=== PATIENT | male | born 1940 | race Caucasian/White ===

== ENCOUNTER 2018-11-13 07:29 | Inpatient (IN) | payer MEDICARE, MEDICAID ==
[2018-11-13 07:53] LABS: #Eosinphils 0.1 thou/uL (0.0-0.7); #Lymphocytes 1.1 thou/uL (1.20-3.40); #Monocytes 0.7 thou/uL (0.11-0.59); #Neutrophils 8.6 thou/uL (1.40-6.50); %Basophils 0.1 % (0.0-1.0); %Eosinophils 1.4 % (0.0-10.0); %Lymphocytes 10.4 % (21.0-51.0); %Monocytes 6.4 % (0.0-10.0); %Neutrophils 81.7 % (42.0-75.0); Hemoglobin 12.8 g/dL (14.0-18.0); Mean Corpuscular HGB CONC 32.8 g/dL (32.0-36.0); Mean Corpuscular Hemoglobin 31.4 pg (27.0-31.0); Mean Corpuscular Volume 95.7 fL (78.0-98.0); Mean Platelet Volume 7.9 fL (7.4-10.4); Platelet Count 210 thou/uL (130-400); RBC Distribution Width 13.8 % (11.5-14.5); Red Blood Cell (RBC) Count 4.09 mill/uL (4.70-6.10); White Blood Cell (WBC) Count 10.5 thou/uL (4.8-10.8)
[2018-11-13 08:00] LABS: PTT 47.1 SEC (22.9-36.1); Prothrombin Time 22.2 SEC (12.0-14.7)
[2018-11-13 08:17] LABS: ALT (SGPT) 22 U/L (8-55); AST (SGOT) 27 U/L (5-34); Albumin 3.1 g/dL (3.4-4.8); Alkaline Phosphatase 58 U/L (40-150); Anion Gap 14 mmol/L (10-20); BUN (Urea Nitrogen) 38 mg/dL (8.4-25.7); Bilirubin, Total 0.5 mg/dL (0.2-1.2); Calc. Creatinine Clearance 0 mL/min (70-130); Calcium 9.1 mg/dL (7.8-10.44); Carbon Dioxide 18 mmol/L (23-31); Chloride 116 mmol/L (98-107); Estimated GFR-MDRD 39; Globulin 3.3 g/dL (2.4-3.5); Glucose 95 mg/dL (83-110); Potassium 4.7 mmol/L (3.5-5.1); Protein, Total 6.4 g/dL (5.8-8.1); Sodium 143 mmol/L (136-145)
--- NOTE | 2018-11-13 08:19 | CT ---
EXAM: CT angiogram of the head including 3-D rendering: HISTORY: Prior CVA, A. fib, cannot talk or follow commands, wake up stroke COMPARISON: None FINDINGS: Severe atrophy and chronic white matter ischemic change. Large old right posterior temporal and parietal infarct. There is adequate opacification of the intracranial arteries. Visualized vertebral and basilar arteries: Very small caliber left vertebral artery with some atheros clerotic calcific plaque of the right vertebral artery. Right and left intracranial internal carotid arteries: Extensive calcified plaque with at least mild- to-moderate generalized stenotic changes using [place] Criteria. Right and left Anterior and posterior cerebral arteries: Unremarkable. Right and left middle cerebral arteries: Unremarkable. No evidence for an M1 segment occlusion. No evidence for intracranial aneurysm. IMPRESSION: No evidence for an M1 segment occlusion. Other findings as above. EXAM: CT angiogram of the neck including 3-D rendering: HISTORY: Wake up stroke, cannot talk, not following commands COMPARISON: None FINDINGS: There is adequate opacification of the extracranial arterial tree. The origins of the right and left carotid and vertebral arteries demonstrate no significant stenosis. The origin of the left vertebral artery is off the aortic arch. Dominant right vertebral and smaller caliber left vertebral artery throughout. Right common, internal, and external carotid arteries:No hemodynamically significant stenotic disease or occlusion, several calcified plaques.. Left common, internal, and external carotid arteries:Calcified plaques without significant stenosis. Right and left vertebral arteries and basilar artery:No significant stenosis or occlusion. 2.1 cm diameter right thyroid nodule. IMPRESSION: No significant carotid, vertebral, or basilar artery stenosis or occlusive disease or other significa nt acute process. Atherosclerotic calcific plaque. Findings discussed with Dr. Ford in the emergency room at 8:14 AM CODE CR
--- NOTE | 2018-11-13 08:40 | CT ---
BRAIN CT WITHOUT IV CONTRAST: Date: 11/13/18 HISTORY: History of CVA. Atrial fibrillation. Wake up stroke. FINDINGS: Large, poorly defined, low attenuation focus in the right posterior temporal and parietal lobes, evid ence for large old infarct. Severe atrophy and chronic white matter ischemic change noted bilaterally . No mass or bleed. IMPRESSION: Large old right posterior temporal and parietal infarct. Very severe atrophy and chronic white matter ischemic change. No mass or bleed. Findings discussed with Dr. Ford in the ER at 0748 hours. CODE CR. POS: [facility]
--- NOTE | 2018-11-13 09:34 | RAD ---
Exam: Chest one view: HISTORY: Altered mental status, CVA, atrial fibrillation COMPARISON: None FINDINGS: Increased bronchovascular markings bilaterally particularly in the infrahilar and lower lobe regions, nonspecific. Possibilities include that of chronic change versus bilateral partial atelectasis or minimal pneumonitis. No confluent pneumonia or significant pleural effusion. IMPRESSION: Increased markings in the lower lung zones, nonspecific. Atherosclerosis of the aorta.
[2018-11-13] MEDS ORDERED: Aspirin 300 MG Suppository ONE (09:59)
[2018-11-13 10:41] LABS: Bilirubin Negative (Negative); Blood, Urine Trace (Negative); Clarity Clear (Clear); Glucose, Urine (Dipstick) Normal (Negative); Leukocyte Negative Leu/uL (Negative); Nitrite Negative (Negative); Protein, Urine (Dipstick) Negative (Neg-Trace); Squamous Epithelial 0-3 HPF (0-3); WBC/HPF 0-3 HPF (0-3)
[2018-11-13 10:43] LABS: Bacteria/HPF 1+ HPF (None Seen)
[2018-11-13] MEDS ORDERED: Acetaminophen 325 MG Suppository ONE (10:47)
[2018-11-13] MEDS ORDERED: Acetaminophen 650 MG Suppository ONE (10:47)
--- NOTE | 2018-11-13 11:56 | HP ---
PRIMARY CARE PHYSICIAN: [facility] admission. REASON FOR ADMISSION: Transferred from [facility] for altered mental status. HISTORY OF PRESENT ILLNESS: This is a 78-year-old male, who is currently not able to provide any history. He is nonverbal. He is confused. His is present, who provided some history. The patient had previously two strokes. The patient required initially rehabilitation and he only improved to walk with a walker. Subsequently, rehabilitation was discontinued, and the patient was kept in a retirement in [facility]. Over there, the patient was not able to get any physical therapy and that is why the patient is now wheelchair bound. As per the patient's , he was on regular heart healthy type of diet. The patient's also changed retirement, [employer] to a different new retirement in [facility]. Subsequently, the patient required recently admission at [facility]. The patient's was upset that she was not knowing that the patient's heart rate was irregular and fast, that was diagnosed when they made an appointment with Cardiology. Cardiology send him to [facility], where he was found with atrial fibrillation with RVR and required cardioversion, and subsequently, he was discharged to [facility]. The patient was on amiodarone, Eliquis, and metoprolol. He has underlying hypothyroidism and benign enlargement of prostate. Last night, the patient was seen normal up to his baseline level. He was conversing with the nurses over there at retirement last night, but this morning he was not able to communicate at all. He was not following any command and that is why he was sent to the ER. In the emergency room, the patient had a CT of brain, which showed large old right posterior temporal and parietal infarct with severe atrophy and chronic white matter ischemic changes. CT angiography was also unremarkable. The patient was not in any window period of tPA, and he was not a candidate for tPA. He was completely incoherent and that is why we are admitting this patient in the hospital. PAST MEDICAL HISTORY: Paroxysmal atrial fibrillation, recurrent CVA, vascular dementia, chronic kidney disease, hypothyroidism, dyslipidemia, hypertension, and benign enlargement of prostate. PAST SURGICAL HISTORY: Unable to review at this point. The patient is not able to provide any history. SOCIAL HISTORY: The patient is from retirement for last 5 years. He is bed bound. No history of alcohol, tobacco, or other illicit drug abuse. He is . His is present. ALLERGIES: NO KNOWN DRUG ALLERGIES. MEDICATIONS: Current home medications: 1. Amiodarone 200 mg daily. 2. Eliquis 5 mg twice daily. 3. Tessalon 100 mg q.4 hourly p.r.n. 4. Levothyroxine 50 mcg daily. 5. Metoprolol tartrate 100 mg twice daily. 6. Flomax 0.4 mg p.o. daily. REVIEW OF SYSTEMS: All review of systems tried to review with the patient, but unable to review at this point because of encephalopathy. PAST PSYCHIATRIC HISTORY: Reviewed and negative. FAMILY HISTORY: No strong family history of premature coronary artery disease, stroke, or cancer as per the patient's . EMERGENCY ROOM COURSE: The patient received aspirin rectally, IV fluid, and Tylenol 1 g. Additional information; while in the emergency room, the patient developed fever 101.8. Panculture was obtained and started on antibiotic therapy. PHYSICAL EXAMINATION: VITAL SIGNS: Currently, temperature 101.8, pulse 68, respiratory rate 20, blood pressure 133/77, and saturation 93% on room air. Weight 77.1 kg. GENERAL: The patient is completely disoriented. HEENT: Head, normocephalic and atraumatic. Eyes; pupils unequal in size, reactive to light. Left pupil is little bit pinpoint and left gaze deviation. ENT, oropharynx within normal limit. Moist mucous membranes. NECK: Supple. No meningeal signs of irritation. No JVD. LUNGS: Coarse breath sound in upper airways. No accessory muscles of respiration in use. CARDIAC: S1 and S2 regular. No murmur. No gallop. No rub. ABDOMEN: Soft. Bowel sounds present. Nontender. Nondistended. No organomegaly. No mass. No suprapubic tenderness. BACK: Unremarkable. No CVA tenderness. EXTREMITIES: Upper extremity, passive movement of all joints are normal, though contracture noted on the left side. Lower extremity, passive movement of all normal. No edema. Good distal pulsation with contracture on the left side. NEUROLOGIC: Unable to assess at this point. The patient is nonverbal. He has contracture on left side. He does not follow any commands. SKIN: No skin rash. HEMATOLOGIC SYSTEM: No lymphadenopathy. PSYCHIATRIC: Unable to assess. LABORATORY DATA: Significant labs; EKG showing normal sinus rhythm, left axis deviation. CBC; WBC 10.5, hemoglobin 12.8, and platelets 210. INR 2.0. BMP; sodium 143, potassium 4.7, chloride 116, carbon dioxide 18, anion gap 14, BUN 38, creatinine 1.71, glucose 95, calcium 9.1. LFT; AST 27, ALT 22, alkaline phosphatase 58, and albumin 3.1. Urinalysis unremarkable. ASSESSMENT AND PLAN: 1. Acute encephalopathy, multifactorial etiology. Rule out underlying sepsis given fever in the emergency room. The patient also has previous history of cerebrovascular accident and cerebrovascular accident needs to be ruled out. The patient may be little bit dehydrated and that is why he will need IV fluid. We will monitor while in hospital. 2. History of recurrent cerebrovascular accident, and at this time, we are also trying to rule out cerebrovascular accident. I am suspecting that current presentation is more towards infection etiology. Currently, CT of brain is just showing old stroke without any acute process. We will consult Neurology for their opinion. We will do MRI brain and echocardiography. 3. Fever, etiology uncertain. We will do blood culture and urine culture. Whereas, I am suspecting little bit aspiration and that is why I will start with Zosyn 3.375 g q.8 hourly. We will follow up on culture result. 4. Paroxysmal atrial fibrillation, currently in sinus rhythm, required cardioversion recently. He is on amiodarone and Eliquis as well as metoprolol, which we will continue while in hospital. 5. Oropharyngeal dysphagia. The patient will need speech therapy evaluation to decide about diet. 6. Benign enlargement of prostate. Continue Flomax 0.4 mg daily. 7. Hypothyroidism. Continue levothyroxine 50 mcg p.o. daily. 8. Chronic physical deconditioning. The patient is bed bound. The patient's is looking for another retirement because she is unhappy with the current retirement. senior risk manager will be consulted. 9. Acute/chronic kidney injury. We will give him IV fluid and we will repeat BMP tomorrow. 10. Deep venous thrombosis prophylaxis. The patient is already on Eliquis therapy. 11. Gastrointestinal prophylaxis. We will continue Pepcid 20 mg IV b.i.d. 12. Code status; I spoke with the patient's . The patient's wants him to be a full code and she is the surrogate decision maker. We will consult Palliative Care. 13. Vascular dementia. The patient has severe atrophy and chronic ischemic white matter changes as well as multiple stroke. His quality of life is very poor. We will consult Palliative Care for further discussion regarding goal of care. DISPOSITION PLAN: Based on clinical course, we are expecting the patient's stay in hospital more than 2 midnights. Plan of care discussed with the patient's at the bedside in the emergency room. Job ID: [id number]
[2018-11-13] MEDS ORDERED: Piperacillin/Tazobactam 3.375 GM VIAL ONE (12:54)
[2018-11-13] MEDS ORDERED: ISOVUE-370 76%-LOCM 1 ML ONE (12:55)
[2018-11-13] MEDS ORDERED: Ondansetron PF 4 MG/2 ML Vial IVP PRN (14:37)
[2018-11-13] MEDS ORDERED: Acetaminophen 325 MG TAB PO PRN ×2 (14:37→15:06)
[2018-11-13] MEDS ORDERED: Ondansetron ODT 4 MG TAB SL PRN (14:37)
[2018-11-13] MEDS ORDERED: Guaifenesin DM 100-10/5 ML UDCUP PO PRN (15:06)
[2018-11-13] MEDS ORDERED: Metoclopramide HCl 10 MG/2 ML VIAL IVP PRN (15:06)
[2018-11-13] MEDS ORDERED: Acetaminophen 650 MG Suppository PR PRN (15:06)
[2018-11-13] MEDS ORDERED: Bisacodyl 10 MG SUPP PR PRN (15:06)
[2018-11-13] MEDS ORDERED: Sodium Chloride 0.65% Nasal 44 ML BOT EA NARE PRN (15:06)
[2018-11-13] MEDS ORDERED: Labetalol HCl 100 MG/20 ML VIAL SLOW IVP PRN (15:06)
[2018-11-13] MEDS ORDERED: Cepastat Lozenges 1 LOZ PO PRN (15:06)
[2018-11-13] MEDS ORDERED: Loperamide HCl 2 MG CAP PO PRN (15:06)
[2018-11-13] MEDS ORDERED: Senokot S 8.6-50 MG TAB PO PRN (15:06)
[2018-11-13] MEDS ORDERED: hydrALAZINE 20 MG/ML VIAL SLOW IVP PRN (15:06)
[2018-11-13] MEDS ORDERED: Artificial Tears 18 DROP/0.9 ML EA EYE PRN (15:06)
[2018-11-13 15:15] VITALS: BMI 25.0
[2018-11-13] MEDS: Sodium Chloride 0.9% 1,000 ML IV SCH (16:25)
[2018-11-13] MEDS: Piperacillin/Tazobactam 2.25 GM in Sodium Chloride 0.9% 100 ML IVPB SCH (18:33)
[2018-11-13] MEDS: Metoprolol Tartrate 100 MG TAB PO SCH (20:24)
[2018-11-13] MEDS: Atorvastatin Calcium 40 MG TAB PO SCH (20:24)
[2018-11-13] MEDS: Apixaban 5 MG TAB PO SCH (20:24)
[2018-11-13] MEDS: Mirtazapine 15 MG TAB PO SCH (20:24)
[2018-11-14] MEDS: Piperacillin/Tazobactam 2.25 GM in Sodium Chloride 0.9% 100 ML IVPB SCH ×4 (00:52→18:13)
[2018-11-14 05:13] LABS: ALT (SGPT) 19 U/L (8-55); AST (SGOT) 16 U/L (5-34); Albumin 2.9 g/dL (3.4-4.8); Alkaline Phosphatase 52 U/L (40-150); Anion Gap 14 mmol/L (10-20); BUN (Urea Nitrogen) 34 mg/dL (8.4-25.7); Bilirubin, Total 0.6 mg/dL (0.2-1.2); Calc. Creatinine Clearance 38 mL/min (70-130); Calcium 8.6 mg/dL (7.8-10.44); Carbon Dioxide 17 mmol/L (23-31); Cardiac Risk 5.5 (Less than 4.5); Chloride 117 mmol/L (98-107); Cholesterol 122 mg/dl (< 200 Desired); Estimated GFR-MDRD 38; Globulin 2.8 g/dL (2.4-3.5); Glucose 73 mg/dL (83-110); HDL Cholesterol 22 mg/dL (>60 Neg Risk); LDL Cholesterol, Calculated 76 mg/dL; Potassium 4.3 mmol/L (3.5-5.1); Protein, Total 5.7 g/dL (5.8-8.1); Sodium 144 mmol/L (136-145); Triglycerides 119 mg/dL (Less than 150)
[2018-11-14 05:42] LABS: #Eosinphils 0.2 thou/uL (0.0-0.7); #Lymphocytes 1.8 thou/uL (1.20-3.40); #Monocytes 0.7 thou/uL (0.11-0.59); #Neutrophils 7.6 thou/uL (1.40-6.50); %Eosinophils 2.3 % (0.0-10.0); %Lymphocytes 17.1 % (21.0-51.0); %Monocytes 6.8 % (0.0-10.0); %Neutrophils 73.8 % (42.0-75.0); Hemoglobin 11.9 g/dL (14.0-18.0); Mean Corpuscular HGB CONC 33.9 g/dL (32.0-36.0); Mean Corpuscular Hemoglobin 32.3 pg (27.0-31.0); Mean Corpuscular Volume 95.3 fL (78.0-98.0); Mean Platelet Volume 7.9 fL (7.4-10.4); Platelet Count 192 thou/uL (130-400); Platelet Morphology Comment Appears Adequate; RBC Distribution Width 13.9 % (11.5-14.5); Red Blood Cell (RBC) Count 3.67 mill/uL (4.70-6.10); White Blood Cell (WBC) Count 10.3 thou/uL (4.8-10.8)
[2018-11-14] MEDS: Levothyroxine Sodium 50 MCG TAB PO SCH (06:09)
[2018-11-14] MEDS: Sodium Chloride 0.9% 1,000 ML IV SCH ×2 (06:09→13:20)
[2018-11-14] MEDS: Amiodarone 200 MG TAB PO SCH (08:17)
[2018-11-14] MEDS: Apixaban 5 MG TAB PO SCH (08:17)
[2018-11-14] MEDS: Famotidine 20 MG TAB PO SCH (08:18)
[2018-11-14] MEDS: Saccharomyces boulardii 250 MG CAP PO SCH (08:18)
[2018-11-14] MEDS: Multivit, Therapeutic 1 TAB PO SCH (08:18)
[2018-11-14] MEDS: Metoprolol Tartrate 100 MG TAB PO SCH ×2 (08:18→20:31)
[2018-11-14] MEDS: Tamsulosin HCl 0.4 MG CAP PO SCH (08:18)
[2018-11-14] MEDS: Famotidine/PF 20 mg/2ml Vial SLOW IVP SCH (08:19)
[2018-11-14] MEDS ORDERED: Prevnar 13-Val Conj/PF 0.5 ML SYRINGE IM ONE (09:00)
[2018-11-14] MEDS ORDERED: Aspirin 300 MG Suppository PR SCH (09:00)
--- NOTE | 2018-11-14 09:44 | PDOC.HOSPP ---
- Subjective Encounter Date: 11/14/18 Encounter Time: 07:00 non-verbal Subjective: Patient seen and examined. No overnight events, pt is overall remained same, I have updated to - Objective Vital Signs & Weight: Vital Signs (12 hours) Temp Pulse Resp BP Pulse Ox 11/14/18 07:34 99.4 F 64 20 121/67 97 11/14/18 04:00 98.9 F 71 19 154/89 H 94 L 11/13/18 23:41 98.4 F 70 18 136/104 H 92 L Weight Weight 174 lb 2 oz I&O: 11/13/18 11/14/18 11/15/18 06:59 06:59 06:59 Intake Total 1000 Balance 1000 Result Diagrams: 11/14/18 04:36 11/14/18 04:36 EKG Reviewed by me: Yes (nsr) Hospitalist ROS - Review of Systems ROS unobtainable: due to mental status - Medication Medications: Active Medications Generic Name Dose Route Start Last Admin Trade Name Freq PRN Reason Stop Dose Admin Amiodarone HCl 200 mg 11/14/18 09:00 11/14/18 08:17 Cordarone PO Not Given DAILY HERIBERTO Apixaban 5 mg 11/13/18 21:00 11/14/18 08:17 Eliquis PO Not Given BID HERIBERTO Aspirin 300 mg 11/14/18 09:00 11/14/18 08:19 Aspirin MA 300 mg DAILY HERIBERTO Administration Atorvastatin Calcium 40 mg 11/13/18 21:00 11/13/18 20:24 Lipitor PO Not Given HS HERIBERTO Famotidine 20 mg 11/14/18 09:00 11/14/18 08:19 Pepcid SLOW IVP 20 mg DAILY HERIBERTO Administration Famotidine 20 mg 11/14/18 09:00 11/14/18 08:18 Pepcid PO Not Given DAILY HERIBERTO Piperacillin Sod/Tazobactam 100 mls @ 200 mls/hr 11/13/18 19:00 11/14/18 06: 06 Sod 2.25 gm/ Sodium Chloride IVPB 100 mls 0100,0700,1300,1900 HERIBERTO Administration Sodium Chloride 1,000 mls @ 100 mls/hr 11/13/18 15:06 11/14/18 06:09 Normal Saline 0.9% IV 1,000 mls .Q10H HERIBERTO Administration Levothyroxine Sodium 50 mcg 11/14/18 06:00 11/14/18 06:09 Synthroid PO Not Given 0600 [facility] Metoprolol Tartrate 100 mg 11/13/18 21:00 11/14/18 08:18 Lopressor PO Not Given BID [facility] Mirtazapine 7.5 mg 11/13/18 21:00 11/13/18 20:24 Remeron PO Not Given HS [facility] Multivitamins 1 tab 11/14/18 09:00 11/14/18 08:18 Theragran PO Not Given DAILY [facility] Saccharomyces Boulardii 250 mg 11/14/18 09:00 11/14/18 08:18 Florastor PO Not Given DAILY [facility] Tamsulosin HCl 0.4 mg 11/14/18 09:00 11/14/18 08:18 Flomax PO Not Given DAILY HERIBERTO - Exam General Appearance: NAD, ill appearing Eye: PERRL, anicteric sclera ENT: normocephalic atraumatic, no oropharyngeal lesions ENT - other findings: gurguling sound Neck: supple, symmetric, no JVD, no thyromegaly Heart: RRR, no murmur, no gallops, no rubs Respiratory: no wheezes, no ronchi Respiratory - other findings: coarse sound+ Gastrointestinal: soft, non-tender, non-distended, normal bowel sounds Extremities: no cyanosis, no clubbing, no edema Skin: normal turgor, no lesions Neurological - other findings: unable to assess, due to encephalopathy Musculoskeletal - other findings: contracture from old stroke Psychiatric: not oriented Hosp A/P (1) Encephalopathy acute Code(s): G93.40 - ENCEPHALOPATHY, UNSPECIFIED Status: Acute Plan: multifactorial, rule out CVA, possible infection, (2) Fever Code(s): R50.9 - FEVER, UNSPECIFIED Status: Acute Plan: suspecting from aspiration pneumonitis (3) Anemia, normocytic normochromic Code(s): D64.9 - ANEMIA, UNSPECIFIED Status: Chronic (4) CKD (chronic kidney disease) stage 3, GFR 30-59 ml/min Code(s): N18.3 - CHRONIC KIDNEY DISEASE, STAGE 3 (MODERATE) Status: Chronic (5) Chronic anticoagulation Code(s): Z79.01 - COPY PREPARER (CURRENT) USE OF ANTICOAGULANTS Status: Chronic (6) Dementia Code(s): F03.90 - UNSPECIFIED DEMENTIA WITHOUT BEHAVIORAL DISTURBANCE Status: Chronic (7) Hemiparesis and other late effects of cerebrovascular accident Code(s): I69.359 - HEMIPLGA FOLLOWING CEREBRAL INFARCTION AFFECTING UNSP SIDE; I69.398 - OTHER SEQUELAE OF CEREBRAL INFARCTION Status: Chronic (8) PAF (paroxysmal atrial fibrillation) Code(s): I48.0 - PAROXYSMAL ATRIAL FIBRILLATION Status: Chronic (9) Physical deconditioning Code(s): R53.81 - OTHER MALAISE Status: Chronic - Plan old records reviewed/req, plan discussed w/ family, continue antibiotics, PT/OT , professor of social work, speech therapy, DVT proph w/SCDs Consults: Palliative Care spoke with and updated plan today MRI and echo as a part of work up to rule out CVA speech evaluation to decide diet if pass swallow evaluation continue empiric zosyn follow culture will need another [facility] placement as per medication reviewed as above symptomatic treatment
--- NOTE | 2018-11-14 11:23 | MRI ---
Brain MRI without contrast 11/14/2018 HISTORY: Wake up stroke, CVA, atrial fibrillation, TECHNIQUE: Multiplanar multisequence MR imaging of the brain obtained without contrast FINDINGS: There is a large area of restricted diffusion within the left MCA territory consistent with a left MCA infarction. This involves the insula on the left as well as a large portion of the left frontal lobe posteriorly, the left temporal lobe, in the left parietal lobe. There is cytotoxic edema in this region on the T2 imaging. This T2 imaging is markedly limited secondary to persistent patient motion artifact. Regional bone marrow signal intensity appears grossly unremarkable. There is cerebral volume loss with associated prominence of the CSF containing spaces. The gradient echo imaging demonstrates a few foci of blooming artifact scattered throughout the above -described left MCA infarction suggesting a degree of hemorrhagic conversion. This is seen just lateral to the posterior aspect of the left putamen, in the temporal region on image 7, and in the po sterior frontal region on image 18. There is diffuse cerebral volume loss with associated prominence of the CSF containing spaces. Periventricular, deep, and subcortical white matter T2 and F LAIR hyperintensity noted, evidence of significant small vessel disease. IMPRESSION: Large acute left MCA infarction with foci of internal blooming artifact suggesting associ ated hemorrhagic conversion. No significant mass effect seen at this time. Short-term follow-up CT advised.
--- NOTE | 2018-11-14 15:42 | CON ---
DATE OF TELEMEDICINE CONSULTATION: 11/14/2018, GRAY PEREZ CHIEF COMPLAINT: Acute deterioration of mental status. HISTORY OF PRESENT ILLNESS: The patient is unable to give any medical history. He is unresponsive, and per chart, the patient is nonverbal, confused, and apparently, that was not his baseline. He had 2 strokes in the past and required rehab and improved up to a level where he is walking with a walker and he is in a penitentiary and he is mostly wheelchair bound. He was last normal up to his baseline the day before this admission and suddenly became unresponsive and uncommunicative. He was brought to the ER. He has large old right posterior temporoparietal infarct with severe atrophy and chronic white matter changes. CTA was negative and he was not in a window for tPA and therefore no tPA was given. The patient was admitted being incoherent and unable to communicate. PAST MEDICAL HISTORY: 1. Atrial fibrillation. 2. Recurrent CVA. 3. Vascular dementia. 4. Chronic kidney disease. 5. Hypothyroidism. 6. Dyslipidemia. 7. Hypertension. 8. Benign prostatic hypertrophy. PAST SURGICAL HISTORY: As noted from the chart. There was no surgical history available. SOCIAL HISTORY: He lives at a penitentiary and he is bed bound or wheelchair bound. ALLERGIES: NO KNOWN DRUG ALLERGIES. MEDICATIONS: At home; 1. Amiodarone. 2. Eliquis. 3. Tessalon. 4. Levothyroxine. 5. Metoprolol. 6. Flomax. REVIEW OF SYSTEMS: Unobtainable. LABORATORY AND DIAGNOSTIC DATA: Current lab workup; white count 10.3, hemoglobin 11.9, hematocrit 35, platelets 192. PT 22.2, PTT 47.1, INR 2.0. Chemistry; sodium 144, potassium 4.3, chloride 117, BUN 34, creatinine 1.74, glucose 73. AST, ALT , and alkaline phosphatase within normal limits. Cholesterol lipid profile was also within normal limits. His MRI of the brain was completed today and it showed a large left MCA infarct with internal blooming artifact suggesting associated hemorrhagic conversion. No size of the hemorrhage was given at this time. His CT angiogram of the [place] was performed yesterday, also did not reveal any occlusive disease on the right side. PHYSICAL EXAMINATION: VITAL SIGNS: Temperature 99.4, pulse 64, respiratory rate 20, O2 sats 97%, blood pressure 121/67. GENERAL APPEARANCE: The patient is very lethargic, lying down in bed. He is not doing much at all. He does not move spontaneously even. CHEST: Clear vesicular breathing. CARDIOVASCULAR: S1 and S2 heard. No murmurs. NEUROLOGICAL: He is not following any commands and does not respond. Pupils 2 mm. He has gaze deviation to the left. Left facial asymmetry. Tongue, unable to assess. Unable to assess hearing or sensation. Motor exam; he has flaccid right upper and lower extremity weakness. Does try to move a little on the left side spontaneously, but no movement to command. Cerebellar sensory, unable to examine. IMPRESSION: The patient is a 78-year-old man with a devastating left middle cerebral artery cerebrovascular accident at this time with gaze deviation to the left and dense right hemiparesis. Already, his quality of life is very poor with pre-existing strokes and he is mostly wheelchair bound or bed bound. At this time, no intervention is offered due to the timeframe of this event and he is unlikely to recover from the stroke. 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 RECOMMENDATIONS: CT of the head in a.m. to evaluate the size of the hemorrhage. Please hold anticoagulation and anti-platelet agents for now. Follow acute stroke non-tPA protocol for his stroke and then maintain the blood pressures less than 180 systolic and per protocol, keep blood pressure around 180/105. Call if you have any further questions. Please call Dr. Lin to re-evaluate in a.m. if you have questions. Job ID: [id number] MTDD
[2018-11-14] MEDS ORDERED: Furosemide 20 MG/2 ML VIAL SLOW IVP SCH (18:45)
--- NOTE | 2018-11-14 19:54 | RAD ---
PORTABLE CHEST ONE VIEW: Date: 11-14-18 Time: 6:43 p.m. History: Bruising of the lower lung bases. FINDINGS/IMPRESSION: Comparison is made with exam of 11-13-18. The heart size is borderline. The aorta is tortuous. There is prominence of the pulmonary vascularity with bibasilar infiltrates, right greater than left. Small pleural effusions may be present. No pneu mothoraces are identified. POS: [facility]
[2018-11-14] MEDS: Atorvastatin Calcium 40 MG TAB PO SCH (20:31)
[2018-11-14] MEDS: Mirtazapine 15 MG TAB PO SCH (20:31)
[2018-11-15] MEDS: Piperacillin/Tazobactam 2.25 GM in Sodium Chloride 0.9% 100 ML IVPB SCH ×4 (02:31→18:54)
[2018-11-15 05:31] LABS: Anion Gap 18 mmol/L (10-20); BUN (Urea Nitrogen) 31 mg/dL (8.4-25.7); Calc. Creatinine Clearance 41 mL/min (70-130); Carbon Dioxide 15 mmol/L (23-31); Chloride 115 mmol/L (98-107); Estimated GFR-MDRD 41; Glucose 65 mg/dL (83-110); Potassium 3.6 mmol/L (3.5-5.1); Sodium 144 mmol/L (136-145)
[2018-11-15] MEDS: Levothyroxine Sodium 50 MCG TAB PO SCH (06:26)
[2018-11-15] MEDS: Amiodarone 200 MG TAB PO SCH (09:03)
[2018-11-15] MEDS: Metoprolol Tartrate 100 MG TAB PO SCH (09:03)
[2018-11-15] MEDS: Famotidine/PF 20 mg/2ml Vial SLOW IVP SCH (09:03)
[2018-11-15] MEDS: Famotidine 20 MG TAB PO SCH (09:03)
[2018-11-15] MEDS: Tamsulosin HCl 0.4 MG CAP PO SCH (09:04)
[2018-11-15] MEDS: Saccharomyces boulardii 250 MG CAP PO SCH (09:04)
[2018-11-15] MEDS: Multivit, Therapeutic 1 TAB PO SCH (09:04)
[2018-11-15] MEDS ORDERED: Sodium Bicarbonate 150 MEQ in Dextrose 5% in Water 1,000 ML IV SCH (09:15)
--- NOTE | 2018-11-15 10:13 | CT ---
Exam: Brain CT without IV contrast: HISTORY: CVA with hemorrhagic conversion COMPARISON: Brain MRI 11/14/2018, brain CT, 11/13/2018 FINDINGS: Developing left posterior temporal frontal and parietal infarct with some patchy hemorrhagic changes. No evidence for significant midline shift. Stable old right-sided infarct changes and extensive chronic white matter ischemic changes noted on the right side. IMPRESSION: Developing left posterior temporal, frontal, and parietal infarct with hemorrhagic conversion with pa tchy foci of hemorrhage within the infarct. Extensive right-sided chronic white matter ischemic changes and old infarct changes.
--- NOTE | 2018-11-15 11:42 | PDOC.HOSPP ---
- Subjective Encounter Date: 11/15/18 Encounter Time: 11:38 Subjective: 78 y/o male with prior CVA's associated with chronic debility currently residing in a half-way, atrial fibrillation on chronic anticoagulation admitted due to acute mental status. Found to have large cerebral infarct on CT. MRI showed large infarction with hemorhhagic transformation necessitation discontinuation of ASA ans anticoagulation. Still non verbal and not obeying commands. Had Fever on presentation and was started on antibiotics. - Objective Vital Signs & Weight: Vital Signs (12 hours) Temp Pulse Resp BP Pulse Ox 11/15/18 07:32 98.1 F 66 20 139/78 93 L 11/15/18 04:00 97.9 F 61 16 151/97 H 97 11/15/18 00:00 98.9 F 84 16 138/76 94 L Weight Weight 174 lb 2 oz I&O: 11/14/18 11/15/18 11/16/18 06:59 06:59 06:59 Intake Total 1000 180 Balance 1000 180 Result Diagrams: 11/14/18 04:36 11/15/18 04:39 Hospitalist ROS - Medication Medications: Active Medications Generic Name Dose Route Start Last Admin Trade Name Freq PRN Reason Stop Dose Admin Amiodarone HCl 200 mg 11/14/18 09:00 11/15/18 09:03 Cordarone PO Not Given DAILY HERIBERTO Atorvastatin Calcium 40 mg 11/13/18 21:00 11/14/18 20:31 Lipitor PO Not Given HS HERIBERTO Famotidine 20 mg 11/14/18 09:00 11/15/18 09:03 Pepcid SLOW IVP 20 mg DAILY HERIBERTO Administration Famotidine 20 mg 11/14/18 09:00 11/15/18 09:03 Pepcid PO Not Given DAILY HERIBERTO Piperacillin Sod/Tazobactam 100 mls @ 200 mls/hr 11/13/18 19:00 11/15/18 06: 26 Sod 2.25 gm/ Sodium Chloride IVPB 100 mls 0100,0700,1300,1900 HERIBERTO Administration Sodium Bicarbonate 150 meq/ 1,150 mls @ 50 mls/hr 11/15/18 09:15 11/15/18 10: 14 Dextrose/Water IV 11/15/18 13:00 1,150 mls NOW HERIBERTO Administration Levothyroxine Sodium 50 mcg 11/14/18 06:00 11/15/18 06:26 Synthroid PO Not Given 0600 [facility] Mirtazapine 7.5 mg 11/13/18 21:00 11/14/18 20:31 Remeron PO Not Given HS [facility] Multivitamins 1 tab 11/14/18 09:00 11/15/18 09:04 Theragran PO Not Given DAILY [facility] Saccharomyces Boulardii 250 mg 11/14/18 09:00 11/15/18 09:04 Florastor PO Not Given DAILY [facility] Tamsulosin HCl 0.4 mg 11/14/18 09:00 11/15/18 09:04 Flomax PO Not Given DAILY HERIBERTO - Exam General Appearance: awake alert Eye: anicteric sclera ENT: normocephalic atraumatic Respiratory: no wheezes, no ronchi, no tachypnea Respiratory - other findings: fair air entry with some transmitted sound especially right base posteriorl Gastrointestinal: soft, non-tender, non-distended, normal bowel sounds Extremities: no edema Extremeties - other findings: fixed extension deformity of left hand Neurological: speech deficit (Non verbal. seem to comprehend some statements) Neurological - other findings: Moving both lower limbs and left upper limb to stimulation Hosp A/P (1) Acute ischemic cerebrovascular accident (CVA) involving left middle cerebral artery territory Code(s): I63.512 - CEREB INFRC D/T UNSP OCCLS OR STENOS OF LEFT MID CEREB ART Status: Acute (2) Aphasia due to acute cerebrovascular accident (CVA) Code(s): I63.9 - CEREBRAL INFARCTION, UNSPECIFIED; R47.01 - APHASIA Status: Acute (3) Fever Code(s): R50.9 - FEVER, UNSPECIFIED Status: Acute (4) Chronic anticoagulation Code(s): Z79.01 - MOBILE APPLICATION DEVELOPMENT LEAD (CURRENT) USE OF ANTICOAGULANTS Status: Chronic (5) Dementia Code(s): F03.90 - UNSPECIFIED DEMENTIA WITHOUT BEHAVIORAL DISTURBANCE Status: Chronic (6) PAF (paroxysmal atrial fibrillation) Code(s): I48.0 - PAROXYSMAL ATRIAL FIBRILLATION Status: Chronic (7) Physical deconditioning Code(s): R53.81 - OTHER MALAISE Status: Chronic (8) Aspiration pneumonia Code(s): J69.0 - PNEUMONITIS DUE TO INHALATION OF FOOD AND VOMIT Status: Acute (9) Moderate mitral regurgitation Code(s): I34.0 - NONRHEUMATIC MITRAL (VALVE) INSUFFICIENCY Status: Acute (10) Dysphagia Code(s): R13.10 - DYSPHAGIA, UNSPECIFIED Status: Acute (11) Hypothyroidism Code(s): E03.9 - HYPOTHYROIDISM, UNSPECIFIED Status: Acute (12) HTN (hypertension) Code(s): I10 - ESSENTIAL (PRIMARY) HYPERTENSION Status: Acute (13) CKD (chronic kidney disease) stage 3, GFR 30-59 ml/min Code(s): N18.3 - CHRONIC KIDNEY DISEASE, STAGE 3 (MODERATE) Status: Chronic (14) Metabolic acidosis Code(s): E87.2 - ACIDOSIS Status: Acute - Plan Start sodium bicarbonate infusion given metabolic acidosis Start dextrose containing infusion given low blood sugar Consult Neurosurgery given hemmorhargic conversion of acute infarct Continue to hold ASA and anticoagulation. NPO. for now, SCD. Discussed care plan with spouse at the bed side. DC antihypertensives to allow BP to trend up given acute CVA.
[2018-11-15] MEDS ORDERED: Potassium Chloride 40 MEQ in Sodium Chloride 0.9% 500 ML IVPB SCH (16:00)
[2018-11-15] MEDS ORDERED: Potassium Chloride 20 MEQ TAB PO SCH (16:00)
[2018-11-15 20:41] LABS: Anion Gap 15 mmol/L (10-20); BUN (Urea Nitrogen) 28 mg/dL (8.4-25.7); Calc. Creatinine Clearance 41 mL/min (70-130); Carbon Dioxide 19 mmol/L (23-31); Chloride 115 mmol/L (98-107); Estimated GFR-MDRD 41; Glucose 69 mg/dL (83-110); Potassium 4.1 mmol/L (3.5-5.1); Sodium 145 mmol/L (136-145)
[2018-11-15] MEDS: Atorvastatin Calcium 40 MG TAB PO SCH (23:02)
[2018-11-15] MEDS: Mirtazapine 15 MG TAB PO SCH (23:02)
[2018-11-16] MEDS: Piperacillin/Tazobactam 2.25 GM in Sodium Chloride 0.9% 100 ML IVPB SCH ×4 (00:44→19:05)
[2018-11-16 05:03] LABS: #Eosinphils 0.2 thou/uL (0.0-0.7); #Lymphocytes 1.6 thou/uL (1.20-3.40); #Monocytes 0.5 thou/uL (0.11-0.59); %Basophils 0.7 % (0.0-1.0); %Eosinophils 2.8 % (0.0-10.0); %Lymphocytes 21.4 % (21.0-51.0); %Neutrophils 68.1 % (42.0-75.0); Hemoglobin 11.8 g/dL (14.0-18.0); Mean Corpuscular HGB CONC 32.3 g/dL (32.0-36.0); Mean Corpuscular Hemoglobin 31.3 pg (27.0-31.0); Mean Corpuscular Volume 96.7 fL (78.0-98.0); Mean Platelet Volume 7.3 fL (7.4-10.4); Platelet Count 241 thou/uL (130-400); RBC Distribution Width 13.9 % (11.5-14.5); Red Blood Cell (RBC) Count 3.78 mill/uL (4.70-6.10); White Blood Cell (WBC) Count 7.4 thou/uL (4.8-10.8)
[2018-11-16 05:30] LABS: Albumin 2.9 g/dL (3.4-4.8); Anion Gap 12 mmol/L (10-20); BUN (Urea Nitrogen) 28 mg/dL (8.4-25.7); BUN/Creatinine Ratio 16.57; Calc. Creatinine Clearance 40 mL/min (70-130); Calcium 8.9 mg/dL (7.8-10.44); Carbon Dioxide 23 mmol/L (23-31); Chloride 116 mmol/L (98-107); Estimated GFR-MDRD 39; Glucose 84 mg/dL (83-110); Phosphorus 2.7 mg/dL (2.3-4.7); Sodium 147 mmol/L (136-145)
[2018-11-16] MEDS: Levothyroxine Sodium 50 MCG TAB PO SCH (05:54)
--- NOTE | 2018-11-16 08:26 | PDOC.HOSPP ---
- Subjective Encounter Date: 11/16/18 Encounter Time: 08:24 Subjective: 78 y/o male with prior CVA's associated with chronic debility currently residing in a long-term, atrial fibrillation on chronic anticoagulation admitted due to acute mental status. Found to have large cerebral infarct on CT. MRI showed large infarction with hemorrhagic transformation necessitating discontinuation of ASA and anticoagulation. Had Fever on presentation and was started on antibiotics. Still non verbal. - Objective Vital Signs & Weight: Vital Signs (12 hours) Temp Pulse Resp BP Pulse Ox 11/16/18 07:47 98.6 F 62 16 155/88 H 93 L 11/16/18 04:00 98.3 F 56 L 18 151/87 H 95 11/16/18 00:00 97.3 F L 52 L 21 H 161/92 H 95 Weight Admit Weight 174 lb 2 oz Weight 174 lb 2 oz I&O: 11/15/18 11/16/18 11/17/18 06:59 06:59 06:59 Intake Total 180 850 Balance 180 850 Result Diagrams: 11/16/18 04:41 11/16/18 04:41 Additional Labs: Accuchecks 11/15/18 20:25 POC Glucose 72 Hospitalist ROS - Medication Medications: Active Medications Generic Name Dose Route Start Last Admin Trade Name Freq PRN Reason Stop Dose Admin Amiodarone HCl 200 mg 11/14/18 09:00 11/15/18 09:03 Cordarone PO Not Given DAILY HERIBERTO Atorvastatin Calcium 40 mg 11/13/18 21:00 11/15/18 23:02 Lipitor PO Not Given HS HERIBERTO Famotidine 20 mg 11/14/18 09:00 11/15/18 09:03 Pepcid SLOW IVP 20 mg DAILY HERIBERTO Administration Famotidine 20 mg 11/14/18 09:00 11/15/18 09:03 Pepcid PO Not Given DAILY HERIBERTO Piperacillin Sod/Tazobactam 100 mls @ 200 mls/hr 11/13/18 19:00 11/16/18 00: 44 Sod 2.25 gm/ Sodium Chloride IVPB 100 mls 0100,0700,1300,1900 HERIBERTO Administration Levothyroxine Sodium 50 mcg 11/14/18 06:00 11/16/18 05:54 Synthroid PO Not Given 0600 [facility]O Mirtazapine 7.5 mg 11/13/18 21:00 11/15/18 23:02 Remeron PO Not Given HS [facility] Multivitamins 1 tab 11/14/18 09:00 11/15/18 09:04 Theragran PO Not Given DAILY [facility] Saccharomyces Boulardii 250 mg 11/14/18 09:00 11/15/18 09:04 Florastor PO Not Given DAILY HERIBERTO Tamsulosin HCl 0.4 mg 11/14/18 09:00 11/15/18 09:04 Flomax PO Not Given DAILY HERIBERTO - Exam General - other findings: sleeping and hard to arouse ENT: dry oral mucosa Heart: RRR Respiratory: no wheezes, no ronchi Respiratory - other findings: fair air entry bilaterally with some transmitted sound Gastrointestinal: soft, non-tender, non-distended, normal bowel sounds Extremities: no edema Neurological - other findings: Sleeping and hard to arouse. Tried localizing pain with left hand Hosp A/P (1) Acute ischemic cerebrovascular accident (CVA) involving left middle cerebral artery territory Code(s): I63.512 - CEREB INFRC D/T UNSP OCCLS OR STENOS OF LEFT MID CEREB ART Status: Acute (2) Aphasia due to acute cerebrovascular accident (CVA) Code(s): I63.9 - CEREBRAL INFARCTION, UNSPECIFIED; R47.01 - APHASIA Status: Acute (3) Fever Code(s): R50.9 - FEVER, UNSPECIFIED Status: Acute (4) Chronic anticoagulation Code(s): Z79.01 - COUNTY HISTORIAN (CURRENT) USE OF ANTICOAGULANTS Status: Chronic (5) Dementia Code(s): F03.90 - UNSPECIFIED DEMENTIA WITHOUT BEHAVIORAL DISTURBANCE Status: Chronic (6) PAF (paroxysmal atrial fibrillation) Code(s): I48.0 - PAROXYSMAL ATRIAL FIBRILLATION Status: Chronic (7) Physical deconditioning Code(s): R53.81 - OTHER MALAISE Status: Chronic (8) Aspiration pneumonia Code(s): J69.0 - PNEUMONITIS DUE TO INHALATION OF FOOD AND VOMIT Status: Acute (9) Moderate mitral regurgitation Code(s): I34.0 - NONRHEUMATIC MITRAL (VALVE) INSUFFICIENCY Status: Acute (10) Dysphagia Code(s): R13.10 - DYSPHAGIA, UNSPECIFIED Status: Acute (11) Hypothyroidism Code(s): E03.9 - HYPOTHYROIDISM, UNSPECIFIED Status: Acute (12) HTN (hypertension) Code(s): I10 - ESSENTIAL (PRIMARY) HYPERTENSION Status: Acute (13) CKD (chronic kidney disease) stage 3, GFR 30-59 ml/min Code(s): N18.3 - CHRONIC KIDNEY DISEASE, STAGE 3 (MODERATE) Status: Chronic (14) Metabolic acidosis Code(s): E87.2 - ACIDOSIS Status: Acute (15) Bacteremia due to Enterobacter species Code(s): R78.81 - BACTEREMIA; B96.89 - OTH BACTERIAL AGENTS THE CAUSE OF DISEASES CLASSD ELSWHR Status: Acute (16) UTI (urinary tract infection) Status: Acute (17) Encephalopathy acute Code(s): G93.40 - ENCEPHALOPATHY, UNSPECIFIED Status: Acute (18) Hypernatremia Code(s): E87.0 - HYPEROSMOLALITY AND HYPERNATREMIA Status: Acute - Plan Start D51/4 saline given hypernatremia and NPO status DC sodium bicarbonate infusion with improvement of metabolic acidosis Continue to hold ASA, anticoagulation and antihypertensives. Get repeat Blood culture NPO. to continue SCD.
[2018-11-16] MEDS: Saccharomyces boulardii 250 MG CAP PO SCH (10:13)
[2018-11-16] MEDS: Tamsulosin HCl 0.4 MG CAP PO SCH (10:13)
[2018-11-16] MEDS: Famotidine 20 MG TAB PO SCH (10:13)
[2018-11-16] MEDS: Amiodarone 200 MG TAB PO SCH (10:13)
[2018-11-16] MEDS: Multivit, Therapeutic 1 TAB PO SCH (10:13)
[2018-11-16] MEDS: Famotidine/PF 20 mg/2ml Vial SLOW IVP SCH (10:14)
[2018-11-16] MEDS: D5 1/4 NS 1,000 ML IV SCH (11:36)
[2018-11-16] MEDS ORDERED: Saccharomyces boulardii 250 MG CAP PO SCH (13:00)
[2018-11-16] MEDS ORDERED: Multivit, Therapeutic 1 TAB PO SCH (13:00)
[2018-11-16] MEDS ORDERED: Tamsulosin HCl 0.4 MG CAP PO SCH (13:00)
[2018-11-16] MEDS ORDERED: Amiodarone 200 MG TAB PO SCH (13:00)
--- NOTE | 2018-11-16 16:50 | PQF ---
JUDE FERRO OBISUKHJINDER [id number] [address] [place] [address] [id number] CLINICAL DOCUMENTATION IMPROVEMENT CLARIFICATION FORM: ICD-10 Updated PLEASE DO AN ADDENDUM TO THE PROGRESS NOTE WITH ANY DOCUMENTATION UPDATES OR ADDITIONS AND CARRY THROUGH TO DC SUMMARY. THANK YOU. DATE: 11/16/2018 ATTN:DR. Aarti FOLEY Please exercise your independent, professional judgment in responding to the clarification form. Clinical indicators are provided on the bottom of this form for your review. Please check appropriate box(s) to clarify if the following diagnosis has been ruled in or ruled out: SEPSIS [ ] Ruled in diagnosis [ ] Continue to treat [ ] Resolved [ ] Ruled out diagnosis [ ] Other diagnosis [ ] Unable to determine In addition, please specify: Present on Admission (POA): [ ] Yes [ ] No [ ] Unable to determine For continuity of documentation, please document condition throughout progress notes and discharge summary. Thank You. CLINICAL INDICATORS - SIGNS / SYMPTOMS / LABS 11/13 ED: TEMP 101.8 , RESP 21 11/13 H&P (NEGRITO) A/P : 1). RULE OUT UNDERLYING SEPSIS GIVEN FEVER IN THE EMERGENCY ROOM. 3). FEVER., ETIOLOGY UNCERTAIN. WE WILL DO BLOOD CULTURE AND URINE CULTURE, WHEREAS I AM SUSPECTING A LITTLE BIT OF ASPIRATION AND THAT IS WHY I WILL START WITH ZOSYN 3.375 G Q 8 HOURLY. 11/14 PN (NEGRITO) A/P : 2). FEVER, SUSPECTING FROM ASPIRATION PNEUMONITIS 11/15 PN (OBI) A/P : 3). FEVER UNSPECIFIED, ACUTE 11/16 PN (OBI) A/P: 3). 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 EVA (This form is maintained as a part of the permanent medical record) 2014 [employer] All Rights Reserved [email or web address] [phone] FEVER is not sepsis MTDD
--- NOTE | 2018-11-16 17:04 | PDOC.PALCO ---
Palliative Care Consult - Consult Details Requesting Physician: Dr Mtz Reason for Consult: goals of care Family Members Present: Melissa - Pertinent HPI 78 year old male, aphagic, resident at [facility]. Patient was recently transferred to [facility] from [facility] and rehab. At admission patient was verbal and able to talk or follow commands when he woke up the second morning after transfer. Patient was sent via ems to [facility] for further evaluation. ER identified a long-term right posterior temporal and parietal infarct with significant atrophy, admitted for further evaluation. Palliative Care consult for goal of care. - Pertinent PMH Paroxysmal atrial fib, recurrent CVA, vascular dementia, chronic kidney disease , hypothyroidism, dyslipidemia, hypertension, benign enlarged prostate. - Social History Smoking Status: Never smoker Smoking: no tobacco exposure Alcohol Use: none Drug Use History: none Living Situation: [facility] resident - Medications MAR Reviewed: Yes - Allergies Allergies/Adverse Reactions: Allergies Allergy/AdvReac Type Severity Reaction Status Date / Time No Known Allergies Allergy Verified 11/13/18 15:28 - Subjective Awake and alert in bed, aphagic, listing to the right. at bedside. - Objective Vital Signs: Vital Signs - Most Recent Temp Pulse Resp BP Pulse Ox 97.8 F 59 L 16 129/76 93 L 11/16/18 16:00 11/16/18 16:00 11/16/18 16:00 11/16/18 16:00 11/16/18 16:00 Palliative Performance Scale: 30 - Physical Exam Constitutional: confusion Deviation from normal: Poor dentition, sunken ocular bed HEENT: moist MMs Respiratory: unlabored breathing Deviation from normal: unable to determine orientation. - Problem List (1) Palliative care encounter Code(s): Z51.5 - ENCOUNTER FOR PALLIATIVE CARE Current Visit: Yes Status: Acute - Plan/Recommendations Plan: requested we visit in the nieto. She was visibially upset. She stated that the nurse informed her Palliative Care was going to discuss end of life for her with her. Education was provided in the scope of Palliative Care services and not treating diseases but mitigating symptoms as well as discussion and assistance with advance directives. The confirmed that she was MPOA and that her had a living will drawn up years ago stating he always wanted to remain a full code and "have everything done". She states the paper work is at home and she will bring in. The RN CM with Palliative Care will continue to follow and assist as we can with discussions in relation to disease trajectory and optimal care for Mr Garcia. [40] minutes spent on this encounter with >50% of the time in counseling and coordination of care. Thank you for this very appropriate consult.
--- NOTE | 2018-11-16 18:24 | PRG ---
DATE OF SERVICE: 11/16/2018 SUBJECTIVE: Mr. Garcia is reportedly showing some improvement in his level of wakefulness and his ability to swallow. He was able to handle some nectar earlier today. I have reviewed his CT scan of the brain, which shows a large old right MCA territory stroke and an evolving left MCA territory stroke with some minimal intraparenchymal hemorrhage. His wanted to discuss his prognosis for potential recovery. I spent time answering her questions. I have suggested that we start rectal aspirin 300 mg per day. Otherwise, his vital signs have been stable and he is afebrile at this point. His echocardiogram showed an ejection fraction of 50% to 55%. LABORATORY DATA: His laboratory studies today including a CBC and chemistry panel were unremarkable other than mild renal insufficiency. ASSESSMENT AND PLAN: Overall, the situation is relatively poor. The wants to give him every available opportunity to make a recovery. She is willing to consider a PEG tube placement. Discussed possibility of mcfp. She will discuss these issues with the hospitalist. I will be available, if there are any further questions. Job ID: [id number]
[2018-11-16] MEDS: Mirtazapine 15 MG TAB PO SCH ×2 (21:03→21:38)
[2018-11-16] MEDS: Atorvastatin Calcium 40 MG TAB PO SCH ×2 (21:07→21:38)
[2018-11-16] MEDS: Aspirin 300 MG Suppository PR SCH (21:07)
--- NOTE | 2018-11-16 21:24 | CON ---
DATE OF CONSULTATION: This is Randy Pinto PA-C dictating a report for James Peralta MD. This is a 50-minute initial patient evaluation, greater than 50% of the exam was spent in counseling and coordinating the patient's care and remainder of the exam was spent in review of the patient's medical records and formulation of treatment plan as well as review of appropriate imaging studies. CHIEF COMPLAINT: Altered mental status with hemorrhagic component of the left CVA. HISTORY OF PRESENT ILLNESS: Mr. Garcia is a 78-year-old male, who was admitted from an outside facility in regard to large left-sided CVA. The patient has a history of right-sided CVA, year unknown and was on Eliquis, but despite being on these anticoags, developed ischemic stroke on the left. Apparently, previously he was mobile, but given that he has been at a senior care facility, he is nonambulatory. He remains a full code. Given the patient's continued decreased mental status in regard to right-sided hemiparesis and aphasia, repeat head CT was noted compared to his admitting CT scan that shows slight hemorrhagic conversion of left-sided ischemic stroke. PHYSICAL EXAMINATION: The patient is sleeping. I attempt to open his eyes to check his pupils, but he grimaces and keeps his eyes closed. I see no movement in the arms or legs, though by report, the patient does have some movement on the left side, but is completely flaccid on the right. He has not passed his dysphagia swallowing screen. He also had fever and has been on antibiotics as per Medical Service. The patient is nonverbal. IMPRESSION/DIAGNOSIS: Status post left large cerebrovascular accident with small hemorrhagic component. PLAN: I have discussed the patient's case and imaging with Dr. Peralta. At this time, the patient is likely a very good hospice candidate given that despite being on anticoagulation therapy, he still had ischemic stroke. There is no role for neurosurgical intervention in regard to the hemorrhage. Our hospital team will likely need to discuss the possibility of hospice and comfort care measures, but at this time, the patient remains full code. No need to follow up with Neurosurgery at this time, and we will sign off, but if he has any questions or concerns, please do not hesitate to contact us. Job ID: [id number]
[2018-11-17] MEDS: D5 1/4 NS 1,000 ML IV SCH ×2 (01:28→10:08)
[2018-11-17] MEDS: Piperacillin/Tazobactam 2.25 GM in Sodium Chloride 0.9% 100 ML IVPB SCH ×4 (01:48→21:20)
[2018-11-17] MEDS: Levothyroxine Sodium 50 MCG TAB PO SCH (05:26)
[2018-11-17 06:21] LABS: Albumin 2.9 g/dL (3.4-4.8); Anion Gap 12 mmol/L (10-20); BUN (Urea Nitrogen) 21 mg/dL (8.4-25.7); BUN/Creatinine Ratio 13.04; Calc. Creatinine Clearance 42 mL/min (70-130); Calcium 8.5 mg/dL (7.8-10.44); Carbon Dioxide 19 mmol/L (23-31); Chloride 112 mmol/L (98-107); Estimated GFR-MDRD 42; Glucose 108 mg/dL (83-110); Phosphorus 2.9 mg/dL (2.3-4.7); Potassium 3.5 mmol/L (3.5-5.1); Sodium 139 mmol/L (136-145)
--- NOTE | 2018-11-17 09:40 | PDOC.HOSPP ---
- Subjective Encounter Date: 11/17/18 Encounter Time: 09:38 Subjective: 78 y/o male with prior CVA's associated with chronic debility currently residing in a [facility], atrial fibrillation on chronic anticoagulation admitted due to acute mental status. Found to have large cerebral infarct on CT. MRI showed large infarction with hemorrhagic transformation necessitating discontinuation of ASA and anticoagulation. Had Fever on presentation and was started on antibiotics. Still non verbal. No new problem. NPO still. - Objective Vital Signs & Weight: Vital Signs (12 hours) Temp Pulse Resp BP Pulse Ox 11/17/18 04:00 97.1 F L 58 L 16 124/76 97 11/17/18 00:00 96.9 F L 58 L 18 143/79 H 98 Weight Admit Weight 174 lb 2 oz Weight 174 lb 2 oz I&O: 11/16/18 11/17/18 11/18/18 06:59 06:59 06:59 Intake Total 850 1200 Balance 850 1200 Result Diagrams: 11/16/18 04:41 11/17/18 05:32 Hospitalist ROS - Medication Medications: Active Medications Generic Name Dose Route Start Last Admin Trade Name Freq PRN Reason Stop Dose Admin Amiodarone HCl 200 mg 11/14/18 09:00 11/16/18 10:13 Cordarone PO Not Given DAILY HERIBERTO Aspirin 300 mg 11/16/18 21:00 11/16/18 21:07 Aspirin WI 300 mg HS HERIBERTO Administration Atorvastatin Calcium 40 mg 11/13/18 21:00 11/16/18 21:38 Lipitor PO Not Given HS HERIBERTO Famotidine 20 mg 11/14/18 09:00 11/16/18 10:14 Pepcid SLOW IVP 20 mg DAILY HERIBERTO Administration Famotidine 20 mg 11/14/18 09:00 11/16/18 10:13 Pepcid PO Not Given DAILY HERIBERTO Piperacillin Sod/Tazobactam 100 mls @ 200 mls/hr 11/13/18 19:00 11/17/18 06: 15 Sod 2.25 gm/ Sodium Chloride IVPB 100 mls 0100,0700,1300,1900 HERIBERTO Administration Labetalol HCl 20 mg 11/13/18 15:06 11/16/18 11:35 Normodyne SLOW IVP 20 mg Q4H PRN Administration SBP > 180 and HR >/= 70 Levothyroxine Sodium 50 mcg 11/14/18 06:00 11/17/18 05:26 Synthroid PO Not Given 0600 [facility] Mirtazapine 7.5 mg 11/13/18 21:00 11/16/18 21:38 Remeron PO Not Given HS [facility] Multivitamins 1 tab 11/14/18 09:00 11/16/18 10:13 Theragran PO Not Given DAILY HERIBERTO Saccharomyces Boulardii 250 mg 11/14/18 09:00 11/16/18 10:13 Florastor PO Not Given DAILY [facility] Sodium Chloride 10 ml 11/13/18 15:06 11/16/18 21:07 Flush - Normal Saline IVF 10 ml PRN PRN Administration Saline Flush Tamsulosin HCl 0.4 mg 11/14/18 09:00 11/16/18 10:13 Flomax PO Not Given DAILY HERIBERTO - Exam General Appearance: awake alert General - other findings: non verbal Eye: anicteric sclera ENT: normocephalic atraumatic Heart: RRR Respiratory: no wheezes, no ronchi Respiratory - other findings: fair air entry with bilateral transmitted sound Gastrointestinal: soft, non-tender, non-distended, normal bowel sounds Extremities: no edema Neurological: no new deficit Neurological - other findings: non verbal. localizing pain with left hand. dense weakness of RUL Hosp A/P (1) Acute ischemic cerebrovascular accident (CVA) involving left middle cerebral artery territory Code(s): I63.512 - CEREB INFRC D/T UNSP OCCLS OR STENOS OF LEFT MID CEREB ART Status: Acute (2) Aphasia due to acute cerebrovascular accident (CVA) Code(s): I63.9 - CEREBRAL INFARCTION, UNSPECIFIED; R47.01 - APHASIA Status: Acute (3) Fever Code(s): R50.9 - FEVER, UNSPECIFIED Status: Acute (4) Chronic anticoagulation Code(s): Z79.01 - QUALITY AUDITOR (CURRENT) USE OF ANTICOAGULANTS Status: Chronic (5) Dementia Code(s): F03.90 - UNSPECIFIED DEMENTIA WITHOUT BEHAVIORAL DISTURBANCE Status: Chronic (6) PAF (paroxysmal atrial fibrillation) Code(s): I48.0 - PAROXYSMAL ATRIAL FIBRILLATION Status: Chronic (7) Physical deconditioning Code(s): R53.81 - OTHER MALAISE Status: Chronic (8) Aspiration pneumonia Code(s): J69.0 - PNEUMONITIS DUE TO INHALATION OF FOOD AND VOMIT Status: Acute (9) Moderate mitral regurgitation Code(s): I34.0 - NONRHEUMATIC MITRAL (VALVE) INSUFFICIENCY Status: Acute (10) Dysphagia Code(s): R13.10 - DYSPHAGIA, UNSPECIFIED Status: Acute (11) Hypothyroidism Code(s): E03.9 - HYPOTHYROIDISM, UNSPECIFIED Status: Acute (12) HTN (hypertension) Code(s): I10 - ESSENTIAL (PRIMARY) HYPERTENSION Status: Acute (13) CKD (chronic kidney disease) stage 3, GFR 30-59 ml/min Code(s): N18.3 - CHRONIC KIDNEY DISEASE, STAGE 3 (MODERATE) Status: Chronic (14) Metabolic acidosis Code(s): E87.2 - ACIDOSIS Status: Acute (15) Bacteremia due to Enterobacter species Code(s): R78.81 - BACTEREMIA; B96.89 - OTH BACTERIAL AGENTS THE CAUSE OF DISEASES CLASSD ELSWHR Status: Acute (16) UTI (urinary tract infection) Status: Acute (17) Encephalopathy acute Code(s): G93.40 - ENCEPHALOPATHY, UNSPECIFIED Status: Acute (18) Hypernatremia Code(s): E87.0 - HYPEROSMOLALITY AND HYPERNATREMIA Status: Acute (19) Sepsis Code(s): A41.9 - SEPSIS, UNSPECIFIED ORGANISM Status: Suspected Plan: Present on admission. Cannot be ruled out - Plan Start hypotonic sodium bicarb with only 75 mEq NaHco3 due to worsening of hyperchloremic acidosis Restarted on ASA but rectally. NPO to continue. Consult GI for PEG tube placement Consult ID to help with antibiotic choice and duration Await repeat Blood culture SCD.
[2018-11-17] MEDS ORDERED: Sodium Bicarbonate 75 MEQ in Dextrose 5% in Water 1,000 ML IV SCH (09:45)
[2018-11-17] MEDS: Famotidine/PF 20 mg/2ml Vial SLOW IVP SCH ×2 (10:06→11:00)
[2018-11-17] MEDS: Multivit, Therapeutic 1 TAB PO SCH (10:07)
[2018-11-17] MEDS: Tamsulosin HCl 0.4 MG CAP PO SCH (10:07)
[2018-11-17] MEDS: Amiodarone 200 MG TAB PO SCH (10:07)
[2018-11-17] MEDS: Famotidine 20 MG TAB PO SCH (10:07)
[2018-11-17] MEDS: Saccharomyces boulardii 250 MG CAP PO SCH (10:07)
--- NOTE | 2018-11-17 10:08 | PRG ---
DATE OF SERVICE: 11/17/2018 This is a 30-minute initial visit note, in which 30 minutes were spent reviewing the imaging record, evaluation, examination, and patient formulation of plan. Greater than 50% time was spent in counseling on Prasanth Garcia. Mr. Garcia presents with a history of right-sided stroke, but now with left-sided stroke with hemorrhagic conversion unfortunately at his age and with bihemispheric infarcts. His prognosis is quite poor. He is obtunded and does not follow commands. He has somewhat of flexed posture and it is difficult to get him to do anything neurologically. I would not recommend any neurosurgical intervention. Job ID: [id number]
[2018-11-17] MEDS: Mirtazapine 15 MG TAB PO SCH (21:21)
[2018-11-17] MEDS: Atorvastatin Calcium 40 MG TAB PO SCH (21:22)
[2018-11-17] MEDS: Aspirin 300 MG Suppository PR SCH (21:22)
[2018-11-18] MEDS: Piperacillin/Tazobactam 2.25 GM in Sodium Chloride 0.9% 100 ML IVPB SCH ×4 (02:04→21:31)
[2018-11-18 05:44] LABS: Anion Gap 11 mmol/L (10-20); BUN (Urea Nitrogen) 16 mg/dL (8.4-25.7); Calc. Creatinine Clearance 44 mL/min (70-130); Calcium 8.5 mg/dL (7.8-10.44); Carbon Dioxide 22 mmol/L (23-31); Chloride 109 mmol/L (98-107); Estimated GFR-MDRD 44; Glucose 75 mg/dL (83-110); Potassium 3.7 mmol/L (3.5-5.1); Sodium 138 mmol/L (136-145)
[2018-11-18] MEDS: Levothyroxine Sodium 50 MCG TAB PO SCH ×2 (07:30→11:57)
--- NOTE | 2018-11-18 08:44 | CON ---
DATE OF CONSULTATION: 11/18/2018 REASON FOR CONSULTATION: The patient with acute CVA with altered mental status, dysphagia. I was asked to see this patient by his sound hospitalist for endoscopic gastrostomy tube placed. HISTORY OF PRESENT ILLNESS: Admitting history and physical and consult by various doctors were reviewed. The patient is an unfortunate 78-year-old male with previous CVA, basically confined to bed or wheelchair. The patient presented to the hospital with CVA affecting the left side now. He is not responsive. The patient is n.p.o. since admission. He has history of atrial fibrillation before and was on Eliquis. He was also on aspirin. After acute CVA and hemorrhagic stroke, they were discontinued. The patient is nonverbal. . The patient apparently needs G-tube for shunt support. No other relevant history. ALLERGIES: NONE. SOCIAL HISTORY: The patient . MEDICAL ILLNESSES: 1. Paroxysmal atrial fibrillation. 2. Recurrent CVA. 3. Vascular dementia. 4. Chronic kidney disease. 5. Hypothyroidism. 6. Hyperlipidemia. 7. Hypertension. 8. Benign prostatic hypertrophy. MEDICATIONS: At the time of admission; 1. Amiodarone. 2. Eliquis. 3. Tessalon. 4. Levothyroxine. 5. Metoprolol. 6. . REVIEW OF SYSTEMS: Not able to obtain. PHYSICAL EXAMINATION: GENERAL: He is nonverbal. NECK: Supple. CARDIOVASCULAR: First and second heart sounds heard. LUNGS: Clear to auscultation. ABDOMEN: Soft, nontender. LABORATORY DATA: Dated 11/16/2018, CLINICAL IMPRESSION: A 78-year-old male, acute cerebrovascular accident nonverbal. He probably needs some initial support, and I believe he would benefit the family is agreeable for gastrostomy tube feeding and will pursue the EGD and PEG tube placement. Job ID: [id number]
[2018-11-18] MEDS: Amiodarone 200 MG TAB PO SCH ×2 (09:21→11:55)
[2018-11-18] MEDS: Multivit, Therapeutic 1 TAB PO SCH ×2 (09:21→11:55)
[2018-11-18] MEDS: Famotidine 20 MG TAB PO SCH ×2 (09:21→11:55)
[2018-11-18] MEDS: Saccharomyces boulardii 250 MG CAP PO SCH ×2 (09:21→11:55)
[2018-11-18] MEDS: Tamsulosin HCl 0.4 MG CAP PO SCH ×2 (09:21→11:54)
[2018-11-18] MEDS ORDERED: Ketamine 50 MG/ML (10ML VIAL) ONE (10:34)
[2018-11-18] MEDS: Famotidine/PF 20 mg/2ml Vial SLOW IVP SCH (11:49)
--- NOTE | 2018-11-18 13:09 | OP ---
DATE OF PROCEDURE: 11/18/2018 COLLATERAL SPECIALIST SURGEON: None. PROCEDURE PERFORMED: Esophagogastroduodenoscopy with PEG tube placement. INDICATION: Oropharyngeal dysphagia following CVA. MEDICATIONS: 1. See Anesthesia record. 2. The patient is receiving IV Zosyn on the floor. This will serve as periprocedural antibiotic prophylaxis. FINDINGS: After discussion of the risks, benefits, and alternatives of the procedure, informed consent was obtained and verified. Pre-endoscopic cardiopulmonary examination was satisfactory. Time-out was performed before sedation was achieved. Sedation was achieved with Anesthesia assistance in the endoscopy unit. The patient was placed in a supine position. A Pentax adult upper endoscope was placed into the oropharynx and passed through the cricopharyngeus under direct visualization. The esophageal mucosa appeared normal throughout with a normal-appearing Z-line. The endoscope was advanced into the stomach. Forward and retroflexed views of the entire gastric mucosa were obtained. The gastric mucosa appeared normal throughout. The endoscope was advanced through the pylorus into the first and second portions of the duodenum, which also appeared normal. At this point, the endoscope was withdrawn back into the gastric lumen. Using one-to-one pressure and transillumination methods, suitable site for PEG placement was located in the left upper quadrant. The site was prepped and draped in a sterile fashion. The site was then anesthetized with subcutaneous lidocaine. A 1-cm vertical incision was made. The introducer needle and catheter were then introduced transcutaneously into the gastric lumen. The wire was passed through the catheter and grasped with a snare. The wire was then removed along with the endoscope from the patient's mouth. A 20-Croatian traction PEG tube was affixed to the wire and then pulled through into position in the normal fashion without difficulty. At this point, the endoscope was passed back down into the stomach. The internal bumper site was examined. It appeared to be in good position with no complication. The endoscope was then removed. The external bumper clamp and external ports were then affixed to the PEG tube with the external bumper positioned at 3.5 cm. The procedure was then completed. The patient tolerated the procedure well. There were no immediate postprocedure complications. IMPRESSION: Successful placement of 20-Croatian PEG tube to the left upper quadrant, with external bumper at 3.5 cm. RECOMMENDATIONS: 1. Can use the PEG tube for medications now. 2. Can use the PEG tube for feeds in 4 hours. 3. We will plan to come by tomorrow to check the PEG site and likely loosen the external bumper. Please call back if needed. Job ID: [id number]
--- NOTE | 2018-11-18 15:30 | PDOC.HOSPP ---
- Subjective Encounter Date: 11/18/18 Encounter Time: 15:28 Subjective: 78 y/o male with prior CVA's associated with chronic debility currently residing in a [facility], atrial fibrillation on chronic anticoagulation admitted due to acute mental status. Found to have large cerebral infarct on CT. MRI showed large infarction with hemorrhagic transformation necessitating discontinuation of ASA and anticoagulation. Had Fever on presentation and was started on antibiotics. Had PEG tube earlier today. Still non verbal. No new problem. NPO still. - Objective Vital Signs & Weight: Vital Signs (12 hours) Temp Pulse Resp BP Pulse Ox 11/18/18 11:35 97.7 F 67 20 171/96 H 95 11/18/18 08:00 98.8 F 59 L 18 147/85 H 94 L 11/18/18 07:40 94 L 11/18/18 04:00 99 F 58 L 18 145/68 H 98 Weight Admit Weight 174 lb 2 oz Weight 174 lb 2 oz I&O: 11/17/18 11/18/18 11/19/18 06:59 06:59 06:59 Intake Total 1200 700 Balance 1200 700 Result Diagrams: 11/16/18 04:41 11/18/18 05:00 Hospitalist ROS - Medication Medications: Active Medications Generic Name Dose Route Start Last Admin Trade Name Freq PRN Reason Stop Dose Admin Amiodarone HCl 200 mg 11/14/18 09:00 11/18/18 11:55 Cordarone PO 200 mg DAILY HERIBERTO Administration Aspirin 300 mg 11/16/18 21:00 11/17/18 21:22 Aspirin SD Not Given HS HERIBERTO Atorvastatin Calcium 40 mg 11/13/18 21:00 11/17/18 21:22 Lipitor PO Not Given HS HERIBERTO Famotidine 20 mg 11/14/18 09:00 11/18/18 11:55 Pepcid PO 20 mg DAILY HERIBERTO Administration Piperacillin Sod/Tazobactam 100 mls @ 200 mls/hr 11/13/18 19:00 11/18/18 13: 12 Sod 2.25 gm/ Sodium Chloride IVPB 100 mls 0100,0700,1300,1900 HERIBERTO Administration Labetalol HCl 20 mg 11/13/18 15:06 11/16/18 11:35 Normodyne SLOW IVP 20 mg Q4H PRN Administration SBP > 180 and HR >/= 70 Levothyroxine Sodium 50 mcg 11/14/18 06:00 11/18/18 11:57 Synthroid PO 50 mcg 0600 HERIBERTO Administration Mirtazapine 7.5 mg 11/13/18 21:00 11/17/18 21:21 Remeron PO Not Given HS HERIBERTO Multivitamins 1 tab 11/14/18 09:00 11/18/18 11:55 Theragran PO 1 tab DAILY HERIBERTO Administration Saccharomyces Boulardii 250 mg 11/14/18 09:00 11/18/18 11:55 Florastor PO 250 mg DAILY HERIBERTO Administration Sodium Chloride 10 ml 11/13/18 15:06 11/18/18 13:12 Flush - Normal Saline IVF 10 ml PRN PRN Administration Saline Flush Tamsulosin HCl 0.4 mg 11/14/18 09:00 11/18/18 11:54 Flomax PO 0.4 mg DAILY HERIBERTO Administration - Exam General - other findings: somnolent Eye: anicteric sclera ENT: normocephalic atraumatic Heart: RRR Respiratory - other findings: fair air entry with transmitted sound Gastrointestinal: soft, non-distended, normal bowel sounds Extremities: no edema Neurological - other findings: sleeping. hard to arouse. non verbal. opens eye to stimulation and tracks Musculoskeletal: diffuse muscle atrophy Musculoskeletal - other findings: flaccid on the right upper limb and spastic on the left upper limb. Psychiatric: lethargic Hosp A/P (1) Acute ischemic cerebrovascular accident (CVA) involving left middle cerebral artery territory Code(s): I63.512 - CEREB INFRC D/T UNSP OCCLS OR STENOS OF LEFT MID CEREB ART Status: Acute (2) Aphasia due to acute cerebrovascular accident (CVA) Code(s): I63.9 - CEREBRAL INFARCTION, UNSPECIFIED; R47.01 - APHASIA Status: Acute (3) Fever Code(s): R50.9 - FEVER, UNSPECIFIED Status: Acute (4) Chronic anticoagulation Code(s): Z79.01 - PUBLICITY WRITER (CURRENT) USE OF ANTICOAGULANTS Status: Chronic (5) Dementia Code(s): F03.90 - UNSPECIFIED DEMENTIA WITHOUT BEHAVIORAL DISTURBANCE Status: Chronic (6) PAF (paroxysmal atrial fibrillation) Code(s): I48.0 - PAROXYSMAL ATRIAL FIBRILLATION Status: Chronic (7) Physical deconditioning Code(s): R53.81 - OTHER MALAISE Status: Chronic (8) Aspiration pneumonia Code(s): J69.0 - PNEUMONITIS DUE TO INHALATION OF FOOD AND VOMIT Status: Acute (9) Moderate mitral regurgitation Code(s): I34.0 - NONRHEUMATIC MITRAL (VALVE) INSUFFICIENCY Status: Acute (10) Dysphagia Code(s): R13.10 - DYSPHAGIA, UNSPECIFIED Status: Acute (11) Hypothyroidism Code(s): E03.9 - HYPOTHYROIDISM, UNSPECIFIED Status: Acute (12) HTN (hypertension) Code(s): I10 - ESSENTIAL (PRIMARY) HYPERTENSION Status: Acute (13) CKD (chronic kidney disease) stage 3, GFR 30-59 ml/min Code(s): N18.3 - CHRONIC KIDNEY DISEASE, STAGE 3 (MODERATE) Status: Chronic (14) Metabolic acidosis Code(s): E87.2 - ACIDOSIS Status: Acute (15) Bacteremia due to Enterobacter species Code(s): R78.81 - BACTEREMIA; B96.89 - OTH BACTERIAL AGENTS THE CAUSE OF DISEASES CLASSD ELSWHR Status: Acute (16) UTI (urinary tract infection) Status: Acute (17) Encephalopathy acute Code(s): G93.40 - ENCEPHALOPATHY, UNSPECIFIED Status: Acute (18) Hypernatremia Code(s): E87.0 - HYPEROSMOLALITY AND HYPERNATREMIA Status: Acute (19) Sepsis Code(s): A41.9 - SEPSIS, UNSPECIFIED ORGANISM Status: Suspected - Plan We will start tube feeding as soon as GI clears PEG tube for use. Get TTE. awaiting ID consultation NPO to continue. SCD.
[2018-11-18] MEDS ORDERED: ISOVUE-370 76%-LOCM 1 ML ONE (17:16)
[2018-11-18] MEDS ORDERED: Iopamidol 370 76% 50 ML VIAL FS ONE (17:16)
--- NOTE | 2018-11-18 21:07 | CT ---
CT abdomen and pelvis with IV and oral contrast HISTORY: Abdomen pain. FINDINGS: Mild bibasilar atelectasis. Minimal bilateral pleural fluid. Patchy airspace opacity throug hout each posterior lung base. Prominent calcification throughout the arterial structures. Small hyperdense stones in the gallbladde r lumen. Atrophy of the cortex of each kidney. Lobular 5.3 cm cyst at the anterior cortex of the left kidney. No evidence of urinary tract obstruction. Fat protrudes into a left inguinal hernia that does not contain bowel. Rectum is distended with fecal material up to 8.6 cm. Mild thickening of the rectal wall allowing for the degree of distention. There is subtle stranding in the adjacent fat. No free air or free fluid. IMPRESSION: Rectal distention with mild wall thickening. Consider stercoral proctitis. No evidence of complication. Prominent atherosclerosis. Patchy bibasilar lung infiltrates without lobar consolidation evident. Cholelithiasis.
[2018-11-18] MEDS: Aspirin 300 MG Suppository PR SCH (21:32)
[2018-11-18] MEDS: Mirtazapine 15 MG TAB PO SCH (21:32)
[2018-11-18] MEDS: Atorvastatin Calcium 40 MG TAB PO SCH (21:32)
--- NOTE | 2018-11-18 23:56 | CON ---
DATE OF CONSULTATION: 11/18/2018 REASON FOR CONSULTATION: Bacteremia. HISTORY OF PRESENT ILLNESS: A 78-year-old patient first admission to this hospital with a history of multiple prior CVAs, dementia, and resident at [facility], who developed altered mental status. The patient recently had been admitted to [facility] after two CVAs, had some rehabilitation which was discontinued and then finally transferred to [facility] on amiodarone, Eliquis, metoprolol, apparently had been having conversations with the nurses and then on the day of admission had altered mental status and was unable to interact with the staff, therefore, he was transferred. CT of brain then showed old CVA , but no new one. CT angio not remarkable. He was not a candidate for tPA and initial findings included a temperature 101.8, respiratory rate of 20, and blood pressure 133/77. The exam was remarkable for coarse breath sounds. Abdomen is soft, not distended. There was a right-sided hemiparesis. White cell count 10.5, [id number] neutrophilia, hemoglobin 12. Creatinine 1.7. Liver profile normal. Impression was encephalopathy, multifactorial, possible sepsis. 2/2 sets of blood cultures have yielded Enterococcus faecalis. Urine culture from the same date with three gram-negative rods and nonhemolytic Streptococcus, 10-25,000 CFUs suggestive of contamination of the sample. This was a clean-catch specimen. Currently, Mr. Garcia is in the Neurologic Unit. He does not interact with the examiner. Groans and moans when I try to evaluate his eyes, keeps them closed, and does not follow commands. PAST MEDICAL HISTORY: Multiple CVAs, dementia, paroxysmal atrial fibrillation, renal insufficiency, hypothyroidism, hypertension, BPH. PAST SURGICAL HISTORY: Just had a gastrostomy tube inserted. SOCIAL HISTORY: long-term resident for the past 5 years. Never smoker. ALLERGIES: NONE. CURRENT MEDICATIONS: 1. Tylenol. 2. Cordarone. 3. Aspirin. 4. Lipitor. 5. Dulcolax. 6. Pepcid. 7. Robitussin. 8. Apresoline. 9. Normodyne. 10. Synthroid. 11. Imodium. 12. Reglan. 13. Remeron. 14. Theragran. 15. Zosyn. PHYSICAL EXAMINATION: VITAL SIGNS: T-max 99.4, blood pressure 140/50, pulse 54, respirations 16, and O2 saturation 96. SKIN: A few areas of abrasion in the feet and stage II pressure damage to the presacral region. Does not have Roca catheter. The patient has a peripheral IV access. No lymphadenopathy. I could not evaluate his eyes because he has resisted exam. Could not evaluate his mouth either, but for the same reason. No jugular vein distention. NECK: With normal range of motion. LUNGS: Symmetric air entry. S1-S2 without obvious murmurs. Diminished heart sounds. ABDOMEN: Soft, not distended. No ascites. No bladder distention. No organomegaly. Right hemiparesis with extensor plantar reflex and some clonus noted. Pulses 1+ in dorsalis pedis. Cap refill normal. Does not interact with the examiner. Keeps his eyes closed. Does not follow commands. LABORATORY DATA: White cell count 10.5 and now 7.4, hemoglobin 12 and now 11, platelets 241, neutrophil percentage was 81 and now is down to 68. INR 2. Sodium 144, now 138. Creatinine from 1.62 to 1.52. Transaminases have been normal. Albumin 2.9. Urinalysis with negative bilirubin. Microbiology studies as discussed. ASSESSMENT: 1. Atrial fibrillation, prior cerebrovascular accidents with dementia, right hemiparesis, recent admission to [facility] for cerebrovascular accident and paroxysmal atrial fibrillation, having undergone cardioversion. 2. Enterococcus faecalis bacteremia of unknown primary site. DISCUSSION: The sources could be from gastrointestinal tract or from endocardium or kidneys/bladder. Urinary tract is less likely the culprit here, so we will have to scan his abdomen. I would start with a contrast scan and obtain an echocardiogram, may need a transesophageal echocardiogram. If those are normal, then treat for a short period of time with ampicillin. If they are abnormal, then we will have to address the abdominal findings or the KHADIJAH findings accordingly. If patient has evidence of endocarditis, then Rocephin and ampicillin, PICC line placement. Job ID: [id number] [facility]
[2018-11-19] MEDS ORDERED: Piperacillin/Tazobactam 2.25 GM in Sodium Chloride 0.9% 100 ML IVPB SCH (00:30)
[2018-11-19] MEDS: Piperacillin/Tazobactam 2.25 GM in Sodium Chloride 0.9% 100 ML IVPB SCH ×4 (00:32→18:18)
[2018-11-19] MEDS: Levothyroxine Sodium 50 MCG TAB PO SCH (05:38)
[2018-11-19] MEDS ORDERED: Mineral Oil ENEMA PR SCH (07:00)
[2018-11-19] MEDS ORDERED: PROPOFOL 20 ML ONE (07:27)
--- NOTE | 2018-11-19 09:58 | PDOC.HOSPP ---
- Subjective Encounter Date: 11/19/18 Encounter Time: 09:56 Subjective: 78 y/o male with prior CVA's associated with chronic debility currently residing in a [facility], atrial fibrillation on chronic anticoagulation admitted due to acute mental status. Found to have large cerebral infarct on CT. MRI showed large infarction with hemorrhagic transformation necessitating discontinuation of ASA and anticoagulation. Had Fever on presentation and was started on antibiotics. Remained non verbal and not obeying commands hence had PEG tube on 11/18/2018 in line with spouse desires. For KHADIJAH today. No new problem. NPO and on tube feeding - Objective Vital Signs & Weight: Vital Signs (12 hours) Temp Pulse Resp BP Pulse Ox 11/19/18 08:18 97.5 F L 57 L 20 102/69 94 L 11/19/18 04:00 98.4 F 65 16 148/83 H 95 11/19/18 00:00 98.9 F 65 18 144/84 H 98 Weight Admit Weight 174 lb 2 oz Weight 174 lb 2 oz I&O: 11/18/18 11/19/18 11/20/18 06:59 06:59 06:59 Intake Total 700 200 Balance 700 200 Result Diagrams: 11/16/18 04:41 11/18/18 05:00 Hospitalist ROS - Medication Medications: Active Medications Generic Name Dose Route Start Last Admin Trade Name Freq PRN Reason Stop Dose Admin Amiodarone HCl 200 mg 11/14/18 09:00 11/18/18 11:55 Cordarone PO 200 mg DAILY HERIBERTO Administration Aspirin 300 mg 11/16/18 21:00 11/18/18 21:32 Aspirin MA 300 mg HS HERIBERTO Administration Atorvastatin Calcium 40 mg 11/13/18 21:00 11/18/18 21:32 Lipitor PO 40 mg HS HERIBERTO Administration Famotidine 20 mg 11/14/18 09:00 11/18/18 11:55 Pepcid PO 20 mg DAILY HERIBERTO Administration Piperacillin Sod/Tazobactam 100 mls @ 200 mls/hr 11/19/18 06:00 11/19/18 05: 38 Sod 2.25 gm/ Sodium Chloride IVPB 100 mls Q6HR HERIBERTO Administration Labetalol HCl 20 mg 11/13/18 15:06 11/16/18 11:35 Normodyne SLOW IVP 20 mg Q4H PRN Administration SBP > 180 and HR >/= 70 Levothyroxine Sodium 50 mcg 11/14/18 06:00 11/19/18 05:38 Synthroid PO 50 mcg 0600 HERIBERTO Administration Mirtazapine 7.5 mg 11/13/18 21:00 11/18/18 21:32 Remeron PO 7.5 mg HS HERIBERTO Administration Multivitamins 1 tab 11/14/18 09:00 11/18/18 11:55 Theragran PO 1 tab DAILY HERIBERTO Administration Saccharomyces Boulardii 250 mg 11/14/18 09:00 11/18/18 11:55 Florastor PO 250 mg DAILY HERIBERTO Administration Sodium Chloride 10 ml 11/13/18 15:06 11/18/18 13:12 Flush - Normal Saline IVF 10 ml PRN PRN Administration Saline Flush Tamsulosin HCl 0.4 mg 11/14/18 09:00 11/18/18 11:54 Flomax PO 0.4 mg DAILY HERIBERTO Administration - Exam General Appearance: awake alert Eye: anicteric sclera ENT: normocephalic atraumatic Heart: RRR Respiratory: no ronchi Respiratory - other findings: fair air entyry with transmitted sound Gastrointestinal: soft, non-distended, normal bowel sounds Gastrointestinal - other findings: PEG tube in place Extremities: no edema Neurological - other findings: awake but non verbal. Double hemiparesis with faccid on R and spastic on L Hosp A/P (1) Acute ischemic cerebrovascular accident (CVA) involving left middle cerebral artery territory Code(s): I63.512 - CEREB INFRC D/T UNSP OCCLS OR STENOS OF LEFT MID CEREB ART Status: Acute (2) Aphasia due to acute cerebrovascular accident (CVA) Code(s): I63.9 - CEREBRAL INFARCTION, UNSPECIFIED; R47.01 - APHASIA Status: Acute (3) Fever Code(s): R50.9 - FEVER, UNSPECIFIED Status: Acute (4) Chronic anticoagulation Code(s): Z79.01 - JAIL (CURRENT) USE OF ANTICOAGULANTS Status: Chronic (5) Dementia Code(s): F03.90 - UNSPECIFIED DEMENTIA WITHOUT BEHAVIORAL DISTURBANCE Status: Chronic (6) PAF (paroxysmal atrial fibrillation) Code(s): I48.0 - PAROXYSMAL ATRIAL FIBRILLATION Status: Chronic (7) Physical deconditioning Code(s): R53.81 - OTHER MALAISE Status: Chronic (8) Aspiration pneumonia Code(s): J69.0 - PNEUMONITIS DUE TO INHALATION OF FOOD AND VOMIT Status: Acute (9) Moderate mitral regurgitation Code(s): I34.0 - NONRHEUMATIC MITRAL (VALVE) INSUFFICIENCY Status: Acute (10) Dysphagia Code(s): R13.10 - DYSPHAGIA, UNSPECIFIED Status: Acute (11) Hypothyroidism Code(s): E03.9 - HYPOTHYROIDISM, UNSPECIFIED Status: Acute (12) HTN (hypertension) Code(s): I10 - ESSENTIAL (PRIMARY) HYPERTENSION Status: Acute (13) CKD (chronic kidney disease) stage 3, GFR 30-59 ml/min Code(s): N18.3 - CHRONIC KIDNEY DISEASE, STAGE 3 (MODERATE) Status: Chronic (14) Metabolic acidosis Code(s): E87.2 - ACIDOSIS Status: Acute (15) Bacteremia due to Enterobacter species Code(s): R78.81 - BACTEREMIA; B96.89 - OTH BACTERIAL AGENTS THE CAUSE OF DISEASES CLASSD ELSWHR Status: Acute (16) UTI (urinary tract infection) Status: Acute (17) Encephalopathy acute Code(s): G93.40 - ENCEPHALOPATHY, UNSPECIFIED Status: Acute (18) Hypernatremia Code(s): E87.0 - HYPEROSMOLALITY AND HYPERNATREMIA Status: Acute (19) Sepsis Code(s): A41.9 - SEPSIS, UNSPECIFIED ORGANISM Status: Suspected - Plan Awaiting KHADIJAH. Appreciate ID input. Continue tube feeding. Continue antibiotics as per ID.We will start tube feeding as soon as GI clears PEG tube for use. Get TTE. NPO to continue. SCD. Restart on anticoagulation contemplated. Will discuss with Neurology.
--- NOTE | 2018-11-19 10:01 | PRG ---
DATE OF SERVICE: 11/19/2018 It appears Mr. Garcia did fine overnight. He has been afebrile since PEG tube placement yesterday. No significant bleeding from the site. Evidently, tolerating tube feeds. I examined the PEG site and it looks good. I did loosen the external bumper today to distance of 4.5 cm, which should be a good distance for him. GI will sign off. Please call back anytime with any questions or concerns. Job ID: [id number]
--- NOTE | 2018-11-19 10:42 | PDOC.PALPN ---
Palliative Progress Note - Subjective Listing to the right, weak, aphagic. Unable to communicate needs or respond to questions. PEG placed. - Objective Vital Signs: Vital Signs - Most Recent Temp Pulse Resp BP Pulse Ox 97.5 F L 57 L 20 102/69 94 L 11/19/18 08:18 11/19/18 08:18 11/19/18 08:18 11/19/18 08:18 11/19/18 08:18 - Physical Exam Deviation from normal: Emaciated, sunken ocular bed, ill appearing. HEENT: moist MMs Respiratory: unlabored breathing Deviation from normal: Diminished to bases Gastrointestinal: soft, positive bowel sounds Musculoskeletal: edema present Deviation from normal: chewing mothion with mouth, unable to determine orientation. Flat Deviation from normal: Brusing to extremities/various stages of healing - Assessment (1) Palliative care encounter Code(s): Z51.5 - ENCOUNTER FOR PALLIATIVE CARE Current Visit: Yes Status: Acute - Plan Plan:P Montaño to follow up with patient to reinforce supportive care offered by Palliative Care. is resistant to conversation in relation to disease trajectory. We will reach out to once more, educating in relation to services offered through Palliative Care. If in the future she is interested in assistance please reconsult our Team. [40] minutes spent on this encounter with >50% of the time in counseling and coordination of care.
[2018-11-19] MEDS: Famotidine 20 MG TAB PO SCH (11:49)
[2018-11-19] MEDS: Amiodarone 200 MG TAB PO SCH (11:49)
[2018-11-19] MEDS: Tamsulosin HCl 0.4 MG CAP PO SCH (11:50)
[2018-11-19] MEDS: Multivit, Therapeutic 1 TAB PO SCH (11:50)
[2018-11-19] MEDS: Saccharomyces boulardii 250 MG CAP PO SCH (11:50)
[2018-11-19] MEDS: Famotidine/PF 20 mg/2ml Vial SLOW IVP SCH (12:31)
[2018-11-19] MEDS ORDERED: PROPOFOL 200 MG/20 ML VIAL ONE (13:33)
[2018-11-19] MEDS ORDERED: Ketamine 50 MG/ML (10ML VIAL) ONE (13:56)
--- NOTE | 2018-11-19 16:10 | PRG ---
DATE OF SERVICE: 11/19/2018 SUBJECTIVE: The patient is n.p.o. for KHADIJAH. He has no changes in his status, otherwise. OBJECTIVE: VITAL SIGNS: His T-max 98.9, blood pressure 108/57, pulse 55, respirations 20, O2 saturation 98%. GENERAL: He is awake. LUNGS: Symmetric air entry with no crackles or wheezing. ABDOMEN: Soft. CARDIOVASCULAR: S1, S2 without obvious murmurs. NEUROLOGICAL: Unable to communicate. EXTREMITIES: Weakness in all four limbs noted as previously. LABORATORY DATA: White cell count 7.4, hemoglobin 11.8, platelets 241 and normal differential. Creatinine 1.52. Repeat blood cultures, no growth at [address] abdomen with stercoral proctitis. ASSESSMENT AND DISCUSSION: Atrial fibrillation, prior cerebrovascular accidents, dementia, Enterococcus faecalis bacteremia, stercoral proctitis. The stercoral proctitis can be associated with Enterococcus bacteremia. If the KHADIJAH is negative, then I would just manage the area of impaction/constipation in a short course of ampicillin. Obviously, if there are vegetations, then he will require protracted IV ampicillin/Rocephin. Job ID: [id number]
--- NOTE | 2018-11-19 17:31 | SPC ---
PICC PLACEMENT ULTRASOUND-GUIDED VENOUS ACCESS: (Peripherally inserted central catheter) DATE: 11/19/2018 HISTORY: 78-year-old male with bacteremia requiring long-term IV antibiotics. TECHNIQUE: Catheter caliber: 5 [place] Catheter trim length:36 cm Catheter lumen number:single Catheter tip location:Superior vena cava/right atrial junction. Vein accessed:right brachial Total fluoroscopy time: 1.6 min. Dose area product: 3594 mGy*cm^2 Signed, informed proxy consent was obtained. Initially, the plan was to replace the existing left mid line catheter with a PICC. After the midline catheter and the left arm were prepped and draped in usual sterile fashion, the catheter was cut. A 0.018 inch guidewire was advanced through the midline catheter under fluoroscopy, into the proximal arm. The catheter did not advance down the axillary level. The midline catheter and guidewire were removed, and compression was held at the site until he mostasis was achieved. It was decided to place a new PICC in the contralateral right arm. A tourniquet was applied at the proximal aspect of the right arm. The right arm was prepped and drape d in the usual sterile fashion. A 25-gauge needle was used to applied buffered lidocaine superficially. There is a thin right brachial vein system. The more medial brachial vein was puncture d with a 21-gauge micropuncture needle under ultrasound guidance. A 0.018 inch guidewire was advanced through the micropuncture needle and into the vein. Under fluoroscopic guidance, the guidewi re was advanced to the superior vena cava. The PICC was flushed and trimmed to the appropriate length. The micropuncture needle was exchanged over the guidewire for a 5 [place]ian peel-away dilator osmani. The dilator was exchanged over the guidewire for the PICC, which was then further advanced under fluoroscopy. The sheath and guidewire were removed. The PICC was flushed again and secured in p lace at the arm after adjustment of tip position. The patient tolerated the procedure well. There was no complication. IMPRESSION: Successful placement of a right-sided PICC (peripherally inserted central catheter).
--- NOTE | 2018-11-19 20:01 | ECHO ---
DATE OF SERVICE: 11/19/18 PREPROCEDURE DIAGNOSIS: Bacteremia. Transesophageal echo was done for evaluation of bacteremia, possible endocarditis. The Anesthesiology department provided with sedation for the patient. Please see their notes for det ails. After adequate sedation was achieved, transesophageal probe was inserted into the mouth and into the esophagus. Multiplanar views were obtained. Left ventricle is normal size, normal wall thickness. Systolic function appears to be normal. Estima phil EF at 55-60%. Left atrium is mildly dilated. Left atrial appendage is a bilobed appendage with no mass or thrombus. Normal velocities. Right atrium is normal sized. The right ventricle is normal size with normal RV systolic function. Aortic valve is mildly sclerotic but opens well. No stenosis. There is mild aortic insufficiency. No vegetations. Mitral valve is structurally normal. There is no stenosis. Mild regurgitation. No vegetations. Tricuspid valve is structurally normal. There is mild TR. No vegetations. Pulmonary valve is structurally normal. No vegetations. Thoracic aorta has grade II/V atherosclerotic disease. CONCLUSIONS: 1. Normal LV systolic function, EF at 55-60%. 2. Aortic valve sclerosis with mild aortic insufficiency. 3. Mild TR. 4. Mild MR. 5. Mild left atrial enlargement. 6. No evidence of vegetations in any of the valvular structures or the cardiac structures.
[2018-11-19] MEDS ORDERED: Aspirin 325 MG TAB PO SCH (21:00)
[2018-11-19] MEDS: Mirtazapine 15 MG TAB PO SCH (21:39)
[2018-11-19] MEDS: Atorvastatin Calcium 40 MG TAB PO SCH (21:39)
[2018-11-19] MEDS: Aspirin 325 MG TAB PO SCH (21:39)
[2018-11-20] MEDS: Piperacillin/Tazobactam 2.25 GM in Sodium Chloride 0.9% 100 ML IVPB SCH ×3 (00:14→12:17)
[2018-11-20 04:46] LABS: #Eosinphils 0.4 thou/uL (0.0-0.7); #Lymphocytes 1.5 thou/uL (1.20-3.40); #Monocytes 0.6 thou/uL (0.11-0.59); #Neutrophils 5.9 thou/uL (1.40-6.50); %Basophils 0.6 % (0.0-1.0); %Eosinophils 4.7 % (0.0-10.0); %Lymphocytes 17.2 % (21.0-51.0); %Monocytes 7.6 % (0.0-10.0); %Neutrophils 69.9 % (42.0-75.0); Hemoglobin 12.9 g/dL (14.0-18.0); Mean Corpuscular HGB CONC 33.4 g/dL (32.0-36.0); Mean Corpuscular Volume 96.1 fL (78.0-98.0); Mean Platelet Volume 8.1 fL (7.4-10.4); Platelet Count 238 thou/uL (130-400); RBC Distribution Width 14.1 % (11.5-14.5); Red Blood Cell (RBC) Count 4.02 mill/uL (4.70-6.10); White Blood Cell (WBC) Count 8.4 thou/uL (4.8-10.8)
[2018-11-20 05:08] LABS: Anion Gap 13 mmol/L (10-20); BUN (Urea Nitrogen) 15 mg/dL (8.4-25.7); Calc. Creatinine Clearance 43 mL/min (70-130); Calcium 8.7 mg/dL (7.8-10.44); Carbon Dioxide 19 mmol/L (23-31); Chloride 110 mmol/L (98-107); Estimated GFR-MDRD 43; Glucose 125 mg/dL (83-110); Potassium 3.4 mmol/L (3.5-5.1); Sodium 139 mmol/L (136-145)
[2018-11-20] MEDS: Levothyroxine Sodium 50 MCG TAB PO SCH (05:48)
[2018-11-20] MEDS: Multivit, Therapeutic 1 TAB PO SCH (09:26)
[2018-11-20] MEDS: Tamsulosin HCl 0.4 MG CAP PO SCH (09:26)
[2018-11-20] MEDS: Famotidine 20 MG TAB PO SCH (09:26)
[2018-11-20] MEDS: Amiodarone 200 MG TAB PO SCH (09:26)
[2018-11-20] MEDS: Saccharomyces boulardii 250 MG CAP PO SCH (09:26)
[2018-11-20] MEDS: Famotidine/PF 20 mg/2ml Vial SLOW IVP SCH (09:26)
[2018-11-20] MEDS: Mirtazapine 15 MG TAB PO SCH (21:22)
[2018-11-20] MEDS: Atorvastatin Calcium 40 MG TAB PO SCH (21:22)
[2018-11-20] MEDS: AMOXicillin 250 MG CAP PO SCH (21:22)
[2018-11-20] MEDS: Aspirin 325 MG TAB PO SCH (21:22)
--- NOTE | 2018-11-21 03:15 | EKG ---
Test Reason : Blood Pressure : / mmHG Vent. Rate : 073 BPM Atrial Rate : 073 BPM P-R Int : 138 ms QRS Dur : 086 ms QT Int : 408 ms P-R-T Axes : 080 -44 055 degrees QTc Int : 449 ms Normal sinus rhythm Left axis deviation Pulmonary disease pattern ST abnormality, possible digitalis effect Abnormal ECG Confirmed by IJEOMA SALCEDO DO ([id number]), desk editor OWEN BUSTAMANTE ([id number] on 11/21/2018 3:14:55 AM Referred By: DENISSE Confirmed By:IJEOMA SALCEDO DO
[2018-11-21] MEDS: Levothyroxine Sodium 50 MCG TAB PO SCH (06:36)
--- NOTE | 2018-11-21 07:35 | PDOC.HOSPP ---
- Subjective Encounter Date: 11/20/18 Subjective: Patient is non verbal. - Objective Vital Signs & Weight: Vital Signs (12 hours) Temp Pulse Resp BP Pulse Ox 11/21/18 06:10 95 11/21/18 03:30 99.3 F 67 20 121/62 95 11/20/18 23:15 98.1 F 65 18 145/79 H 95 11/20/18 20:25 96 11/20/18 19:47 98.2 F 65 20 129/77 96 Weight Admit Weight 174 lb 2 oz Weight 174 lb 2 oz I&O: 11/20/18 11/21/18 11/22/18 06:59 06:59 06:59 Intake Total 300 2499 Balance 300 2499 Result Diagrams: 11/20/18 04:19 11/20/18 04:19 Hospitalist ROS - Medication Medications: Active Medications Generic Name Dose Route Start Last Admin Trade Name Freq PRN Reason Stop Dose Admin Amiodarone HCl 200 mg 11/14/18 09:00 11/20/18 09:26 Cordarone PO 200 mg DAILY HERIBERTO Administration Amoxicillin 500 mg 11/20/18 21:00 11/20/18 21:22 Amoxil PO 500 mg BID HERIBERTO Administration Aspirin 325 mg 11/19/18 21:00 11/20/18 21:22 Aspirin PO 325 mg HS HERIBERTO Administration Atorvastatin Calcium 40 mg 11/13/18 21:00 11/20/18 21:22 Lipitor PO 40 mg HS HERIBERTO Administration Bisacodyl 10 mg 11/13/18 15:06 11/20/18 04:01 Dulcolax NC 10 mg DAILYPRN PRN Administration Constipation Famotidine 20 mg 11/14/18 09:00 11/20/18 09:26 Pepcid PO 20 mg DAILY HERIBERTO Administration Famotidine 20 mg 11/19/18 09:00 11/20/18 09:26 Pepcid SLOW IVP Not Given DAILY HERIBERTO Labetalol HCl 20 mg 11/13/18 15:06 11/16/18 11:35 Normodyne SLOW IVP 20 mg Q4H PRN Administration SBP > 180 and HR >/= 70 Levothyroxine Sodium 50 mcg 11/14/18 06:00 11/21/18 06:36 Synthroid PO Not Given 0600 [facility] Mirtazapine 7.5 mg 11/13/18 21:00 11/20/18 21:22 Remeron PO 7.5 mg HS HERIBERTO Administration Multivitamins 1 tab 11/14/18 09:00 11/20/18 09:26 Theragran PO 1 tab DAILY HERIBERTO Administration Saccharomyces Boulardii 250 mg 11/14/18 09:00 11/20/18 09:26 Florastor PO 250 mg DAILY HERIBERTO Administration Sodium Chloride 10 ml 11/13/18 15:06 11/20/18 21:23 Flush - Normal Saline IVF 10 ml PRN PRN Administration Saline Flush Tamsulosin HCl 0.4 mg 11/14/18 09:00 11/20/18 09:26 Flomax PO 0.4 mg DAILY HERIBERTO Administration - Exam General Appearance: NAD Heart: RRR, no murmur Respiratory: CTAB, no wheezes Gastrointestinal: soft, non-tender Skin: normal turgor Neurological - other findings: Not significantly interactive Hosp A/P (1) Acute ischemic cerebrovascular accident (CVA) involving left middle cerebral artery territory Code(s): I63.512 - CEREB INFRC D/T UNSP OCCLS OR STENOS OF LEFT MID CEREB ART Status: Acute (2) Aphasia due to acute cerebrovascular accident (CVA) Code(s): I63.9 - CEREBRAL INFARCTION, UNSPECIFIED; R47.01 - APHASIA Status: Acute (3) Bacteremia due to Enterobacter species Code(s): R78.81 - BACTEREMIA; B96.89 - OTH BACTERIAL AGENTS THE CAUSE OF DISEASES CLASSD ELSWHR Status: Acute (4) Dysphagia Code(s): R13.10 - DYSPHAGIA, UNSPECIFIED Status: Acute (5) Encephalopathy acute Code(s): G93.40 - ENCEPHALOPATHY, UNSPECIFIED Status: Acute (6) HTN (hypertension) Code(s): I10 - ESSENTIAL (PRIMARY) HYPERTENSION Status: Acute (7) Hypothyroidism Code(s): E03.9 - HYPOTHYROIDISM, UNSPECIFIED Status: Acute (8) CKD (chronic kidney disease) stage 3, GFR 30-59 ml/min Code(s): N18.3 - CHRONIC KIDNEY DISEASE, STAGE 3 (MODERATE) Status: Chronic (9) Chronic anticoagulation Code(s): Z79.01 - CARE HOME (CURRENT) USE OF ANTICOAGULANTS Status: Chronic (10) Dementia Code(s): F03.90 - UNSPECIFIED DEMENTIA WITHOUT BEHAVIORAL DISTURBANCE Status: Chronic (11) PAF (paroxysmal atrial fibrillation) Code(s): I48.0 - PAROXYSMAL ATRIAL FIBRILLATION Status: Chronic - Plan Echo did not show any vegetations. Communicated with Dr. Welch. Will stop the IV abx and change to po amoxicillin. Will be able to DC the PICC and DC to [facility] soon.
[2018-11-21] MEDS: Amiodarone 200 MG TAB PO SCH (09:32)
[2018-11-21] MEDS: Multivit, Therapeutic 1 TAB PO SCH (09:32)
[2018-11-21] MEDS: Saccharomyces boulardii 250 MG CAP PO SCH (09:33)
[2018-11-21] MEDS: Tamsulosin HCl 0.4 MG CAP PO SCH (09:33)
[2018-11-21] MEDS: AMOXicillin 250 MG CAP PO SCH ×2 (09:35→21:30)
[2018-11-21] MEDS: Famotidine/PF 20 mg/2ml Vial SLOW IVP SCH (09:47)
[2018-11-21] MEDS: Famotidine 20 MG TAB PO SCH (09:47)
[2018-11-21] MEDS: Mirtazapine 15 MG TAB PO SCH (21:30)
[2018-11-21] MEDS: Atorvastatin Calcium 40 MG TAB PO SCH (21:30)
[2018-11-21] MEDS: Aspirin 325 MG TAB PO SCH (21:30)
[2018-11-22] MEDS: Levothyroxine Sodium 50 MCG TAB PO SCH (07:57)
--- NOTE | 2018-11-22 08:04 | PDOC.HOSPP ---
- Subjective Encounter Date: 11/21/18 Subjective: Kelsi-verbal - Objective Vital Signs & Weight: Vital Signs (12 hours) Temp Pulse Resp BP Pulse Ox 11/22/18 04:00 98.6 F 67 20 165/98 H 97 11/21/18 23:30 98.3 F 67 18 150/81 H 94 L 11/21/18 20:45 97 Weight Admit Weight 174 lb 2 oz Weight 174 lb 2 oz I&O: 11/21/18 11/22/18 11/23/18 06:59 06:59 06:59 Intake Total 2499 1600 Balance 2499 1600 Result Diagrams: 11/20/18 04:19 11/20/18 04:19 Hospitalist ROS - Medication Medications: Active Medications Generic Name Dose Route Start Last Admin Trade Name Freq PRN Reason Stop Dose Admin Amiodarone HCl 200 mg 11/14/18 09:00 11/21/18 09:32 Cordarone PO 200 mg DAILY HERIBERTO Administration Amoxicillin 500 mg 11/20/18 21:00 11/21/18 21:30 Amoxil PO 500 mg BID HERIBERTO Administration Aspirin 325 mg 11/19/18 21:00 11/21/18 21:30 Aspirin PO 325 mg HS HERIBERTO Administration Atorvastatin Calcium 40 mg 11/13/18 21:00 11/21/18 21:30 Lipitor PO 40 mg HS HERIBERTO Administration Bisacodyl 10 mg 11/13/18 15:06 11/20/18 04:01 Dulcolax NM 10 mg DAILYPRN PRN Administration Constipation Famotidine 20 mg 11/14/18 09:00 11/21/18 09:47 Pepcid PO 20 mg DAILY HERIBERTO Administration Famotidine 20 mg 11/19/18 09:00 11/21/18 09:47 Pepcid SLOW IVP Not Given DAILY HERIBERTO Labetalol HCl 20 mg 11/13/18 15:06 11/16/18 11:35 Normodyne SLOW IVP 20 mg Q4H PRN Administration SBP > 180 and HR >/= 70 Levothyroxine Sodium 50 mcg 11/14/18 06:00 11/22/18 07:57 Synthroid PO Not Given 0600 HERIBERTO Mirtazapine 7.5 mg 11/13/18 21:00 11/21/18 21:30 Remeron PO 7.5 mg HS HERIBERTO Administration Multivitamins 1 tab 11/14/18 09:00 11/21/18 09:32 Theragran PO 1 tab DAILY HERIBERTO Administration Saccharomyces Boulardii 250 mg 11/14/18 09:00 11/21/18 09:33 Florastor PO 250 mg DAILY HERIBERTO Administration Sodium Chloride 10 ml 11/13/18 15:06 11/20/18 21:23 Flush - Normal Saline IVF 10 ml PRN PRN Administration Saline Flush Tamsulosin HCl 0.4 mg 11/14/18 09:00 11/21/18 09:33 Flomax PO 0.4 mg DAILY HERIBERTO Administration - Exam General Appearance: NAD General - other findings: Appears to be sleeping. Heart: RRR, no murmur, no gallops, no rubs Respiratory: CTAB, no wheezes, no rales Gastrointestinal: soft, non-distended, normal bowel sounds Skin: normal turgor Musculoskeletal: normal tone, normal strength, no muscle wasting Hosp A/P (1) Acute ischemic cerebrovascular accident (CVA) involving left middle cerebral artery territory Code(s): I63.512 - CEREB INFRC D/T UNSP OCCLS OR STENOS OF LEFT MID CEREB ART Status: Acute (2) Aphasia due to acute cerebrovascular accident (CVA) Code(s): I63.9 - CEREBRAL INFARCTION, UNSPECIFIED; R47.01 - APHASIA Status: Acute (3) Bacteremia due to Enterobacter species Code(s): R78.81 - BACTEREMIA; B96.89 - OTH BACTERIAL AGENTS THE CAUSE OF DISEASES CLASSD ELSWHR Status: Acute (4) Dysphagia Code(s): R13.10 - DYSPHAGIA, UNSPECIFIED Status: Acute (5) Encephalopathy acute Code(s): G93.40 - ENCEPHALOPATHY, UNSPECIFIED Status: Acute (6) HTN (hypertension) Code(s): I10 - ESSENTIAL (PRIMARY) HYPERTENSION Status: Acute (7) Hypothyroidism Code(s): E03.9 - HYPOTHYROIDISM, UNSPECIFIED Status: Acute (8) CKD (chronic kidney disease) stage 3, GFR 30-59 ml/min Code(s): N18.3 - CHRONIC KIDNEY DISEASE, STAGE 3 (MODERATE) Status: Chronic (9) Chronic anticoagulation Code(s): Z79.01 - [employer] (CURRENT) USE OF ANTICOAGULANTS Status: Chronic (10) Dementia Code(s): F03.90 - UNSPECIFIED DEMENTIA WITHOUT BEHAVIORAL DISTURBANCE Status: Chronic (11) PAF (paroxysmal atrial fibrillation) Code(s): I48.0 - PAROXYSMAL ATRIAL FIBRILLATION Status: Chronic - Plan Echo did not show any vegetations. Communicated with Dr. Welch. po amoxicillin. Will be able to DC the PICC and DC to [facility] as soon as that can be accomplished.
[2018-11-22] MEDS: Famotidine/PF 20 mg/2ml Vial SLOW IVP SCH (09:12)
[2018-11-22] MEDS: Amiodarone 200 MG TAB PO SCH (09:12)
[2018-11-22] MEDS: Famotidine 20 MG TAB PO SCH (09:12)
[2018-11-22] MEDS: Tamsulosin HCl 0.4 MG CAP PO SCH (09:12)
[2018-11-22] MEDS: Multivit, Therapeutic 1 TAB PO SCH (09:12)
[2018-11-22] MEDS: Saccharomyces boulardii 250 MG CAP PO SCH (09:12)
[2018-11-22] MEDS: AMOXicillin 250 MG CAP PO SCH (09:16)
[2018-11-22] MEDS ORDERED: Pancrelipase DR 12000 1 CAP FS PRN (11:33)
[2018-11-22] MEDS ORDERED: Sodium Bicarbonate Tab 325 MG TAB PER TUBE PRN (11:33)
[2018-11-22 16:29] VITALS: BP 147/78; TEMP 98.7
[2018-11-23] MEDS ORDERED: Heparin 1,000 UNITS/ML VIAL ONE (07:20)
== END 2018-11-22 16:30 | DRG 64 ==
LOC: ERS 07:29 → 2SE 10:16
PROVIDERS: ADMIT Internal Medicine; ATTEND Internal Medicine
PROC: 0DH63UZ Insertion of Feeding Device into Stomach, Percutaneous Approach (ICD-10-PCS; principal; 2018-11-18)
PROC: 02HV33Z Insertion of Infusion Device into Superior Vena Cava, Percutaneous Approach (ICD-10-PCS; 2018-11-19)
PROC: B518YZA Fluoroscopy of Superior Vena Cava using Other Contrast, Guidance (ICD-10-PCS; 2018-11-19)
PROC: B24BZZ4 Ultrasonography of Heart with Aorta, Transesophageal (ICD-10-PCS; 2018-11-19)
DX: I63.512 Cerebral infarction due to unspecified occlusion or stenosis of left middle cerebral artery (principal); R40.2342 Coma scale, best motor response, flexion withdrawal, at arrival to emergency department; R40.2212 Coma scale, best verbal response, none, at arrival to emergency department; I61.9 Nontraumatic intracerebral hemorrhage, unspecified; J69.0 Pneumonitis due to inhalation of food and vomit; A41.81 Sepsis due to Enterococcus; G81.91 Hemiplegia, unspecified affecting right dominant side; G93.40 Encephalopathy, unspecified; E87.2 Acidosis; N39.0 Urinary tract infection, site not specified; E87.0 Hyperosmolality and hypernatremia; N17.9 Acute kidney failure, unspecified; Z51.5 Encounter for palliative care; R29.734 NIHSS score 34; R40.2142 Coma scale, eyes open, spontaneous, at arrival to emergency department; E78.00 Pure hypercholesterolemia, unspecified; N18.3 Chronic kidney disease, stage 3 (moderate); I12.9 Hypertensive chronic kidney disease with stage 1 through stage 4 chronic kidney disease, or unspecified chronic kidney disease; I48.0 Paroxysmal atrial fibrillation; E03.9 Hypothyroidism, unspecified; E78.5 Hyperlipidemia, unspecified; N40.0 Benign prostatic hyperplasia without lower urinary tract symptoms; D63.1 Anemia in chronic kidney disease; R47.01 Aphasia; I34.0 Nonrheumatic mitral (valve) insufficiency; R13.12 Dysphagia, oropharyngeal phase; K59.00 Constipation, unspecified; Z79.899 Other long term (current) drug therapy; Z79.01 Long term (current) use of anticoagulants; Z99.3 Dependence on wheelchair; F01.50 Vascular dementia, unspecified severity, without behavioral disturbance, psychotic disturbance, mood disturbance, and anxiety
CPT/HCPCS: 36415; 36416; 36569; 70450; 70496; 70498; 70551; 71045; 74177; 80048; 80053; 80061; 80069; 81003; 81015; 83735; 85025; 85610; 85730; 87040; 87077; 87086; 87149; 87186; 93005; 93306; 93312; 96361; 96365; 96367; C1751; J1644; J1940; J2543; J2704; J3370; J3480; J3490; J7050; J7070; Q9966; Q9967; S0028

== ENCOUNTER 2019-03-22 16:35 | Inpatient (IN) | payer MEDICARE, MEDICAID ==
[2019-03-22] MEDS ORDERED: Midazolam HCl 2 mg/2 ml Vial ONE (16:47)
[2019-03-22] MEDS ORDERED: Fentanyl 100 MCG/2 ML VIAL ONE (16:47)
[2019-03-22] MEDS ORDERED: Norepinephrine 8 MG/0.9% NS 250 ML ONE (16:57)
[2019-03-22 17:51] LABS: Hemoglobin 7.6 g/dL (14.0-18.0); Mean Corpuscular HGB CONC 32.3 g/dL (32.0-36.0); Mean Corpuscular Hemoglobin 29.5 pg (27.0-31.0); Mean Corpuscular Volume 91.3 fL (78.0-98.0); Mean Platelet Volume 9.7 fL (7.4-10.4); Platelet Count 227 thou/uL (130-400); RBC Distribution Width 18.1 % (11.5-14.5); Red Blood Cell (RBC) Count 2.57 mill/uL (4.70-6.10)
[2019-03-22] MEDS ORDERED: Cefepime 2 GM VIAL ONE (18:08)
[2019-03-22 18:22] LABS: Anisocytosis MODERATE=16-30 cells (100X) (0-5/hpf); Howell Jolly Bodies SLIGHT = 1-2 cells (100X) (None Seen); Lymphocytes 4 % (21-51); MDiff Complete? YES; Monocytes 6 % (0-10); Neutrophil 90 % (42-75); Nucleated RBC 2 % (0); Ovalocytes SLIGHT = 2-5 cells (100X) (0-1/hpf); Platelet Morphology Comment Appears Adequate; Polychromasia MODERATE = 3-4 cells (100X) (0-2/hpf); Schistocytes SLIGHT = 2-5 cells (100X) (0-1/hpf); Spherocytes SLIGHT = 1-5 cells (100X) (None Seen); White Blood Cell (WBC) Count 16.6 thou/uL (4.8-10.8)
[2019-03-22] MEDS ORDERED: Lidocaine 1% PF 5 ML VIAL ONE (18:22)
[2019-03-22 18:23] LABS: ALT (SGPT) 15 U/L (8-55); AST (SGOT) 12 U/L (5-34); Albumin 2.7 g/dL (3.4-4.8); Alkaline Phosphatase 68 U/L (40-110); Anion Gap 19 mmol/L (10-20); Bilirubin, Total 0.3 mg/dL (0.2-1.2); Calc. Creatinine Clearance 0 mL/min (70-130); Calcium 7.4 mg/dL (7.8-10.44); Carbon Dioxide 21 mmol/L (23-31); Chloride 127 mmol/L (98-107); Estimated GFR-MDRD 20; Globulin 2.2 g/dL (2.4-3.5); Glucose 250 mg/dL (83-110); Potassium 5.6 mmol/L (3.5-5.1); Protein, Total 4.9 g/dL (5.8-8.1); Sodium 161 mmol/L (136-145)
[2019-03-22 18:26] LABS: BUN (Urea Nitrogen) 167 mg/dL (8.4-25.7)
[2019-03-22 18:34] LABS: CKMB 1.1 ng/mL (0-6.6)
[2019-03-22 18:41] LABS: Bilirubin Negative (Negative); Blood, Urine Negative (Negative); Clarity Clear (Clear); Glucose, Urine (Dipstick) Normal (Negative); Leukocyte 500 Leu/uL (Negative); Nitrite Negative (Negative); Protein, Urine (Dipstick) 10 mg/dL (Neg-Trace); RBC/HPF 0-3 HPF (0-3); Squamous Epithelial 0-3 HPF (0-3); Urobilinogen Normal mg/dL (Less than 2)
[2019-03-22 18:44] LABS: Bacteria/HPF 1+ HPF (None Seen)
[2019-03-22 18:48] LABS: Yeast-Budding 3+ HPF (None Seen)
[2019-03-22 19:32] LABS: Actual Bicarbonate (HCO3a) 15.9 mEq/L (22-28); Analyzer IN Cardio ER; CO2 Tension 30.5 mmHg (35.0-45.0); Calcium, Ionized 1.02 mmol/L (1.12-1.30); Carboxyhemoglobin (COHb) 0.6 gm% (0.0-3.0); Hemoglobin (Hb) 6.8 g/dL (14.0-18.0); O2 Tension (PaO2) 87.1 mmHg (> 70.0); pH, Arterial 7.34 (7.35-7.45)
--- NOTE | 2019-03-22 19:32 | RAD ---
PORTABLE CHEST 03/22/19 PROVIDED CLINICAL HISTORY: Pneumothorax. FINDINGS: Interval decrease in size in right sided pneumothorax. Additional significant interval change with re spect to the prior examination is not apparent. IMPRESSION: As above. POS: ANA
[2019-03-22 19:33] LABS: ALV-art Gradient 74.415 (0-20); Puncture Site RRA
--- NOTE | 2019-03-22 19:50 | RAD ---
PORTABLE CHEST: 03/22/19 PROVIDED CLINICAL HISTORY: Tachycardia. FINDINGS: Comparison 11/13/18. There is a small to mild right pneumothorax. There is no evidence for mediastinal shift. Persistent prominence of the pulmonary interstitium and bibasilar subsegmental atelectatic change. No definite e vidence for pleural fluid. Right IJ central line noted, tip overlying expected region of right atrium . IMPRESSION: Right sided pneumothorax. Phone call regarding this finding was placed to the Emergency Department at 5:56 p.m. POS: ANA
[2019-03-22] MEDS ORDERED: Senokot S 8.6-50 MG TAB PER TUBE PRN (20:07)
[2019-03-22] MEDS ORDERED: Sodium Chloride 0.9% 1,000 ML IV SCH (20:07)
[2019-03-22] MEDS ORDERED: Ondansetron PF 4 MG/2 ML Vial IVP PRN (20:07)
[2019-03-22] MEDS ORDERED: Acetaminophen 650 MG Suppository PR PRN (20:07)
[2019-03-22] MEDS ORDERED: Guaifenesin DM 100-10/5 ML UDCUP PO PRN (20:07)
[2019-03-22] MEDS ORDERED: Ondansetron ODT 4 MG TAB PER TUBE PRN (20:07)
--- NOTE | 2019-03-22 20:10 | RAD ---
PORTABLE CHEST: 03/22/19 PROVIDED CLINICAL HISTORY: Chest tube placement. FINDINGS: Comparison examination performed earlier same date. Interval placement of small caliber right sided chest tube, the distal aspects of which project over the thoracic spine and the location of which is not certain on the basis of this study. There is pers istent right sided pneumothorax. Right sided IJ central line is again seen in similar position. IMPRESSION: Interval placement of small caliber right sided chest tube as described. POS: ANA
[2019-03-22 20:35] LABS: Troponin I 0.104 ng/mL (< 0.028)
[2019-03-22] MEDS ORDERED: Vancomycin HCl 1 GM in Premix Bag 1 BAG IVPB SCH (21:00)
--- NOTE | 2019-03-22 21:32 | HP ---
PRIMARY CARE PHYSICIAN: Harvey Gutierrez MD CHIEF COMPLAINT: Unresponsive and respiratory difficulty. HISTORY OF PRESENT ILLNESS: This is a 78-year-old white male with a history of multiple previous strokes. He has been mostly noncommunicative since his last stroke in October of this year. He has been in multiple assisted facilities and nursing homes and in and out of [facility] most recently with a pneumonia requiring intubation in earlier February and then a repeat admission for atrial fibrillation with rapid ventricular rate that had to be converted. The patient was discharged to [facility] about a week and a half ago per the , who is present and giving all the history. He was in his normal state of health and not able to talk, but able to smile a little bit and occasionally could squeeze his 's hand a little bit when she asked some questions, being fed through PEG tube until the day of admission and then he was noted in the longterm to have increased difficulty breathing and tachycardia in the 160s to 180s. When he presented to the emergency room, he had undetectable blood pressure. His heart rate was in the 150s and higher with a narrow complex rhythm on the EKG. The ER doctor did do a synchronized cardioversion and he converted back into sinus rhythm in less than 100 beats per minute and his blood pressure came up. He was also noted to be extremely volume depleted. He was given a couple of liters of fluid in the emergency room, now his blood pressures are much better. He has not required any Levophed. He was noted to have leukocytosis. No fever. He is also noted to be significantly anemic, 7.6, down from 12.9 his last admission here and have a lactic acidosis of 2.9. Troponin was indeterminate at 0.1. The patient was perked up with fluids in the emergency room. He is starting to smile a little bit at his and looking around. He was given Levaquin, vancomycin and cefepime in the emergency room. PAST MEDICAL HISTORY: All history taken from the from the chart as patient is not able to communicate. 1. Recurrent ischemic stroke, now bed-bound with PEG tube and not able to communicate or move his limbs. 2. Paroxysmal atrial fibrillation with previous extreme tachycardic episodes with narrow complex rhythms. 3. Vascular dementia. 4. Chronic kidney disease, stage 3. 5. Hypothyroidism. 6. Dyslipidemia. 7. Hypertension. 8. Benign prostatic hyperplasia. The patient did have a central line placed in the emergency room and a right subclavian was attempted first. This was unsuccessful, so a right internal jugular was placed successfully. Followup chest x-ray did show a right-sided pneumothorax. The emergency physician did put in a right-sided chest tube with resolution of the pneumothorax on repeat imaging. Dr. Hilliard was consulted by the emergency physician to follow this chest tube during the hospitalization. PAST SURGICAL HISTORY: 1. Right hand surgery. 2. PEG tube placement. SOCIAL HISTORY: The patient lives in a longterm. His is his medical power of estate planning attorney. Her name is Melissa Garcia. FAMILY HISTORY: No strong family history of premature coronary artery disease, stroke or cancer per the patient's . ALLERGIES: NO KNOWN DRUG ALLERGIES. CURRENT MEDICATIONS: 1. Eliquis 2.5 mg twice a day. 2. MiraLAX 17 g daily. 3. Lasix 20 mg daily. 4. Levothyroxine 50 mcg daily. 5. Melatonin 5 mg at night. 6. Cardizem, unknown dose. 7. Coreg, unknown dose. 8. Metoprolol 100 mg twice a day. 9. Amiodarone 200 mg daily. 10. DuoNeb as needed. 11. Tamsulosin 0.4 mg daily. REVIEW OF SYSTEMS: Unable to obtain secondary to patient's noncommunicable status. As far as knows he has not had any fever or vomiting, but she did note that when she came to visit him the past couple of days, above times she noted that his continuous tube feeds have been turned off from when he had been turned and she was not certain how long they have been off or if they have been forgotten to resume. PHYSICAL EXAMINATION: VITAL SIGNS: Blood pressure 105/68, pulse 90, respirations 30, temperature 98.8, O2 saturation 94% on room air. GENERAL: Well-developed, thin, debilitated elderly male, who is awake and alert, but not able to respond, his eyes is giving mild smiles and moving a few of his fingers a little bit. He does not follow commands. HEENT: Pupils equal, round, and reactive to light. The patient will not open his mouth for me. NECK: Supple. No lymphadenopathy. No thyroid nodules or enlargement. HEART: Regular rate and rhythm. No murmurs, rubs, or gallops. LUNGS: Clear to auscultation bilaterally. No wheezes, crackles, or rhonchi. There is a right-sided chest tube in place to suction and they are to water-seal and a right-sided internal jugular central venous line. ABDOMEN: Soft, nontender to palpation. Normoactive bowel sounds. He has a PEG tube in place. No hepatosplenomegaly or other masses noted. EXTREMITIES: The patient has atrophic extremities with contractures. No pressure ulcers or sores on the extremities noted. SKIN: No pressure ulcers or sores noted. I did not check his bottom. His said he does have a little bit of a red spot there. NEUROLOGIC: The patient can move his left fingers a little bit as noted previously and can have a little half smile and moves his eyes around to follow people in the room. Otherwise, he does not follow commands or communicate in any way. LABORATORY DATA: CBC; white blood cell count is 16,000 with 90% neutrophils, hemoglobin 7.6, hematocrit 23.4, platelet count 227. Complete metabolic panel is notable for sodium of 161, potassium of 56, chloride of 127, bicarb of 21, BUN of 167 and creatinine of 3.04, glucose of 250, calcium of 7.4, albumin of 2.7, the rest was normal. His lactic acid was 2.9. His troponin was 0.1, CK-MB of 1.1. Urinalysis showed 500 leuk esterase, 11-20 white blood cells and 1+ bacteria with some budding yeast and toxicology screen showed positive beta hydroxybutyrate of 0.38. IMAGING STUDIES: Chest x-ray, I did review the chest x-ray done in the emergency room along with the radiologist's report. There was a small right-sided pneumothorax that resolved on repeat imaging after chest tube placement. I saw right internal jugular central venous line in good position. There is no evidence of pneumonia or other acute cardiopulmonary process. ASSESSMENT: 1. Supraventricular tachycardia with shock, resolved after cardioversion. We will resume patient's antiarrhythmics and we will consult Cardiology. 2. Severe sepsis with septic shock, resolved with heart rate control and IV fluid administration. No pressors necessary. We will continue IV fluids and recheck lactic acid. The patient has already been loaded with antibiotics and blood and urine cultures sent. Most likely source is urinary, though could be pulmonary with him just being to try to show the pneumonia. We will reimage his chest in the morning. We will consult Pulmonology and Critical Care in the morning as well. 3. Iatrogenic pneumothorax, well controlled with the chest tube. Dr. Hilliard consulted. 4. Previous strokes with severe disability and now significant severe protein calorie malnutrition compared to his last admission. We will resume tube feedings. We will also have Palliative Care discuss the patient's prognosis and code status further with the patient's . 5. Anemia, significant drop since we last saw him back in October. However, he is also significantly malnourished instead and has had multiple hospital admissions, likely due to his chronic medical issues and poor nutrition. I suspect that it will dilute out some though after resuscitation, so he may need transfusions as his blood count draw was 7. We will monitor closely. At this point, there is no evidence of any active bleeding. 6. Hypertension. We will resume the patient's home medications as tolerated as he is resuscitated. 7. Hypothyroidism. Resume patient's thyroid medication. 8. Deep venous thrombosis prophylaxis. The patient is already on Eliquis. We will resume this once we confirm his home dose and assure that he is not actively bleeding. CODE STATUS: I did discuss this with the patient's , who is medical power of estate planning attorney. She was considering whether he would actually want chest compressions or shocks, was trying to ask him if he understood the question what he would want. At this point, he is still full code; however, she is reconsidering that particular aspect. She does think he would want to be intubated though if necessary. For now, he is a full code. We will have Palliative Care continue discussions with the . Job ID: [id number]
[2019-03-22] MEDS: Sodium Chloride 0.9% 1,000 ML IV SCH (22:35)
[2019-03-22] MEDS: Metoprolol Tartrate 100 MG TAB PER TUBE SCH (22:35)
[2019-03-22] MEDS: Acetaminophen 325 MG TAB PER TUBE PRN (22:49)
[2019-03-22 23:03] VITALS: BMI 23.8
[2019-03-22] MEDS ORDERED: Vancomycin HCl 500 MG in Sodium Chloride 0.9% 100 ML IVPB SCH (23:59)
[2019-03-23 00:08] LABS: Troponin I 0.097 ng/mL (< 0.028)
[2019-03-23 04:26] LABS: Anion Gap 16 mmol/L (10-20); Calc. Creatinine Clearance 23 mL/min (70-130); Calcium 7.4 mg/dL (7.8-10.44); Carbon Dioxide 19 mmol/L (23-31); Estimated GFR-MDRD 23; Glucose 176 mg/dL (83-110); Potassium 4.4 mmol/L (3.5-5.1); Sodium 160 mmol/L (136-145)
[2019-03-23 05:28] LABS: BUN (Urea Nitrogen) 156 mg/dL (8.4-25.7); Chloride 129 mmol/L (98-107)
[2019-03-23 05:51] LABS: #Basophils 0.1 thou/uL (0.0-0.2); #Eosinphils 0.1 thou/uL (0.0-0.7); #Lymphocytes 1.6 thou/uL (1.20-3.40); #Monocytes 1.2 thou/uL (0.11-0.59); #Neutrophils 13.8 thou/uL (1.40-6.50); %Basophils 0.3 % (0.0-1.0); %Eosinophils 0.8 % (0.0-10.0); %Lymphocytes 9.7 % (21.0-51.0); %Monocytes 7.2 % (0.0-10.0); %Neutrophils 82.1 % (42.0-75.0); Anisocytosis MODERATE=16-30 cells (100X) (0-5/hpf); Hemoglobin 6.5 g/dL (14.0-18.0); MDiff Complete? YES; Mean Corpuscular HGB CONC 30.1 g/dL (32.0-36.0); Mean Corpuscular Hemoglobin 27.5 pg (27.0-31.0); Mean Corpuscular Volume 91.2 fL (78.0-98.0); Mean Platelet Volume 9.6 fL (7.4-10.4); Platelet Count 181 thou/uL (130-400); RBC Distribution Width 17.6 % (11.5-14.5); Red Blood Cell (RBC) Count 2.38 mill/uL (4.70-6.10); White Blood Cell (WBC) Count 16.8 thou/uL (4.8-10.8)
[2019-03-23] MEDS: Levothyroxine Sodium 50 MCG TAB PER TUBE SCH (06:07)
[2019-03-23] MEDS: Sodium Chloride 0.9% 1,000 ML IV SCH (06:13)
[2019-03-23] MEDS ORDERED: Dextrose 50% Abboject 50 ML SYRINGE SLOW IVP PRN (06:34)
[2019-03-23] MEDS ORDERED: Dextrose 5% in Water 1,000 ML IV PRN (06:34)
[2019-03-23] MEDS: Insulin Regular 300 UNITS/3 ML VIAL SC PRN ×4 (07:14→21:05)
[2019-03-23] MEDS: Metoprolol Tartrate 100 MG TAB PER TUBE SCH ×2 (08:12→21:05)
[2019-03-23] MEDS: Dextrose 5% in Water 1,000 ML IV SCH ×3 (08:14→17:32)
[2019-03-23] MEDS: Tamsulosin HCl 0.4 MG CAP PO SCH (08:18)
--- NOTE | 2019-03-23 08:28 | CON ---
DATE OF CONSULTATION: 03/23/2019 This is 70 minutes of time, of that time, greater than 50% was spent with the patient and/or the patient's unit in the hospital. REASON FOR CONSULTATION: Critical care management. HISTORY OF PRESENT ILLNESS: This is a 78-year-old correction patient, who was brought to the hospital yesterday with severe tachycardia. It was thought that first he was septic. ER doctor attempted to place a right subclavian central line in iatrogenic pneumothorax resulted. Line was then placed in the right IJ. The patient has a small caliber chest tube in the right pleural space with now near resolution of the right-sided pneumothorax. The patient is noncommunicative and cannot give me any type of history from what I can tell. He has had multiple admissions related to pneumonia and sepsis. He has a PEG tube. He had been intubated at [facility] in February. PAST MEDICAL HISTORY: 1. Multiple strokes. 2. Bed-bound status. 3. Paroxysmal atrial fibrillation. 4. Dementia. 5. Chronic kidney disease, stage 3. 6. Hypothyroidism. 7. Hyperlipidemia. 8. Hypertension. 9. Benign prostatic hypertrophy. PAST SURGICAL HISTORY: 1. Right hand surgery. 2. PEG tube placement. SOCIAL HISTORY: Lives in a correction. I am not sure about alcohol and tobacco use in the past. FAMILY MEDICAL HISTORY: Unremarkable. ALLERGIES: NONE. MEDICATIONS: Prior to admission; 1. Eliquis. 2. MiraLAX. 3. Lasix. 4. Levothyroxine. 5. Melatonin. 6. Cardizem. 7. Coreg. 8. Metoprolol. 9. Amiodarone. 10. DuoNeb. 11. Tamsulosin. REVIEW OF SYSTEMS: Cannot be obtained because the patient is noncommunicative. PHYSICAL EXAMINATION: VITAL SIGNS: Heart rate 76, blood pressure 90/60, O2 saturation 100%, respiratory rate 23, and temperature 97.8. HEENT: The patient will open his eyes, will not follow any commands for me. HEENT: Extremely dry oropharynx. NECK: No adenopathy or JVD. LUNGS: Fairly clear bilaterally. He has a right small caliber chest tube at the mid axillary line. CARDIOVASCULAR: S1 and S2, now regular. No audible murmur. ABDOMEN: Soft and nontender. PEG tube noted. EXTREMITIES: No clubbing or cyanosis. He has severe muscle wasting. LABORATORY DATA: White blood cell count 16.8, hemoglobin 6.5, hematocrit 21.5, platelet count 181, and his MCV is 91. ABG; pH of 7.34, pCO2 of 30, pO2 of 87, that is on 2 L nasal cannula. Sodium of 160, potassium 4.4, chloride 129, CO2 of 19, BUN 156, creatinine 2.7, and glucose 176. Lactate 3.0. Troponin 0.097. IMAGING DATA: Chest x-ray shows near resolution of the pneumothorax. ASSESSMENT: 1. Status post supraventricular tachycardia, which resolved after cardioversion in the ER. 2. Severe dehydration as indicated by the elevated sodium. 3. History of vascular dementia and strokes leading to moribund state. 4. Anemia, which probably needs to be treated with transfusion at this point. 5. Right-sided pneumothorax, currently improved with chest tube placement. PLAN: 1. The patient is currently being hydrated with D5W for his free water deficit. 2. He is on empiric antibiotics. 3. I would advise transfusion. It looks like his H and H are going to be rechecked at 10:00 a.m. and a decision can be made at that time. 4. Chest tube management per Cardiothoracic Surgery. Job ID: [id number]
--- NOTE | 2019-03-23 08:41 | PDOC.HOSPP ---
- Subjective Encounter Date: 03/23/19 Encounter Time: 11:30 Subjective: Patient unchanged from yesterday in the ER. Attentive but not following commands or communicating. - Objective Vital Signs & Weight: Vital Signs (12 hours) Temp Pulse Ox 03/23/19 04:00 97.8 F 03/23/19 00:00 98.3 F 03/22/19 23:00 98.6 F 03/22/19 22:20 98 03/22/19 22:00 99 Weight Weight 166 lb 3.657 oz Most Recent Monitor Data Heart Rate from ECG 79 NIBP 90/60 NIBP BP-Mean 70 Respiration from ECG 17 SpO2 100 I&O: 03/22/19 03/23/19 03/24/19 06:59 06:59 06:59 Intake Total 912 Output Total 350 Balance 562 Result Diagrams: 03/23/19 03:42 03/23/19 03:42 Additional Labs: Accuchecks 03/23/19 07:08 POC Glucose 185 H Hospitalist ROS - Review of Systems ROS unobtainable: due to mental status - Medication Medications: Active Medications Generic Name Dose Route Start Last Admin Trade Name Freq PRN Reason Stop Dose Admin Acetaminophen 650 mg 03/22/19 20:07 03/22/19 22:49 Tylenol PER TUBE 650 mg Q4H PRN Administration Headache/Fever/Mild Pain (1-3) Amiodarone HCl 200 mg 03/23/19 09:00 03/23/19 08:18 Cordarone PER TUBE 200 mg DAILY HERIBERTO Administration Cefepime HCl 1 gm/ Sodium 100 mls @ 200 mls/hr 03/23/19 09:00 03/23/19 08:15 Chloride IVPB 100 mls DAILY HERIBERTO Administration Dextrose/Water 1,000 mls @ 100 mls/hr 03/23/19 06:45 03/23/19 08:14 D5w IV 1,000 mls .Q10H HERIBERTO Administration Insulin Human Regular 0 units 03/23/19 06:34 03/23/19 07:14 Humulin R SC 2 unit .MODERATE SLIDING SC PRN Administration Moderate Correctional Scale Levothyroxine Sodium 50 mcg 03/23/19 06:00 03/23/19 06:07 Synthroid PER TUBE 50 mcg 0600 HERIBERTO Administration Metoprolol Tartrate 100 mg 03/22/19 21:00 03/23/19 08:12 Lopressor PER TUBE Not Given BID HERIBERTO Tamsulosin HCl 0.4 mg 03/23/19 09:00 03/23/19 08:18 Flomax PO 0.4 mg DAILY HERIBERTO Administration - Exam General Appearance: NAD, awake alert ENT: moist mucosa Heart: RRR, no murmur, no gallops Respiratory: CTAB, no wheezes, no rales Gastrointestinal: soft, non-tender, non-distended, normal bowel sounds Neurological - other findings: no movement of extremities Psychiatric - other findings: not communicative at all Hosp A/P (1) Supraventricular tachycardia Code(s): I47.1 - SUPRAVENTRICULAR TACHYCARDIA Status: Resolved (2) Severe sepsis Code(s): A41.9 - SEPSIS, UNSPECIFIED ORGANISM; R65.20 - SEVERE SEPSIS WITHOUT SEPTIC SHOCK Status: Acute (3) Hypernatremia Code(s): E87.0 - HYPEROSMOLALITY AND HYPERNATREMIA Status: Acute (4) Iatrogenic pneumothorax Code(s): J95.811 - POSTPROCEDURAL PNEUMOTHORAX Status: Acute (5) Late effects of cerebrovascular accident Code(s): I69.90 - UNSPECIFIED SEQUELAE OF UNSPECIFIED CEREBROVASCULAR DISEASE Status: Chronic (6) Protein-calorie malnutrition, severe Code(s): E43 - UNSPECIFIED SEVERE PROTEIN-CALORIE MALNUTRITION Status: Chronic (7) Dementia Code(s): F03.90 - UNSPECIFIED DEMENTIA WITHOUT BEHAVIORAL DISTURBANCE Status: Chronic (8) Physical deconditioning Code(s): R53.81 - OTHER MALAISE Status: Chronic (9) Anemia Code(s): D64.9 - ANEMIA, UNSPECIFIED Status: Acute Plan: expected drop with volume resuscitation (10) Hypothyroidism Code(s): E03.9 - HYPOTHYROIDISM, UNSPECIFIED Status: Chronic - Plan D5W for free water deficit Antibiotics, cultures pending Palliative care met with , she is not interested in talking to them has decided to make patient chemical code and intubation only, no chest compressions/defibrillation Transfusion for Hgb less than 7
--- NOTE | 2019-03-23 08:48 | RAD ---
CHEST ONE VIEW: HISTORY: Chest tube. Pneumonia. COMPARISON: Radiograph from the prior day. FINDINGS: Similar appearance to small right thoracostomy tube, although the tip is not well seen. No significan t pneumothorax is appreciated. The lungs are hypoinflated. The lung opacities are similar. A central venous catheter tip projects ov er the right atrium. IMPRESSION: No significant pneumothorax is appreciated. Similar appearance to the air space opacities. POS: CET
[2019-03-23] MEDS ORDERED: Cefepime 1 GM in Sodium Chloride 0.9% 100 ML IVPB SCH (09:00)
[2019-03-23] MEDS ORDERED: Amiodarone 200 MG TAB PER TUBE SCH (09:00)
--- NOTE | 2019-03-23 09:39 | CON ---
DATE OF CONSULTATION: 03/23/2019 REQUESTING PHYSICIAN: Dr. Jose Armando Ford. CHIEF COMPLAINT: Dyspnea and tachycardia; iatrogenic pneumothorax. HISTORY OF PRESENT ILLNESS AND HOSPITAL COURSE: The patient is a 78-year-old skilled nursing resident. He has been essentially noncommunicative after his stroke in 10/2018, and has had multiple hospitalizations recently. About a month ago, he was admitted to [facility] for pneumonia, and shortly after that, he was admitted for atrial fibrillation with a rapid ventricular response and was converted back to sinus. He was noted to have difficulty breathing and his heart rate had gone up to 160s to 180s. On presentation to the emergency room, he was in rapid atrial fibrillation with blood pressure low enough that pulse cannot be palpated. He was cardioverted back to a sinus rhythm with improvement in his blood pressure, although it still was less than 100 systolic and his heart rates were in the 90 to 100 range. A right subclavian central line was attempted unsuccessfully. A right internal jugular was placed successfully, but a postprocedure chest x-ray showed a right-sided pneumothorax, that was evacuated by placement of a small-bore chest tube. PAST MEDICAL HISTORY: Significant for: 1. Multi-infarct dementia. 2. Paroxysmal atrial fibrillation. 3. Hypertension. 4. BPH. HOME MEDICATIONS: 1. Eliquis. 2. Lasix. 3. MiraLAX. 4. Synthroid. 5. Melatonin. 6. Cardizem. 7. Coreg. 8. Metoprolol. 9. Amiodarone. 10. DuoNebs. 11. Flomax. REVIEW OF SYSTEMS: Unobtainable. PHYSICAL EXAMINATION: GENERAL: He is noncommunicative, comfortable, but poorly arousable. VITAL SIGNS: Heart rates in the 70s, blood pressure 113/69, O2 saturations are 100% on 2 L nasal cannula, his T-max in the ICU was 98.6. His initial temperature after stabilizing him in the emergency room was 99.0. CHEST: He has unlabored breathing. No JVD. He has a PEG tube and a small bore right chest tube in place and a right IJ line. His chest tube is on water seal. When placed to suction, there was no obvious air leak. There is scant drainage in the Pleurevac. ABDOMEN: Soft and nontender. NEUROLOGIC: He is not able to cooperate with coughing. IMAGING STUDIES: His chest x-ray shows diffuse patchy pattern in both lungs. Post line placement, there was a right-sided pneumothorax that has been evacuated by placement of a small bore tube on the right side. This morning, followup film shows no obvious pneumothorax. LABORATORY DATA: White count was 16.6 and hemoglobin has fallen from 7.6 to 6.5 overnight. His initial chemistries showed a sodium of 161, potassium 5.6, chloride 127, CO2 of 21, BUN 167, and creatinine 3.04. His followup labs this morning, his sodium was 160, chloride 129, BUN 156, and creatinine 2.72. IMPRESSION AND RECOMMENDATIONS: Severely ill, neurologically impaired patient with an iatrogenic right-sided pneumothorax, but appears to have been adequately addressed with a small bore tube that is in place and put the tube back on suction for now and plan on following it. Job ID: [id number]
[2019-03-23] MEDS: Amiodarone 200 MG TAB PO SCH ×2 (15:11→21:04)
--- NOTE | 2019-03-23 15:14 | PDOC.PALCO ---
Palliative Care Consult - Consult Details Requesting Physician: Dr Weber Reason for Consult: goals of care, advance directives assistance Family Members Present: - Pertinent HPI 78 year old male who resides at a senior care and had had repeat admissions for pneumonia and atrail fibrillation. Most recent discharge from the hospital a week and half ago. Patient is aphasic and only able to minimally smile at , unable to determine orientation. Patient twas noted to have an onset of increase in his heart rate and shortness of breath, requested transfer to emergency room for evaluation. Found to be volume depleted, anemic, and admitted for higher level of care to - Social History Smoking Status: Never smoker Smoking: no tobacco exposure Alcohol Use: none Drug Use History: none Living Situation: senior care resident - Medications MAR Reviewed: Yes - Allergies Allergies/Adverse Reactions: Allergies Allergy/AdvReac Type Severity Reaction Status Date / Time No Known Allergies Allergy Verified 03/22/19 13:51 - Subjective non verbal. Resting, at bedside - ROS Non Response: due to mental status - Objective Vital Signs: Vital Signs - Most Recent Temp Pulse Resp BP Pulse Ox 97.8 F 78 20 99/65 100 03/23/19 14:45 03/23/19 14:45 03/23/19 14:45 03/23/19 14:30 03/23/19 08:00 - Physical Exam Constitutional: encephalitic HEENT: moist MMs, sclera anicteric Cardiovascular: RRR Gastrointestinal: soft, non-tender Deviation from normal: PEG Musculoskeletal: diffuse muscle atrophy Skin: cap refill <2 seconds, fragile Deviation from normal: Not able to fully appreciate orientation - Problem List (1) Anemia Code(s): D64.9 - ANEMIA, UNSPECIFIED Status: Acute (2) Severe sepsis Code(s): A41.9 - SEPSIS, UNSPECIFIED ORGANISM; R65.20 - SEVERE SEPSIS WITHOUT SEPTIC SHOCK Status: Resolved (3) Dysphagia Code(s): R13.10 - DYSPHAGIA, UNSPECIFIED Status: Acute (4) Palliative care encounter Code(s): Z51.5 - ENCOUNTER FOR PALLIATIVE CARE Status: Acute (5) Dementia Code(s): F03.90 - UNSPECIFIED DEMENTIA WITHOUT BEHAVIORAL DISTURBANCE Status: Chronic (6) Physical deconditioning Code(s): R53.81 - OTHER MALAISE Status: Chronic (7) Sepsis Code(s): A41.9 - SEPSIS, UNSPECIFIED ORGANISM Status: Suspected - Plan/Recommendations Plan: Patient and are familiar to Palliative Care. Attempted to revisit goals of care and disease trajectory/advance directives. Patients does not desire palliative care services at this time, wishes to continue with aggressive measures. If at any time palliative care can assist with goals of care for patient please reconsult. [20] minutes spent on this encounter with >50% of the time in counseling and coordination of care. Thank you for this very appropriate consult.
[2019-03-23] MEDS ORDERED: Artificial Tears 18 DROP/0.9 ML EA EYE PRN (17:21)
[2019-03-23 17:43] LABS: Hemoglobin 8.8 g/dL (14.0-18.0)
--- NOTE | 2019-03-23 17:53 | CON ---
DATE OF CONSULTATION: HISTORY OF PRESENT ILLNESS: Prasanth Garcia is a 78-year-old white male, admitted to the ER with atrial fibrillation with fast ventricular response. He was sent from the retirement due to shortness of breath and diaphoresis. He apparently has had 2 previous strokes and was in the [facility] and underwent electrical cardioversion by a sterile instrument technician there in last October. He was discharged to [facility] and became unresponsive there, and it was felt that he had just another cerebrovascular accident on the left with small hemorrhagic component. Echocardiogram during that admission revealed ejection fraction of 50% to 55% with moderate left atrial enlargement, moderate mitral regurgitation, and mild tricuspid regurgitation. Due to the stroke and history of atrial fibrillation, he underwent transesophageal echo by Dr. Elias. This revealed ejection fraction of 55% to 60%, aortic valvular sclerosis, mild aortic insufficiency, mild mitral regurgitation, mild tricuspid regurgitation, and mild left atrial enlargement. There was no evidence of any vegetations on valves or thrombus in the left atrium or left atrial appendage. It is of note that he was on amiodarone 200 mg daily when he was admitted on November 13, 2018. Also, this was listed on the discharge summary after that hospitalization. However, since that time, he apparently has been in 2 other hospitals as well as 2 or 3 different nursing facilities, and he has been at [facility] for 1 week. There were no orders there for amiodarone. Also, during his last admission here, he had a PEG tube placed and received feeding through that. He was then noticed yesterday to have decreased mentation. He was very short of breath, diaphoretic, and Paramedics were called. When they arrived, he had a heart rate in the 160s to 170s. Adenosine 6 mg and 12 mg was given intravenously without any change. He was brought to the emergency room at [facility]. On arrival here, his heart rate was 170 per minute, in atrial fibrillation with right bundle- branch block pattern. Pressure was 64/34. He was given fentanyl 100mg IV, Versed 2 mg IV, and with 100 joules returned to sinus rhythm. There was concern regarding possible sepsis. He was given cefepime 2 g, Levaquin 750 mg, vancomycin 1 g and placed on Levophed for hypotension. A right subclavian line was to be placed, however, developed right-sided pneumothorax, had a chest tube placed, and had a right internal jugular IV placed. The patient is aphasic and unable to provide any history. He has remained in sinus rhythm since he was cardioverted in the emergency room. PAST MEDICAL HISTORY: Multiple strokes, retirement patient, bedbound with PEG tube. He is aphasic, paroxysmal atrial fibrillation, chronic kidney disease, hypothyroidism, dyslipidemia, hypertension, and benign prostatic hypertrophy. PAST SURGICAL HISTORY: Operations: Right hand surgery and PEG tube placement. SOCIAL HISTORY: He smoked in the past. He does not drink. FAMILY HISTORY: Unremarkable. REVIEW OF SYSTEMS: Not obtainable with his aphasia. PHYSICAL EXAMINATION: VITAL SIGNS: Blood pressure 99/65, pulse 79 and sinus rhythm. HEENT: PERRL. NECK: Supple. CHEST: Clear. CARDIAC: S1 and S2 are normal without any S3 or S4. Carotid upstrokes are normal without bruits. ABDOMEN: Normal bowel sounds without tenderness or organomegaly. EXTREMITIES: Revealed no clubbing, cyanosis, or edema. NEUROLOGIC: The patient is aphasic. He can move some of his left fingers. Otherwise, in general, he does not follow commands. LABORATORY DATA: EKG on presentation revealed atrial fibrillation with fast ventricular response of 155 per minute. This has slowed down from 170 per minute, which was seen on some of the Paramedics' EKGs. There were left-axis deviation, right bundle-branch block, inferior infarct, possible anterolateral infarction. After cardioversion, the right bundle-branch block resolved, and there was left anterior fascicular block. Chest x-ray today revealed that the pneumothorax has essentially resolved. Hemoglobin 6.5, hematocrit 21.7, white count 16,800, platelets 181,000. His hemoglobin is down from 12.9 during last admission. Sodium 160, potassium 4.4, chloride 129, carbon dioxide 19, BUN 156, creatinine 2.72. Baseline creatinine is 1.5 to 1.6, and the BUN in late November was normal. Troponin I is 0.104. Urine cultures thus far are negative. IMPRESSION: 1. Paroxysmal atrial fibrillation with very fast ventricular response in the 170s. He was on amiodarone when admitted and then discharged in November 2018. This was listed amongst his discharge medications. However, it is not on [facility]'s medication list. Sometime between November and now, amiodarone has been discontinued. He was quite unstable with systolic pressures in the 60s when he arrived and underwent electrical cardioversion in the emergency room. 2. Possible sepsis. 3. Probable gastrointestinal blood loss with hemoglobin of 6.5, currently being transfused. 4. Multiple strokes. 5. FDC and bedbound. 6. Dementia. 7. Chronic kidney disease. 8. Hypertension. 9. Hyperlipidemia. 10. Hypothyroidism. 11. Benign prostatic hypertrophy. PLAN: Between November when he was discharged from [facility] and approximately 1 week ago when he was admitted to [facility], amiodarone has dropped off his medication list. This probably is the reason he went into atrial fibrillation with fast ventricular response. Therefore, he will be re-loaded with amiodarone. Also, the appropriate dose of Eliquis for this gentleman would be 5 mg b.i.d., until he is 80 mg and then should be dropped to 2.5 b.i.d. However, he does have significant anemia. I imagine there is some degree of GI blood loss. Because of this, I will discontinue the Eliquis at this time. He currently is on multiple antibiotics until blood cultures and urine cultures have finalized. He had echocardiogram and transesophageal echo 3 months ago, and I do not feel that an echocardiogram needs to be repeated. I will follow the patient with you. Job ID: [id number] [id number]
[2019-03-23 17:59] LABS: Anion Gap 15 mmol/L (10-20); Calc. Creatinine Clearance 28 mL/min (70-130); Calcium 7.5 mg/dL (7.8-10.44); Carbon Dioxide 19 mmol/L (23-31); Estimated GFR-MDRD 28; Glucose 163 mg/dL (83-110); Potassium 3.6 mmol/L (3.5-5.1); Sodium 159 mmol/L (136-145)
[2019-03-23] MEDS ORDERED: Vancomycin HCl 750 MG in Sodium Chloride 0.9% 250 ML 250 ML IVPB SCH (18:00)
[2019-03-23 18:11] LABS: BUN (Urea Nitrogen) 130 mg/dL (8.4-25.7)
[2019-03-23 18:16] LABS: Chloride 129 mmol/L (98-107)
[2019-03-23] MEDS ORDERED: Sodium Chloride 0.9% (PF) 10 ML VIAL FS PRN (20:08)
[2019-03-23] MEDS ORDERED: Famotidine 20 MG TAB PER TUBE SCH (21:00)
[2019-03-23] MEDS: Pantoprazole 40 MG VIAL IVP SCH (21:11)
--- NOTE | 2019-03-23 21:33 | CON ---
DATE OF CONSULTATION: 03/23/2019 SERVICE: Nephrology. REASON FOR CONSULTATION: Acute kidney injury and hypernatremia. REQUESTING PHYSICIAN: Dr. Zhen Weber. HISTORY OF PRESENT ILLNESS: A 78-year-old male with prior CVAs associated with chronic debility; atrial fibrillation with rapid ventricular response; dysphagia, status post PEG tube placement; and chronic aphasia due to prior CVAs, [facility] due to acute onset of mental status change as well as respiratory failure and tachycardia. The patient is aphasic, hence was unable to provide any history. History was obtained from review of medical record. The patient reportedly was noted to have change in mental status as well as worsening shortness of breath, hence EMS were called. EMS had found the patient to be tachycardic and attempts with adenosine were unsuccessful, hence the patient was subsequently brought to the ER, where the patient was found to be in atrial fibrillation with rapid ventricular response. The patient was also noted to be hypotensive with systolic blood pressures in . He was subsequently resuscitated with IV fluids and subsequently had cardioversion. Due to hypotension, subclavian central line placement was attempted, but this was unsuccessful and thus, the patient subsequently had right IJ, but subsequent chest x-ray showed right-sided pneumothorax, hence, chest tube placement. Further evaluation revealed severe hypernatremia with sodium of 160 as well as acute kidney injury. Hence, the patient was admitted to the ICU. And Nephrology consulted for help with management. The patient was started on dextrose infusion earlier on today, but repeat BMP did show persistent hypernatremia with sodium of 159. PAST MEDICAL HISTORY: 1. Recurrent ischemic strokes. 2. Dysphagia, status post PEG tube placement. 3. Aphasia. 4. Paroxysmal atrial fibrillation with rapid ventricular response. 5. Vascular dementia. 6. CKD, stage 3/4. 7. Hypothyroidism. 8. Dyslipidemia. 9. Hypertension. 10. Benign prostatic hyperplasia. 11. Chronic debilitation. PAST SURGICAL HISTORY: 1. Right hand surgery. 2. PEG tube placement. FAMILY HISTORY: Could not be obtained due to patient's condition. Review of medical records, however, showed no significant history of premature coronary artery disease or cancer. SOCIAL HISTORY: The patient currently lives in a penitentiary. Spouse is the surrogate decision maker. ALLERGIES: NO KNOWN DRUG ALLERGIES REPORTED. MEDICATIONS: Prior to hospital medications; 1. Eliquis 2.5 mg p.o. b.i.d. 2. MiraLAX 17 g p.o. daily. 3. Lasix 20 mg p.o. daily. 4. Levothyroxine 50 mcg p.o. daily. 5. Melatonin 5 mg p.o. daily at bedtime. 6. Cardizem orally. 7. Coreg. 8. Amiodarone 200 mg p.o. daily. 9. DuoNeb p.r.n. as needed. 10. Flomax 0.4 mg p.o. daily. 11. Diltiazem 60 mg p.o. t.i.d. 12. Carvedilol 3.125 mg p.o. b.i.d. 13. Multivitamin p.o. daily at bedtime. REVIEW OF SYSTEMS: Could not be performed due to patient's condition. PHYSICAL EXAMINATION: VITAL SIGNS: Temperature 97.7, pulse 76, respiratory rate 21, SpO2 of 100% on 2 L nasal cannula, and blood pressure is 99/59. GENERAL: Elderly male, in no obvious distress. The patient is nonverbal. HEENT: Normocephalic, atraumatic. Oral mucosa is mildly moist. NECK: No JVD appreciated. CARDIOVASCULAR: Regular rhythm and rate with normal heart sounds 1 and 2. RESPIRATORY: Fair air entry bilaterally with scattered transmitted breath sounds. No rhonchi or use of accessory muscles was appreciated. GI: Full, soft, nontender, nondistended. PEG tube noted. EXTREMITIES: Grossly normal looking. No obvious edema or erythema. Spastic paralysis of left side of the limb noted as well as flaccid paralysis of the right side. NUTRITION AIDE: Conscious and alert. The patient is aphasic. Obeys, moves extremities with stimulation. DIAGNOSTIC DATA: CBC showed WBC count of 16.8, hemoglobin of 6.7, MCV of 91.2, and platelets of 181. Repeat hemoglobin and hematocrit post transfusion of 3 units of packed red blood cells were 8.8 and 27.7. BMP at 1729 hours showed sodium 159, potassium 3.6, chloride 129, CO2 of 19, BUN 130, creatinine 2.28, glucose 163, and calcium 7.5. On presentation on March 22; sodium was 161, potassium 5.6, chloride 127, CO2 of 21, BUN 167, creatinine 3.04, glucose 250, calcium 7.4, total bilirubin 0.3, AST 12, ALT 15, alkaline phosphatase 68, total protein 4.9, albumin 2.7, and globulin 2.2. Of note, however, creatinine was 1.57 on November 20, 2018. ASSESSMENT: 1. Hypernatremia: Due to dehydration with free water deficit. 2. Hypotension: Multifactorial from sepsis and hypovolemia as well as cardiogenic component due to sepsis and tachyarrhythmia. 3. Hyperkalemia: Resolved. 4. Marked azotemia with BUN of 167 on presentation. 5. Acute on chronic kidney disease due to volume depletion. 6. Acute on chronic anemia. Gastrointestinal bleeding is a concern given marked elevation in BUN. 7. Paroxysmal atrial fibrillation with rapid ventricular response. Status post cardioversion. 8. Prior cerebrovascular accident with chronic debility with residual aphasia and dysphagia, status post PEG tube placement. PLAN: 1. We will continue 5% dextrose at 100 mL/hour. 2. We will also start the patient on free water flushes of 200 mL every 2 hours. We will recheck and monitor electrolytes closely. We will plan to start hypertonic solution with sodium bicarbonate in the morning if hyperchloremia persists. 3. The patient is status post blood transfusion. We will start the patient on Protonix given hyperuremia and anemia. GI consult may be necessary to evaluate for GI bleeding. Many thanks for involving us in the care of this patient. We will follow along with you. Job ID: [id number]
[2019-03-24] MEDS: Insulin Regular 300 UNITS/3 ML VIAL SC PRN ×6 (00:49→20:52)
[2019-03-24] MEDS: Dextrose 5% in Water 1,000 ML IV SCH ×2 (00:51→06:05)
[2019-03-24 05:29] LABS: #Eosinphils 0.4 thou/uL (0.0-0.7); #Lymphocytes 1.1 thou/uL (1.20-3.40); #Monocytes 0.7 thou/uL (0.11-0.59); #Neutrophils 8.6 thou/uL (1.40-6.50); %Basophils 0.1 % (0.0-1.0); %Eosinophils 4.2 % (0.0-10.0); %Monocytes 6.2 % (0.0-10.0); %Neutrophils 79.6 % (42.0-75.0); Mean Corpuscular HGB CONC 30.7 g/dL (32.0-36.0); Mean Corpuscular Hemoglobin 27.9 pg (27.0-31.0); Mean Corpuscular Volume 90.9 fL (78.0-98.0); Mean Platelet Volume 10.2 fL (7.4-10.4); Platelet Count 147 thou/uL (130-400); RBC Distribution Width 16.9 % (11.5-14.5); Red Blood Cell (RBC) Count 2.88 mill/uL (4.70-6.10); White Blood Cell (WBC) Count 10.5 thou/uL (4.8-10.8)
[2019-03-24 05:37] LABS: Anion Gap 12 mmol/L (10-20); BUN (Urea Nitrogen) 113 mg/dL (8.4-25.7); Calc. Creatinine Clearance 33 mL/min (70-130); Calcium 7.5 mg/dL (7.8-10.44); Carbon Dioxide 18 mmol/L (23-31); Estimated GFR-MDRD 34; Glucose 175 mg/dL (83-110); Iron Binding Capacity, Total 210 mcg/dL (261-462); Sodium 153 mmol/L (136-145)
[2019-03-24 05:38] LABS: Iron Binding Capacity, Total 206 mcg/dL (261-462)
[2019-03-24 05:39] LABS: Iron 28 ug/dL (65-175)
[2019-03-24 05:47] LABS: Chloride 126 mmol/L (98-107); Potassium 2.7 mmol/L (3.5-5.1)
[2019-03-24] MEDS: Levothyroxine Sodium 50 MCG TAB PER TUBE SCH (05:53)
[2019-03-24] MEDS ORDERED: Potassium Chloride 40 MEQ in Sodium Chloride 0.9% 250 ML 250 ML IVPB PRN (06:49)
[2019-03-24] MEDS ORDERED: PHOS-NAK 1 PKT PACK PO PRN ×2 (06:49)
[2019-03-24] MEDS ORDERED: Potassium Phosphate 15 MMOL in Sodium Chloride 0.9% 250 ML 250 ML IV PRN (06:49)
[2019-03-24] MEDS ORDERED: CCU ELECTROLYTE REPLACEMENT PROTOCOL FS PRN (06:49)
[2019-03-24] MEDS ORDERED: Magnesium 2 GM/50 ML 2 GM in Premix Bag 1 BAG IVPB PRN (06:49)
[2019-03-24] MEDS ORDERED: Magnesium Oxide 400 MG TAB PO PRN ×2 (06:49)
[2019-03-24] MEDS ORDERED: Potassium Phosphate 9 MMOL in Sodium Chloride 0.9% 100 ML IVPB PRN (06:49)
[2019-03-24] MEDS ORDERED: Potassium Phosphate 12 MMOL in Sodium Chloride 0.9% 250 ML 250 ML IV PRN (06:49)
[2019-03-24] MEDS ORDERED: Potassium Chloride 40 MEQ in Premix Bag 1 BAG IVPB PRN (06:49)
[2019-03-24] MEDS ORDERED: Potassium Chloride 20 MEQ TAB PO PRN (06:49)
--- NOTE | 2019-03-24 08:43 | PRG ---
DATE OF SERVICE: 03/24/2019 SUBJECTIVE: The patient remains in the CCU. He has done well overnight. He is aphasic. OBJECTIVE: VITAL SIGNS: Temperature 99.1, T-max 99.7, pulse 73, blood pressure 94/54, saturation 97%. Intake 4691, output 2395. HEENT: Unremarkable. NECK: No adenopathy or JVD. LUNGS: Clear to auscultation. CARDIAC: S1 and S2, regular. ABDOMEN: Soft. EXTREMITIES: No edema. IMAGING STUDIES: Chest x-ray shows no pneumothorax. Chest tube remains in place. LABORATORY DATA: White blood cell count 10.5, hematocrit 26.1, and platelet count 147. Sodium 153, potassium 2.7, chloride 126, CO2 of 18, BUN 113, creatinine 1.9, glucose 175. ASSESSMENT: 1. Profound dehydration. 2. Vascular dementia. 3. Anemia. 4. Right-sided iatrogenic pneumothorax. PLAN: The patient will continue on antibiotics. He is receiving IV fluids under the direction of Nephrology. His potassium is being replaced. He can be transferred to the intermediate care unit. Job ID: [id number]
[2019-03-24] MEDS: Amiodarone 200 MG TAB PO SCH ×3 (09:07→20:50)
[2019-03-24] MEDS: Tamsulosin HCl 0.4 MG CAP PO SCH (09:10)
[2019-03-24] MEDS: Metoprolol Tartrate 100 MG TAB PER TUBE SCH ×2 (09:10→21:02)
[2019-03-24] MEDS: Acetaminophen 325 MG TAB PER TUBE PRN (09:11)
[2019-03-24] MEDS: Pantoprazole 40 MG VIAL IVP SCH ×2 (09:12→20:50)
--- NOTE | 2019-03-24 09:15 | RAD ---
FRONTAL RADIOGRAPH CHEST PORTABLE UPRIGHT: DATE: 03/24/2019. COMPARISON: 03/23/2019. HISTORY: Evaluate pneumothorax. FINDINGS: A pneumothorax was noted on 03/22/2019 examination. On today's study there is a small caliber chest tu be overlying the right lung base. No evidence for a pneumothorax is seen on this exam. Right vascul ar catheter present, distal tip overlying the region of the right atrium. Nonspecific airspace disea se noted bilaterally, most prominent in the right upper lobe and both lung bases. IMPRESSION: Nonspecific bilateral airspace disease, not significantly changed. No evidence for pneumothorax. POS: [facility]
[2019-03-24 09:19] LABS: Phosphorus 3.5 mg/dL (2.3-4.7)
--- NOTE | 2019-03-24 11:37 | PDOC.HOSPP ---
- Subjective Encounter Date: 03/24/19 Encounter Time: 11:40 Subjective: Patient unchanged overnight. Some coughing. very concerned about him intermittently mouth breathing deeply, asking if he needs breathing treatments. He looks to be intermittently taking deep breaths through his mouth, not quite [place], no different to my eyes than on admit, may be result of previous strokes. ABG ordered to make sure not trying to compensate for a metabolic acidosis. No respiratory distress. - Objective Vital Signs & Weight: Vital Signs (12 hours) Temp 03/24/19 08:00 96.8 F L 03/24/19 03:00 99.1 F 03/24/19 00:00 99.7 F H Weight Admit Weight 166 lb Weight 166 lb 3.657 oz Most Recent Monitor Data Heart Rate from ECG 76 NIBP 94/53 NIBP BP-Mean 66 Respiration from ECG 21 SpO2 98 I&O: 03/23/19 03/24/19 03/25/19 06:59 06:59 06:59 Intake Total 912 4691 175 Output Total 350 2395 505 Balance 562 2296 -330 Result Diagrams: 03/24/19 04:00 03/24/19 04:00 Additional Labs: Accuchecks 03/24/19 03/24/19 03/24/19 09:07 04:00 00:49 POC Glucose 200 H 204 H 181 H 03/23/19 03/23/19 03/23/19 21:04 16:28 11:50 POC Glucose 184 H 189 H 192 H Hospitalist ROS - Review of Systems ROS unobtainable: due to mental status Constitutional: denies: fever, chills Respiratory: reports: cough. denies: shortness of breath Gastrointestinal: denies: vomiting - Medication Medications: Active Medications Generic Name Dose Route Start Last Admin Trade Name Freq PRN Reason Stop Dose Admin Acetaminophen 650 mg 03/22/19 20:07 03/24/19 09:11 Tylenol PER TUBE 650 mg Q4H PRN Administration Headache/Fever/Mild Pain (1-3) Amiodarone HCl 400 mg 03/23/19 15:00 03/24/19 09:07 Cordarone PO 400 mg TID HERIBERTO Administration Dextrose/Water 1,000 mls @ 100 mls/hr 03/23/19 17:19 03/24/19 06:05 D5w IV 1,000 mls .Q10H HERIBERTO Administration Cefepime HCl 1 gm/ Dextrose/ 100 mls @ 200 mls/hr 03/24/19 09:00 03/24/19 09: 08 Water IVPB 100 mls DAILY HERIBERTO Administration Insulin Human Regular 0 units 03/23/19 06:34 03/24/19 09:05 Humulin R SC 2 unit .MODERATE SLIDING SC PRN Administration Moderate Correctional Scale Levothyroxine Sodium 50 mcg 03/23/19 06:00 03/24/19 05:53 Synthroid PER TUBE 50 mcg 0600 HERIBERTO Administration Metoprolol Tartrate 100 mg 03/22/19 21:00 03/24/19 09:10 Lopressor PER TUBE Not Given BID HERIBERTO Pantoprazole Sodium 40 mg 03/23/19 21:00 03/24/19 09:12 Protonix IVP 40 mg Q12HR HERIBERTO Administration Potassium Chloride 40 meq 03/24/19 09:00 03/24/19 09:11 Klor-Con PER TUBE 03/24/19 17:01 40 meq Q4HR HERIBERTO Administration Sodium Chloride 10 ml 03/23/19 20:08 03/24/19 09:12 Normal Saline Pf FS 10 ml PRN PRN Administration RECONSTITUTION Tamsulosin HCl 0.4 mg 03/23/19 09:00 03/24/19 09:10 Flomax PO 0.4 mg DAILY HERIBERTO Administration - Exam General Appearance: NAD, awake alert General - other findings: smiled when I talked to him as is typical Heart: RRR, no murmur, no gallops, no rubs Respiratory: CTAB, no wheezes, no rales, no ronchi, normal chest expansion Respiratory - other findings: no increased WOB Gastrointestinal: soft, non-tender, non-distended, normal bowel sounds Psychiatric - other findings: not communicative at baseline Hosp A/P (1) Supraventricular tachycardia Code(s): I47.1 - SUPRAVENTRICULAR TACHYCARDIA Status: Resolved (2) Severe sepsis Code(s): A41.9 - SEPSIS, UNSPECIFIED ORGANISM; R65.20 - SEVERE SEPSIS WITHOUT SEPTIC SHOCK Status: Acute (3) Hypernatremia Code(s): E87.0 - HYPEROSMOLALITY AND HYPERNATREMIA Status: Acute (4) Iatrogenic pneumothorax Code(s): J95.811 - POSTPROCEDURAL PNEUMOTHORAX Status: Acute (5) Late effects of cerebrovascular accident Code(s): I69.90 - UNSPECIFIED SEQUELAE OF UNSPECIFIED CEREBROVASCULAR DISEASE Status: Chronic (6) Protein-calorie malnutrition, severe Code(s): E43 - UNSPECIFIED SEVERE PROTEIN-CALORIE MALNUTRITION Status: Chronic (7) Dementia Code(s): F03.90 - UNSPECIFIED DEMENTIA WITHOUT BEHAVIORAL DISTURBANCE Status: Chronic (8) Physical deconditioning Code(s): R53.81 - OTHER MALAISE Status: Chronic (9) Anemia Code(s): D64.9 - ANEMIA, UNSPECIFIED Status: Acute (10) Hypothyroidism Code(s): E03.9 - HYPOTHYROIDISM, UNSPECIFIED Status: Chronic - Plan D5W for free water deficit, sodium improving Replacing potassium Antibiotics, cultures pending Palliative care met with , she is not interested in talking to them has decided to make patient chemical code and intubation only, no chest compressions/defibrillation Transfusion for Hgb less than 7 Stool occult blood negative, but patient chronically on Eliquis. Concern for chronic GI blood loss. Recheck hemoccult now as just had a almost back bowel movement per nurse. If positive will need to get GI on board before restart blood thinners.
[2019-03-24 12:37] LABS: Actual Bicarbonate (HCO3a) 17.7 mEq/L (22-28); Base Excess (BEa) -6.9 mEq/L (-2.0 to +3.0); CO2 Tension 31.8 mmHg (35.0-45.0); Calcium, Ionized 1.15 mmol/L (1.12-1.30); Carboxyhemoglobin (COHb) 2.2 gm% (0.0-3.0); Hemoglobin (Hb) 8.6 g/dL (14.0-18.0); O2 Tension (PaO2) 82.5 mmHg (> 70.0); Potassium - ABG Lab 3.32 mmol/L (3.70-5.30); pH, Arterial 7.36 (7.35-7.45)
[2019-03-24 12:38] LABS: Puncture Site RRA
--- NOTE | 2019-03-24 13:49 | PRG ---
DATE OF SERVICE: 03/24/2019 SERVICE: Nephrology. SUBJECTIVE: A 78-year-old male with known history of multiple CVAs associated with dysphagia, status post PEG tube placement as well as aphasia, admitted with acute mental status change as well as respiratory distress. The patient was found to have hyponatremia as well as acute kidney injury necessitating Nephrology consult. The patient was unable to provide any history, but looks stable and comfortable. Tube feed on free water flushes started, having well tolerated with no nausea or vomiting. OBJECTIVE: VITAL SIGNS: Temperature 96.8, pulse 72, respiratory rate 19, SpO2 of 100% on 2 L nasal cannula, and blood pressure is 108/59. GENERAL: Elderly male, in no obvious distress. HEENT: Normocephalic and atraumatic. Oral mucosa is moist. CARDIOVASCULAR: Regular rhythm and rate with normal heart sounds 1 and 2. RESPIRATORY: Fair air entry bilaterally with some transmitted breath sounds. GI: Full, soft, nontender, and nondistended with normal bowel sounds. PEG tube is noted. EXTREMITIES: Grossly normal looking with no obvious edema or erythema. EMERY WHEEL WORKER: Conscious and alert. The patient is aphasic. DIAGNOSTIC DATA: CBC showed WBC count of 10.5, hemoglobin of 8.0, MCV of 90.9, platelets of 147. Chemistry showed sodium 153, potassium 2.7, chloride 126, CO2 18, BUN 113, creatinine 1.94, glucose 175, calcium 7.5. Iron chemistry showed serum iron of 28, TIBC of 210 with 14% saturation, ferritin is 108.76. Note that yesterday morning, sodium was 160, potassium 4.4, chloride 129, CO2 of 19, BUN 156, and creatinine 2.72. ASSESSMENT: 1. Hypernatremia: Due to free water deficit. 2. Acute kidney injury: Due to volume depletion as well as cytokine mediated injury. 3. Acute blood loss anemia. The patient had normal hemoglobin of 12 in November. Iron-deficiency anemia noted on chemistry is consistent with chronic gastrointestinal blood losses. The patient is also on anticoagulation with Eliquis. 4. Shock: Due to hypovolemia as well as acute infection. 5. Marked azotemia: Concerning for GI bleeding. 6. Prior cerebrovascular accident with chronic debilitation, dysphagia, and aphasia. 7. Paroxysmal atrial fibrillation with rapid ventricular response. 8. Hyperkalemia, resolved. 9. Hypokalemia. PLAN: 1. We will increase the free water flushes to 300 mL every 2 hours with a view of correcting free water deficit. 2. We will also start a high Protonix solution with some bicarb given hyperchloremia. 3. We will replete serum potassium with potassium chloride. 4. We will also get magnesium level and correct if indicated. 5. We will continue Protonix b.i.d. 6. GI consult is recommended given marked elevation in BUN as well as iron deficiency in this patient who is on chronic anticoagulation with Eliquis. 7. Tube feeding to continue. 8. Other treatment as per primary attending and material processor. Further treatment to follow depending on hospital course. Job ID: [id number]
[2019-03-24] MEDS: Sodium Bicarbonate 50 MEQ in Dextrose 5% in Water 1,000 ML IV SCH (16:37)
--- NOTE | 2019-03-24 17:30 | OP ---
DATE OF PROCEDURE: 03/24/2019 PROCEDURES PERFORMED: Fiberoptic bronchoscopy, oral mucus plug extraction. PREOPERATIVE DIAGNOSIS: Mucus plugging. POSTOPERATIVE DIAGNOSIS: Mucus plugging. ANESTHESIA: None. DESCRIPTION OF PROCEDURE: This procedure was done on an emergent basis. The patient was having severe upper airway problems and secretions. The nurses had suctioned out most of this. I took a look with a 2.2 Ambu bronchoscope nasally and saw a large mucus plug in his supraglottic area that was ball-valving through the cords. I made a decision to try a manual extraction. Using the GlideScope, I inserted this in the oropharynx and used Teladoc suction catheter to grasp the mucus plug, it was brought to his tongue surface, where respiratory therapist is able to grab it with forceps and extracted. It was probably 3 cm in size at least. I then took the bronchoscope and inserted nasally and went through his cords into his trachea and surveyed his airways. His trachea, right mainstem bronchus, and left mainstem bronchus were free of further secretions. He tolerated the procedure well. Job ID: [id number]
[2019-03-24 17:39] LABS: Vancomycin, Trough 15.4 ug/mL
[2019-03-24] MEDS: Vancomycin HCl 750 MG in Dextrose 5% in Water 250 ML IVPB SCH (17:57)
[2019-03-24 18:17] LABS: Albumin 2.6 g/dL (3.4-4.8); Anion Gap 11 mmol/L (10-20); BUN (Urea Nitrogen) 90 mg/dL (8.4-25.7); BUN/Creatinine Ratio 53.25; Calc. Creatinine Clearance 38 mL/min (70-130); Calcium 7.6 mg/dL (7.8-10.44); Carbon Dioxide 17 mmol/L (23-31); Chloride 123 mmol/L (98-107); Estimated GFR-MDRD 39; Glucose 191 mg/dL (83-110); Phosphorus 2.9 mg/dL (2.3-4.7); Potassium 3.7 mmol/L (3.5-5.1); Sodium 147 mmol/L (136-145)
[2019-03-25 02:30] LABS: #Eosinphils 0.5 thou/uL (0.0-0.7); #Lymphocytes 1.2 thou/uL (1.20-3.40); #Monocytes 0.8 thou/uL (0.11-0.59); #Neutrophils 7.4 thou/uL (1.40-6.50); %Basophils 0.2 % (0.0-1.0); %Eosinophils 5.4 % (0.0-10.0); %Monocytes 7.7 % (0.0-10.0); %Neutrophils 74.8 % (42.0-75.0); Hemoglobin 8.3 g/dL (14.0-18.0); Mean Corpuscular HGB CONC 31.8 g/dL (32.0-36.0); Mean Corpuscular Hemoglobin 28.7 pg (27.0-31.0); Mean Corpuscular Volume 90.4 fL (78.0-98.0); Mean Platelet Volume 9.7 fL (7.4-10.4); Platelet Count 134 thou/uL (130-400); RBC Distribution Width 17.3 % (11.5-14.5); Red Blood Cell (RBC) Count 2.88 mill/uL (4.70-6.10)
[2019-03-25 02:46] LABS: Anion Gap 13 mmol/L (10-20); BUN (Urea Nitrogen) 76 mg/dL (8.4-25.7); Calc. Creatinine Clearance 48 mL/min (70-130); Calcium 7.4 mg/dL (7.8-10.44); Carbon Dioxide 16 mmol/L (23-31); Chloride 118 mmol/L (98-107); Estimated GFR-MDRD 51; Glucose 113 mg/dL (83-110); Potassium 3.8 mmol/L (3.5-5.1); Sodium 143 mmol/L (136-145)
[2019-03-25] MEDS: Sodium Bicarbonate 50 MEQ in Dextrose 5% in Water 1,000 ML IV SCH ×2 (03:29→23:00)
[2019-03-25] MEDS: Acetaminophen 325 MG TAB PER TUBE PRN (05:09)
[2019-03-25] MEDS: Levothyroxine Sodium 50 MCG TAB PER TUBE SCH (05:09)
--- NOTE | 2019-03-25 08:24 | PDOC.HOSPP ---
- Subjective Encounter Date: 03/25/19 (f/u septic shock) Encounter Time: 08:22 Subjective: Overnight pt noted to have a grossly bloody bowel movement. No other events noted by RN, and family not present - Objective Vital Signs & Weight: Vital Signs (12 hours) Temp Pulse Ox 03/25/19 07:42 97.9 F 03/25/19 04:11 100 03/25/19 04:02 98.1 F 03/24/19 23:30 97.6 F Weight Admit Weight 166 lb Weight 166 lb 3.657 oz Most Recent Monitor Data Heart Rate from ECG 63 NIBP 96/52 NIBP BP-Mean 66 Respiration from ECG 23 SpO2 96 I&O: 03/24/19 03/25/19 03/26/19 06:59 06:59 06:59 Intake Total 4691 3933 Output Total 2395 2205 Balance 2296 1728 Result Diagrams: 03/25/19 11:07 03/25/19 02:14 Additional Labs: Accuchecks 03/25/19 03/25/19 03/25/19 08:03 04:34 00:04 POC Glucose 139 H 105 141 H 03/24/19 03/24/19 03/24/19 20:55 17:08 12:44 POC Glucose 251 H 207 H 208 H 03/24/19 09:07 POC Glucose 200 H EKG Reviewed by me: Yes (tele - sinus 60's with 2 episoses NSVT (4 beats and 6 beats)) Hospitalist ROS - Medication Medications: Active Medications Generic Name Dose Route Start Last Admin Trade Name Freq PRN Reason Stop Dose Admin Acetaminophen 650 mg 03/22/19 20:07 03/25/19 05:09 Tylenol PER TUBE 650 mg Q4H PRN Administration Headache/Fever/Mild Pain (1-3) Albuterol/Ipratropium 3 ml 03/24/19 11:52 03/24/19 14:45 Duoneb NEB 3 ml [id number] PRN Administration SOB &/or Wheezing Amiodarone HCl 400 mg 03/23/19 15:00 03/24/19 20:50 Cordarone PO 400 mg TID HERIBERTO Administration Levofloxacin 750 mg/ Device 150 mls @ 100 mls/hr 03/24/19 18:00 03/24/19 17: 12 IVPB 150 mls Q2D HERIBERTO Administration Dextrose/Water 1,000 mls @ 100 mls/hr 03/23/19 17:19 03/24/19 06:05 D5w IV 1,000 mls .Q10H HERIBERTO Administration Cefepime HCl 1 gm/ Dextrose/ 100 mls @ 200 mls/hr 03/24/19 09:00 03/24/19 09: 08 Water IVPB 100 mls DAILY HERIBERTO Administration Vancomycin HCl 750 mg/ 250 mls @ 250 mls/hr 03/24/19 18:00 03/24/19 17:57 Dextrose/Water IVPB 250 mls 1800 HERIBERTO Administration Sodium Bicarbonate 50 meq/ 1,050 mls @ 125 mls/hr 03/24/19 15:45 03/25/19 03: 29 Dextrose/Water IV 1,050 mls INF HERIBERTO Administration Insulin Human Regular 0 units 03/23/19 06:34 03/24/19 20:52 Humulin R SC 6 unit .MODERATE SLIDING SC PRN Administration Moderate Correctional Scale Levothyroxine Sodium 50 mcg 03/23/19 06:00 03/25/19 05:09 Synthroid PER TUBE 50 mcg 0600 HERIBERTO Administration Metoprolol Tartrate 100 mg 03/22/19 21:00 03/24/19 21:02 Lopressor PER TUBE Not Given BID HERIBERTO Pantoprazole Sodium 40 mg 03/23/19 21:00 03/24/19 20:50 Protonix IVP 40 mg Q12HR HERIBERTO Administration Sodium Chloride 10 ml 03/23/19 20:08 03/24/19 09:12 Normal Saline Pf FS 10 ml PRN PRN Administration RECONSTITUTION Tamsulosin HCl 0.4 mg 03/23/19 09:00 03/24/19 09:10 Flomax PO 0.4 mg DAILY HERIBERTO Administration - Exam General Appearance: NAD General - other findings: eyes open, turns head Heart: RRR, no murmur Respiratory: CTAB, no wheezes Gastrointestinal: soft, non-distended, normal bowel sounds Extremities: no cyanosis, no clubbing, no edema Skin - other findings: has multple areas of ecchymosis along arms Musculoskeletal - other findings: right sided paralysis Psychiatric - other findings: unable to assess Hosp A/P (1) GI bleed Code(s): K92.2 - GASTROINTESTINAL HEMORRHAGE, UNSPECIFIED Status: Acute (2) Anemia Code(s): D64.9 - ANEMIA, UNSPECIFIED Status: Acute Qualifiers: Anemia type: unspecified type Qualified Code(s): D64.9 - Anemia, unspecified (3) CKD (chronic kidney disease) stage 3, GFR 30-59 ml/min Code(s): N18.3 - CHRONIC KIDNEY DISEASE, STAGE 3 (MODERATE) Status: Chronic (4) Hemiparesis and other late effects of cerebrovascular accident Code(s): I69.359 - HEMIPLGA FOLLOWING CEREBRAL INFARCTION AFFECTING UNSP SIDE; I69.398 - OTHER SEQUELAE OF CEREBRAL INFARCTION Status: Chronic (5) Hypothyroidism Code(s): E03.9 - HYPOTHYROIDISM, UNSPECIFIED Status: Chronic (6) Sepsis Code(s): A41.9 - SEPSIS, UNSPECIFIED ORGANISM Status: Suspected - Plan GI bleed new - check CBC q6h, consult GI, transfuse if below 7, d/c tube feeds and free water flushes - pt is not currently on any anti-platelet or anticoagulation now, per H&P was on eliquis Appreciate Pulm consult - removal of mucous plug yesterday Sepsis - cx negative, on broad spectrum abx since admission - covered for possible pneumonia. continue the home meds as ordered dvt prophy - scd's due to bleeding GI prophy - IV protonix BID code status by chart review - no compressions, only chemical and intubation Addendum - called and spoke with the patient's about the concerns including GI bleed, that his condition is concerning to tolerate a procedure to identify the location of bleed and no procedure is planned. Discussed his breathing, the acute kidney injury on arrival, his chest xray and concern of either fluid or infection in his lungs. She desires everything done. We reviewed blood transfusion and if he drops will plan to transfuse 1 unit prbc - she desires this. She reports he is all she has in this world. She's aware of the difficult medical condition that pt is in. She denies any needs or questions at end of call. Will follow up tomorrow.
--- NOTE | 2019-03-25 08:30 | RAD ---
Portable frontal chest radiograph: 03/25/2019 COMPARISON: 03/24/2019 and 03/22/2019 HISTORY: Pneumothorax FINDINGS: There is significant diffuse increased linear interstitial density with superimposed areas of diffuse bilateral airspace disease. Probable small bilateral pleural effusions. Findings are slightly worsened bilaterally when compared to 03/24/2019. No discrete pneumothorax is seen. Stable sma ll caliber chest tube overlies the left lung base. There is a stable right-sided vascular catheter. The diffuse interstitial and alveolar opacity described above has definitely worsened since 03/22/2019. IMPRESSION: Diffuse interstitial and alveolar opacity, worsened when compared to 03/22/2019. Findings l ikely related to pulmonary edema. Infectious process cannot be excluded. Follow-up imaging following treatment to document resolution advised. No discrete pneumothorax.
--- NOTE | 2019-03-25 08:55 | PRG ---
DATE OF SERVICE: 03/25/2019 SUBJECTIVE: Mr. Garcia looks to be in much better shape today. He is looking around and does not appear to be in any respiratory distress. OBJECTIVE: VITAL SIGNS: His temperature is 98.1, pulse 63, blood pressure 96/52, O2 saturation 96%. HEENT: Unremarkable. NECK: No JVD. LUNGS: Coarse breath sounds. CARDIAC: S1 and S2. Regular. ABDOMEN: Soft. EXTREMITIES: No edema. LABORATORY DATA: White blood cell count 10, hematocrit 26.1, platelet count 134. Sodium 143, potassium 3.8, chloride 118, CO2 of 16, BUN 76, creatinine 1.3, glucose 113. ASSESSMENT: 1. Acute dehydration, coming from a [facility]. 2. Vascular dementia. 3. Previous stroke with profound oropharyngeal dysfunction resulting in mucus plugging. 4. Anemia. 5. Right-sided iatrogenic pneumothorax, resolved. PLAN: 1. I had a long talk with the patient's yesterday. I told her that his respiratory issues are likely to recur given his poor oropharyngeal situation. I think it is only a matter of time before he has more episodes of respiratory distress. 2. It would appear that he is not being getting enough water through his tube with [facility]. This may need to be addressed with his [facility] physician. 3. His prognosis is poor. I have encouraged DNR status, but the has somewhat lost the expectations that he will do okay. We will continue to follow until he is out of the [facility]. Job ID: [id number]
[2019-03-25] MEDS ORDERED: Sodium Bicarbonate Tab 325 MG TAB PER TUBE SCH (10:30)
[2019-03-25] MEDS: Dextrose 5% in Water 1,000 ML IV SCH ×2 (10:43→22:03)
[2019-03-25] MEDS: Metoprolol Tartrate 100 MG TAB PER TUBE SCH ×2 (10:48→20:34)
[2019-03-25] MEDS: Tamsulosin HCl 0.4 MG CAP PO SCH (10:48)
[2019-03-25] MEDS: Amiodarone 200 MG TAB PO SCH ×3 (10:49→20:35)
[2019-03-25] MEDS: Pantoprazole 40 MG VIAL IVP SCH ×2 (10:50→20:36)
--- NOTE | 2019-03-25 11:07 | PRG ---
DATE OF SERVICE: 03/25/2019 SERVICE: Nephrology. SUBJECTIVE: A 78-year-old [facility] resident with prior CVAs associated with dysphagia, status post PEG tube placement as well as aphasia and chronic debility, being followed up for acute renal failure as well as severe hypernatremia. The patient had respiratory distress yesterday due to mucus plugs, status post fiberoptic bronchoscopy feeling better. The patient is aphasic. OBJECTIVE: VITAL SIGNS: Temperature 97.9, pulse 63, respiratory rate 23, SpO2 of 100% on 2 L nasal cannula, blood pressure is 96/52. GENERAL: Elderly male, in no obvious distress. Afebrile. HEENT: Normocephalic, atraumatic. CARDIOVASCULAR: Irregular rhythm and rate with normal heart sounds 1 and 2. RESPIRATORY: Fair air entry bilaterally with transmitted breath sounds. No obvious rhonchi were appreciated. GI: Full, soft, nontender, nondistended with normal bowel sounds. Chest tube noted. UROGENITAL: Roca catheter is in place draining urine. EXTREMITIES: No obvious edema or erythema appreciated. INS[employer]OR [employer]: Conscious and awake. The patient is aphasic. DIAGNOSTIC DATA: CBC showed WBC count of 10, hemoglobin of 8.3, and platelet of 134. Chemistry showed sodium 143, potassium 3.8, chloride 118, CO2 of 16, BUN , creatinine 1.34, glucose 113, calcium 7.4. ASSESSMENT: 1. Acute kidney injury: Due to hemodynamic factors related to volume depletion with possible contribution from cytokine-mediated injury. Improve significantly with improvement of hemodynamics and correction of electrolyte derangement and provision of IV fluids. 2. Severe hypernatremia: Due to dehydration with extensive free water deficit. Corrected with free water provision. 3. Hyperchloremic metabolic acidosis. 4. Acute blood loss anemia. 5. Presumed GI bleeding, given elevated BUN related to creatinine as well as acute drop in hemoglobin. 6. Chronic debilitation from prior CVA associated with aphasia and dysphagia, status post PEG tube placement. PLAN: 1. We will continue free water flushes. We will also start alkaline therapy, given hyperchloremic metabolic acidosis. 2. Continue Protonix therapy. 3. Tube feeding to continue. 4. Monitor electrolytes and renal function and address as needed. 5. Further treatment to follow depending on hospital course. Job ID: [id number]
[2019-03-25] MEDS: guaiFENesin 100 MG/5 ML UDCUP PER TUBE SCH ×2 (11:14→17:31)
[2019-03-25] MEDS: Scopolamine 1.5 mg/72 hour Patch TOP SCH (11:19)
[2019-03-25 12:05] LABS: #Eosinphils 0.5 thou/uL (0.0-0.7); #Lymphocytes 1.3 thou/uL (1.20-3.40); #Monocytes 0.7 thou/uL (0.11-0.59); #Neutrophils 5.4 thou/uL (1.40-6.50); %Eosinophils 6.6 % (0.0-10.0); %Lymphocytes 16.2 % (21.0-51.0); %Monocytes 8.6 % (0.0-10.0); %Neutrophils 68.7 % (42.0-75.0); Hemoglobin 7.6 g/dL (14.0-18.0); Mean Corpuscular HGB CONC 31.4 g/dL (32.0-36.0); Mean Corpuscular Hemoglobin 28.2 pg (27.0-31.0); Mean Corpuscular Volume 89.9 fL (78.0-98.0); Mean Platelet Volume 9.6 fL (7.4-10.4); Platelet Count 123 thou/uL (130-400); RBC Distribution Width 17.1 % (11.5-14.5); Red Blood Cell (RBC) Count 2.71 mill/uL (4.70-6.10); White Blood Cell (WBC) Count 7.8 thou/uL (4.8-10.8)
--- NOTE | 2019-03-25 16:44 | CON ---
DATE OF CONSULTATION: REASON FOR CONSULTATION: Reported melena. HISTORY OF PRESENT ILLNESS: Mr. Garcia is a 78-year-old gentleman, who has been in the hospital since the when he was admitted being unresponsive with respiratory difficulty. He is chronically ill, [facility] a [facility] with recurrent ischemic strokes. He is bed-bound and has PEG tube feedings now, does not verbally communicate or move his limbs. He has chronic kidney disease as well. He was found to be in supraventricular tachycardia and shock and was cardioverted, complications of the pneumothorax with a central line, that was treated in the emergency room. He was felt to have sepsis with shock and anemia. Apparently, last evening, he had a dark stool, which is Hemoccult that was positive. He had another stool earlier that day that had been negative. His hemoglobin has been around 11 to 12. It was 7.6 on this admission, dropped to 6.5, today it is 7.6, it was 8.3 this morning, it was 8 on the and 8.8 on the . He had a normal MCV. INR has not been checked this admission. He had BUN of 167 on admission with a creatinine of 3, presently 76 and 1.34. Iron was slightly low at 28, TIBC low at 206, ferritin was 108. He has been seen by Palliative Care on the , they refused palliative care at that time. Today, chest x-ray showed diffuse interstitial alveolar opacities, worse from 03/22/2019. He had a bronchoscopy for mucus plugging yesterday. He has had no bowel movements today, so far he is tolerating tube feeds. PAST HISTORY: Comes from the chart and talking with the other physicians, nurses taking care of him. 1. Recurrent ischemic strokes. 2. Bed-bound. 3. PEG tube. 4. Paroxysmal atrial fibrillation, cardioverted this admission. 5. Vascular dementia. 6. Chronic kidney disease, stage 3. 7. Hypothyroidism. 8. Dyslipidemia. 9. Hypertension. 10. BPH. 11. Iatrogenic pneumothorax this admission, treated. PAST SURGERIES: 1. Right hand surgery. 2. PEG tube placement. 3. Chest tube placement this admission. MEDICATIONS AT HOME: 1. Dulcolax. 2. MiraLAX. 3. Multivitamin. 4. Melatonin. 5. Synthroid. 6. Furosemide. 7. Diltiazem. 8. Carvedilol. 9. Eliquis. PRESENT MEDICATIONS: 1. Tylenol. 2. Amiodarone. 3. Cefepime. 4. Levofloxacin. 5. Synthroid. 6. Protonix IV q.24, started on the . 7. Potassium chloride. REVIEW OF SYSTEMS: The patient is unable to give. PHYSICAL EXAMINATION: VITAL SIGNS: Temperature is 97.6, pulse is 70, and blood pressure 106/58. GENERAL: He has right-sided neglect until look at me when I talked to him from the left side of the bed, although he will not really respond meaningfully. HEENT: His oropharynx is dry. NECK: Supple. LUNGS: Notable for crackles. ABDOMEN: Soft and nontender. He got a PEG tube site, which appears healthy and clean. EXTREMITIES: No clubbing, cyanosis, or edema. RECTAL: A very large amount of soft dark stool. It is not grossly melena, but it is dark and this may represent old blood. ASSESSMENT: 1. Admission with atrial fibrillation with rapid response, requiring cardioversion. 2. Iatrogenic pneumothorax, resolved with clinical treatment. 3. Anemia, much worse at this admission and previous admissions with hemoglobin of 7.6 on 03/22, where it was 12.9 on 11/20 with one bowel movement here, which has been quite dark, concerning for possible blood. Two Hemoccults have been sent, one was positive, one was negative. 4. Dehydration on admission. Some of the elevated BUN could have been related to gastrointestinal blood reabsorption, although he seems to have responded to transfusion and hydration. 5. He has received 2 units of blood on 03/23 and transfusion and his hemoglobin has been relatively stable since that time. RECOMMENDATIONS: 1. At this time, with concern for pneumonia, sepsis, and heart failure with worsening chest x-ray, oxygen use, severe dementia, immobility, I think that elective endoscopy would be somewhat increased risk for this individual. He has no overt hemorrhage. He is on a PPI now. It does not seem he is on a PPI in the outpatient setting. He definitely could have an ulcer, but has no signs of acute hemorrhage. 2. I would treat him conservatively at this time with PPI therapy for potential ulcer disease. If he shows signs of overt hemorrhage, we could consider endoscopy; however, that would probably require intubation and he would be high risk for complications related to that. If he has meaningful improvement in his respiratory status with hospitalization, we consider elective endoscopy at a later time. We will follow along with you. Job ID: [id number]
[2019-03-25 17:17] LABS: #Eosinphils 0.4 thou/uL (0.0-0.7); #Lymphocytes 1.2 thou/uL (1.20-3.40); #Monocytes 0.7 thou/uL (0.11-0.59); #Neutrophils 5.5 thou/uL (1.40-6.50); %Basophils 0.3 % (0.0-1.0); %Eosinophils 5.3 % (0.0-10.0); %Lymphocytes 15.5 % (21.0-51.0); %Monocytes 8.5 % (0.0-10.0); %Neutrophils 70.4 % (42.0-75.0); Hemoglobin 7.8 g/dL (14.0-18.0); Mean Corpuscular HGB CONC 31.8 g/dL (32.0-36.0); Mean Corpuscular Hemoglobin 28.4 pg (27.0-31.0); Mean Corpuscular Volume 89.4 fL (78.0-98.0); Mean Platelet Volume 9.7 fL (7.4-10.4); Platelet Count 136 thou/uL (130-400); RBC Distribution Width 16.9 % (11.5-14.5); Red Blood Cell (RBC) Count 2.76 mill/uL (4.70-6.10); White Blood Cell (WBC) Count 7.8 thou/uL (4.8-10.8)
[2019-03-25] MEDS: Vancomycin HCl 750 MG in Dextrose 5% in Water 250 ML IVPB SCH (17:31)
[2019-03-25] MEDS: Sodium Bicarbonate Tab 325 MG TAB PER TUBE SCH (20:35)
[2019-03-25 23:00] LABS: #Eosinphils 0.4 thou/uL (0.0-0.7); #Lymphocytes 1.4 thou/uL (1.20-3.40); #Monocytes 0.7 thou/uL (0.11-0.59); #Neutrophils 5.1 thou/uL (1.40-6.50); %Basophils 0.4 % (0.0-1.0); %Eosinophils 5.6 % (0.0-10.0); %Lymphocytes 18.5 % (21.0-51.0); %Monocytes 8.6 % (0.0-10.0); Hemoglobin 7.7 g/dL (14.0-18.0); Mean Corpuscular HGB CONC 31.7 g/dL (32.0-36.0); Mean Corpuscular Hemoglobin 28.3 pg (27.0-31.0); Mean Corpuscular Volume 89.5 fL (78.0-98.0); Mean Platelet Volume 9.2 fL (7.4-10.4); Platelet Count 133 thou/uL (130-400); Red Blood Cell (RBC) Count 2.72 mill/uL (4.70-6.10); White Blood Cell (WBC) Count 7.6 thou/uL (4.8-10.8)
[2019-03-26] MEDS: guaiFENesin 100 MG/5 ML UDCUP PER TUBE SCH ×4 (00:50→17:39)
[2019-03-26 03:51] LABS: #Eosinphils 0.4 thou/uL (0.0-0.7); #Lymphocytes 1.3 thou/uL (1.20-3.40); #Monocytes 0.6 thou/uL (0.11-0.59); #Neutrophils 5.1 thou/uL (1.40-6.50); %Basophils 0.3 % (0.0-1.0); %Eosinophils 5.2 % (0.0-10.0); %Lymphocytes 16.8 % (21.0-51.0); %Monocytes 8.6 % (0.0-10.0); %Neutrophils 69.1 % (42.0-75.0); Hemoglobin 7.7 g/dL (14.0-18.0); Mean Corpuscular HGB CONC 31.5 g/dL (32.0-36.0); Mean Corpuscular Hemoglobin 28.5 pg (27.0-31.0); Mean Corpuscular Volume 90.4 fL (78.0-98.0); Mean Platelet Volume 9.8 fL (7.4-10.4); Platelet Count 136 thou/uL (130-400); RBC Distribution Width 17.6 % (11.5-14.5); Red Blood Cell (RBC) Count 2.69 mill/uL (4.70-6.10); White Blood Cell (WBC) Count 7.4 thou/uL (4.8-10.8)
[2019-03-26 04:02] LABS: Anion Gap 10 mmol/L (10-20); BUN (Urea Nitrogen) 46 mg/dL (8.4-25.7); Calc. Creatinine Clearance 58 mL/min (70-130); Calcium 7.5 mg/dL (7.8-10.44); Carbon Dioxide 25 mmol/L (23-31); Chloride 111 mmol/L (98-107); Estimated GFR-MDRD 65; Glucose 109 mg/dL (83-110); Potassium 3.5 mmol/L (3.5-5.1); Sodium 142 mmol/L (136-145)
[2019-03-26] MEDS: Levothyroxine Sodium 50 MCG TAB PER TUBE SCH (05:40)
--- NOTE | 2019-03-26 08:20 | RAD ---
XR Chest 1 View Portable History: Pneumothorax Comparison: Radiograph prior day Findings: No definite right thoracostomy tube is appreciated. No significant pneumothorax. Numerous o pacities are throughout the lungs, similar.. Impression: Interval removal of the thoracostomy tube without significant pneumothorax remaining.
[2019-03-26] MEDS: Pantoprazole 40 MG VIAL IVP SCH ×2 (09:33→22:57)
[2019-03-26] MEDS: Sodium Bicarbonate Tab 325 MG TAB PER TUBE SCH ×2 (09:34→22:56)
[2019-03-26] MEDS: Amiodarone 200 MG TAB PO SCH ×2 (09:34→22:56)
[2019-03-26] MEDS: Tamsulosin HCl 0.4 MG CAP PO SCH (09:34)
[2019-03-26] MEDS: Metoprolol Tartrate 100 MG TAB PER TUBE SCH ×2 (09:36→22:55)
[2019-03-26] MEDS: Sodium Bicarbonate 50 MEQ in Dextrose 5% in Water 1,000 ML IV SCH (09:36)
[2019-03-26] MEDS: Acetaminophen 325 MG TAB PER TUBE PRN (10:03)
[2019-03-26] MEDS ORDERED: Sodium Bicarbonate 50 MEQ in Dextrose 5% in Water 1,000 ML IV SCH (10:41)
--- NOTE | 2019-03-26 10:43 | PDOC.HOSPP ---
- Subjective Encounter Date: 03/26/19 (f/u hypernatremia) Encounter Time: 10:42 Subjective: RN reports one dark stool overnight. no other events noted. Pt's states pt started sneezing yesterday - Objective Vital Signs & Weight: Vital Signs (12 hours) Temp Pulse Ox 03/26/19 07:39 100 03/26/19 07:14 97.3 F L 03/26/19 03:44 97.9 F 03/25/19 23:41 97.6 F Weight Admit Weight 166 lb 3.657 oz Weight 166 lb 3.657 oz Most Recent Monitor Data Heart Rate from ECG 69 NIBP 112/62 NIBP BP-Mean 78 Respiration from ECG 17 SpO2 100 I&O: 03/25/19 03/26/19 03/27/19 06:59 06:59 06:59 Intake Total 3933 3170 Output Total 2205 2900 Balance 1728 270 Result Diagrams: 03/26/19 03:11 03/26/19 03:11 Additional Labs: Accuchecks 03/26/19 03/26/19 03/25/19 08:10 03:56 23:53 POC Glucose 108 110 109 03/25/19 03/25/19 03/25/19 20:40 16:09 12:25 POC Glucose 122 H 121 H 132 H EKG Reviewed by me: Yes (tele - sinus 60's with pac and pvc) Hospitalist ROS - Medication Medications: Active Medications Generic Name Dose Route Start Last Admin Trade Name Freq PRN Reason Stop Dose Admin Acetaminophen 650 mg 03/22/19 20:07 03/26/19 10:03 Tylenol PER TUBE 650 mg Q4H PRN Administration Headache/Fever/Mild Pain (1-3) Albuterol/Ipratropium 3 ml 03/24/19 11:52 03/24/19 14:45 Duoneb NEB 3 ml [id number] PRN Administration SOB &/or Wheezing Amiodarone HCl 400 mg 03/25/19 09:00 03/26/19 09:34 Cordarone PO 04/07/19 21:01 400 mg BID HERIBERTO Administration Guaifenesin 200 mg 03/25/19 12:00 03/26/19 05:40 Robitussin PER TUBE 200 mg Q6HR HERIBERTO Administration Levofloxacin 750 mg/ Device 150 mls @ 100 mls/hr 03/24/19 18:00 03/24/19 17: 12 IVPB 150 mls Q2D HERIBERTO Administration Cefepime HCl 1 gm/ Dextrose/ 100 mls @ 200 mls/hr 03/24/19 09:00 03/26/19 09: 38 Water IVPB 100 mls DAILY HERIBERTO Administration Vancomycin HCl 750 mg/ 250 mls @ 250 mls/hr 03/24/19 18:00 03/25/19 17:31 Dextrose/Water IVPB 250 mls 1800 HERIBERTO Administration Sodium Bicarbonate 50 meq/ 1,050 mls @ 125 mls/hr 03/24/19 15:45 03/26/19 09: 36 Dextrose/Water IV 1,050 mls INF HERIBERTO Administration Insulin Human Regular 0 units 03/23/19 06:34 03/24/19 20:52 Humulin R SC 6 unit .MODERATE SLIDING SC PRN Administration Moderate Correctional Scale Levothyroxine Sodium 50 mcg 03/23/19 06:00 03/26/19 05:40 Synthroid PER TUBE 50 mcg 0600 HERIBERTO Administration Metoprolol Tartrate 100 mg 03/22/19 21:00 03/26/19 09:36 Lopressor PER TUBE Not Given BID HERIBERTO Pantoprazole Sodium 40 mg 03/23/19 21:00 03/26/19 09:33 Protonix IVP 40 mg Q12HR HERIBERTO Administration Scopolamine 1.5 mg 03/25/19 11:00 03/25/19 11:19 Transderm Scop TOP 1.5 mg Q3D HERIBERTO Administration Sodium Bicarbonate 650 mg 03/25/19 21:00 03/26/19 09:34 Bicarbonate, Sodium PER TUBE 650 mg BID HERIBERTO Administration Sodium Chloride 10 ml 03/23/19 20:08 03/24/19 09:12 Normal Saline Pf FS 10 ml PRN PRN Administration RECONSTITUTION Tamsulosin HCl 0.4 mg 03/23/19 09:00 03/26/19 09:34 Flomax PO 0.4 mg DAILY HERIBERTO Administration - Exam General Appearance: NAD General - other findings: opens eyes to 's voice, looks around Heart: RRR, no murmur Respiratory - other findings: decreased breath sounds at bases - no audible w/r/ r Gastrointestinal: soft, non-distended, normal bowel sounds Extremities: no cyanosis, no clubbing, no edema Neurological - other findings: unable to assess Musculoskeletal - other findings: no spontaneous movement in arms/legs Psychiatric - other findings: unable to assess, non-verbal Hosp A/P (1) GI bleed Code(s): K92.2 - GASTROINTESTINAL HEMORRHAGE, UNSPECIFIED Status: Acute (2) Anemia Code(s): D64.9 - ANEMIA, UNSPECIFIED Status: Acute Qualifiers: Anemia type: unspecified type Qualified Code(s): D64.9 - Anemia, unspecified (3) CKD (chronic kidney disease) stage 3, GFR 30-59 ml/min Code(s): N18.3 - CHRONIC KIDNEY DISEASE, STAGE 3 (MODERATE) Status: Chronic (4) Hemiparesis and other late effects of cerebrovascular accident Code(s): I69.359 - HEMIPLGA FOLLOWING CEREBRAL INFARCTION AFFECTING UNSP SIDE; I69.398 - OTHER SEQUELAE OF CEREBRAL INFARCTION Status: Chronic (5) Hypothyroidism Code(s): E03.9 - HYPOTHYROIDISM, UNSPECIFIED Status: Chronic (6) Sepsis Code(s): A41.9 - SEPSIS, UNSPECIFIED ORGANISM Status: Suspected - Plan GI bleed new - hb stable - appreciate GI consult. Risks of procedure outweigh benefits at this time Appreciate Pulm consult - removal of mucous plug 2 days ago Appreciate Nephro consult - renal function improved Sepsis - cx negative, on broad spectrum abx since admission - covered for possible pneumonia. Will reduce rate of IV fluids this morning with goal of reducing risk of volume overload. Renal function returned to normal. add claritin daily for sneezing. continue the home meds as ordered dvt prophy - scd's due to bleeding GI prophy - IV protonix BID code status by chart review - no compressions, only chemical and intubation Addendum - spent time talking with patient's about the tenuous nature of current status, that pt may be at end of life. She confirms that with his living will and conversations in the past that he would want everything done, and she does as well. Discussed that if/when pt declines that the likelihood of survival is low. We also discussed that it will not take much to cause a major change in his function and his body's ability to handle or compensate for this is extremely low. She demonstrates understanding of this, and again confirms she desires everything outside of chest compressions be performed so that pt remains alive. She states as there are changes she will continue to decide the goals of care. There were no further questions at end of conversation.
--- NOTE | 2019-03-26 11:20 | PRG ---
DATE OF SERVICE: 03/26/2019 SUBJECTIVE: This morning, he appears to be in no acute respiratory distress. OBJECTIVE: VITAL SIGNS: Temperature 99.7, sats 100% on 3 L, blood pressure 112/60, pulse 60, respiratory rate 18. CHEST: Anterior rhonchi. CARDIAC: Normal S1 and S2. No gallops. No murmurs. LABORATORY DATA: White count 7000, hemoglobin and hematocrit are 7 and 24, platelet count 136. Lytes are normal. X-ray chest shows bibasilar infiltrates, left greater than right. ASSESSMENT AND PLAN: Advanced age, severe deconditioning, bilateral bronchopneumonia, . Previous CVA, previous pneumothorax. He still wants all supportive care. We will continue aggressive neb treatment, PT, supportive care. We will follow. Job ID: [id number]
[2019-03-26] MEDS: Loratadine 5 MG/5 ML UDCUP PO SCH (12:21)
--- NOTE | 2019-03-26 12:38 | PDOC.CPN ---
- Subjective Date: 03/26/19 Time: 12:36 Interval history: No new issues, Remains aphasic. - Review of Systems ROS unobtainable: due to mental status - Objective Allergies/Adverse Reactions: Allergies Allergy/AdvReac Type Severity Reaction Status Date / Time No Known Allergies Allergy Verified 03/22/19 13:51 Visit Medications: Current Medications Acetaminophen (Tylenol) 650 mg PER TUBE Q4H PRN PRN Reason: Headache/Fever/Mild Pain (1-3) Last Admin: 03/26/19 10:03 Dose: 650 mg Acetaminophen (Tylenol) 650 mg MS Q4H PRN PRN Reason: Headache/Fever/Mild Pain (1-3) Albuterol/Ipratropium (Duoneb) 3 ml NEB [id number] PRN PRN Reason: SOB &/or Wheezing Last Admin: 03/24/19 14:45 Dose: 3 ml Amiodarone HCl (Cordarone) 400 mg PO BID [facility] Stop: 04/07/19 21:01 Last Admin: 03/26/19 09:34 Dose: 400 mg Amiodarone HCl (Cordarone) 200 mg PO BID [facility] Stop: 04/21/19 09:01 Amiodarone HCl (Cordarone) 200 mg PO DAILY [facility] Artificial Tears (Tears Naturale) 1 drop EA EYE PRN PRN PRN Reason: Dry Eyes Dextrose/Water (Dextrose 50%) 25 gm SLOW IVP PRN PRN PRN Reason: Hypoglycemia Glucagon (Glucagon) 1 mg IM PRN PRN PRN Reason: Hypoglycemia Guaifenesin (Robitussin) 200 mg PER TUBE Q6HR [facility] Last Admin: 03/26/19 12:21 Dose: 200 mg Guaifenesin/Dextromethorphan (Robitussin Dm) 15 ml PO Q4H PRN PRN Reason: Cough Levofloxacin 750 mg/ Device 150 mls @ 100 mls/hr IVPB Q2D [facility] Last Admin: 03/24/19 17:12 Dose: 150 mls Dextrose/Water (D5w) 1,000 mls @ 0 mls/hr IV .Q0M PRN PRN Reason: Hypoglycemia Potassium Chloride 40 meq/ (Sodium Chloride) 270 mls @ 135 mls/hr IVPB ASDIR PRN PRN Reason: FOR SERUM K+ 2.5 - 3.5 Potassium Chloride 40 meq/ (Device) 100 mls @ 50 mls/hr IVPB ASDIR PRN PRN Reason: FOR SERUM K+ 2.5 - 3.5 Magnesium Sulfate 1 gm/ Sodium (Chloride) 102 mls @ 102 mls/hr IV PRN PRN PRN Reason: MAG LEVEL 1.4 - 2.0 Magnesium Sulfate 2 gm/ Device 50 mls @ 50 mls/hr IVPB ASDIR PRN PRN Reason: MAGNESIUM < 1.4 Potassium Phosphate 9 mmol/ (Sodium Chloride) 103 mls @ 25.75 mls/hr IVPB ASDIR PRN PRN Reason: Phosphate 1.0-1.8 Potassium Phosphate 12 mmol/ (Sodium Chloride) 254 mls @ 63.5 mls/hr IV ASDIR PRN PRN Reason: Serum phosphate 0.5-0.9 Potassium Phosphate 15 mmol/ (Sodium Chloride) 255 mls @ 63.75 mls/hr IV ASDIR PRN PRN Reason: Serum Phos < 0.5 Cefepime HCl 1 gm/ Dextrose/ (Water) 100 mls @ 200 mls/hr IVPB DAILY [facility] Last Admin: 03/26/19 09:38 Dose: 100 mls Vancomycin HCl 750 mg/ (Dextrose/Water) 250 mls @ 250 mls/hr IVPB 1800 [facility] Last Admin: 03/25/19 17:31 Dose: 250 mls Sodium Bicarbonate 50 meq/ (Dextrose/Water) 1,050 mls @ 75 mls/hr IV INF [facility] Insulin Human Regular (Humulin R) 0 units SC .MODERATE SLIDING SC PRN PRN Reason: Moderate Correctional Scale Last Admin: 03/24/19 20:52 Dose: 6 unit Levothyroxine Sodium (Synthroid) 50 mcg PER TUBE 0600 [facility] Last Admin: 03/26/19 05:40 Dose: 50 mcg Loratadine (Claritin Oral Solution) 5 mg PO 1200 [facility] Last Admin: 03/26/19 12:21 Dose: 5 mg Magnesium Oxide (Magnesium Oxide) 400 mg PO BIDPRN PRN PRN Reason: FOR SERUM MAG 1.4 - 2.0 Magnesium Oxide (Magnesium Oxide) 800 mg PO PRN PRN PRN Reason: FOR SERUM MAG < 1.4 Metoprolol Tartrate (Lopressor) 100 mg PER TUBE BID [facility] Last Admin: 03/26/19 09:36 Dose: Not Given Miscellaneous Medication (Pharmacy To Dose) 1 each IVPB PRN PRN PRN Reason: SEPSIS Miscellaneous Medication (Phos-Nak) 1 pkt PO TIDPRN PRN PRN Reason: FOR PHOS LEVEL 1.0 - 1.8 Miscellaneous Medication (Phos-Nak) 2 pkt PO TIDPRN PRN PRN Reason: FOR PHOS LEVEL 0.5 - 1.0 Ccu Electrolyte (Replacement Protocol) 0 each FS PRN PRN PRN Reason: FOR ELECTROLYTE REPLACEMENT Ondansetron HCl (Zofran Odt) 4 mg PER TUBE Q6H PRN PRN Reason: Nausea/Vomiting Ondansetron HCl (Zofran) 4 mg IVP Q6H PRN PRN Reason: Nausea/Vomiting Pantoprazole Sodium (Protonix) 40 mg IVP Q12HR [facility] Last Admin: 03/26/19 09:33 Dose: 40 mg Potassium Chloride (K-Dur) 40 meq PO ASDIR PRN PRN Reason: FOR SERUM K+ 2.5 - 3.5 Potassium Chloride (Klor-Con) 40 meq PER TUBE ASDIR PRN PRN Reason: FOR SERUM K+ 2.5-3.5 Scopolamine (Transderm Scop) 1.5 mg TOP Q3D [facility] Last Admin: 03/25/19 11:19 Dose: 1.5 mg Senna/Docusate Sodium (Senokot S) 2 tab PER TUBE BIDPRN PRN PRN Reason: Constipation Sodium Bicarbonate (Bicarbonate, Sodium) 650 mg PER TUBE BID [facility] Last Admin: 03/26/19 09:34 Dose: 650 mg Sodium Chloride (Normal Saline Pf) 10 ml FS PRN PRN PRN Reason: RECONSTITUTION Last Admin: 03/24/19 09:12 Dose: 10 ml Tamsulosin HCl (Flomax) 0.4 mg PO DAILY [facility] Last Admin: 03/26/19 09:34 Dose: 0.4 mg Vital Signs & Weight: Vital Signs Temp Pulse Ox 03/26/19 11:26 98.1 F 03/26/19 07:39 100 03/26/19 07:14 97.3 F L 03/26/19 03:44 97.9 F Admit Weight 166 lb 3.657 oz Weight 166 lb 3.657 oz - Physical Exam General: appears well HEENT: normocephaly Neck: supple neck Cardiac: regular rate and rhythm Lungs: normal breath sounds Neuro: resting tremor Abdomen: active bowel sounds Extremities: no edema Skin: clear Musculoskeletal: no pain - Labs Result Diagrams: 03/26/19 03:11 03/26/19 03:11 Troponin/CKMB CK-MB (CK-2) 1.1 ng/mL (0-6.6) 03/22/19 17:39 Troponin I 0.097 ng/mL (< 0.028) H 03/22/19 23:33 - Telemetry Sinus rhythms and dysrhythmias: sinus rhythm - Assessment/Plan Assessment/Plan: 1. Paroxysmal afib 2. Possible sepsis 3. Anemia, down to 6.5 thought to be GI loss. 4. Multiple strokes. 5. Dmentia 6. group home bound PLAN: - Currently in sinus. - Continue reload on amiodarone. - Continue to hold off full anticoagulation due to anemia. - No plan for endoscopies until more stable.
--- NOTE | 2019-03-26 14:20 | PRG ---
DATE OF SERVICE: 03/26/2019 SERVICE: Nephrology. SUBJECTIVE: A 78-year-old [facility] resident with prior CVA with residual chronic debilitation, aphasia, and dysphagia status post PEG tube placement seen in followup for management of RORO and hypernatremia. Hospital course was complicated by acute on chronic anemia, felt to be due to GI bleeding. The patient is currently n.p.o. No new problem. OBJECTIVE: VITAL SIGNS: Temperature 97.3, pulse 68, respiratory rate 17, SpO2 of 100% on 2 L nasal cannula, blood pressure is 112/62. GENERAL: Elderly male, in no distress. Afebrile. Anicteric. Acyanotic. HEENT: Normocephalic and atraumatic. CARDIOVASCULAR: Regular rhythm and rate. Normal heart sounds. RESPIRATORY: Fair air entry bilaterally with some transmitted breath sounds. Work of breathing is not increased. GI: Full, soft, nontender with PEG tube in place. EXTREMITIES: Grossly normal looking. With no edema. 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 Paresis of all the limbs noted. DIAGNOSTIC DATA: CBC showed WBC count of 7.4, hemoglobin of 7.7, MCV of 90.4, and platelet of 136. BMP showed sodium 142, potassium 3.5, chloride 111, CO2 of 25, BUN 46, creatinine 1.10, glucose 109, calcium 7.5. Note that creatinine has trended down was from admission level of 3.04 to 1.10 currently. Creatinine is actually better than recent baseline of 1.5 to 1.7. ASSESSMENT: 1. Acute kidney injury due to hemodynamic factors related to volume contraction and dehydration. 2. Dehydration. 3. Hypernatremia due to free water deficit. 4. Hyperchloremic metabolic acidosis. 5. Hypokalemia. 6. Hyperkalemia, resolved. 7. Acute respiratory failure with hypoxia due to mucus plug. PLAN: Continue hypotonic solution containing bicarb due to n.p.o. status. Once tube feed is recommended, IV fluid can be discontinued. Nephrology will sign off at this time given resolution of electrolyte derangements and acute kidney injury. Please call for any clarification. Other treatment as per primary attending and other consultants. Job ID: [id number]
[2019-03-26] MEDS: Vancomycin HCl 750 MG in Dextrose 5% in Water 250 ML IVPB SCH (17:19)
--- NOTE | 2019-03-26 18:01 | PRG ---
DATE OF SERVICE: 03/26/2019 SUBJECTIVE: Mr. Garcia is about the same. He is not really responsive to verbal commands or stimuli and does not communicate orally. The nurse notes his stool has began to lighten up. He had 2 bowel movements, one last night and one this morning. OBJECTIVE: VITAL SIGNS: Pulse is 61, blood pressure 101/52, and temperature is 97.7. ABDOMEN: Nontender. LABORATORY DATA: White count 7.7 and hemoglobin 7.7. BUN is down to 46, creatinine is 1.10, sodium 142, and potassium 3.5. ASSESSMENT: 1. Paroxysmal atrial fibrillation, admission with severe dehydration with thought of likely gastrointestinal bleed. 2. After multiple strokes, multi-infarct dementia, bed-bound. RECOMMENDATIONS: 1. Continue IV PPI and Protonix 40 mg IV q.12. 2. Anticoagulation contraindicated at this point. 3. We will resume tube feeds. 4. With decreasing BUN likely GI bleeding has ceased at this point. Job ID: [id number]
[2019-03-27] MEDS ORDERED: Diabetic Tussin 200 MG/10 ML UDCUP PER TUBE SCH (01:30)
[2019-03-27 05:52] LABS: #Eosinphils 0.3 thou/uL (0.0-0.7); #Lymphocytes 1.1 thou/uL (1.20-3.40); #Monocytes 0.6 thou/uL (0.11-0.59); #Neutrophils 6.1 thou/uL (1.40-6.50); %Basophils 0.1 % (0.0-1.0); %Lymphocytes 13.2 % (21.0-51.0); %Monocytes 7.7 % (0.0-10.0); Mean Corpuscular HGB CONC 31.2 g/dL (32.0-36.0); Mean Corpuscular Hemoglobin 28.3 pg (27.0-31.0); Mean Corpuscular Volume 90.9 fL (78.0-98.0); Mean Platelet Volume 9.1 fL (7.4-10.4); Platelet Count 143 thou/uL (130-400); RBC Distribution Width 17.7 % (11.5-14.5); Red Blood Cell (RBC) Count 2.82 mill/uL (4.70-6.10); White Blood Cell (WBC) Count 8.1 thou/uL (4.8-10.8)
[2019-03-27 06:11] LABS: Anion Gap 9 mmol/L (10-20); BUN (Urea Nitrogen) 28 mg/dL (8.4-25.7); Calc. Creatinine Clearance 64 mL/min (70-130); Calcium 7.7 mg/dL (7.8-10.44); Carbon Dioxide 27 mmol/L (23-31); Chloride 108 mmol/L (98-107); Estimated GFR-MDRD 72; Glucose 106 mg/dL (83-110); Potassium 3.3 mmol/L (3.5-5.1); Sodium 141 mmol/L (136-145)
[2019-03-27] MEDS: Diabetic Tussin 200 MG/10 ML UDCUP PER TUBE SCH ×4 (06:25→23:33)
[2019-03-27] MEDS: Levothyroxine Sodium 50 MCG TAB PER TUBE SCH (06:28)
--- NOTE | 2019-03-27 09:38 | PDOC.HOSPP ---
- Subjective Encounter Date: 03/27/19 (f/u GI bleed) Encounter Time: 09:36 Subjective: No noted overnight events. Pt's notes his right arm is swollen - states new. 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 Tube feeds resumed, currently at 40 ml/hr - Objective Vital Signs & Weight: Vital Signs (12 hours) Temp Pulse Ox 03/27/19 08:00 98 03/27/19 07:15 97.7 F 03/27/19 04:00 98.0 F 03/27/19 00:00 98.2 F Weight Admit Weight 166 lb 3.657 oz Weight 166 lb 3.657 oz Most Recent Monitor Data Heart Rate from ECG 72 NIBP 110/69 NIBP BP-Mean 82 Respiration from ECG 22 SpO2 100 I&O: 03/26/19 03/27/19 03/28/19 06:59 06:59 06:59 Intake Total 3170 1420 Output Total 2900 1250 Balance 270 170 Result Diagrams: 03/27/19 05:40 03/27/19 05:40 Additional Labs: Accuchecks 03/27/19 03/27/19 03/27/19 08:07 04:30 01:27 POC Glucose 124 H 101 106 03/26/19 03/26/19 03/26/19 20:55 16:11 12:22 POC Glucose 104 100 114 H EKG Reviewed by me: Yes (tele - sinus 70's with pac/pvc) Hospitalist ROS - Medication Medications: Active Medications Generic Name Dose Route Start Last Admin Trade Name Freq PRN Reason Stop Dose Admin Acetaminophen 650 mg 03/22/19 20:07 03/26/19 10:03 Tylenol PER TUBE 650 mg Q4H PRN Administration Headache/Fever/Mild Pain (1-3) Albuterol/Ipratropium 3 ml 03/24/19 11:52 03/24/19 14:45 Duoneb NEB 3 ml [id number] PRN Administration SOB &/or Wheezing Amiodarone HCl 400 mg 03/25/19 09:00 03/26/19 22:56 Cordarone PO 04/07/19 21:01 400 mg BID HERIBERTO Administration Guaifenesin 200 mg 03/27/19 06:00 03/27/19 06:25 Robitussin Sf PER TUBE Not Given Q6HR HERIBERTO Guaifenesin/Dextromethorphan 15 ml 03/22/19 20:07 03/26/19 17:22 Robitussin Dm PO 15 ml Q4H PRN Administration Cough Levofloxacin 750 mg/ Device 150 mls @ 100 mls/hr 03/24/19 18:00 03/26/19 17: 22 IVPB 150 mls Q2D HERIBERTO Administration Vancomycin HCl 750 mg/ 250 mls @ 250 mls/hr 03/24/19 18:00 03/26/19 17:19 Dextrose/Water IVPB 250 mls 1800 HERIBERTO Administration Insulin Human Regular 0 units 03/23/19 06:34 03/24/19 20:52 Humulin R SC 6 unit .MODERATE SLIDING SC PRN Administration Moderate Correctional Scale Levothyroxine Sodium 50 mcg 03/23/19 06:00 03/27/19 06:28 Synthroid PER TUBE 50 mcg 0600 HERIBERTO Administration Loratadine 5 mg 03/26/19 12:00 03/26/19 12:21 Claritin Oral Solution PO 5 mg 1200 HERIBERTO Administration Metoprolol Tartrate 100 mg 03/22/19 21:00 03/26/19 22:55 Lopressor PER TUBE Not Given BID HERIBERTO Pantoprazole Sodium 40 mg 03/23/19 21:00 03/26/19 22:57 Protonix IVP 40 mg Q12HR HERIBERTO Administration Scopolamine 1.5 mg 03/25/19 11:00 03/25/19 11:19 Transderm Scop TOP 1.5 mg Q3D HERIBERTO Administration Sodium Bicarbonate 650 mg 03/25/19 21:00 03/26/19 22:56 Bicarbonate, Sodium PER TUBE 650 mg BID HERIBERTO Administration Sodium Chloride 10 ml 03/23/19 20:08 03/24/19 09:12 Normal Saline Pf FS 10 ml PRN PRN Administration RECONSTITUTION Tamsulosin HCl 0.4 mg 03/23/19 09:00 03/26/19 09:34 Flomax PO 0.4 mg DAILY HERIBERTO Administration - Exam General Appearance: NAD Heart: RRR, no murmur Respiratory: CTAB, no wheezes, no rales, no ronchi Gastrointestinal: soft, non-tender, non-distended, normal bowel sounds Extremities - other findings: edema throughout RUE Psychiatric - other findings: unable to assess - opens eyes, moves neck/head Hosp A/P (1) GI bleed Code(s): K92.2 - GASTROINTESTINAL HEMORRHAGE, UNSPECIFIED Status: Acute (2) Anemia Code(s): D64.9 - ANEMIA, UNSPECIFIED Status: Acute Qualifiers: Anemia type: unspecified type Qualified Code(s): D64.9 - Anemia, unspecified (3) CKD (chronic kidney disease) stage 3, GFR 30-59 ml/min Code(s): N18.3 - CHRONIC KIDNEY DISEASE, STAGE 3 (MODERATE) Status: Chronic (4) Hemiparesis and other late effects of cerebrovascular accident Code(s): I69.359 - HEMIPLGA FOLLOWING CEREBRAL INFARCTION AFFECTING UNSP SIDE; I69.398 - OTHER SEQUELAE OF CEREBRAL INFARCTION Status: Chronic (5) Hypothyroidism Code(s): E03.9 - HYPOTHYROIDISM, UNSPECIFIED Status: Chronic (6) Sepsis Code(s): A41.9 - SEPSIS, UNSPECIFIED ORGANISM Status: Suspected (7) Hypokalemia Code(s): E87.6 - HYPOKALEMIA Status: Acute - Plan GI bleed hb stable, appreciate GI consult. Tube feeds resumed and tolerating. - prior to this admission pt was on eliquis - is not a candidate to return to this now. Will need to be re-evaluated in the future. Appreciate Pulm consult - following along Appreciate Nephro consult - renal function normal, signed off. - tube feeds resumed - will d/c IVF, bicarb normal - d/c sodium bicarb tabs RUE edema - check for DVT with ultrasound Sepsis - cx negative, will de-escalate antibiotics to levaquin only. (Cefepime , Vanc and Levaquin all started on Mar). Next Levaquin dose (Q48h) is due tomorrow - that will complete 7 days of antibiotics. will start probiotic Claritin added yesterday for sneezing. continue the home meds as ordered replace potassium d/c horan cath d/c central line - change to peripheral wean oxygen - currently 100% on 3L NC transfer to stroke unit. Anticipate that pt can be transferred back to his facility in the next 1-2 days if no changes in status. dvt prophy - scd's due to bleeding GI prophy - IV protonix BID code status - no compressions, only chemical and intubation - confirmed this with patient's Reviewed plan of care today, and have been continuing goals of care conversation with the patient's - there are no changes. She requests everything to for patient, including aggressive measures, with the exception of chest compressions. There were no questions or further needs at end of eval
[2019-03-27] MEDS: Metoprolol Tartrate 100 MG TAB PER TUBE SCH ×2 (10:30→23:34)
[2019-03-27] MEDS: Amiodarone 200 MG TAB PO SCH ×2 (10:31→23:33)
[2019-03-27] MEDS: Tamsulosin HCl 0.4 MG CAP PO SCH (10:31)
[2019-03-27] MEDS: Pantoprazole 40 MG VIAL IVP SCH ×2 (10:31→23:33)
--- NOTE | 2019-03-27 11:43 | ULT ---
Right upper extremity ultrasound with Doppler HISTORY: Edema. Swelling COMPARISON: None TECHNIQUE: Grayscale, color flow, Doppler imaging and spectral waveform analysis the right upper extr emity venous system FINDINGS: Compressibility and patency of the internal jugular vein There is flow in the subclavian vein Compressibility and flow in the axillary vein, cephalic vein, brachial vein, basilic vein and radial vein and ulnar vein. Mild soft tissue edema of the right upper extremity is noted IMPRESSION: No evidence of thrombus in the right upper extremity deep venous system.
--- NOTE | 2019-03-27 11:58 | PRG ---
DATE OF SERVICE: 03/27/2019 SUBJECTIVE: A 78-year-old gentleman, remains in the MICU, very weak. says he got poor cough. OBJECTIVE: VITAL SIGNS: Temperature 98, pulse 82, blood pressure 110/69, and saturations 93 on 3 L. CHEST: Decreased breath sounds without any wheezing. CARDIAC: Normal S1 and S2. No gallops. ABDOMEN: No masses. LABORATORY DATA: His lytes are normal. Hemoglobin and hematocrit are normal. Platelet count is normal. ASSESSMENT AND PLAN: Respiratory failure, hypoventilation, gastrointestinal bleed, renal failure, CVA, severe deconditioning. At this stage, continue neb treatment, supportive care, and PT. We will follow. Job ID: [id number]
[2019-03-27] MEDS: Sodium Bicarbonate Tab 325 MG TAB PER TUBE SCH (12:08)
--- NOTE | 2019-03-27 12:58 | PDOC.CPN ---
- Subjective Date: 03/27/19 Time: 12:57 Interval history: No new issues. Non verbal and not in room today. - Review of Systems ROS unobtainable: due to mental status - Objective Allergies/Adverse Reactions: Allergies Allergy/AdvReac Type Severity Reaction Status Date / Time No Known Allergies Allergy Verified 03/22/19 13:51 Visit Medications: Current Medications Acetaminophen (Tylenol) 650 mg PER TUBE Q4H PRN PRN Reason: Headache/Fever/Mild Pain (1-3) Last Admin: 03/26/19 10:03 Dose: 650 mg Acetaminophen (Tylenol) 650 mg MN Q4H PRN PRN Reason: Headache/Fever/Mild Pain (1-3) Albuterol/Ipratropium (Duoneb) 3 ml NEB [id number] PRN PRN Reason: SOB &/or Wheezing Last Admin: 03/24/19 14:45 Dose: 3 ml Amiodarone HCl (Cordarone) 400 mg PO BID [facility] Stop: 04/07/19 21:01 Last Admin: 03/27/19 10:31 Dose: 400 mg Amiodarone HCl (Cordarone) 200 mg PO BID [facility] Stop: 04/21/19 09:01 Amiodarone HCl (Cordarone) 200 mg PO DAILY [facility] Artificial Tears (Tears Naturale) 1 drop EA EYE PRN PRN PRN Reason: Dry Eyes Dextrose/Water (Dextrose 50%) 25 gm SLOW IVP PRN PRN PRN Reason: Hypoglycemia Glucagon (Glucagon) 1 mg IM PRN PRN PRN Reason: Hypoglycemia Guaifenesin (Robitussin Sf) 200 mg PER TUBE Q6HR [facility] Last Admin: 03/27/19 12:07 Dose: Not Given Guaifenesin/Dextromethorphan (Robitussin Dm) 15 ml PO Q4H PRN PRN Reason: Cough Last Admin: 03/26/19 17:22 Dose: 15 ml Levofloxacin 750 mg/ Device 150 mls @ 100 mls/hr IVPB Q2D HERIBERTO Stop: 03/28/19 19:00 Last Admin: 03/26/19 17:22 Dose: 150 mls Dextrose/Water (D5w) 1,000 mls @ 0 mls/hr IV .Q0M PRN PRN Reason: Hypoglycemia Potassium Chloride 40 meq/ (Sodium Chloride) 270 mls @ 135 mls/hr IVPB ASDIR PRN PRN Reason: FOR SERUM K+ 2.5 - 3.5 Potassium Chloride 40 meq/ (Device) 100 mls @ 50 mls/hr IVPB ASDIR PRN PRN Reason: FOR SERUM K+ 2.5 - 3.5 Magnesium Sulfate 1 gm/ Sodium (Chloride) 102 mls @ 102 mls/hr IV PRN PRN PRN Reason: MAG LEVEL 1.4 - 2.0 Magnesium Sulfate 2 gm/ Device 50 mls @ 50 mls/hr IVPB ASDIR PRN PRN Reason: MAGNESIUM < 1.4 Potassium Phosphate 9 mmol/ (Sodium Chloride) 103 mls @ 25.75 mls/hr IVPB ASDIR PRN PRN Reason: Phosphate 1.0-1.8 Potassium Phosphate 12 mmol/ (Sodium Chloride) 254 mls @ 63.5 mls/hr IV ASDIR PRN PRN Reason: Serum phosphate 0.5-0.9 Potassium Phosphate 15 mmol/ (Sodium Chloride) 255 mls @ 63.75 mls/hr IV ASDIR PRN PRN Reason: Serum Phos < 0.5 Insulin Human Regular (Humulin R) 0 units SC .MODERATE SLIDING SC PRN PRN Reason: Moderate Correctional Scale Last Admin: 03/24/19 20:52 Dose: 6 unit Levothyroxine Sodium (Synthroid) 50 mcg PER TUBE 0600 [facility] Last Admin: 03/27/19 06:28 Dose: 50 mcg Loratadine (Claritin Oral Solution) 5 mg PO 1200 [facility] Last Admin: 03/26/19 12:21 Dose: 5 mg Magnesium Oxide (Magnesium Oxide) 400 mg PO BIDPRN PRN PRN Reason: FOR SERUM MAG 1.4 - 2.0 Magnesium Oxide (Magnesium Oxide) 800 mg PO PRN PRN PRN Reason: FOR SERUM MAG < 1.4 Metoprolol Tartrate (Lopressor) 100 mg PER TUBE BID [facility] Last Admin: 03/27/19 10:30 Dose: 100 mg Miscellaneous Medication (Phos-Nak) 1 pkt PO TIDPRN PRN PRN Reason: FOR PHOS LEVEL 1.0 - 1.8 Miscellaneous Medication (Phos-Nak) 2 pkt PO TIDPRN PRN PRN Reason: FOR PHOS LEVEL 0.5 - 1.0 Ccu Electrolyte (Replacement Protocol) 0 each FS PRN PRN PRN Reason: FOR ELECTROLYTE REPLACEMENT Ondansetron HCl (Zofran Odt) 4 mg PER TUBE Q6H PRN PRN Reason: Nausea/Vomiting Ondansetron HCl (Zofran) 4 mg IVP Q6H PRN PRN Reason: Nausea/Vomiting Pantoprazole Sodium (Protonix) 40 mg IVP Q12HR [facility] Last Admin: 03/27/19 10:31 Dose: 40 mg Potassium Chloride (K-Dur) 40 meq PO ASDIR PRN PRN Reason: FOR SERUM K+ 2.5 - 3.5 Potassium Chloride (Klor-Con) 40 meq PER TUBE ASDIR PRN PRN Reason: FOR SERUM K+ 2.5-3.5 Scopolamine (Transderm Scop) 1.5 mg TOP Q3D [facility] Last Admin: 03/25/19 11:19 Dose: 1.5 mg Senna/Docusate Sodium (Senokot S) 2 tab PER TUBE BIDPRN PRN PRN Reason: Constipation Sodium Chloride (Normal Saline Pf) 10 ml FS PRN PRN PRN Reason: RECONSTITUTION Last Admin: 03/24/19 09:12 Dose: 10 ml Tamsulosin HCl (Flomax) 0.4 mg PO DAILY [facility] Last Admin: 03/27/19 10:31 Dose: 0.4 mg Vital Signs & Weight: Vital Signs Temp Pulse Ox 03/27/19 10:27 98.3 F 03/27/19 08:00 98 03/27/19 07:15 97.7 F 03/27/19 04:00 98.0 F Admit Weight 166 lb 3.657 oz Weight 166 lb 3.657 oz - Physical Exam General: appears well HEENT: normocephaly Neck: supple neck Cardiac: regular rate and rhythm Lungs: normal breath sounds Neuro: other (Aphasic.) Abdomen: active bowel sounds Extremities: no edema Skin: clear Musculoskeletal: no fluid collection - Labs Result Diagrams: 03/27/19 05:40 03/27/19 05:40 Troponin/CKMB CK-MB (CK-2) 1.1 ng/mL (0-6.6) 03/22/19 17:39 Troponin I 0.097 ng/mL (< 0.028) H 03/22/19 23:33 - Telemetry Sinus rhythms and dysrhythmias: sinus rhythm - Assessment/Plan Assessment/Plan: 1. Paroxysmal afib 2. Possible sepsis 3. Anemia, down to 6.5 thought to be GI loss. 4. Multiple strokes. 5. Dementia 6. halfway bound PLAN: - Remains in sinus. - Continue reload on amiodarone. - Continue to hold off full anticoagulation due to anemia. - No plan for endoscopies until more stable.
--- NOTE | 2019-03-27 14:20 | PRG ---
DATE OF SERVICE: 03/27/2019 SUBJECTIVE: Mr. Garcia is actually little more animated today. He smiled at me, interacted with his eyes, and tried to talk. He said he is doing okay which is a big change from yesterday. OBJECTIVE: VITAL SIGNS: Temperature is 98.3, blood pressure is 111/67, pulse 68, O2 saturation 98%, respirations 17. LUNGS: Clear. HEENT: Oropharynx, no lesions. NECK: Supple. ABDOMEN: Soft and nontender. PEG tube is in place. LABORATORY DATA: Hemoglobin 8, white count 8.1, platelet count 143. BUN and creatinine down to 28 and 1 from 167 and 3 on admission. ASSESSMENT: 1. GI bleed. This is probably one of the main issues that brought him in. His hemoglobin at baseline 12. He presented with a hemoglobin of 6.5 and also with an elevated BUN suggestive of GI blood loss. It may be that he was very dehydrated. He did have some yeast in his urine, but his blood culture negative from admission. He also was on anticoagulation on admission, specifically Eliquis. 2. Atrial fibrillation. 3. Prior history of strokes. PLAN: The patient's is pretty adamant about doing everything and not withdrawing care at this time where he is backing off on medical therapy. 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 As his functional status has seemed to improve and he seems more hemodynamically stable and respiratory stable, we will plan for an EGD tomorrow to stratify risk for restarting anticoagulation. I think if his EGD did not reveal source of bleed, I would not proceed further with colonoscopy. I think it would be very difficult for him to complete that prep high risk of aspiration and this cardiorespiratory status will prolong. Procedure such as colonoscopy probably is not in his best interest. We will follow along with you and plan for the EGD tomorrow if the patient's is agreeable. Job ID: [id number]
[2019-03-27] MEDS: Loratadine 5 MG/5 ML UDCUP PO SCH (18:26)
[2019-03-28 04:45] LABS: #Eosinphils 0.3 thou/uL (0.0-0.7); #Lymphocytes 1.4 thou/uL (1.20-3.40); #Monocytes 0.7 thou/uL (0.11-0.59); #Neutrophils 6.2 thou/uL (1.40-6.50); %Basophils 0.3 % (0.0-1.0); %Eosinophils 3.6 % (0.0-10.0); %Lymphocytes 16.3 % (21.0-51.0); %Monocytes 8.1 % (0.0-10.0); %Neutrophils 71.7 % (42.0-75.0); Hemoglobin 8.6 g/dL (14.0-18.0); Mean Corpuscular HGB CONC 30.3 g/dL (32.0-36.0); Mean Corpuscular Hemoglobin 28.3 pg (27.0-31.0); Mean Corpuscular Volume 93.2 fL (78.0-98.0); Mean Platelet Volume 9.6 fL (7.4-10.4); Platelet Count 170 thou/uL (130-400); RBC Distribution Width 17.8 % (11.5-14.5); Red Blood Cell (RBC) Count 3.04 mill/uL (4.70-6.10); White Blood Cell (WBC) Count 8.7 thou/uL (4.8-10.8)
[2019-03-28 04:59] LABS: Anion Gap 10 mmol/L (10-20); BUN (Urea Nitrogen) 23 mg/dL (8.4-25.7); Calc. Creatinine Clearance 63 mL/min (70-130); Calcium 7.8 mg/dL (7.8-10.44); Carbon Dioxide 24 mmol/L (23-31); Chloride 109 mmol/L (98-107); Estimated GFR-MDRD 70; Glucose 127 mg/dL (83-110); Potassium 4.2 mmol/L (3.5-5.1); Sodium 139 mmol/L (136-145)
[2019-03-28] MEDS: Diabetic Tussin 200 MG/10 ML UDCUP PER TUBE SCH ×3 (06:28→18:11)
[2019-03-28] MEDS: Levothyroxine Sodium 50 MCG TAB PER TUBE SCH (06:28)
--- NOTE | 2019-03-28 09:09 | PRG ---
DATE OF SERVICE: 03/28/2019 SUBJECTIVE: Mr. Garcia has been moved out of the Stroke Floor. He actually did well overnight. He is not having any problems with secretions at the current time. OBJECTIVE: VITAL SIGNS: Temperature 98.6, pulse 57, respirations 14, O2 saturation 99%, blood pressure 114/57. HEENT: Unremarkable. NECK: No adenopathy or JVD. LUNGS: Clear. CARDIAC: S1, S2. Regular. ABDOMEN: PEG tube in place. LABORATORY DATA: White blood cell count 8.7, hematocrit 28.4, and platelet count 170. Sodium 139, potassium 4.2, chloride 109, CO2 of 24, BUN 23, creatinine 1, glucose 127. ASSESSMENT: 1. Severe oropharyngeal dysphagia with inability to clear secretions. 2. Status post bronchoscopy with manual extraction of mucus plug from supraglottic area. 3. Paroxysmal atrial fibrillation. 4. Dementia. PLAN: The patient appears to be doing well at the current time. He is probably ready to go back to the intermediate from a pulmonary standpoint. My recommendation would be aggressive pulmonary toilet measures and to continue the scopolamine patch. His prognosis is quite poor and I told the to expect recurrent episodes of mucus plugging. Job ID: [id number]
--- NOTE | 2019-03-28 09:45 | PDOC.HOSPP ---
- Subjective Encounter Date: 03/28/19 Encounter Time: 16:00 non-verbal Subjective: Patient doing well today. Had negative EGD. - Objective Vital Signs & Weight: Vital Signs (12 hours) Temp Pulse Resp BP Pulse Ox 03/28/19 08:00 98.6 F 57 L 14 114/57 L 99 03/28/19 04:10 98.0 F 67 20 110/65 97 03/27/19 23:18 97.6 F 67 16 100/53 L 98 Weight Admit Weight 166 lb 3.657 oz Weight 166 lb 3.657 oz Most Recent Monitor Data Heart Rate from ECG 63 NIBP 133/74 NIBP BP-Mean 93 Respiration from ECG 15 SpO2 99 I&O: 03/27/19 03/28/19 03/29/19 06:59 06:59 06:59 Intake Total 1420 3480 Output Total 1250 Balance 170 3480 Result Diagrams: 03/28/19 04:29 03/28/19 04:29 Additional Labs: Accuchecks 03/28/19 03/28/19 03/27/19 05:06 00:11 21:50 POC Glucose 139 H 133 H 118 H 03/27/19 03/27/19 16:54 12:09 POC Glucose 112 H 125 H Hospitalist ROS - Review of Systems ROS unobtainable: due to mental status - Medication Medications: Active Medications Generic Name Dose Route Start Last Admin Trade Name Freq PRN Reason Stop Dose Admin Acetaminophen 650 mg 03/22/19 20:07 03/26/19 10:03 Tylenol PER TUBE 650 mg Q4H PRN Administration Headache/Fever/Mild Pain (1-3) Albuterol/Ipratropium 3 ml 03/24/19 11:52 03/24/19 14:45 Duoneb NEB 3 ml [id number] PRN Administration SOB &/or Wheezing Amiodarone HCl 400 mg 03/25/19 09:00 03/27/19 23:33 Cordarone PO 04/07/19 21:01 400 mg BID HERIBERTO Administration Guaifenesin 200 mg 03/27/19 06:00 03/28/19 06:28 Robitussin Sf PER TUBE 200 mg Q6HR HERIBERTO Administration Guaifenesin/Dextromethorphan 15 ml 03/22/19 20:07 03/26/19 17:22 Robitussin Dm PO 15 ml Q4H PRN Administration Cough Levofloxacin 750 mg/ Device 150 mls @ 100 mls/hr 03/24/19 18:00 03/26/19 17: 22 IVPB 03/28/19 19:00 150 mls Q2D HERIBERTO Administration Insulin Human Regular 0 units 03/23/19 06:34 03/24/19 20:52 Humulin R SC 6 unit .MODERATE SLIDING SC PRN Administration Moderate Correctional Scale Levothyroxine Sodium 50 mcg 03/23/19 06:00 03/28/19 06:28 Synthroid PER TUBE 50 mcg 0600 HERIBERTO Administration Loratadine 5 mg 03/26/19 12:00 03/27/19 18:26 Claritin Oral Solution PO Not Given 1200 HERIBERTO Metoprolol Tartrate 100 mg 03/22/19 21:00 03/27/19 23:34 Lopressor PER TUBE Not Given BID HERIBERTO Pantoprazole Sodium 40 mg 03/23/19 21:00 03/27/19 23:33 Protonix IVP 40 mg Q12HR HERIBERTO Administration Scopolamine 1.5 mg 03/25/19 11:00 03/25/19 11:19 Transderm Scop TOP 1.5 mg Q3D HERIBERTO Administration Sodium Chloride 10 ml 03/23/19 20:08 03/24/19 09:12 Normal Saline Pf FS 10 ml PRN PRN Administration RECONSTITUTION Tamsulosin HCl 0.4 mg 03/23/19 09:00 03/27/19 10:31 Flomax PO 0.4 mg DAILY HERIBERTO Administration - Exam General Appearance: NAD, awake alert ENT: moist mucosa Heart: RRR, no murmur, no gallops, no rubs Respiratory: CTAB, no wheezes, no rales, no ronchi Gastrointestinal: soft, non-tender, non-distended, normal bowel sounds Psychiatric - other findings: non-verbal, smiles when talked to Hosp A/P (1) Supraventricular tachycardia Code(s): I47.1 - SUPRAVENTRICULAR TACHYCARDIA Status: Resolved (2) Severe sepsis Code(s): A41.9 - SEPSIS, UNSPECIFIED ORGANISM; R65.20 - SEVERE SEPSIS WITHOUT SEPTIC SHOCK Status: Resolved (3) Hypernatremia Code(s): E87.0 - HYPEROSMOLALITY AND HYPERNATREMIA Status: Resolved (4) Iatrogenic pneumothorax Code(s): J95.811 - POSTPROCEDURAL PNEUMOTHORAX Status: Resolved (5) Late effects of cerebrovascular accident Code(s): I69.90 - UNSPECIFIED SEQUELAE OF UNSPECIFIED CEREBROVASCULAR DISEASE Status: Chronic (6) Protein-calorie malnutrition, severe Code(s): E43 - UNSPECIFIED SEVERE PROTEIN-CALORIE MALNUTRITION Status: Chronic (7) Dementia Code(s): F03.90 - UNSPECIFIED DEMENTIA WITHOUT BEHAVIORAL DISTURBANCE Status: Chronic (8) Physical deconditioning Code(s): R53.81 - OTHER MALAISE Status: Chronic (9) Anemia Code(s): D64.9 - ANEMIA, UNSPECIFIED Status: Acute (10) Hypothyroidism Code(s): E03.9 - HYPOTHYROIDISM, UNSPECIFIED Status: Chronic (11) GI bleed Code(s): K92.2 - GASTROINTESTINAL HEMORRHAGE, UNSPECIFIED Status: Acute (12) Aphasia due to acute cerebrovascular accident (CVA) Code(s): I63.9 - CEREBRAL INFARCTION, UNSPECIFIED; R47.01 - APHASIA Status: Chronic (13) Mucus plugging of bronchi Code(s): J98.09 - OTHER DISEASES OF BRONCHUS, NOT ELSEWHERE CLASSIFIED Status : Resolved - Plan Antibiotics finished after today's dose, cultures negative Palliative care met with , she is not interested in talking to them has decided to make patient chemical code and intubation only, no chest compressions/defibrillation Transfused 2 units over the weekend, now Hcb stable. Anticoagulants on hold. Hemoccult positive. Plan for EGD today. Plan for back to NH when ok with GI. Cleared for d/c by pulm with aggressive pulmonary toilet and scopolamine patch Will recheck H/H in AM. Consider just aspirin for stroke prophylaxis. Will discuss with cardiology
[2019-03-28] MEDS: Amiodarone 200 MG TAB PO SCH ×2 (10:00→22:09)
[2019-03-28] MEDS: Tamsulosin HCl 0.4 MG CAP PO SCH (10:00)
[2019-03-28] MEDS: Metoprolol Tartrate 100 MG TAB PER TUBE SCH (10:00)
[2019-03-28] MEDS: Pantoprazole 40 MG VIAL IVP SCH (10:01)
[2019-03-28] MEDS: Loratadine 5 MG/5 ML UDCUP PO SCH (14:14)
[2019-03-28] MEDS: Floranex Packet PER TUBE SCH (14:14)
[2019-03-28] MEDS: Scopolamine 1.5 mg/72 hour Patch TOP SCH (14:15)
[2019-03-28] MEDS: Acetaminophen 325 MG TAB PER TUBE PRN (14:20)
[2019-03-28] MEDS ORDERED: Glycopyrrolate 0.2 MG/ML 5 ML SYRINGE ONE (14:25)
[2019-03-28] MEDS ORDERED: PROPOFOL 200 MG/20 ML VIAL ONE (14:25)
[2019-03-28] MEDS ORDERED: ePHEDrine/0.9% NaCl/PF SYRINGE 50 mg/10 ml ONE (14:25)
[2019-03-28] MEDS ORDERED: Pancrelipase DR 12000 1 CAP FS PRN (16:46)
[2019-03-28] MEDS ORDERED: Sodium Bicarbonate Tab 325 MG TAB PER TUBE PRN (16:46)
--- NOTE | 2019-03-28 17:00 | OP ---
DATE OF PROCEDURE: 03/28/2019 PREPROCEDURE DIAGNOSES: 1. Recent gastrointestinal bleed, suspect to be upper based on melena and elevated BUN at presentation. 2. Chronic anticoagulation, held since admission. 3. The patient's family ultimately decided to proceed with esophagogastroduodenoscopy. POSTPROCEDURE DIAGNOSES: 1. Inspissated secretions in the oropharynx. 2. Normal esophagus, normal stomach except for percutaneous endoscopic gastrostomy tube placement, and normal duodenum. RECOMMENDATIONS: 1. Would continue the PPI for ulcer prophylaxis. Would consider stopping all anticoagulation, but would defer this to the patient's primary care physician and Cardiology. 2. Would not recommend colonoscopy in light of his respiratory difficulties throughout this hospitalization, his frail status, and inability to protect his airway and safely do a bowel prep as he is not hemorrhaging at this time. 3. We will sign off this point in time. If I could be of any further assistance in the patient's care, please do not hesitate to contact the GI services. ANESTHESIA: TIVA. PROCEDURE IN DETAIL: After the patient was informed of the risk, benefits, and possible complications of endoscopy perforation, bleeding, reaction to medication, and aspiration, informed consent was obtained. The patient was brought to endoscopy suite, where he was sedated in gradual fashion. Once he was comfortable, a bite block was placed inside his orifice. The endoscope was advanced to the esophagus, stomach, and second and third portions of the duodenum and was slowly removed. There was good visualization of the mucosa. The duodenum was notable for normal mucosa. No evidence of ulcers or erosions or lesions. The pyloric channel was normal. The ampulla was normal. The stomach was normal in forward and retroflexed views. The esophagus was normal. There was a PEG tube noted in the antrum of stomach in good position with no signs of bleeding or stigmata of recent bleeding. This has been placed several months ago. The esophagus was normal. There was intubated mucus in the oropharynx and I have asked the nurse to increase oral care. It is probably exacerbated by the scopolamine. Job ID: [id number]
[2019-03-28] MEDS: Pantoprazole 40 MG GRANULES PACKET PER TUBE SCH (22:09)
[2019-03-29] MEDS: Diabetic Tussin 200 MG/10 ML UDCUP PER TUBE SCH ×4 (00:13→18:19)
[2019-03-29] MEDS: Metoprolol Tartrate 50 MG TAB PER TUBE SCH ×2 (00:13→09:50)
[2019-03-29 05:25] LABS: #Eosinphils 0.3 thou/uL (0.0-0.7); #Lymphocytes 1.5 thou/uL (1.20-3.40); #Monocytes 0.7 thou/uL (0.11-0.59); #Neutrophils 7.1 thou/uL (1.40-6.50); %Basophils 0.1 % (0.0-1.0); %Eosinophils 3.2 % (0.0-10.0); %Lymphocytes 15.9 % (21.0-51.0); %Neutrophils 73.8 % (42.0-75.0); Hemoglobin 8.9 g/dL (14.0-18.0); Mean Corpuscular HGB CONC 30.4 g/dL (32.0-36.0); Mean Corpuscular Hemoglobin 28.4 pg (27.0-31.0); Mean Corpuscular Volume 93.5 fL (78.0-98.0); Mean Platelet Volume 9.4 fL (7.4-10.4); Platelet Count 189 thou/uL (130-400); RBC Distribution Width 17.5 % (11.5-14.5); Red Blood Cell (RBC) Count 3.12 mill/uL (4.70-6.10); White Blood Cell (WBC) Count 9.6 thou/uL (4.8-10.8)
[2019-03-29 05:43] LABS: Anion Gap 11 mmol/L (10-20); BUN (Urea Nitrogen) 29 mg/dL (8.4-25.7); Calc. Creatinine Clearance 59 mL/min (70-130); Carbon Dioxide 24 mmol/L (23-31); Chloride 111 mmol/L (98-107); Estimated GFR-MDRD 66; Glucose 112 mg/dL (83-110); Potassium 4.6 mmol/L (3.5-5.1); Sodium 141 mmol/L (136-145)
[2019-03-29] MEDS: Levothyroxine Sodium 50 MCG TAB PER TUBE SCH (06:32)
--- NOTE | 2019-03-29 08:13 | PDOC.HOSPP ---
- Subjective Encounter Date: 03/29/19 Encounter Time: 10:20 Subjective: Patient without events overnight. Awake and smiling this AM. No breathing problems. - Objective Vital Signs & Weight: Vital Signs (12 hours) Temp Pulse Resp BP Pulse Ox 03/29/19 07:56 98.4 F 67 15 144/66 H 100 03/29/19 00:00 97.0 F L 63 18 119/62 100 03/28/19 20:42 96.5 F L 48 L 16 103/66 100 Weight Admit Weight 166 lb 3.657 oz Weight 166 lb 3.657 oz Most Recent Monitor Data Heart Rate from ECG 63 NIBP 133/74 NIBP BP-Mean 93 Respiration from ECG 15 SpO2 99 I&O: 03/28/19 03/29/19 03/30/19 06:59 06:59 06:59 Intake Total 3480 800 Balance 3480 800 Result Diagrams: 03/29/19 04:47 03/29/19 04:47 Additional Labs: Accuchecks 03/29/19 03/29/19 03/28/19 05:32 00:56 19:52 POC Glucose 127 H 102 109 03/28/19 09:43 POC Glucose 102 Hospitalist ROS - Review of Systems ROS unobtainable: due to mental status - Medication Medications: Active Medications Generic Name Dose Route Start Last Admin Trade Name Freq PRN Reason Stop Dose Admin Acetaminophen 650 mg 03/22/19 20:07 03/28/19 14:20 Tylenol PER TUBE 650 mg Q4H PRN Administration Headache/Fever/Mild Pain (1-3) Acidophilus 1 gm 03/28/19 09:00 03/28/19 14:14 Floranex PER TUBE 1 gm DAILY HERIBERTO Administration Albuterol/Ipratropium 3 ml 03/24/19 11:52 03/24/19 14:45 Duoneb NEB 3 ml [id number] PRN Administration SOB &/or Wheezing Amiodarone HCl 400 mg 03/25/19 09:00 03/28/19 22:09 Cordarone PO 04/07/19 21:01 400 mg BID HERIBERTO Administration Guaifenesin 200 mg 03/27/19 06:00 03/29/19 06:32 Robitussin Sf PER TUBE 200 mg Q6HR HERIBERTO Administration Guaifenesin/Dextromethorphan 15 ml 03/22/19 20:07 03/26/19 17:22 Robitussin Dm PO 15 ml Q4H PRN Administration Cough Insulin Human Regular 0 units 03/23/19 06:34 03/24/19 20:52 Humulin R SC 6 unit .MODERATE SLIDING SC PRN Administration Moderate Correctional Scale Levothyroxine Sodium 50 mcg 03/23/19 06:00 03/29/19 06:32 Synthroid PER TUBE 50 mcg 0600 HERIBERTO Administration Loratadine 5 mg 03/26/19 12:00 03/28/19 14:14 Claritin Oral Solution PO 5 mg 1200 HERIBERTO Administration Metoprolol Tartrate 75 mg 03/28/19 21:00 03/29/19 00:13 Lopressor PER TUBE Not Given BID HERIBERTO Pantoprazole Sodium 40 mg 03/28/19 21:00 03/28/19 22:09 Protonix PER TUBE 40 mg Q12HR HERIBERTO Administration Scopolamine 1.5 mg 03/25/19 11:00 03/28/19 14:15 Transderm Scop TOP 1.5 mg Q3D HERIBERTO Administration Tamsulosin HCl 0.4 mg 03/23/19 09:00 03/28/19 10:00 Flomax PO 0.4 mg DAILY HERIBERTO Administration - Exam General Appearance: NAD ENT: moist mucosa Heart: RRR, no murmur, no gallops, no rubs Respiratory: CTAB, no wheezes, no rales, no ronchi Gastrointestinal: soft, non-tender, non-distended, normal bowel sounds Gastrointestinal - other findings: PEG in place Psychiatric: normal affect Psychiatric - other findings: can't talk or communicate Hosp A/P (1) Supraventricular tachycardia Code(s): I47.1 - SUPRAVENTRICULAR TACHYCARDIA Status: Resolved (2) Severe sepsis Code(s): A41.9 - SEPSIS, UNSPECIFIED ORGANISM; R65.20 - SEVERE SEPSIS WITHOUT SEPTIC SHOCK Status: Resolved (3) Hypernatremia Code(s): E87.0 - HYPEROSMOLALITY AND HYPERNATREMIA Status: Resolved (4) Iatrogenic pneumothorax Code(s): J95.811 - POSTPROCEDURAL PNEUMOTHORAX Status: Resolved (5) Late effects of cerebrovascular accident Code(s): I69.90 - UNSPECIFIED SEQUELAE OF UNSPECIFIED CEREBROVASCULAR DISEASE Status: Chronic (6) Protein-calorie malnutrition, severe Code(s): E43 - UNSPECIFIED SEVERE PROTEIN-CALORIE MALNUTRITION Status: Chronic (7) Dementia Code(s): F03.90 - UNSPECIFIED DEMENTIA WITHOUT BEHAVIORAL DISTURBANCE Status: Chronic (8) Physical deconditioning Code(s): R53.81 - OTHER MALAISE Status: Chronic (9) Anemia Code(s): D64.9 - ANEMIA, UNSPECIFIED Status: Acute (10) Hypothyroidism Code(s): E03.9 - HYPOTHYROIDISM, UNSPECIFIED Status: Chronic (11) GI bleed Code(s): K92.2 - GASTROINTESTINAL HEMORRHAGE, UNSPECIFIED Status: Resolved (12) Aphasia due to acute cerebrovascular accident (CVA) Code(s): I63.9 - CEREBRAL INFARCTION, UNSPECIFIED; R47.01 - APHASIA Status: Chronic (13) Mucus plugging of bronchi Code(s): J98.09 - OTHER DISEASES OF BRONCHUS, NOT ELSEWHERE CLASSIFIED Status : Resolved - Plan Antibiotics course completed this AM, last dose ABX given via PEG tube Palliative care met with , she is not interested in talking to them has decided to make patient chemical code and intubation only, no chest compressions/defibrillation Transfused 2 units over the weekend, now Hcb stable. Anticoagulants on hold. EGD negative. Cleared for d/c by pulm with aggressive pulmonary toilet and scopolamine patch Some bradycardia yesterday and today, Dr. Garcia decreasing Metoprolol. I did discuss with Dr. Garcia and given GI bleed unable to find source will stop Eliquis and given baby aspirin only for afib/stroke prophylaxis Continue Amiodarone to treat Afib, currently in sinus rhythm. Recheck CBC in AM and discharge to SNF if stable.
[2019-03-29] MEDS: Aspirin 81 mg Enteric Coated Tablet PER TUBE SCH (09:50)
[2019-03-29] MEDS: Floranex Packet PER TUBE SCH (09:50)
[2019-03-29] MEDS: Pantoprazole 40 MG GRANULES PACKET PER TUBE SCH ×2 (09:54→22:02)
[2019-03-29] MEDS: Tamsulosin HCl 0.4 MG CAP PO SCH (09:54)
[2019-03-29] MEDS: Amiodarone 200 MG TAB PO SCH ×2 (09:54→22:02)
[2019-03-29] MEDS: Acetaminophen 325 MG TAB PER TUBE PRN (09:54)
--- NOTE | 2019-03-29 11:15 | PRG ---
DATE OF SERVICE: 03/29/2019 SUBJECTIVE: Mr. Garcia is lying quietly in bed. He has not changed from yesterday from what I can see. I did review Dr. Cervantes' operative note yesterday from endoscopy. OBJECTIVE: VITAL SIGNS: His temperature is 98.4, pulse 67, respirations 15, O2 saturation 100% on 1 L, blood pressure 144/66. HEENT: Unremarkable. NECK: No adenopathy or JVD. LUNGS: Fairly clear breath sounds today. CARDIAC: S1 and S2 regular. ABDOMEN: Soft. EXTREMITIES: No edema. LABORATORY DATA: White blood cell count 9.6, hematocrit 29.1, and platelet count 189. Sodium 141, potassium 4.6, BUN 29, creatinine 1.1, glucose 112. ASSESSMENT: Likely chronic aspiration with severe oropharyngeal dysfunction. PLAN: I would continue the guaifenesin, scopolamine patch and advise aggressive pulmonary toilet. I think he is probably ready for transfer back to the nursing facility. Again, I do not think his short-term and long-term prognoses are very good. This has been explained to his . Job ID: [id number]
[2019-03-29] MEDS: Loratadine 5 MG/5 ML UDCUP PO SCH (12:32)
[2019-03-29] MEDS: Metoprolol Tartrate 50 MG TAB PO SCH (22:02)
[2019-03-30] MEDS: Diabetic Tussin 200 MG/10 ML UDCUP PER TUBE SCH ×3 (01:00→14:03)
[2019-03-30] MEDS: Levothyroxine Sodium 50 MCG TAB PER TUBE SCH (06:13)
--- NOTE | 2019-03-30 09:05 | PRG ---
DATE OF SERVICE: 03/30/2019 SUBJECTIVE: The patient is lying quietly in bed, in no distress. He cannot communicate. OBJECTIVE: VITAL SIGNS: On exam, temperature 98.5, pulse 53, respirations 13, O2 saturation 98% on room air, and blood pressure 118/72. HEENT: Unremarkable. NECK: No adenopathy or JVD. LUNGS: Clear. CARDIAC: S1 and S2, regular. ABDOMEN: Soft. PEG tube noted. EXTREMITIES: No edema. ASSESSMENT: 1. Status post stroke with severe oropharyngeal dysfunction. 2. Mucus plugging. PLAN: Basically guaifenesin, scopolamine, and pulmonary toilet measures. I think that he will be at high risk for recurrent mucus plugging. Nothing further to add at this time. Job ID: [id number]
[2019-03-30] MEDS: Aspirin 81 mg Enteric Coated Tablet PER TUBE SCH (10:32)
[2019-03-30] MEDS: Amiodarone 200 MG TAB PO SCH (10:32)
[2019-03-30] MEDS: Metoprolol Tartrate 50 MG TAB PO SCH (10:33)
[2019-03-30] MEDS: Floranex Packet PER TUBE SCH (10:33)
[2019-03-30] MEDS: Pantoprazole 40 MG GRANULES PACKET PER TUBE SCH (10:33)
[2019-03-30] MEDS: Tamsulosin HCl 0.4 MG CAP PO SCH (10:33)
[2019-03-30 10:49] LABS: Hemoglobin 8.7 g/dL (14.0-18.0)
[2019-03-30 11:39] VITALS: BP 104/57; TEMP 98.1
--- NOTE | 2019-03-30 12:43 | DIS ---
DATE OF ADMISSION: 03/22/2019 DATE OF DISCHARGE: 03/30/2019 PRIMARY CARE PHYSICIAN: Dr. Rodriguez. DISCHARGE DISPOSITION: [facility]. PRIMARY DISCHARGE DIAGNOSES: 1. Acute metabolic encephalopathy, resolved. 2. Supraventricular tachycardia, resolved. 3. Severe sepsis with septic shock, resolved. 4. Iatrogenic pneumothorax. 5. Urinary tract infection due to yeast, treated in hospital. 6. Gastrointestinal bleed, resolved. 7. Mucus plugging of bronchi and aspiration pneumonia. SECONDARY DISCHARGE DIAGNOSES: 1. Chronic normocytic anemia. 2. History of CVA with residual effect. 3. Protein calorie malnutrition, severe. 4. Oropharyngeal dysphagia with PEG. 5. Chronic kidney disease, stage 3. 6. Hypothyroidism. 7. Dementia. 8. Paroxysmal atrial fibrillation. 9. Physical deconditioning. PRIMARY PROCEDURE/OPERATION: EGD was performed by Dr. Cervantes and found with normal esophagus, normal stomach with PEG tube in place, secretion in the oropharynx. Bronchoscopy was done by Dr. Cummins for mucous plugging. RADIOLOGICAL INVESTIGATION: While in hospital, the patient had several chest x-ray. Ultrasound right upper extremity was negative for DVT. SIGNIFICANT LABS: On discharge; WBC 9.6, hemoglobin 8.7, platelets 189. Sodium 141, potassium 4.6, BUN 29, creatinine 1.08, calcium 8.0. Urinalysis suggestive of UTI. Blood culture negative. Urine culture positive for yeast. DISCHARGE MEDICATIONS: 1. Synthroid 50 mcg daily. 2. Melatonin 5 mg at bedtime. 3. Multivitamin one capsule daily. 4. MiraLAX 17 g daily p.r.n. 5. Artificial Tears daily p.r.n. 6. DuoNeb q.4 hourly. 7. Robitussin 200 mg per tube q.6 hourly p.r.n. 8. Protonix 40 mg per tube twice daily. 9. Tylenol suppository or per tube p.r.n. 10. Floranex 1 g per tube daily. 11. Amiodarone as directed. 12. Ecotrin 81 mg per tube daily. 13. Ferrous sulfate 300 mg per tube daily. 14. Robitussin DM p.r.n. 15. Claritin p.r.n. 16. Metoprolol 50 mg b.i.d. 17. Zofran p.r.n. 18. Scopolamine patch every three days. 19. Flomax 0.4 mg daily. CONTRAINDICATION: None. CODE STATUS: Chemical code. DISCHARGE PLAN: Posthospital, the patient is planned for discharge to [facility]. Necessary discharge instruction written in discharge paper with tube feeding instruction. The patient's family member is [facility] The patient will need PT, OT, suctioning in mouth, mouth care, PEG tube care, oxygen as needed, and respiratory therapy. HOSPITAL COURSE: A 78-year-old male with above-mentioned medical problem, who was admitted by Dr. Zhen Weber, please see his H and P for further details. The patient was unresponsive and he was having respiratory distress. He was found with mucus plugging. He also had sinus tachycardia/SVT, which was converted to sinus rhythm with cardioversion. The patient was in septic shock. He was admitted in ICU. He required vasopressor support. The patient was also anemic and he had GI bleed. During this admission, Pulmonary and Critical Care was following while in ICU. Cardiovascular surgeon was consulted for pneumothorax. Nephrology was following for renal insufficiency and abnormal electrolytes. The patient was having metabolic encephalopathy on admission from severe dehydration with hypernatremia, that was treated with free water and corrected. While in hospital, the patient has finished antibiotic treatment as well as all electrolyte abnormality was corrected. The patient also underwent upper endoscopy, which was also unremarkable. The patient had ultrasound of his extremity, which was negative for DVT. Cardiology was also following during this hospital course, and Pulmonary was also following during this hospital course. All consultants cleared him for discharge. Necessary discharge instruction written in discharge paper, the patient is seen and examined at bedside today. Plan of care discussed with the patient's on phone and updated about discharge planning. Today, I have reviewed entire hospital chart as well as the patient is seen and examined at bedside today. PHYSICAL EXAMINATION: VITAL SIGNS: Currently, temperature 98.1, pulse 53, respiratory rate 15, saturation 97% on room air, blood pressure 104/57. Weight 166 pounds. GENERAL: The patient is currently alert, awake, nonverbal, but following simple commands. HEENT: Head, normocephalic and atraumatic. Eyes; pupils are round, reactive to light. Extraocular muscle intact. ENT, oropharynx within normal limits. Moist mucous membranes. NECK: Supple. No JVD. No meningeal signs of irritation. LUNGS: Clear to auscultation without any rhonchi or rales. CARDIAC: S1 and S2, regular without any murmur. No gallop. No rub. ABDOMEN: PEG tube in place. EXTREMITIES: No edema. NEUROLOGIC: Grossly nonfocal examination, though the patient does have residual weakness and aphasia and dysphagia from previous stroke. During this hospital course, Palliative Care was following and the patient's was not interested in any kind of hospice decision at this point. This patient's long-term prognosis is very poor and he is continuously high risk for recurrent admission. The patient is seen and examined at bedside today. Paper work for discharge done. Total time spent on discharge day, 32 minutes. Job ID: [id number]
[2019-03-30] MEDS: Loratadine 5 MG/5 ML UDCUP PO SCH (14:03)
--- NOTE | 2019-04-02 14:18 | EKG ---
Test Reason : Blood Pressure : / mmHG Vent. Rate : 102 BPM Atrial Rate : 102 BPM P-R Int : 146 ms QRS Dur : 092 ms QT Int : 344 ms P-R-T Axes : 055 -49 097 degrees QTc Int : 448 ms Sinus tachycardia Left anterior fascicular block Cannot rule out Inferior infarct (masked by fascicular block?) , age undetermined Abnormal ECG Confirmed by IJEOMA SALCEDO DO ([id number]), design editor KRISH PRITCHARD ([id number]) on 04/02/2019 2:17:32 PM Referred By: Confirmed By:IJEOMA SALCEDO DO
--- NOTE | 2019-04-02 14:18 | EKG ---
Test Reason : Blood Pressure : / mmHG Vent. Rate : 155 BPM Atrial Rate : 187 BPM P-R Int : 000 ms QRS Dur : 110 ms QT Int : 322 ms P-R-T Axes : 000 -82 023 degrees QTc Int : 517 ms Undetermined rhythm Left axis deviation Right bundle branch block Inferior infarct , age undetermined Anterolateral infarct , age undetermined Abnormal ECG Confirmed by IJEOMA SALCEDO DO ([id number]), international editorial producer KRISH PRITCHARD ([id number]) on 04/02/2019 2:17:31 PM Referred By: Confirmed By:IJEOMA SALCEDO DO
[2019-04-08] MEDS ORDERED: Amiodarone 200 MG TAB PO SCH (09:00)
[2019-04-22] MEDS ORDERED: Amiodarone 200 MG TAB PO SCH (09:00)
== END 2019-03-30 14:41 | DRG 871 ==
LOC: ERS 16:35 → CCU 19:03 → IMCU/EMU 03-24 22:11 → 2SE 03-27 15:14
PROVIDERS: ADMIT Emergency Medicine; ATTEND Emergency Medicine
PROC: 5A2204Z Restoration of Cardiac Rhythm, Single (ICD-10-PCS; 2019-03-22)
PROC: 02HV33Z Insertion of Infusion Device into Superior Vena Cava, Percutaneous Approach (ICD-10-PCS; 2019-03-22)
PROC: 3E033XZ Introduction of Vasopressor into Peripheral Vein, Percutaneous Approach (ICD-10-PCS; 2019-03-22)
PROC: 0W9B30Z Drainage of Left Pleural Cavity with Drainage Device, Percutaneous Approach (ICD-10-PCS; 2019-03-22)
PROC: 30233N1 Transfusion of Nonautologous Red Blood Cells into Peripheral Vein, Percutaneous Approach (ICD-10-PCS; 2019-03-23)
PROC: 0CCS8ZZ Extirpation of Matter from Larynx, Via Natural or Artificial Opening Endoscopic (ICD-10-PCS; principal; 2019-03-24)
PROC: 0BJ08ZZ Inspection of Tracheobronchial Tree, Via Natural or Artificial Opening Endoscopic (ICD-10-PCS; 2019-03-24)
PROC: 0DJ08ZZ Inspection of Upper Intestinal Tract, Via Natural or Artificial Opening Endoscopic (ICD-10-PCS; 2019-03-28)
DX: A41.9 Sepsis, unspecified organism (principal); R65.21 Severe sepsis with septic shock; J95.811 Postprocedural pneumothorax; E43 Unspecified severe protein-calorie malnutrition; R57.1 Hypovolemic shock; J96.01 Acute respiratory failure with hypoxia; G93.41 Metabolic encephalopathy; J69.0 Pneumonitis due to inhalation of food and vomit; E87.2 Acidosis; I47.1 Supraventricular tachycardia; E87.0 Hyperosmolality and hypernatremia; D62 Acute posthemorrhagic anemia; K92.2 Gastrointestinal hemorrhage, unspecified; B37.41 Candidal cystitis and urethritis; N17.9 Acute kidney failure, unspecified; I48.0 Paroxysmal atrial fibrillation; E78.00 Pure hypercholesterolemia, unspecified; F01.50 Vascular dementia, unspecified severity, without behavioral disturbance, psychotic disturbance, mood disturbance, and anxiety; N18.3 Chronic kidney disease, stage 3 (moderate); E03.9 Hypothyroidism, unspecified; E78.5 Hyperlipidemia, unspecified; I12.9 Hypertensive chronic kidney disease with stage 1 through stage 4 chronic kidney disease, or unspecified chronic kidney disease; N40.0 Benign prostatic hyperplasia without lower urinary tract symptoms; D63.1 Anemia in chronic kidney disease; E86.0 Dehydration; I45.10 Unspecified right bundle-branch block; Y83.8 Other surgical procedures as the cause of abnormal reaction of the patient, or of later complication, without mention of misadventure at the time of the procedure; E87.8 Other disorders of electrolyte and fluid balance, not elsewhere classified; R13.12 Dysphagia, oropharyngeal phase; E87.6 Hypokalemia; I69.320 Aphasia following cerebral infarction; Z93.1 Gastrostomy status; I69.398 Other sequelae of cerebral infarction; I69.391 Dysphagia following cerebral infarction; Z87.891 Personal history of nicotine dependence; Z79.01 Long term (current) use of anticoagulants; Z79.890 Hormone replacement therapy; Z79.899 Other long term (current) drug therapy; Z79.51 Long term (current) use of inhaled steroids; Z74.01 Bed confinement status; Z68.23 Body mass index [BMI] 23.0-23.9, adult
CPT/HCPCS: 32551; 36415; 36416; 36430; 36556; 51702; 71045; 80048; 80053; 80202; 81003; 81015; 82010; 82274; 82553; 82728; 82805; 83540; 83550; 83605; 84100; 84484; 85014; 85018; 85025; 86850; 86900; 86901; 87040; 87086; 93005; 94640; 96361; 96365; 96366; 96367; 96375; 99152; 99153; C9113; J0692; J1815; J1956; J2001; J2250; J2704; J3010; J3370; J3490; J7050; J7070; J7620; P9016

== ENCOUNTER 2019-10-24 19:54 | Inpatient (IN) | payer MEDICARE, MEDICAID ==
[~2019-10-24 19:54] MED LIST: Amiodarone 150 MG/3 ML VIAL ONE; EPINEPHrine 1 MG/10 ML Abboject SYRINGE ONE; Lidocaine 2% PF 100 mg/5 ml Syringe ONE
[2019-10-24] MEDS ORDERED: Succinylcholine Chloride 20 MG/ML 10 ml SYRINGE FS ONE (20:26)
[2019-10-24 20:38] LABS: Hemoglobin 17.8 g/dL (14.0-18.0); Mean Corpuscular HGB CONC 30.6 g/dL (32.0-36.0); Mean Corpuscular Hemoglobin 28.6 pg (27.0-31.0); Mean Corpuscular Volume 93.6 fL (78.0-98.0); Mean Platelet Volume 9.4 fL (7.4-10.4); Platelet Count 231 thou/uL (130-400); RBC Distribution Width 18.8 % (11.5-14.5); White Blood Cell (WBC) Count 14.1 thou/uL (4.8-10.8)
[2019-10-24] MEDS ORDERED: Fentanyl 100 MCG/2 ML VIAL ONE (20:43)
[2019-10-24] MEDS ORDERED: Rocuronium Bromide 10 MG/ML (10ML VIAL) ONE (20:44)
[2019-10-24 20:55] LABS: Band 12 % (5-11); MDiff Complete? YES; Monocytes 10 % (0-10); Neutrophil 78 % (42-75); Platelet Morphology Comment Appears Adequate; RBC Morphology Normal
[2019-10-24] MEDS ORDERED: Norepinephrine 8 MG/0.9% NS 250 ML ONE (20:57)
[2019-10-24 21:00] LABS: Bilirubin Negative (Negative); Blood, Urine Moderate (Negative); Glucose, Urine (Dipstick) Negative (Negative); Ketone, Urine Negative (Negative); Leukocyte Large (Negative); Nitrite Negative (Negative); Protein, Urine (Dipstick) 100 mg/dL (Neg-Trace); Specific Gravity, Urine 1.015 (1.005-1.030)
[2019-10-24 21:02] LABS: Clarity Slightly Cloudy (Clear)
--- NOTE | 2019-10-24 21:04 | RAD ---
PORTABLE CHEST: Comparison: 03-26-2019 History: Atrial fibrillation. Cough. FINDINGS: Endotracheal tube is in satisfactory position. Heart size is borderline. Bilateral infiltrative lung changes are seen, actually similar in appearance to the previous examination. IMPRESSION: 1. Bilateral infiltrative lung changes, possibly Covid exposure is a possibility. 2. Endotracheal tube in satisfactory position, slightly lower in position, approximately 1 cm above t he gaby. POS: OFF
[2019-10-24 21:06] LABS: RBC/HPF Greater than 50 HPF (0-3); Renal Epithelial 0-3 HPF (None Seen); Squamous Epithelial None Seen HPF (0-3); WBC/HPF Greater than 50 HPF (0-3); Yeast-Budding 1+ HPF (None Seen)
[2019-10-24 21:10] LABS: Bacteria/HPF 3+ HPF (None Seen); Yeast-Hyphae 1+ HPF (None Seen)
[2019-10-24] MEDS ORDERED: Vancomycin 1 GM/200 ML BAG ONE (21:24)
[2019-10-24] MEDS ORDERED: Acetaminophen 650 MG Suppository ONE (21:24)
[2019-10-24] MEDS ORDERED: Dexamethasone 10 MG/ML VIAL ONE (21:24)
[2019-10-24] MEDS ORDERED: Piperacillin/Tazobactam 4.5 GM VIAL ONE (21:24)
[2019-10-24 21:25] LABS: INR-International Normal Ratio 1.2; PTT 35.4 sec (22.9-36.1); Prothrombin Time 14.9 sec (12.0-14.7)
[2019-10-24] MEDS ORDERED: Sodium Chloride 0.9% 100 ML ONE (21:25)
[2019-10-24] MEDS ORDERED: Procainamide 500 MG/ML VIAL SLOW IVP SCH (21:45)
[2019-10-24 21:52] LABS: SARS-CoV-2 NAA Rapid Test Not Detected (NotDetected)
[2019-10-24 22:26] LABS: Albumin 2.5 g/dL (3.4-4.8)
[2019-10-24 22:27] LABS: Chloride 116 mmol/L (98-107); Potassium 4.5 mmol/L (3.5-5.1); Sodium 144 mmol/L (136-145)
[2019-10-24 22:28] LABS: Calcium 7.3 mg/dL (7.8-10.44); Globulin 2.7 g/dL (2.4-3.5); Glucose 139 mg/dL (83-110); Protein, Total 5.2 g/dL (5.8-8.1)
[2019-10-24 22:30] LABS: Anion Gap 13 mmol/L (10-20); Bilirubin, Total 0.9 mg/dL (0.2-1.2); Carbon Dioxide 20 mmol/L (23-31)
[2019-10-24 22:31] LABS: Alkaline Phosphatase 84 U/L (40-110); Calc. Creatinine Clearance 0 mL/min (70-130); Estimated GFR-MDRD 57
[2019-10-24 22:32] LABS: BUN (Urea Nitrogen) 47 mg/dL (8.4-25.7)
[2019-10-24 22:33] LABS: AST (SGOT) 29 U/L (5-34); Magnesium 1.8 mg/dL (1.6-2.6)
[2019-10-24 22:34] LABS: ALT (SGPT) 26 U/L (8-55)
[2019-10-24] MEDS ORDERED: Acetaminophen 650 MG Suppository PR PRN (22:36)
[2019-10-24] MEDS ORDERED: DISCONTINUE PREVIOUS NARCOTIC PAIN MEDICATIONS AND BENZODIAZEPINES FS SCH (22:41)
[2019-10-24] MEDS ORDERED: Fentanyl BOLUS 250 ML IVPB PRN (22:41)
[2019-10-24] MEDS ORDERED: Propofol 1,000 MG/100 ML VIAL IV PRN (22:41)
[2019-10-24] MEDS ORDERED: Propofol BOLUS 1,000 MG/100 ML VIAL IV PRN (22:41)
[2019-10-24] MEDS ORDERED: Ventilator Sedation Protocol 1 EACH FS SCH (22:45)
[2019-10-24] MEDS ORDERED: Sodium Bicarbonate 150 MEQ in Dextrose 5% in Water 1,000 ML IV SCH (22:45)
[2019-10-24] MEDS ORDERED: Calcium Gluc 4.6 MEQ/10 ML (100 MG/ML) ONE (22:51)
[2019-10-24 22:54] LABS: CKMB 1.8 ng/mL (0-6.6)
[2019-10-24 23:22] LABS: Lactic Acid 1.7 mmol/L (0.5-2.2)
--- NOTE | 2019-10-24 23:31 | HP ---
CHIEF COMPLAINT: Shortness of breath. HISTORY OF PRESENT ILLNESS: Mr. Garcia is an 79-year-old male with past medical history of atrial fibrillation, chronic respiratory failure on oxygen 3 L/minute at baseline, hyperlipidemia, CVA, dementia, chronic kidney disease, among others, was brought to the emergency room from nursing facility for shortness of breath. In the emergency room, the patient was in respiratory distress, with altered mentation. The patient was found to be tachycardic with wide QRS. In the emergency room, the patient was given procainamide x2, remained tachycardic. The patient then was started on IV amiodarone. The ED physician consulted with pluck trimmer. Patient remained in respiratory distress. Patient has to be intubated, mechanically ventilated, central venous catheter also was inserted by ED physician. In the emergency room, patient was febrile with a temperature of 101. WBC count elevated at 14.1, lactic acid elevated at 2.9. Chest x-ray showed bilateral infiltrates/opacities/edema? Septic workup in the ED. The patient also was found to have urinary tract infection. The patient was started on IV antibiotics. ED physician consulted with Pulmonary/instrument installer. The patient is being admitted to the intensive care unit for further management. PAST MEDICAL HISTORY: 1. Atrial fibrillation/atrial flutter. 2. Hypertension. 3. Hyperlipidemia. 4. CVA. 5. Dementia. 6. Chronic kidney disease. 7. Thyroid disorder. PAST SURGICAL HISTORY: 1. PEG tube. 2. Right hand surgery. SOCIAL HISTORY: No reported alcohol use. The patient is a former smoker. Quit 10 years ago. FAMILY HISTORY: Reviewed and noncontributory. HOME MEDICATIONS: Please see home medication reconciliation form for updated medications. ALLERGIES: NO KNOWN ALLERGIES. REVIEW OF SYSTEMS: Unable to obtain. The patient currently is intubated and sedated. PHYSICAL EXAMINATION: GENERAL: The patient is intubated and sedated. VITAL SIGNS: Blood pressure 150/100, pulse is 130, oxygen saturation is 96% on the ventilator, temperature 101. HEAD AND NECK: Normocephalic. NECK: Supple. CHEST: Coarse bilateral breath sounds. HEART: Irregular, tachycardic. ABDOMEN: Soft. Bowel sounds present. NEURO: The patient is to be sedated, unable to assess. PSYCH: Unable to assess. MUSCULOSKELETAL: No apparent deformity. No tenderness. GENITOURINARY: No suprapubic tenderness. No flank tenderness. SKIN: No visible rash. LABORATORY DATA: Sodium 144, potassium 4.5, BUN is 47, creatinine 1.2, glucose 139, BNP 321. Urinalysis is positive for bacteria, wbc's, blood, and leukocytes. COVID-19 rapid test nondetectable. WBC count 14.1, hemoglobin 17.8, platelets 131. Lactic acid is 2.9. ASSESSMENT AND PLAN: 1. Acute respiratory failure. 2. Severe sepsis. 3. Ventricular tachycardia? 4. Acute urinary tract infection. 5. History of atrial fibrillation/flutter. 6. Chronic kidney disease. 7. Dementia. PLAN: 1. Admit to ICU/CCU. 2. Keep n.p.o. 3. Continue full ventilator support. 4. Septic workup including blood cultures, urine cultures done in the ED. 5. Continue with IV antibiotics, IV vancomycin and cefepime. 6. Consult Cardiology for evaluation and further management. 7. Pulmonary/Supervisor Shuttle Veneering consulted by ED physician for evaluation and further management. 8. Reconcile home medications. 9. DVT prophylaxis as appropriate. 10. GI prophylaxis as appropriate. 11. Patient's condition is critical, case discussed with the patient's , and at this time, the patient is a full code. Job ID: [id number]
[2019-10-25 05:03] LABS: ALT (SGPT) 29 U/L (8-55); AST (SGOT) 20 U/L (5-34); Albumin 2.5 g/dL (3.4-4.8); Alkaline Phosphatase 76 U/L (40-110); Anion Gap 10 mmol/L (10-20); BUN (Urea Nitrogen) 47 mg/dL (8.4-25.7); Bilirubin, Total 0.5 mg/dL (0.2-1.2); Calc. Creatinine Clearance 49 mL/min (70-130); Calcium 7.8 mg/dL (7.8-10.44); Carbon Dioxide 29 mmol/L (23-31); Chloride 109 mmol/L (98-107); Estimated GFR-MDRD 47; Globulin 2.8 g/dL (2.4-3.5); Glucose 263 mg/dL (83-110); Potassium 4.6 mmol/L (3.5-5.1); Protein, Total 5.3 g/dL (5.8-8.1); Sodium 143 mmol/L (136-145)
--- NOTE | 2019-10-25 07:19 | RAD ---
PORTABLE CHEST: Date: 10/24/2019 HISTORY: Central line placement. COMPARISON: Earlier exam from same date. FINDINGS: A right-sided central line has been placed. Catheter tip overlies the superior vena cava. The endotra cheal tube is approximately 1.0 cm above the gaby. There has been increasing density developing in the right base which could be on the basis of atelectasis. IMPRESSION: 1. Interval placement of right-sided central line. Catheter tip overlies the superior vena cava. I d o not appreciate any pneumothorax. There has been a definite change with development of opacification in the right base. This is most likely on the basis of right lower lobe atelectasis. 2. Endotracheal tube. The tip of the tube is approximately 1.0 cm above the gaby. POS: OFF
[2019-10-25 08:00] LABS: Base Excess (BEa) -3.7 mEq/L (-2.0 to +3.0); CO2 Tension 47.9 mmHg (35.0-45.0); Calcium, Ionized (arterial) 1.17 mmol/L (1.12-1.30); Carboxyhemoglobin (COHb) 0.7 gm% (0.0-3.0); Hemoglobin (Hb) 14.7 g/dL (14.0-18.0); O2 Tension (PaO2), arterial 112.1 mmHg (> 60.0); Potassium - ABG Lab 4.58 mmol/L (3.70-5.30)
--- NOTE | 2019-10-25 08:01 | RAD ---
XR Chest 1 View Portable History: Ventilated patient Comparison: Radiograph prior day Findings: Endotracheal tube is in unchanged position with tip above the gaby approximately 1.5 cm. Right IJ central venous catheter tip projects over the right atrium. Large right and moderate left pleural effusions. Right lung airspace opacities are similar. Impression: Similar examination of the chest without significant improved lung aeration.
[2019-10-25 08:03] LABS: ALV-art Gradient 541.025 (0-20); Puncture Site RRA
[2019-10-25] MEDS ORDERED: Polyvinyl Alcohol 1.4%/Povidone 0.6% Opth Drops EA EYE PRN (08:47)
[2019-10-25] MEDS ORDERED: Pancrelipase DR 12,000 1 CAP FS PRN (08:47)
[2019-10-25] MEDS: Amiodarone 450 MG, Admixture Fee 1 EACH in Dextrose 5% in Water 250 ML IVPB SCH ×2 (08:50→17:16)
[2019-10-25] MEDS: Famotidine/PF 20 mg/2ml Vial SLOW IVP SCH ×2 (08:51→20:26)
[2019-10-25] MEDS ORDERED: Vancomycin 1 GM in Premix Bag 1 BAG IVPB SCH (09:00)
[2019-10-25] MEDS: Floranex Packet PER TUBE SCH (09:52)
[2019-10-25] MEDS: Aspirin 81 mg Enteric Coated Tablet PER TUBE SCH (09:52)
[2019-10-25] MEDS: Metoprolol Tartrate 50 MG TAB PER TUBE SCH ×2 (09:52→20:26)
[2019-10-25] MEDS: Tamsulosin HCl 0.4 MG CAP PO SCH (09:52)
[2019-10-25] MEDS: Levothyroxine Sodium 50 MCG TAB PER TUBE SCH (09:54)
--- NOTE | 2019-10-25 10:16 | CON ---
DATE OF CONSULTATION: 10/25/2019 TIME SPENT: 35 minutes of critical care time. REASON FOR CONSULTATION: Respiratory failure. HISTORY OF PRESENT ILLNESS: The patient is an 79-year-old male, who presents to the emergency room last night with altered mental status and respiratory distress. He was also profoundly tachycardic. He was intubated. He had a right IJ central line placed. He has been put on mechanical ventilation and is currently being treated for sepsis. PAST MEDICAL HISTORY: 1. Atrial fibrillation. 2. Multiple strokes. 3. Bedbound status. 4. Dementia. 5. Chronic kidney disease, stage 3. 6. Hypothyroidism. 7. Hyperlipidemia. 8. Hypertension. 9. Benign prostatic hypertrophy. PAST SURGICAL HISTORY: PEG tube placement, right hand surgery. SOCIAL HISTORY: Lives in a [facility]. FAMILY MEDICAL HISTORY: Unremarkable. MEDICATIONS: Prior to admission; 1. Senokot two tablets b.i.d. 2. Scopolamine patch 1.5 mg transdermal every 3 days. 3. Polyvinyl alcohol eye drops as needed. 4. MiraLAX 17 g as needed. 5. Protonix 40 mg twice daily. 6. Zofran 4 mg every 6 hours as needed. 7. Multivitamin one daily. 8. Metoprolol 50 mg b.i.d. 9. Melatonin 5 mg at bedtime. 10. Loratadine 5 mg daily. 11. Creon tablet per protocol. 12. Synthroid 50 mcg daily. 13. DuoNeb every 4 hours as needed. 14. Guaifenesin 15 mL every 4 hours as needed. 15. Iron sulfate 300 mg daily. 16. Aspirin 81 mg daily. 17. Artificial Tears as needed. 18. Amiodarone 200 mg daily. 19. Floranex 1 g per tube daily. 20. Tylenol as needed. 21. Flomax 0.4 mg daily. 22. Sodium bicarbonate per tube as needed. REVIEW OF SYSTEMS: Cannot be obtained as the patient is currently intubated and on mechanical ventilation. PHYSICAL EXAMINATION: VITAL SIGNS: Heart rate 103, blood pressure 111/91, O2 saturation 100%, respiratory rate 14, and temperature 98.6. He is currently on no vasopressors. HEENT: Pupils are reactive. Sclerae are anicteric. Oropharynx, intubated. NECK: No adenopathy or JVD. LUNGS: Diminished breath sounds at both bases. CARDIAC: S1 and S2. Tachycardic. ABDOMEN: Soft and nontender. PEG tube noted. EXTREMITIES: No clubbing or cyanosis. Roca catheter in place. LABORATORY DATA: White blood cell count 14.1, hemoglobin 17.8, hematocrit 58.0, platelet count 231, 78% neutrophils, 12% bands. INR 1.2, PTT 35.4. PH of 7.30, pCO2 of 47, pO2 of 112 on SIMV rate 14, tidal volume 500, PEEP 5, pressure support 10, and FiO2 of 100%. Sodium 143, potassium 4.6, chloride 109, CO2 of 29, BUN 47, creatinine 1.4, and glucose 263. IMAGING DATA: His x-ray shows bilateral lower lobe infiltrates. Urinalysis showed greater than 50 white blood cells. His COVID-19 test was negative. ASSESSMENT: 1. Acute hypoxic respiratory failure, requiring mechanical ventilation. 2. Bilateral pneumonia - likely aspiration related. 3. Severe underlying medical problems as described above. 4. Polycythemia. 5. Renal insufficiency. PLAN: 1. The patient will be kept on mechanical ventilation. 2. IV antibiotics. 3. Nebulization treatments. 4. Steroids. 5. We will follow. Job ID: [id number]
[2019-10-25] MEDS: methylPREDNISolone Sod Succ 40 MG VIAL IVP SCH ×3 (10:28→20:26)
[2019-10-25] MEDS: Cefepime 2 GM in Sodium Chloride 0.9% 100 ML IVPB SCH ×2 (10:49→22:41)
[2019-10-25] MEDS: Scopolamine 1.5 mg/72 hour Patch TOP SCH (11:12)
[2019-10-25] MEDS ORDERED: methylPREDNISolone Sod Succ 40 MG VIAL IVP SCH (12:00)
--- NOTE | 2019-10-25 13:06 | PDOC.HOSPP ---
- Subjective Encounter Date: 10/25/19 Encounter Time: 12:55 Subjective: Admitted with sepsis secondary to urinary tract infection and acute respiratory failure requiring intubation. Seen this morning. He is intubated. Has elevated white count. Discussed with RN. His creatinine is slightly up. COVID negative. - Objective Vital Signs & Weight: Vital Signs (12 hours) Pulse Resp Pulse Ox 10/25/19 12:53 86 10/25/19 12:00 17 10/25/19 10:41 118 H 10/25/19 10:00 14 10/25/19 08:00 14 10/25/19 07:40 124 H 10/25/19 07:07 100 10/25/19 06:00 14 10/25/19 04:00 14 10/25/19 02:59 82 10/25/19 02:00 14 Weight Weight 185 lb 14.4 oz Most Recent Monitor Data Heart Rate from ECG 115 NIBP 95/77 NIBP BP-Mean 83 Respiration from ECG 16 SpO2 100 I&O: 10/24/19 10/25/19 10/26/19 06:59 06:59 06:59 Intake Total 1055 0 Output Total 155 140 Balance 900 -140 Result Diagrams: 10/24/19 20:26 10/25/19 04:15 Hospitalist ROS - Medication Medications: Active Medications Generic Name Dose Route Start Last Admin Trade Name Freq PRN Reason Stop Dose Admin Acidophilus 1 gm 10/25/19 09:00 10/25/19 09:52 Floranex PER TUBE 1 gm DAILY HERIBERTO Administration Albuterol/Ipratropium 3 ml 10/25/19 10:30 10/25/19 10:41 Duoneb NEB 3 ml [id number] HERIBERTO Administration Aspirin 81 mg 10/25/19 09:00 10/25/19 09:52 Ecotrin PER TUBE 81 mg DAILY HERIBERTO Administration Famotidine 20 mg 10/25/19 09:00 10/25/19 08:51 Pepcid SLOW IVP 20 mg Q12HR HERIBERTO Administration Cefepime HCl 2 gm/ Sodium 100 mls @ 200 mls/hr 10/25/19 11:00 10/25/19 10:49 Chloride IVPB 100 mls 1100,2300 HERIBERTO Administration Amiodarone HCl 450 mg/ 259 mls @ 0 mls/hr 10/25/19 08:45 10/25/19 08:50 Miscellaneous Medication 1 IVPB 259 mls each/ Dextrose/Water INF HERIBERTO Administration Protocol As Directed Levothyroxine Sodium 50 mcg 10/25/19 09:00 10/25/19 09:54 Synthroid PER TUBE 50 mcg DAILY HERIBERTO Administration Methylprednisolone Sodium Succinate 20 mg 10/25/19 09:00 10/25/19 10:28 Solu-Medrol IVP 20 mg 0300,0900,1500,2100 HERIBERTO Administration Metoprolol Tartrate 50 mg 10/25/19 09:00 10/25/19 09:52 Lopressor PER TUBE Not Given BID HERIBERTO Scopolamine 1.5 mg 10/25/19 09:00 10/25/19 11:12 Transderm Scop TOP 1.5 mg Q3D HERIBERTO Administration Sodium Chloride 10 ml 10/25/19 09:00 10/25/19 09:53 Flush - Normal Saline IVF 10 ml Q12HR HERIBERTO Administration Tamsulosin HCl 0.4 mg 10/25/19 09:00 10/25/19 09:52 Flomax PO 0.4 mg DAILY HERIBERTO Administration - Exam General - other findings: On vent Eye: PERRL ENT: normocephalic atraumatic Neck: supple Heart: RRR Respiratory: CTAB Gastrointestinal: soft, normal bowel sounds Neurological: no focal deficits Psychiatric: not oriented Hosp A/P - Plan Sepsis secondary to urinary tract infection Acute respiratory failure requiring intubation. -Vent management per critical care management. -Follow-up with blood cultures -He is on Vanco and cefepime. Urinary tract infection again follow with the culture. 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 - Hypothyroidism on levothyroxine supplement. -TSH in the normal range. COVID negative.
[2019-10-25] MEDS: Lorazepam 2 MG/ML VIAL SLOW IVP PRN ×4 (13:28→22:50)
[2019-10-25] MEDS: Vancomycin 1.5 GRAM/300 ML BAG 1.5 GM in Premix Bag 1 BAG IVPB SCH (13:36)
[2019-10-25] MEDS: fentaNYL Citrate/PF 2,000 MCG in Sodium Chloride 0.9% 60 ML IV SCH (14:47)
--- NOTE | 2019-10-25 16:57 | EKG ---
Test Reason : A FIB W/RVR Blood Pressure : / mmHG Vent. Rate : 124 BPM Atrial Rate : 125 BPM P-R Int : 000 ms QRS Dur : 164 ms QT Int : 410 ms P-R-T Axes : 000 259 042 degrees QTc Int : 589 ms Atrial fibrillation with rapid ventricular response with premature ventricular or aberrantly conducte d complexes Right bundle branch block Septal infarct (cited on or before 24-OCT-2019) Lateral infarct (cited on or before 24-OCT-2019) Inferior infarct (cited on or before 24-OCT-2019) Abnormal ECG When compared with ECG of 24-OCT-2019 20:55, (Unconfirmed) Previous ECG has undetermined rhythm, needs review Serial changes of Septal infarct Present Confirmed by DR. Neil SOLO ([id number]) on 10/25/2019 4:57:12 PM Referred By: LUIS Confirmed By:DR. Neil SOLO
[2019-10-25] MEDS: Heparin 5,000 UNITS/ML VIAL SC SCH (20:26)
[2019-10-26] MEDS: methylPREDNISolone Sod Succ 40 MG VIAL IVP SCH ×4 (02:49→19:54)
[2019-10-26] MEDS: Lorazepam 2 MG/ML VIAL SLOW IVP PRN ×3 (02:49→21:44)
[2019-10-26 03:40] LABS: ALT (SGPT) 26 U/L (8-55); AST (SGOT) 13 U/L (5-34); Albumin 2.8 g/dL (3.4-4.8); Alkaline Phosphatase 70 U/L (40-110); Anion Gap 17 mmol/L (10-20); BUN (Urea Nitrogen) 57 mg/dL (8.4-25.7); Bilirubin, Total 0.4 mg/dL (0.2-1.2); Calc. Creatinine Clearance 42 mL/min (70-130); Calcium 8.3 mg/dL (7.8-10.44); Carbon Dioxide 22 mmol/L (23-31); Chloride 109 mmol/L (98-107); Estimated GFR-MDRD 40; Globulin 3.1 g/dL (2.4-3.5); Glucose 162 mg/dL (83-110); Potassium 4.3 mmol/L (3.5-5.1); Protein, Total 5.9 g/dL (5.8-8.1); Sodium 144 mmol/L (136-145)
[2019-10-26 07:57] LABS: Actual Bicarbonate (HCO3a) 22.7 mEq/L (22-28); Base Excess (BEa) -4.8 mEq/L (-2.0 to +3.0); CO2 Tension 51.5 mmHg (35.0-45.0); Calcium, Ionized (arterial) 1.18 mmol/L (1.12-1.30); Carboxyhemoglobin (COHb) 0.7 gm% (0.0-3.0); Hemoglobin (Hb) 14.7 g/dL (14.0-18.0); O2 Tension (PaO2), arterial 97.7 mmHg (> 60.0); Potassium - ABG Lab 4.18 mmol/L (3.70-5.30); pH, Arterial 7.26 (7.35-7.45)
[2019-10-26 08:11] LABS: Puncture Site LRA
[2019-10-26 08:14] LABS: ALV-art Gradient 123.125 (0-20)
[2019-10-26 08:42] LABS: #Lymphocytes 0.4 thou/uL (1.20-3.40); #Monocytes 0.5 thou/uL (0.11-0.59); #Neutrophils 13.4 thou/uL (1.40-6.50); %Eosinophils 0.3 % (0.0-10.0); %Monocytes 3.3 % (0.0-10.0); %Neutrophils 93.4 % (42.0-75.0); Hemoglobin 12.8 g/dL (14.0-18.0); Mean Corpuscular HGB CONC 30.4 g/dL (32.0-36.0); Mean Corpuscular Hemoglobin 29.5 pg (27.0-31.0); Platelet Count 168 thou/uL (130-400); Red Blood Cell (RBC) Count 4.32 mill/uL (4.70-6.10); White Blood Cell (WBC) Count 14.3 thou/uL (4.8-10.8)
[2019-10-26] MEDS: Aspirin 81 mg Enteric Coated Tablet PER TUBE SCH (09:31)
[2019-10-26] MEDS: Heparin 5,000 UNITS/ML VIAL SC SCH ×2 (09:31→19:53)
[2019-10-26] MEDS: Floranex Packet PER TUBE SCH (09:31)
[2019-10-26] MEDS: Tamsulosin HCl 0.4 MG CAP PO SCH (09:32)
[2019-10-26] MEDS: Levothyroxine Sodium 50 MCG TAB PER TUBE SCH (09:32)
[2019-10-26] MEDS: Metoprolol Tartrate 50 MG TAB PER TUBE SCH ×2 (09:32→19:54)
--- NOTE | 2019-10-26 09:55 | RAD ---
FRONTAL RADIOGRAPH CHEST: Date: 10/26/2019 COMPARISON: 10/25/2019. HISTORY: Ventilated patient. FINDINGS: Stable right-sided vascular catheter and endotracheal tube. Stable pulmonary vascular congestion with hazy ground-glass opacity throughout the right lung and in the left lung base. There is blunting of the costophrenic angles with bilateral pleural effusions. IMPRESSION: No significant interval change. POS: [facility]
[2019-10-26] MEDS: fentaNYL Citrate/PF 2,000 MCG in Sodium Chloride 0.9% 60 ML IV SCH (10:02)
[2019-10-26] MEDS: Amiodarone 450 MG, Admixture Fee 1 EACH in Dextrose 5% in Water 250 ML IVPB SCH (10:05)
[2019-10-26] MEDS: Cefepime 2 GM in Sodium Chloride 0.9% 100 ML IVPB SCH ×2 (12:46→23:09)
--- NOTE | 2019-10-26 14:08 | PDOC.HOSPP ---
- Subjective Encounter Date: 10/26/19 Encounter Time: 10:50 Subjective: He is still intubated. He is afebrile. His blood pressure is 108/77 this morning in the monitor. A tube feed will be starting shortly. His blood culture grew coag negative Staphylococcus in 1 out of 2 bottles. White count remained the same around 14,000. His creatinine is slightly high. - Objective Vital Signs & Weight: Vital Signs (12 hours) Temp Pulse Resp BP Pulse Ox 10/26/19 12:00 98.2 F 18 10/26/19 11:10 99 112/72 10/26/19 11:07 78 18 99 10/26/19 10:00 18 10/26/19 08:00 97.6 F 18 100 10/26/19 07:20 92 114/68 10/26/19 07:17 104 H 14 99 10/26/19 06:00 14 10/26/19 04:00 14 10/26/19 02:26 80 113/81 Weight Admit Weight 185 lb 14.4 oz Weight 189 lb 3.889 oz Most Recent Monitor Data Heart Rate from ECG 68 NIBP 116/79 NIBP BP-Mean 91 Respiration from ECG 24 SpO2 100 I&O: 10/25/19 10/26/19 10/27/19 06:59 06:59 06:59 Intake Total 1055 1413 250 Output Total 155 735 260 Balance 900 678 -10 Result Diagrams: 10/26/19 08:17 10/26/19 03:00 Hospitalist ROS - Medication Medications: Active Medications Generic Name Dose Route Start Last Admin Trade Name Freq PRN Reason Stop Dose Admin Acidophilus 1 gm 10/25/19 09:00 10/26/19 09:31 Floranex PER TUBE 1 gm DAILY HERIBERTO Administration Albuterol/Ipratropium 3 ml 10/25/19 10:30 10/26/19 11:07 Duoneb NEB 3 ml [id number] HERIBERTO Administration Aspirin 81 mg 10/25/19 09:00 10/26/19 09:31 Ecotrin PER TUBE 81 mg DAILY HERIBERTO Administration Heparin Sodium (Porcine) 5,000 units 10/25/19 21:00 10/26/19 09:31 Heparin SC 5,000 units BID HERIBERTO Administration Fentanyl Citrate 2,000 mcg/ 100 mls @ 0 mls/hr 10/24/19 20:37 10/26/19 10:02 Sodium Chloride IV 11/23/19 20:37 100 mls INF HERIBERTO Administration Protocol Per Protocol Cefepime HCl 2 gm/ Sodium 100 mls @ 200 mls/hr 10/25/19 11:00 10/26/19 12:46 Chloride IVPB 100 mls 1100,2300 HERIBERTO Administration Vancomycin HCl 1.5 gm/ Device 300 mls @ 200 mls/hr 10/25/19 14:00 10/25/19 13 :36 IVPB 300 mls 1400 HERIBERTO Administration Amiodarone HCl 450 mg/ 259 mls @ 0 mls/hr 10/25/19 08:45 10/26/19 10:05 Miscellaneous Medication 1 IVPB 259 mls each/ Dextrose/Water INF HERIBERTO Administration Protocol As Directed Levothyroxine Sodium 50 mcg 10/25/19 09:00 10/26/19 09:32 Synthroid PER TUBE 50 mcg DAILY HERIBERTO Administration Lorazepam 2 mg 10/24/19 22:41 10/26/19 05:45 Ativan SLOW IVP 11/23/19 22:41 2 mg Q1H PRN Administration Breakthrough agitation Methylprednisolone Sodium Succinate 20 mg 10/25/19 09:00 10/26/19 09:32 Solu-Medrol IVP 20 mg 0300,0900,1500,2100 HERIBERTO Administration Metoprolol Tartrate 50 mg 10/25/19 09:00 10/26/19 09:32 Lopressor PER TUBE 50 mg BID HERIBERTO Administration Scopolamine 1.5 mg 10/25/19 09:00 10/25/19 11:12 Transderm Scop TOP 1.5 mg Q3D HERIBERTO Administration Sodium Chloride 10 ml 10/25/19 09:00 10/26/19 09:32 Flush - Normal Saline IVF 10 ml Q12HR HERIBERTO Administration Tamsulosin HCl 0.4 mg 10/25/19 09:00 10/26/19 09:32 Flomax PO 0.4 mg DAILY HERIBERTO Administration - Exam General - other findings: On vent Eye: PERRL ENT: normocephalic atraumatic Neck: supple Heart: RRR Gastrointestinal: soft, normal bowel sounds Psychiatric: not oriented Hosp A/P - Plan Sepsis secondary to urinary tract infection Acute respiratory failure requiring intubation. -Vent management per critical care management. -Follow-up with blood cultures -He is on Vanco and cefepime. Urinary tract infection -No urine culture done to follow through. Will r request to the lab to follow with it. 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 - Hypothyroidism on levothyroxine supplement. -TSH in the normal range. COVID negative. 12th COag negative staph bacteremia -In 1 out of 2 blood culture -Probably contaminant -If he had a temp again we will repeat this blood culture for follow-up. -Currently on vancomycin and cefepime. Leukocytosis -Trending down -Follow the urine culture
[2019-10-26] MEDS: Vancomycin 1.5 GRAM/300 ML BAG 1.5 GM in Premix Bag 1 BAG IVPB SCH (15:02)
--- NOTE | 2019-10-26 15:52 | PRG ---
DATE OF SERVICE: 10/26/2019 TIME SPENT: 35 minutes of critical care time. SUBJECTIVE: The patient remains intubated on mechanical ventilation. There have been no acute changes overnight. He is very slow to wake up. OBJECTIVE: VITAL SIGNS: On exam, his temperature is 98.1, pulse 72, blood pressure 116/79, and O2 saturation 100%. He is currently on amiodarone drip. He is on no vasopressors. Intake for 24 hours 1413, output 735. HEENT: Unremarkable except for intubated oropharynx. NECK: No adenopathy or JVD. CHEST: Clear anteriorly. Diminished breath sounds in the bases. CARDIAC: S1 and S2. Regular. ABDOMEN: Soft. EXTREMITIES: No edema. LABORATORY DATA: ABG, pH of 7.26, pCO2 of 51, pO2 of 97 on SIMV rate 14, tidal volume 500, PEEP 5, pressure support 10, and FiO2 of 40%. White blood cell count 14.3, hematocrit 41.9, and platelet count 168. Sodium 144, potassium 4.3, chloride 109, CO2 of 22, BUN 57, creatinine 1.6, and glucose 162. ASSESSMENT: 1. Aspiration pneumonia. 2. Acute respiratory failure, requiring mechanical ventilation. 3. Polycythemia - corrected after hydration. 4. Renal insufficiency. PLAN: 1. Not weanable at this time. In fact, we have gone up on the respiratory rate due to the respiratory acidosis. 2. Continue IV antibiotics, nebulization treatments, and steroids. Job ID: [id number]
[2019-10-26] MEDS: Famotidine/PF 20 mg/2ml Vial SLOW IVP SCH (19:53)
[2019-10-27] MEDS: Amiodarone 450 MG, Admixture Fee 1 EACH in Dextrose 5% in Water 250 ML IVPB SCH (01:27)
[2019-10-27] MEDS: Lorazepam 2 MG/ML VIAL SLOW IVP PRN (02:50)
[2019-10-27] MEDS: methylPREDNISolone Sod Succ 40 MG VIAL IVP SCH ×4 (02:50→20:35)
[2019-10-27 04:04] LABS: ALT (SGPT) 22 U/L (8-55); AST (SGOT) 11 U/L (5-34); Albumin 2.7 g/dL (3.4-4.8); Alkaline Phosphatase 66 U/L (40-110); Anion Gap 15 mmol/L (10-20); BUN (Urea Nitrogen) 67 mg/dL (8.4-25.7); Bilirubin, Total 0.3 mg/dL (0.2-1.2); Calc. Creatinine Clearance 41 mL/min (70-130); Calcium 8.3 mg/dL (7.8-10.44); Carbon Dioxide 21 mmol/L (23-31); Chloride 109 mmol/L (98-107); Estimated GFR-MDRD 38; Globulin 2.9 g/dL (2.4-3.5); Glucose 151 mg/dL (83-110); Potassium 4.1 mmol/L (3.5-5.1); Protein, Total 5.6 g/dL (5.8-8.1); Sodium 141 mmol/L (136-145)
[2019-10-27] MEDS: fentaNYL Citrate/PF 2,000 MCG in Sodium Chloride 0.9% 60 ML IV SCH (04:41)
[2019-10-27 04:49] LABS: Magnesium 2.3 mg/dL (1.6-2.6); Phosphorus 4.1 mg/dL (2.3-4.7)
[2019-10-27 07:16] LABS: Actual Bicarbonate (HCO3a) 21.2 mEq/L (22-28); Base Excess (BEa) -3.4 mEq/L (-2.0 to +3.0); Carboxyhemoglobin (COHb) 0.5 gm% (0.0-3.0); Hemoglobin (Hb) 15.6 g/dL (14.0-18.0); O2 Tension (PaO2), arterial 101.3 mmHg (> 60.0); Potassium - ABG Lab 4.21 mmol/L (3.70-5.30); pH, Arterial 7.38 (7.35-7.45)
--- NOTE | 2019-10-27 07:39 | RAD ---
Exam: Chest one view HISTORY:Ventilated patient. Respiratory distress. Comparison: 10/26/2019 FINDINGS: Cardiac silhouette:Cardiomegaly. Lines and tubes: Stable endotracheal tube and right-sided internal jugular vascular catheter Aorta: Stable atherosclerosis Pulmonary vessels: Normal Costophrenic angles: Bilateral pleural effusions. LUNGS: Bibasilar parenchymal changes with additional interstitial opacities scattered throughout the lung parenchyma Pneumothorax: None Osseous abnormalities: None IMPRESSION: No significant interval change.
[2019-10-27 07:41] LABS: Puncture Site RRAD
--- NOTE | 2019-10-27 08:09 | PRG ---
DATE OF SERVICE: 10/27/2019 TIME SPENT: 35 minutes of critical care time. SUBJECTIVE: Prasanth Garcia remains intubated on mechanical ventilation. He is on Precedex, but he is very poorly responsive to any stimuli. OBJECTIVE: VITAL SIGNS: On exam, temperature is 99.0, pulse 78, blood pressure 128/74, and O2 saturation 100%. He is on amiodarone drip. 24-hour intake 2485, output 1215. HEENT: Unremarkable. NECK: No adenopathy or JVD. CHEST: With coarse breath sounds. CARDIOVASCULAR: S1 and S2. Regular. ABDOMEN: Soft and nontender. EXTREMITIES: No edema. LABORATORY DATA: White blood cell count pending. Sodium 141, potassium 4.1, chloride 109, CO2 of 21, BUN 67, creatinine 1.7, and glucose 151. ABG pending. Chest x-ray shows no significant change. ASSESSMENT: 1. Aspiration pneumonia. 2. Acute respiratory failure, requiring mechanical ventilation. 3. Polycythemia, which has been corrected. 4. Worsening renal insufficiency. PLAN: 1. I am going to start some normal saline as his BUN and creatinine are going in the wrong direction. He may be intravascularly depleted. 2. Continue the IV antibiotics. He had some coag-negative staph in the blood cultures, which is probably a contaminant. Based on that, I will go ahead and stop vancomycin since that may compromise his renal function. Job ID: [id number]
[2019-10-27] MEDS: Floranex Packet PER TUBE SCH (09:11)
[2019-10-27] MEDS: Sodium Chloride 0.9% 1,000 ML IV SCH ×2 (09:11→23:55)
[2019-10-27] MEDS: Aspirin 81 mg Enteric Coated Tablet PER TUBE SCH (09:12)
[2019-10-27] MEDS: Metoprolol Tartrate 50 MG TAB PER TUBE SCH ×2 (09:12→20:35)
[2019-10-27] MEDS: Heparin 5,000 UNITS/ML VIAL SC SCH ×2 (09:12→20:35)
[2019-10-27] MEDS: Levothyroxine Sodium 50 MCG TAB PER TUBE SCH (09:12)
[2019-10-27] MEDS: Tamsulosin HCl 0.4 MG CAP PO SCH (09:12)
[2019-10-27] MEDS: Cefepime 2 GM in Sodium Chloride 0.9% 100 ML IVPB SCH ×2 (11:13→23:52)
--- NOTE | 2019-10-27 14:00 | PDOC.HOSPP ---
- Subjective Encounter Date: 10/27/19 Encounter Time: 11:40 Subjective: Still on vent. His blood pressure looks good at 122/72 in the monitor. Amiodarone running at 0.5 mcg/hr. His Roca has clear urine. Creatinine trending up appreciate Dr. Cummins's help in r discontinuing the vancomycin. - Objective Vital Signs & Weight: Vital Signs (12 hours) Temp Pulse Resp BP Pulse Ox 10/27/19 12:00 20 10/27/19 10:21 69 126/77 10/27/19 10:17 68 18 99 10/27/19 10:00 18 10/27/19 08:00 98.9 F 18 100 10/27/19 06:27 72 140/89 10/27/19 06:24 71 18 99 10/27/19 06:00 18 10/27/19 04:00 18 10/27/19 02:16 118 H 124/76 10/27/19 02:00 18 Weight Admit Weight 185 lb 14.4 oz Weight 185 lb 3.013 oz Most Recent Monitor Data Heart Rate from ECG 70 NIBP 128/77 NIBP BP-Mean 94 Respiration from ECG 18 SpO2 100 I&O: 10/26/19 10/27/19 10/28/19 06:59 06:59 06:59 Intake Total 1413 2485.2 100 Output Total 735 1215 350 Balance 678 1270.2 -250 Result Diagrams: 10/26/19 08:17 10/27/19 03:30 Hospitalist ROS - Medication Medications: Active Medications Generic Name Dose Route Start Last Admin Trade Name Freq PRN Reason Stop Dose Admin Acidophilus 1 gm 10/25/19 09:00 10/27/19 09:11 Floranex PER TUBE 1 gm DAILY HERIBERTO Administration Albuterol/Ipratropium 3 ml 10/25/19 10:30 10/27/19 10:17 Duoneb NEB 3 ml [id number] HERIBERTO Administration Aspirin 81 mg 10/25/19 09:00 10/27/19 09:12 Ecotrin PER TUBE 81 mg DAILY HERIBERTO Administration Famotidine 20 mg 10/26/19 21:00 10/26/19 19:53 Pepcid SLOW IVP 20 mg 2100 HERIBERTO Administration Heparin Sodium (Porcine) 5,000 units 10/25/19 21:00 10/27/19 09:12 Heparin SC 5,000 units BID HERIBERTO Administration Fentanyl Citrate 2,000 mcg/ 100 mls @ 0 mls/hr 10/24/19 20:37 10/27/19 04:41 Sodium Chloride IV 11/23/19 20:37 100 mls INF HERIBERTO Administration Protocol Per Protocol Cefepime HCl 2 gm/ Sodium 100 mls @ 200 mls/hr 10/25/19 11:00 10/27/19 11:13 Chloride IVPB 100 mls 1100,2300 HERIBERTO Administration Amiodarone HCl 450 mg/ 259 mls @ 0 mls/hr 10/25/19 08:45 10/27/19 01:27 Miscellaneous Medication 1 IVPB 259 mls each/ Dextrose/Water INF HERIBERTO Administration Protocol As Directed Dexmedetomidine HCl 400 mcg/ 100 mls @ 0 mls/hr 10/27/19 03:30 10/27/19 04:02 Sodium Chloride IVPB 100 mls INF HERIBERTO Administration Protocol Per Protocol Sodium Chloride 1,000 mls @ 70 mls/hr 10/27/19 07:45 10/27/19 09:11 Normal Saline 0.9% IV 1,000 mls .[id number] HERIBERTO Administration Levothyroxine Sodium 50 mcg 10/25/19 09:00 10/27/19 09:12 Synthroid PER TUBE 50 mcg DAILY HERIBERTO Administration Lorazepam 2 mg 10/24/19 22:41 10/27/19 02:50 Ativan SLOW IVP 11/23/19 22:41 2 mg Q1H PRN Administration Breakthrough agitation Methylprednisolone Sodium Succinate 20 mg 10/25/19 09:00 10/27/19 09:11 Solu-Medrol IVP 20 mg 0300,0900,1500,2100 HERIBERTO Administration Metoprolol Tartrate 50 mg 10/25/19 09:00 10/27/19 09:12 Lopressor PER TUBE 50 mg BID HERIBERTO Administration Scopolamine 1.5 mg 10/25/19 09:00 10/25/19 11:12 Transderm Scop TOP 1.5 mg Q3D HERIBERTO Administration Sodium Chloride 10 ml 10/25/19 09:00 10/27/19 09:11 Flush - Normal Saline IVF 10 ml Q12HR HERIBERTO Administration Tamsulosin HCl 0.4 mg 10/25/19 09:00 10/27/19 09:12 Flomax PO 0.4 mg DAILY HERIBERTO Administration - Exam General - other findings: On vent Eye: PERRL ENT: normocephalic atraumatic Neck: supple Heart: RRR Respiratory: normal chest expansion Gastrointestinal: soft, normal bowel sounds Neurological: no focal deficits Psychiatric: not oriented Hosp A/P - Plan Sepsis secondary to urinary tract infection Acute respiratory failure requiring intubation. -Vent management per critical care management. -Follow-up with blood cultures -He is on Vanco and cefepime. Urinary tract infection -No urine culture done to follow through. Will r request to the lab to follow with it. 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 - Hypothyroidism on levothyroxine supplement. -TSH in the normal range. COVID negative. 12th COag negative staph bacteremia -In 1 out of 2 blood culture -Probably contaminant -If he had a temp again we will repeat this blood culture for follow-up. -Currently on vancomycin and cefepime. Leukocytosis -Trending down -Follow the urine culture 13th Leukocytosis - white count remained the same at 14.3. -Other than one contaminant culture the second blood culture and urine culture negative so far. Acute on chronic kidney disease His BUN and creatinine trended up. Continue with IV hydration -Off vancomycin. COVID negative.
--- NOTE | 2019-10-27 20:09 | CON ---
DATE OF CONSULTATION: HISTORY OF PRESENT ILLNESS: Prasanth Garcia is an 79-year-old white male, who has history of multiple CVAs, dementia, paroxysmal atrial fibrillation, sinus bradycardia. I initially saw him in March 1999 when he was admitted and had atrial fibrillation with fast ventricular response. He had been on amiodarone previously. However, he had been to multiple hospitals, multiple nursing homes , and somehow that fell off his medicine list. He was placed back on amiodarone during that admission. He did undergo electrical cardioversion when he arrived to the emergency room with atrial fibrillation with fast ventricular response and blood pressure was 60 systolic. During that admission, he had a drop in his hemoglobin with heme-positive stools, was profoundly azotemic, but his creatinine improved with hydration. I have not seen him since that time. He has chronic respiratory failure with continued use of oxygen at 3 L/minute. He is a resident of [facility]. On October 23, he was noted to be in respiratory distress with altered mental status. He was intubated in the emergency room and continued to have atrial fibrillation during this admission. He is on amiodarone 200 mg daily. The patient is intubated and unable to give any history. PAST MEDICAL HISTORY: Multiple strokes, residential patient, bedbound with PEG tube. He is aphasic, paroxysmal atrial fibrillation, chronic kidney disease, hypothyroidism, dyslipidemia, hypertension, benign prostatic hypertrophy. PAST SURGICAL HISTORY: Right hand surgery and PEG tube placement. SOCIAL HISTORY: He smoked in the past. He does not drink. REVIEW OF SYSTEMS: Unobtainable. PHYSICAL EXAMINATION: VITAL SIGNS: Blood pressure 142/86, pulse of 104, atrial fibrillation. HEENT: PERRL. NECK: Supple. CHEST: Reveals occasional rhonchi. CARDIOVASCULAR: S1, S2 normal without any S3, S4, or murmurs. ABDOMEN: Normal bowel sounds without tenderness. EXTREMITIES: Revealed no edema. LABORATORY DATA: EKG revealed atrial fibrillation with rapid ventricular response of 147 per minute, right bundle-branch block. Hemoglobin 12.8, hematocrit 41.9, white count 72504, platelets 168,000. PH 7.38, pCO2 of 37.0, PO2 of 101.3. Sodium 141, potassium 4.1, chloride 109, carbon dioxide 21, BUN 67, creatinine 1.73. COVID negative. IMPRESSION: 1. Paroxysmal atrial fibrillation, currently on IV amiodarone with rate controlled. He is on p.o. amiodarone in the residential. 2. Acute respiratory failure. 3. History of multiple cerebrovascular accidents. 4. Aphasic. 5. Chronic kidney disease. 6. Dementia. 7. Hypothyroidism. 8. Hypertension. 9. Hyperlipidemia. 10. penitentiary patient and bed bound. PLAN: The patient will be maintained on IV amiodarone. Overall, his long-term prognosis is very poor with his multiple comorbidities. Job ID: [id number] [facility]
[2019-10-27] MEDS: Famotidine/PF 20 mg/2ml Vial SLOW IVP SCH (20:34)
[2019-10-28] MEDS: methylPREDNISolone Sod Succ 40 MG VIAL IVP SCH ×4 (03:22→21:08)
[2019-10-28] MEDS: fentaNYL Citrate/PF 2,000 MCG in Sodium Chloride 0.9% 60 ML IV SCH (04:13)
[2019-10-28 05:14] LABS: #Lymphocytes 0.3 thou/uL (1.20-3.40); #Monocytes 0.3 thou/uL (0.11-0.59); #Neutrophils 8.5 thou/uL (1.40-6.50); %Eosinophils 0.2 % (0.0-10.0); %Monocytes 3.5 % (0.0-10.0); %Neutrophils 93.3 % (42.0-75.0); Hemoglobin 12.6 g/dL (14.0-18.0); Mean Corpuscular HGB CONC 30.5 g/dL (32.0-36.0); Mean Corpuscular Hemoglobin 28.9 pg (27.0-31.0); Mean Corpuscular Volume 94.7 fL (78.0-98.0); Mean Platelet Volume 9.6 fL (7.4-10.4); Platelet Count 147 thou/uL (130-400); RBC Distribution Width 17.7 % (11.5-14.5); Red Blood Cell (RBC) Count 4.37 mill/uL (4.70-6.10); White Blood Cell (WBC) Count 9.1 thou/uL (4.8-10.8)
[2019-10-28 05:47] LABS: ALT (SGPT) 18 U/L (8-55); AST (SGOT) 8 U/L (5-34); Albumin 2.8 g/dL (3.4-4.8); Alkaline Phosphatase 62 U/L (40-110); Anion Gap 13 mmol/L (10-20); BUN (Urea Nitrogen) 59 mg/dL (8.4-25.7); Bilirubin, Total 0.3 mg/dL (0.2-1.2); Calc. Creatinine Clearance 49 mL/min (70-130); Calcium 8.3 mg/dL (7.8-10.44); Carbon Dioxide 22 mmol/L (23-31); Chloride 110 mmol/L (98-107); Estimated GFR-MDRD 47; Globulin 2.8 g/dL (2.4-3.5); Glucose 212 mg/dL (83-110); Potassium 4.2 mmol/L (3.5-5.1); Protein, Total 5.6 g/dL (5.8-8.1); Sodium 141 mmol/L (136-145)
[2019-10-28 07:08] LABS: Actual Bicarbonate (HCO3a) 20.4 mEq/L (22-28); Base Excess (BEa) -3.7 mEq/L (-2.0 to +3.0); CO2 Tension 34.1 mmHg (35.0-45.0); Calcium, Ionized (arterial) 1.19 mmol/L (1.12-1.30); Hemoglobin (Hb) 13.6 g/dL (14.0-18.0); O2 Tension (PaO2), arterial 82.4 mmHg (> 60.0); Potassium - ABG Lab 4.29 mmol/L (3.70-5.30)
[2019-10-28 07:23] LABS: ALV-art Gradient 160.175 (0-20); Puncture Site RRAD
--- NOTE | 2019-10-28 07:51 | RAD ---
Chest AP view INDICATION: 79-year-old male with daily CCU evaluation while on ventilator COMPARISON: Prior study dated October 27, 2019 FINDINGS: Lungs: Bilateral airspace disease particularly within the mid and lower lobes persists. Cardiac silhouette: Cardiomegaly and pulmonary vascular congestion persists Pulmonary vasculature: Pulmonary vasculature appears moderately congested stable Pleural spaces: Moderate right and small left pleural effusions persist Upper abdomen: No abnormality seen. Osseous structures: No acute osseous abnormality. Additional findings: ET tube and right subclavian central venous catheter unchanged. IMPRESSION: Stable exam
--- NOTE | 2019-10-28 08:18 | PRG ---
DATE OF SERVICE: 10/28/2019 TIME SPENT: 35 minutes of critical care time. SUBJECTIVE: This patient remains intubated on mechanical ventilation. He is on some fentanyl and Precedex. He is a little more arousable today than he has been the past two days. OBJECTIVE: VITAL SIGNS: His temperature is 98.6 with no recorded fever, pulse 72, blood pressure 166/103, O2 saturation 100%. He is currently on amiodarone drip, Precedex drip and fentanyl drip, which has been stopped. Total intake 3670, output 1925. HEENT: Unremarkable except for intubated oropharynx. NECK: No adenopathy or JVD. LUNGS: Coarse breath sounds, diminished at bases. CARDIOVASCULAR: S1, S2, irregular. ABDOMEN: Soft. PEG tube noted. EXTREMITIES: No clubbing, cyanosis, or edema. LABORATORY DATA: Sodium 141, potassium 4.2, chloride 110, CO2 of 22, BUN 59, creatinine 1.4, glucose 212, pH 7.4, pCO2 34, pO2 of 82 on SIMV rate 18, tidal volume 500, PEEP 5, pressure support 10 and FiO2 of 40%. White blood cell count 9.1, hematocrit 41.3, and platelet count 147. IMAGING: X-ray shows no change. ASSESSMENT: 1. Acute hypoxic respiratory failure requiring mechanical ventilation. 2. Aspiration pneumonia. 3. Previous stroke with severely debilitated state. 4. Polycythemia, which has been corrected. 5. Renal insufficiency. PLAN: 1. It would appear that his renal function is slightly better with the hydration that was given yesterday, so we will go ahead and continue that today. 2. Continue antibiotics for aspiration pneumonia. 3. I do not think he is weanable from mechanical ventilation yet. We will go ahead and stop the fentanyl and try to maintain alone on Precedex. I will add Norvasc for his uncontrolled blood pressure. 4. I spoke with his over the phone yesterday. I found her to be very unreasonable in terms of expectations. She did not want to have any type of realistic conversation. 5. I will ask palliative care to get involved. Job ID: [id number]
[2019-10-28] MEDS: Floranex Packet PER TUBE SCH (09:18)
[2019-10-28] MEDS: Amlodipine 10 MG TAB PER TUBE SCH (09:18)
[2019-10-28] MEDS: Heparin 5,000 UNITS/ML VIAL SC SCH ×2 (09:19→21:09)
[2019-10-28] MEDS: Aspirin 81 mg Enteric Coated Tablet PER TUBE SCH (09:19)
[2019-10-28] MEDS: Levothyroxine Sodium 50 MCG TAB PER TUBE SCH (09:19)
[2019-10-28] MEDS: Metoprolol Tartrate 50 MG TAB PER TUBE SCH ×3 (09:20→21:09)
[2019-10-28] MEDS: Scopolamine 1.5 mg/72 hour Patch TOP SCH (09:20)
[2019-10-28] MEDS: Tamsulosin HCl 0.4 MG CAP PO SCH (09:21)
[2019-10-28] MEDS: Cefepime 2 GM in Sodium Chloride 0.9% 100 ML IVPB SCH ×2 (10:58→22:28)
--- NOTE | 2019-10-28 14:20 | PDOC.HOSPP ---
- Subjective Encounter Date: 10/28/19 Encounter Time: 12:20 Subjective: Patient still on vent. Amiodarone still running. Her blood pressure is little on the high end at 170/107 in the monitor. She is on Precedex. Abelino has a clear urine. She is on tube feed. Norvasc and Lopressor are added. I discussed with RN. Palliative on board. However it appears does not want any palliative intervention at this point.amio Precedex running. She is off fentanyl drip - Objective Vital Signs & Weight: Vital Signs (12 hours) Temp Pulse Resp BP Pulse Ox 10/28/19 12:00 99.2 F 19 10/28/19 10:08 76 10/28/19 10:00 16 10/28/19 09:18 77 161/116 H 10/28/19 08:00 97.7 F 15 97 10/28/19 07:22 77 10/28/19 06:00 18 10/28/19 04:00 18 Weight Admit Weight 185 lb 14.4 oz Weight 194 lb 14.218 oz Most Recent Monitor Data Heart Rate from ECG 73 NIBP 169/97 NIBP BP-Mean 121 Respiration from ECG 19 SpO2 100 I&O: 10/27/19 10/28/19 10/29/19 06:59 06:59 06:59 Intake Total 2485.2 3670.0 Output Total 1215 1925 610 Balance 1270.2 1745.0 -610 Result Diagrams: 10/28/19 05:00 10/28/19 05:00 Additional Labs: Accuchecks 10/28/19 05:27 POC Glucose 201 H Hospitalist ROS - Medication Medications: Active Medications Generic Name Dose Route Start Last Admin Trade Name Freq PRN Reason Stop Dose Admin Acidophilus 1 gm 10/25/19 09:00 10/28/19 09:18 Floranex PER TUBE 1 gm DAILY HERIBERTO Administration Albuterol/Ipratropium 3 ml 10/25/19 10:30 10/28/19 10:25 Duoneb NEB 3 ml [id number] HERIBERTO Administration Amlodipine Besylate 10 mg 10/28/19 09:00 10/28/19 09:18 Norvasc PER TUBE 10 mg DAILY HERIBERTO Administration Aspirin 81 mg 10/25/19 09:00 10/28/19 09:19 Ecotrin PER TUBE 81 mg DAILY HERIBERTO Administration Famotidine 20 mg 10/26/19 21:00 10/27/19 20:34 Pepcid SLOW IVP 20 mg 2100 HERIBERTO Administration Heparin Sodium (Porcine) 5,000 units 10/25/19 21:00 10/28/19 09:19 Heparin SC 5,000 units BID HERIBERTO Administration Cefepime HCl 2 gm/ Sodium 100 mls @ 200 mls/hr 10/25/19 11:00 10/28/19 10:58 Chloride IVPB 100 mls 1100,2300 HERIBERTO Administration Amiodarone HCl 450 mg/ 259 mls @ 0 mls/hr 10/25/19 08:45 10/27/19 01:27 Miscellaneous Medication 1 IVPB 259 mls each/ Dextrose/Water INF HERIBERTO Administration Protocol As Directed Dexmedetomidine HCl 400 mcg/ 100 mls @ 0 mls/hr 10/27/19 03:30 10/28/19 04:14 Sodium Chloride IVPB 100 mls INF HERIBERTO Administration Protocol Per Protocol Sodium Chloride 1,000 mls @ 70 mls/hr 10/27/19 07:45 10/27/19 23:55 Normal Saline 0.9% IV 1,000 mls .[id number] HERIBERTO Administration Levothyroxine Sodium 50 mcg 10/25/19 09:00 10/28/19 09:19 Synthroid PER TUBE 50 mcg DAILY HERIBERTO Administration Methylprednisolone Sodium Succinate 20 mg 10/25/19 09:00 10/28/19 09:20 Solu-Medrol IVP 20 mg 0300,0900,1500,2100 HERIBERTO Administration Scopolamine 1.5 mg 10/25/19 09:00 10/28/19 09:20 Transderm Scop TOP 1.5 mg Q3D HERIBERTO Administration Sodium Chloride 10 ml 10/25/19 09:00 10/28/19 09:21 Flush - Normal Saline IVF 10 ml Q12HR HERIBERTO Administration Tamsulosin HCl 0.4 mg 10/25/19 09:00 10/28/19 09:21 Flomax PO 0.4 mg DAILY HERIBERTO Administration - Exam General Appearance: ill appearing General - other findings: On vent; amio Precedex running. She is off fentanyl drip Eye: PERRL ENT: normocephalic atraumatic Neck: supple Heart: RRR Respiratory: rales, rhonchi Gastrointestinal: soft, normal bowel sounds Hosp A/P - Plan Sepsis secondary to urinary tract infection Acute respiratory failure requiring intubation. -Vent management per critical care management. -Follow-up with blood cultures -He is on Vanco and cefepime. Urinary tract infection -urine culture growing yeast species Since the yeast is not in the bloodstream I would defer putting her on antifungal for now Hypothyroidism on levothyroxine supplement. -TSH in the normal range. COag negative staph bacteremia -In 1 out of 2 blood culture -Probably contaminant -If he had a temp again we will repeat this blood culture for follow-up. -Currently on vancomycin and cefepime. Leukocytosis -Trending down -Follow the urine culture Acute on chronic kidney disease His BUN and creatinine trendig dn Continue with IV hydration -Off vancomycin. COVID negative.
[2019-10-28] MEDS: Sodium Chloride 0.9% 1,000 ML IV SCH (15:20)
--- NOTE | 2019-10-28 16:48 | PDOC.PALPN ---
Palliative Progress Note - Subjective Sedated, mechanical ventilation. [facility] resident, patient and are familiar to the Palliative Care team. - Objective Vital Signs: Vital Signs - Most Recent Temp Pulse Resp BP Pulse Ox 99.2 F 68 20 161/116 H 97 10/28/19 12:00 10/28/19 14:31 10/28/19 14:00 10/28/19 09:18 10/28/19 08:00 - Physical Exam Constitutional: encephalitic, ill appearing HEENT: moist MMs Respiratory: no wheezing, diminished lung sound Deviation from normal: Mechanical ventilation Cardiovascular: irregular Gastrointestinal: soft, non-tender Deviation from normal: PEG Genitourinary: horan catheter Musculoskeletal: no cyanosis, no clubbing, diffuse muscle atrophy Skin: fragile Deviation from normal: encephalopathic, sedated, unable to determine orientation - Assessment (1) 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 Today it was attempted to build trust and engage with her. Unrealistic goals. Will attempt to secure a meeting with her on Thursday to revisit current status, revisit that when she initially placed PEG it was with hopes of improvement, discuss decline related to disease trajectory and dignity with disease progression toward end of life. Will also consult spiritual care. Please also refer to Roselyn CASTELLANObell spinner notes in note section. [25] minutes spent on this encounter with >50% of the time in counseling and coordination of care. - ROS Non Response: due to endotracheal tube, due to mental status
[2019-10-28] MEDS: Amiodarone 450 MG, Admixture Fee 1 EACH in Dextrose 5% in Water 250 ML IVPB SCH (20:37)
[2019-10-28] MEDS: Bacteriostatic Water 30 ML VIAL FS PRN (21:08)
[2019-10-28] MEDS: Famotidine/PF 20 mg/2ml Vial SLOW IVP SCH (21:09)
[2019-10-28] MEDS: Morphine 2 MG/ML VIAL SLOW IVP PRN (22:40)
[2019-10-29] MEDS: methylPREDNISolone Sod Succ 40 MG VIAL IVP SCH ×4 (03:04→21:10)
[2019-10-29] MEDS: Sodium Chloride 0.9% 1,000 ML IV SCH ×2 (03:05→17:29)
[2019-10-29 03:55] LABS: #Lymphocytes 0.3 thou/uL (1.20-3.40); #Monocytes 0.4 thou/uL (0.11-0.59); #Neutrophils 10.4 thou/uL (1.40-6.50); %Eosinophils 0.3 % (0.0-10.0); %Lymphocytes 2.7 % (21.0-51.0); %Monocytes 3.9 % (0.0-10.0); %Neutrophils 93.1 % (42.0-75.0); Hemoglobin 13.1 g/dL (14.0-18.0); Mean Corpuscular HGB CONC 30.7 g/dL (32.0-36.0); Mean Corpuscular Hemoglobin 28.9 pg (27.0-31.0); Mean Corpuscular Volume 94.1 fL (78.0-98.0); Mean Platelet Volume 9.7 fL (7.4-10.4); Platelet Count 150 thou/uL (130-400); RBC Distribution Width 17.3 % (11.5-14.5); Red Blood Cell (RBC) Count 4.55 mill/uL (4.70-6.10); White Blood Cell (WBC) Count 11.2 thou/uL (4.8-10.8)
[2019-10-29 04:25] LABS: ALT (SGPT) 28 U/L (8-55); AST (SGOT) 16 U/L (5-34); Albumin 2.9 g/dL (3.4-4.8); Alkaline Phosphatase 86 U/L (40-110); Anion Gap 15 mmol/L (10-20); BUN (Urea Nitrogen) 55 mg/dL (8.4-25.7); Bilirubin, Total 0.5 mg/dL (0.2-1.2); Calc. Creatinine Clearance 62 mL/min (70-130); Calcium 8.3 mg/dL (7.8-10.44); Carbon Dioxide 22 mmol/L (23-31); Chloride 110 mmol/L (98-107); Estimated GFR-MDRD 59; Globulin 2.9 g/dL (2.4-3.5); Glucose 229 mg/dL (83-110); Potassium 3.7 mmol/L (3.5-5.1); Protein, Total 5.8 g/dL (5.8-8.1); Sodium 143 mmol/L (136-145)
[2019-10-29 07:13] LABS: Actual Bicarbonate (HCO3a) 21.8 mEq/L (22-28); Base Excess (BEa) -1.7 mEq/L (-2.0 to +3.0); CO2 Tension 33.5 mmHg (35.0-45.0); Calcium, Ionized (arterial) 1.15 mmol/L (1.12-1.30); Carboxyhemoglobin (COHb) 0.5 gm% (0.0-3.0); Hemoglobin (Hb) 14.5 g/dL (14.0-18.0); O2 Tension (PaO2), arterial 105.8 mmHg (> 60.0); pH, Arterial 7.43 (7.35-7.45)
[2019-10-29 07:25] LABS: ALV-art Gradient 137.525 (0-20); Puncture Site RRAD
[2019-10-29] MEDS: Amlodipine 10 MG TAB PER TUBE SCH (09:26)
[2019-10-29] MEDS: Floranex Packet PER TUBE SCH (09:26)
[2019-10-29] MEDS: Heparin 5,000 UNITS/ML VIAL SC SCH ×2 (09:26→21:10)
[2019-10-29] MEDS: Aspirin 81 mg Enteric Coated Tablet PER TUBE SCH (09:26)
[2019-10-29] MEDS: Levothyroxine Sodium 50 MCG TAB PER TUBE SCH (09:26)
[2019-10-29] MEDS: Metoprolol Tartrate 50 MG TAB PER TUBE SCH ×3 (09:27→21:10)
[2019-10-29] MEDS: Tamsulosin HCl 0.4 MG CAP PO SCH (09:27)
--- NOTE | 2019-10-29 10:22 | PDOC.HOSPP ---
- Subjective Encounter Date: 10/29/19 Encounter Time: 07:00 Subjective: no overnight events. remains sedated and intubated - Objective Vital Signs & Weight: Vital Signs (12 hours) Pulse Resp BP Pulse Ox 10/29/19 09:26 80 156/84 H 10/29/19 06:47 80 10/29/19 06:46 90 24 H 100 10/29/19 05:51 21 H 10/29/19 03:59 18 10/29/19 02:32 72 18 100 10/29/19 02:00 17 10/29/19 00:00 17 Weight Admit Weight 185 lb 14.4 oz Weight 194 lb 14.218 oz Most Recent Monitor Data Heart Rate from ECG 87 NIBP 159/99 NIBP BP-Mean 119 Respiration from ECG 25 SpO2 100 I&O: 10/28/19 10/29/19 10/30/19 06:59 06:59 06:59 Intake Total 3670.0 4614.9 Output Total 1925 3365 Balance 1745.0 1249.9 Result Diagrams: 10/29/19 03:30 10/29/19 03:30 Hospitalist ROS - Review of Systems ROS unobtainable: due to endotracheal tube - Medication Medications: Active Medications Generic Name Dose Route Start Last Admin Trade Name Freq PRN Reason Stop Dose Admin Acidophilus 1 gm 10/25/19 09:00 10/29/19 09:26 Floranex PER TUBE 1 gm DAILY HERIBERTO Administration Albuterol/Ipratropium 3 ml 10/25/19 10:30 10/29/19 06:46 Duoneb NEB 3 ml [id number] HERIBERTO Administration Amlodipine Besylate 10 mg 10/28/19 09:00 10/29/19 09:26 Norvasc PER TUBE 10 mg DAILY HERIBERTO Administration Aspirin 81 mg 10/25/19 09:00 10/29/19 09:26 Ecotrin PER TUBE 81 mg DAILY HERIBERTO Administration Famotidine 20 mg 10/26/19 21:00 10/28/19 21:09 Pepcid SLOW IVP 20 mg 2100 HERIBERTO Administration Heparin Sodium (Porcine) 5,000 units 10/25/19 21:00 10/29/19 09:26 Heparin SC 5,000 units BID HERIBERTO Administration Cefepime HCl 2 gm/ Sodium 100 mls @ 200 mls/hr 10/25/19 11:00 10/28/19 22:28 Chloride IVPB 100 mls 1100,2300 HERIBERTO Administration Amiodarone HCl 450 mg/ 259 mls @ 0 mls/hr 10/25/19 08:45 10/28/19 20:37 Miscellaneous Medication 1 IVPB 259 mls each/ Dextrose/Water INF HERIBERTO Administration Protocol As Directed Dexmedetomidine HCl 400 mcg/ 100 mls @ 0 mls/hr 10/27/19 03:30 10/28/19 20:37 Sodium Chloride IVPB 100 mls INF HERIBERTO Administration Protocol Per Protocol Sodium Chloride 1,000 mls @ 70 mls/hr 10/27/19 07:45 10/29/19 03:05 Normal Saline 0.9% IV 1,000 mls .[id number] HERIBERTO Administration Levothyroxine Sodium 50 mcg 10/25/19 09:00 10/29/19 09:26 Synthroid PER TUBE 50 mcg DAILY HERIBERTO Administration Methylprednisolone Sodium Succinate 20 mg 10/25/19 09:00 10/29/19 09:27 Solu-Medrol IVP 20 mg 0300,0900,1500,2100 HERIBERTO Administration Metoprolol Tartrate 50 mg 10/28/19 15:00 10/29/19 09:27 Lopressor PER TUBE 50 mg TID HERIBERTO Administration Morphine Sulfate 2 mg 10/24/19 22:41 10/28/19 22:40 Morphine SLOW IVP 11/23/19 22:41 2 mg Q1H PRN Administration Breakthrough Pain/Agitation Scopolamine 1.5 mg 10/25/19 09:00 10/28/19 09:20 Transderm Scop TOP 1.5 mg Q3D HERIBERTO Administration Sodium Chloride 10 ml 10/25/19 09:00 10/29/19 09:27 Flush - Normal Saline IVF 10 ml Q12HR HERIBERTO Administration Sterile Water 1 ml 10/25/19 09:13 10/28/19 21:08 Bacteriostatic Water FS 1 ml PRN PRN Administration RECONSTITUTION Tamsulosin HCl 0.4 mg 10/25/19 09:00 10/29/19 09:27 Flomax PO 0.4 mg DAILY HERIBERTO Administration - Exam General - other findings: sedated and intuabted Eye: PERRL ENT: normocephalic atraumatic Neck: no JVD Heart: RRR, no murmur, no gallops, no rubs Heart - other findings: occasional premature beats Respiratory - other findings: diffuse rhonchi Gastrointestinal: soft, non-distended, normal bowel sounds Gastrointestinal - other findings: PEG in place and functional Hosp A/P - Plan #aspiration pneumonia [facility], check residuals to reduce risk of aspiration Palliative team onboard; #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 afib -on IV amiodarone per cardiology #HTN -better controlled #RORO/CKD improving RORO; continue hydration
[2019-10-29] MEDS: Cefepime 2 GM in Sodium Chloride 0.9% 100 ML IVPB SCH ×2 (11:00→22:01)
--- NOTE | 2019-10-29 11:04 | RAD ---
CHEST 1 VIEW PORTABLE: Date: 10/29/2019 HISTORY: Respiratory insufficiency. COMPARISON: 10/28/2019. FINDINGS: Endotracheal tube and right central line again noted in place. There is rotation to the left. There i s cardiomegaly with bilateral pleural effusions, larger on the right side, as well as linear and inte rstitial parenchymal changes bilaterally, which may well represent some interstitial edema. No new co nfluent process. IMPRESSION: Overall stable chest with cardiomegaly, bilateral pleural effusions, vascular congestion, and probabl e bilateral interstitial edema. Continue short-term follow-up. POS: OFF
[2019-10-29] MEDS: Amiodarone 450 MG, Admixture Fee 1 EACH in Dextrose 5% in Water 250 ML IVPB SCH (13:21)
--- NOTE | 2019-10-29 13:22 | EKG ---
Test Reason : TACHYCARDIA Blood Pressure : / mmHG Vent. Rate : 147 BPM Atrial Rate : 150 BPM P-R Int : 000 ms QRS Dur : 142 ms QT Int : 360 ms P-R-T Axes : 000 250 051 degrees QTc Int : 563 ms Poor data quality, interpretation may be adversely affected Atrial fibrillation with rapid ventricular response Right bundle branch block Inferior infarct , age undetermined Anterolateral infarct , age undetermined Abnormal ECG Confirmed by JAMES TUCKER DO ([id number]), news video editor OWEN BUSTAMANTE ([id number]) on 10/29/2019 1:20:31 PM Referred By: Confirmed By:JAMES TUCKER DO
--- NOTE | 2019-10-29 13:22 | EKG ---
Test Reason : IRREGULAR RHYTHM Blood Pressure : / mmHG Vent. Rate : 114 BPM Atrial Rate : 055 BPM P-R Int : 000 ms QRS Dur : 176 ms QT Int : 470 ms P-R-T Axes : 000 251 046 degrees QTc Int : 647 ms Undetermined rhythm Right bundle branch block Inferior infarct , age undetermined Anterolateral infarct , age undetermined Abnormal ECG Confirmed by JAMES TUCKER DO ([id number]), sports editor OWEN BUSTAMANTE ([id number]) on 10/29/2019 1:20:31 PM Referred By: Confirmed By:JAMES TUCKER DO
--- NOTE | 2019-10-29 13:35 | PRG ---
DATE OF SERVICE: 10/29/2019 SUBJECTIVE: Mr. Garcia's status is unchanged per previous notes. He is currently intubated. He does awaken to voice. Blood pressure and heart rate appeared stable. He is currently on IV amiodarone at low dose. OBJECTIVE: VITAL SIGNS: Blood pressure 150/84, pulse 76, respirations 20. LUNGS: Clear to auscultation. HEART: Regular rate and rhythm. ABDOMEN: Soft, nontender, nondistended. EXTREMITIES: No edema. PERTINENT LABORATORY DATA: Hemoglobin 13.1, hematocrit 42.8. Creatinine 1.18. IMPRESSION: 1. Respiratory failure. 2. Atrial fibrillation. 3. Sepsis. RECOMMENDATION: 1. Continue current treatment. 2. Vent management per Pulmonary. 3. Continue antibiotic therapy. 4. Prognosis appears poor. Palliative Care has been consulted. Otherwise, I have no further recommendations. We will follow peripherally. Job ID: [id number]
--- NOTE | 2019-10-29 14:50 | PRG ---
DATE OF SERVICE: 10/29/2019 SUBJECTIVE: Mr. Garcia remains mechanically ventilated. OBJECTIVE: VITAL SIGNS: Heart rate is in 80s, respiratory rate is 20, oximetry is 100%, blood pressure 167/95. LUNGS: Remarkable for rhonchi anteriorly. HEART: Regular rhythm. ABDOMEN: Soft. EXTREMITIES: Without asymmetry. He has contractures and decubitus ulcers. LABORATORY DATA: White count 11.2, hemoglobin 13.1, platelets 150. Sodium 143, potassium 3.7, chloride 110, bicarb 22, BUN 55, creatinine 1.18. IMPRESSION: Respiratory failure secondary to recurrent aspiration pneumonia, extreme deconditioning with an advanced state of deconditioning in a bedridden state. Prognosis is horrible. Apparently, his is not accepting of this information. She was not at the bedside . We will continue with all current care. Job ID: [id number]
[2019-10-29] MEDS ORDERED: Dextrose 50% Abboject 50 ML SYRINGE SLOW IVP PRN (15:30)
[2019-10-29] MEDS ORDERED: Dextrose 5% in Water 1,000 ML IV PRN (15:30)
[2019-10-29] MEDS: HumaLOG 300 UNITS/3 ML VIAL SC PRN ×2 (16:21→22:30)
[2019-10-29] MEDS: Bacteriostatic Water 30 ML VIAL FS PRN (21:10)
[2019-10-29] MEDS: Famotidine/PF 20 mg/2ml Vial SLOW IVP SCH (21:10)
[2019-10-29] MEDS: Morphine 2 MG/ML VIAL SLOW IVP PRN (21:52)
[2019-10-30] MEDS: Amiodarone 450 MG, Admixture Fee 1 EACH in Dextrose 5% in Water 250 ML IVPB SCH ×2 (02:00→18:38)
[2019-10-30] MEDS: methylPREDNISolone Sod Succ 40 MG VIAL IVP SCH ×4 (03:36→20:56)
[2019-10-30 04:16] LABS: ALT (SGPT) 34 U/L (8-55); AST (SGOT) 15 U/L (5-34); Albumin 2.8 g/dL (3.4-4.8); Alkaline Phosphatase 93 U/L (40-110); Anion Gap 13 mmol/L (10-20); BUN (Urea Nitrogen) 51 mg/dL (8.4-25.7); Bilirubin, Total 0.5 mg/dL (0.2-1.2); Calc. Creatinine Clearance 70 mL/min (70-130); Calcium 7.9 mg/dL (7.8-10.44); Carbon Dioxide 26 mmol/L (23-31); Chloride 108 mmol/L (98-107); Estimated GFR-MDRD 68; Globulin 2.8 g/dL (2.4-3.5); Glucose 236 mg/dL (83-110); Potassium 3.6 mmol/L (3.5-5.1); Protein, Total 5.6 g/dL (5.8-8.1); Sodium 143 mmol/L (136-145)
[2019-10-30] MEDS: HumaLOG 300 UNITS/3 ML VIAL SC PRN ×4 (04:19→22:29)
[2019-10-30 04:44] LABS: Band 7 % (5-11); Eosinophils 1 % (0-10); Hemoglobin 13.1 g/dL (14.0-18.0); Lymphocytes 4 % (21-51); MDiff Complete? YES; Mean Corpuscular HGB CONC 31.5 g/dL (32.0-36.0); Mean Corpuscular Hemoglobin 29.4 pg (27.0-31.0); Mean Corpuscular Volume 93.5 fL (78.0-98.0); Mean Platelet Volume 10.3 fL (7.4-10.4); Monocytes 5 % (0-10); Myelocyte 1 % (0-0); Neutrophil 81 % (42-75); Platelet Count 141 thou/uL (130-400); Platelet Morphology Comment Appears Adequate; RBC Distribution Width 17.5 % (11.5-14.5); Reactive Lymphocytes 1 % (0-10); Red Blood Cell (RBC) Count 4.45 mill/uL (4.70-6.10); Toxic Granulation SLIGHT; White Blood Cell (WBC) Count 11.6 thou/uL (4.8-10.8)
[2019-10-30 07:27] LABS: Actual Bicarbonate (HCO3a) 23.7 mEq/L (22-28); Base Excess (BEa) 0.4 mEq/L (-2.0 to +3.0); CO2 Tension 34.5 mmHg (35.0-45.0); Calcium, Ionized (arterial) 1.14 mmol/L (1.12-1.30); Carboxyhemoglobin (COHb) 1.1 gm% (0.0-3.0); Hemoglobin (Hb) 15.7 g/dL (14.0-18.0); O2 Tension (PaO2), arterial 87.9 mmHg (> 60.0); Potassium - ABG Lab 3.72 mmol/L (3.70-5.30); pH, Arterial 7.46 (7.35-7.45)
[2019-10-30] MEDS ORDERED: hydrALAZINE 20 MG/ML VIAL SLOW IVP PRN (07:30)
[2019-10-30 07:49] LABS: ALV-art Gradient 154.175 (0-20); Puncture Site RRAD
[2019-10-30] MEDS: Sodium Chloride 0.9% 1,000 ML IV SCH ×2 (08:07→21:51)
[2019-10-30] MEDS: Metoprolol Tartrate 50 MG TAB PER TUBE SCH ×3 (08:34→20:56)
[2019-10-30] MEDS: Amlodipine 10 MG TAB PER TUBE SCH (08:34)
[2019-10-30] MEDS: Aspirin 81 mg Enteric Coated Tablet PER TUBE SCH (08:35)
[2019-10-30] MEDS: Heparin 5,000 UNITS/ML VIAL SC SCH ×2 (08:35→20:55)
[2019-10-30] MEDS: Levothyroxine Sodium 50 MCG TAB PER TUBE SCH (08:35)
[2019-10-30] MEDS: Insulin Glargine 10 UNITS in Pre-Filled Syringe 1 EACH SC SCH (08:36)
[2019-10-30] MEDS: Floranex Packet PER TUBE SCH (08:39)
[2019-10-30] MEDS: Tamsulosin HCl 0.4 MG CAP PO SCH (08:39)
--- NOTE | 2019-10-30 08:51 | PDOC.HOSPP ---
- Subjective Encounter Date: 10/30/19 Encounter Time: 07:00 Subjective: no overnight events. Remains intubated and sedated. Awakes in response to calling his name, following commands (squeezing finger) - Objective Vital Signs & Weight: Vital Signs (12 hours) Temp Pulse Resp BP Pulse Ox 10/30/19 08:34 84 151/92 H 10/30/19 08:00 98.3 F 22 H 10/30/19 07:49 92 10/30/19 05:59 18 10/30/19 04:00 22 H 10/30/19 02:56 80 17 100 10/30/19 02:00 22 H 10/30/19 00:00 98.5 F 22 H 10/29/19 22:25 72 21 H 100 10/29/19 22:00 22 H Weight Admit Weight 185 lb 14.4 oz Weight 194 lb 7.163 oz Most Recent Monitor Data Heart Rate from ECG 81 NIBP 151/92 NIBP BP-Mean 111 Respiration from ECG 22 SpO2 100 I&O: 10/29/19 10/30/19 10/31/19 06:59 06:59 06:59 Intake Total 4614.9 4496 Output Total 3365 3760 325 Balance 1249.9 736 -325 Result Diagrams: 10/30/19 03:00 10/30/19 03:00 Additional Labs: Accuchecks 10/30/19 10/29/19 10/29/19 04:23 22:30 16:17 POC Glucose 235 H 197 H 223 H Hospitalist ROS - Review of Systems ROS unobtainable: due to endotracheal tube - Medication Medications: Active Medications Generic Name Dose Route Start Last Admin Trade Name Freq PRN Reason Stop Dose Admin Acidophilus 1 gm 10/25/19 09:00 10/30/19 08:39 Floranex PER TUBE 1 gm DAILY HERIBERTO Administration Albuterol/Ipratropium 3 ml 10/25/19 10:30 10/30/19 06:59 Duoneb NEB 3 ml [id number] HERIBERTO Administration Amlodipine Besylate 10 mg 10/28/19 09:00 10/30/19 08:34 Norvasc PER TUBE 10 mg DAILY HERIBERTO Administration Aspirin 81 mg 10/25/19 09:00 10/30/19 08:35 Ecotrin PER TUBE 81 mg DAILY HERIBERTO Administration Famotidine 20 mg 10/26/19 21:00 10/29/19 21:10 Pepcid SLOW IVP 20 mg 2100 HERIBERTO Administration Heparin Sodium (Porcine) 5,000 units 10/25/19 21:00 10/30/19 08:35 Heparin SC 5,000 units BID HERIBERTO Administration Cefepime HCl 2 gm/ Sodium 100 mls @ 200 mls/hr 10/25/19 11:00 10/29/19 22:01 Chloride IVPB 100 mls 1100,2300 HEIRBERTO Administration Amiodarone HCl 450 mg/ 259 mls @ 0 mls/hr 10/25/19 08:45 10/30/19 02:00 Miscellaneous Medication 1 IVPB 259 mls each/ Dextrose/Water INF HERIBERTO Administration Protocol As Directed Dexmedetomidine HCl 400 mcg/ 100 mls @ 0 mls/hr 10/27/19 03:30 10/30/19 00:32 Sodium Chloride IVPB 100 mls INF HERIBERTO Administration Protocol Per Protocol Sodium Chloride 1,000 mls @ 70 mls/hr 10/27/19 07:45 10/30/19 08:07 Normal Saline 0.9% IV 1,000 mls .[id number] HERIBERTO Administration Insulin Glargine 10 units/ 0.1 mls @ 0 mls/hr 10/30/19 09:00 10/30/19 08:36 Miscellaneous Medication SC 0.1 mls QAM HERIBERTO Administration Insulin Human Lispro 0 units 10/29/19 15:30 10/30/19 04:19 Humalog SC 3 unit .MILD SLIDING SCALE PRN Administration Mild Correctional Scale Levothyroxine Sodium 50 mcg 10/25/19 09:00 10/30/19 08:35 Synthroid PER TUBE 50 mcg DAILY HERIBERTO Administration Methylprednisolone Sodium Succinate 20 mg 10/25/19 09:00 10/30/19 08:33 Solu-Medrol IVP 20 mg 0300,0900,1500,2100 HERIBERTO Administration Metoprolol Tartrate 50 mg 10/28/19 15:00 10/30/19 08:34 Lopressor PER TUBE 50 mg TID HERIBERTO Administration Morphine Sulfate 2 mg 10/24/19 22:41 10/29/19 21:52 Morphine SLOW IVP 11/23/19 22:41 2 mg Q1H PRN Administration Breakthrough Pain/Agitation Scopolamine 1.5 mg 10/25/19 09:00 10/28/19 09:20 Transderm Scop TOP 1.5 mg Q3D HERIBERTO Administration Sodium Chloride 10 ml 10/25/19 09:00 10/29/19 21:11 Flush - Normal Saline IVF 10 ml Q12HR HERIBERTO Administration Sterile Water 1 ml 10/25/19 09:13 10/29/19 21:10 Bacteriostatic Water FS 1 ml PRN PRN Administration RECONSTITUTION Tamsulosin HCl 0.4 mg 10/25/19 09:00 10/30/19 08:39 Flomax PO 0.4 mg DAILY HERIBERTO Administration - Exam General Appearance: NAD, awake alert General - other findings: intubated Eye: PERRL, anicteric sclera Neck: no JVD Heart: RRR, no rubs Respiratory - other findings: mild diffuse rhonchi Gastrointestinal: soft, non-tender, non-distended, normal bowel sounds Gastrointestinal - other findings: tube feeding at 55cc/hr Hosp A/P - Plan #aspiration pneumonia ABx currently day 7, low procalcitonin; will continue for another day then consider stopping ventilation per PCCM Continue tube feeding Palliative team onboard; #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 afib -on IV amiodarone per cardiology #HTN -better controlled; continue amlodipine, metoprolol; hydralazine PRN; consdering RORO resolved; may start on ACEI/ARB and/or chlorthalidone if blood pressure continues to be high #RORO/CKD resolved; match I/O DVT PPx: heparin GI PPx: started pantoprazole IV considering intubation > 48h; may also aid as aspiration prophylaxis
--- NOTE | 2019-10-30 08:59 | RAD ---
Exam: Chest one view HISTORY:Respiratory distress. Ventilated patient. Comparison: 10/29/2019 FINDINGS: Lines and tubes: Stable endotracheal tube and right-sided internal jugular vascular catheter Cardiac silhouette:Cardiomegaly Aorta: Atherosclerosis Pulmonary vessels: Prominent Costophrenic angles: Persistent bilateral pleural effusions LUNGS: Stable diffuse interstitial and alveolar opacities. Pneumothorax: None Osseous abnormalities: None IMPRESSION: No significant interval change.
[2019-10-30] MEDS: Cefepime 2 GM in Sodium Chloride 0.9% 100 ML IVPB SCH ×2 (11:56→22:23)
[2019-10-30] MEDS: Pantoprazole 40 MG VIAL IVP SCH (11:57)
--- NOTE | 2019-10-30 15:27 | PRG ---
DATE OF SERVICE: 10/30/2019 OBJECTIVE: VITAL SIGNS: Mr. Garcia's heart rates in the 70s, respiratory rates in the 20s, FiO2 is 40%, his oximetry is 100%, blood pressure 154/84. His intake and output, positive 736. LUNGS: Remarkable for coarse equal breath sounds. HEART: Regular rhythm. ABDOMEN: Soft. EXTREMITIES: Without edema. He has contractures in all 4 extremities. IMAGING STUDIES: Chest x-ray shows diffuse bilateral alveolar infiltrates. IMPRESSION: Pneumonia, most likely aspiration mediated. His prognosis is dismal for any type recovery, much less successful extubation at this point. Critical care time was 30 min. Job ID: [id number] MTDD
[2019-10-31] MEDS: methylPREDNISolone Sod Succ 40 MG VIAL IVP SCH ×4 (03:08→20:01)
[2019-10-31] MEDS: HumaLOG 300 UNITS/3 ML VIAL SC PRN ×3 (04:00→21:19)
[2019-10-31 04:22] LABS: ALT (SGPT) 30 U/L (8-55); AST (SGOT) 12 U/L (5-34); Albumin 2.7 g/dL (3.4-4.8); Alkaline Phosphatase 99 U/L (40-110); Anion Gap 12 mmol/L (10-20); BUN (Urea Nitrogen) 51 mg/dL (8.4-25.7); Bilirubin, Total 0.5 mg/dL (0.2-1.2); Calc. Creatinine Clearance 76 mL/min (70-130); Carbon Dioxide 28 mmol/L (23-31); Chloride 107 mmol/L (98-107); Estimated GFR-MDRD 74; Globulin 2.5 g/dL (2.4-3.5); Glucose 251 mg/dL (83-110); Magnesium 1.9 mg/dL (1.6-2.6); Potassium 3.7 mmol/L (3.5-5.1); Protein, Total 5.2 g/dL (5.8-8.1); Sodium 143 mmol/L (136-145)
[2019-10-31 04:37] LABS: Hemoglobin 13.3 g/dL (14.0-18.0); Lymphocytes 4 % (21-51); MDiff Complete? YES; Mean Corpuscular HGB CONC 32.3 g/dL (32.0-36.0); Mean Corpuscular Hemoglobin 30.4 pg (27.0-31.0); Mean Platelet Volume 10.1 fL (7.4-10.4); Monocytes 6 % (0-10); Neutrophil 90 % (42-75); Platelet Count 141 thou/uL (130-400); RBC Distribution Width 17.4 % (11.5-14.5)
[2019-10-31] MEDS: Amiodarone 450 MG, Admixture Fee 1 EACH in Dextrose 5% in Water 250 ML IVPB SCH (06:41)
--- NOTE | 2019-10-31 07:53 | RAD ---
XR Chest 1 View Portable History: Ventilated patient Comparison: Radiograph prior day Findings: Endotracheal tube tip above the gaby 3 cm. Right IJ central venous catheter tip projects over the right atrium. Moderate bilateral pleural effusions. Parenchymal opacities are similar. No pneumothorax. Impression: Similar examination of the chest without significant improvement lung aeration.
[2019-10-31 08:27] LABS: Actual Bicarbonate (HCO3a) 23.3 mEq/L (22-28); Analyzer IN Cardio ER; Base Excess (BEa) -0.8 mEq/L (-2.0 to +3.0); CO2 Tension 36.5 mmHg (35.0-45.0); Calcium, Ionized (arterial) 1.14 mmol/L (1.12-1.30); Hemoglobin (Hb) 13.9 g/dL (14.0-18.0); O2 Tension (PaO2), arterial 144.6 mmHg (> 60.0); Potassium - ABG Lab 3.87 mmol/L (3.70-5.30); pH, Arterial 7.42 (7.35-7.45)
[2019-10-31 09:00] LABS: Puncture Site LR
[2019-10-31 09:01] LABS: ALV-art Gradient 94.975 (0-20)
--- NOTE | 2019-10-31 09:04 | PRG ---
DATE OF SERVICE: 10/31/2019 35 minutes critical care time. SUBJECTIVE: The patient remains intubated on mechanical ventilation. He will wake up, follows commands with the left side. PHYSICAL EXAMINATION: VITAL SIGNS: Heart rate 80, blood pressure 145/79, O2 saturations 100%, respiratory rate 22. 24-hour intake 3993, output 3100. HEENT: Unremarkable. NECK: No adenopathy or JVD. CARDIAC: S1 and S2. Irregularly irregular. 2/6 systolic murmur. LUNGS: Clear. ABDOMEN: Soft and nontender. PEG tube noted. EXTREMITIES: No edema. LABORATORY DATA: White blood cell count 16, hematocrit 41, and platelet count 141. ABG pending. Sodium 143, potassium 3.7, chloride 107, CO2 of 28, BUN 51, creatinine 0.9, glucose 251. Chest x-ray shows continued pulmonary edema. ASSESSMENT: 1. Acute respiratory failure secondary to aspiration pneumonia. 2. Previous stroke with severely debilitated state. 3. Improving renal insufficiency. PLAN: Spontaneous breathing trial, CPAP. We will see how he does on that. We will probably get to a point where we just have to take a chance and extubate him and see how he does. He is continuing steroids and IV antibiotics. Cardiology is started on oral amiodarone and signed off the case. Prognosis continues to be extremely poor. Job ID: [id number]
[2019-10-31] MEDS: Aspirin 81 mg Enteric Coated Tablet PER TUBE SCH (09:08)
[2019-10-31] MEDS: Tamsulosin HCl 0.4 MG CAP PO SCH (09:08)
[2019-10-31] MEDS: Metoprolol Tartrate 50 MG TAB PER TUBE SCH ×3 (09:08→20:01)
[2019-10-31] MEDS: Levothyroxine Sodium 50 MCG TAB PER TUBE SCH (09:08)
[2019-10-31] MEDS: Amiodarone 200 MG TAB PER TUBE SCH (09:08)
[2019-10-31] MEDS: Scopolamine 1.5 mg/72 hour Patch TOP SCH (09:09)
[2019-10-31] MEDS: Floranex Packet PER TUBE SCH (09:09)
[2019-10-31] MEDS: Pantoprazole 40 MG VIAL IVP SCH (09:11)
[2019-10-31] MEDS: Insulin Glargine 10 UNITS in Pre-Filled Syringe 1 EACH SC SCH (09:12)
[2019-10-31] MEDS: Heparin 5,000 UNITS/ML VIAL SC SCH ×2 (09:15→20:00)
[2019-10-31] MEDS: Amlodipine 10 MG TAB PER TUBE SCH (10:00)
[2019-10-31] MEDS: Cefepime 2 GM in Sodium Chloride 0.9% 100 ML IVPB SCH ×2 (11:27→22:09)
--- NOTE | 2019-10-31 14:18 | PDOC.PALPN ---
Palliative Progress Note - Subjective Remains intubated, spontaneous respirations. Able to make eye contact, movement to left extremities. - Objective Vital Signs: Vital Signs - Most Recent Temp Pulse Resp BP Pulse Ox 98.4 F 73 20 145/75 H 100 10/31/19 08:00 10/31/19 11:22 10/31/19 11:22 10/31/19 11:19 10/31/19 11:22 - Physical Exam Constitutional: ill appearing HEENT: EOMI, moist MMs, sclera anicteric Deviation from normal: Intubated, clear upper lobes Cardiovascular: irregular Gastrointestinal: soft, non-tender Deviation from normal: PEG Genitourinary: horan catheter Musculoskeletal: diffuse muscle atrophy Neurology: hemiplegia Skin: cap refill <2 seconds, fragile Deviation from normal: wound to buttock, image in notes Deviation from normal: Appears oriented to self - Assessment (1) Acute ischemic cerebrovascular accident (CVA) involving left middle cerebral artery territory Code(s): I63.512 - CEREB INFRC D/T UNSP OCCLS OR STENOS OF LEFT MID CEREB ART Current Visit: No Status: Acute (2) Aspiration pneumonia Code(s): J69.0 - PNEUMONITIS DUE TO INHALATION OF FOOD AND VOMIT Current Visit : No Status: Acute (3) Palliative care encounter Code(s): Z51.5 - ENCOUNTER FOR PALLIATIVE CARE Current Visit: No Status: Acute (4) CKD (chronic kidney disease) stage 3, GFR 30-59 ml/min Code(s): N18.3 - CHRONIC KIDNEY DISEASE, STAGE 3 (MODERATE) Current Visit: No Status: Chronic - Plan Plan: Conversation with patient . She continues to appear unrealistic towards patient continued decline. When attempting to broach subject of patient continued decline she is resistant. Allowed Mrs Garcia to facetime her . Continues to be hopeful for extubation and a return to the snf facility. Will arrange for Mrs Garcia to come visit tomorrow 10/31 and hopeful for ability to further discuss resuscitation status and Goal of Care. At baseline patient aphagic, nutrition via PEG r/t dysphagia, total assist for all adl, bed or Kandy chair bound. [30] minutes spent on this encounter with >50% of the time in counseling and coordination of care. - ROS Non Response: due to endotracheal tube, due to mental status
--- NOTE | 2019-10-31 14:35 | PDOC.HOSPP ---
- Subjective Encounter Date: 10/31/19 Encounter Time: 07:00 Subjective: no overnight events. this morning, intubated and sedated. Able to squeeze finger , right hand > left hand. - Objective Vital Signs & Weight: Vital Signs (12 hours) Temp Pulse Resp BP Pulse Ox 10/31/19 11:22 73 20 100 10/31/19 11:19 73 145/75 H 10/31/19 10:00 73 21 H 162/78 H 10/31/19 08:00 98.4 F 20 100 10/31/19 07:34 83 22 H 100 10/31/19 07:25 71 153/92 H 10/31/19 06:00 17 10/31/19 04:00 18 10/31/19 03:00 98.4 F 10/31/19 02:54 76 20 100 Weight Admit Weight 185 lb 14.4 oz Weight 199 lb 1.239 oz Most Recent Monitor Data Heart Rate from ECG 83 NIBP 151/81 NIBP BP-Mean 104 Respiration from ECG 22 SpO2 98 I&O: 10/30/19 10/31/19 11/01/19 06:59 06:59 06:59 Intake Total 4496 3993 100 Output Total 3760 3100 380 Balance 736 893 -280 Result Diagrams: 10/31/19 03:15 10/31/19 03:15 Additional Labs: Accuchecks 10/31/19 10/30/19 10/30/19 11:40 22:33 16:43 POC Glucose 174 H 216 H 203 H Hospitalist ROS - Review of Systems ROS unobtainable: due to endotracheal tube - Medication Medications: Active Medications Generic Name Dose Route Start Last Admin Trade Name Freq PRN Reason Stop Dose Admin Acidophilus 1 gm 10/25/19 09:00 10/31/19 09:09 Floranex PER TUBE 1 gm DAILY HERIBERTO Administration Albuterol/Ipratropium 3 ml 10/25/19 10:30 10/31/19 11:22 Duoneb NEB 3 ml [id number] HERIBERTO Administration Amiodarone HCl 200 mg 10/31/19 09:00 10/31/19 09:08 Cordarone PER TUBE 200 mg DAILY HERIBERTO Administration Amlodipine Besylate 10 mg 10/28/19 09:00 10/31/19 10:00 Norvasc PER TUBE 10 mg DAILY HERIBERTO Administration Aspirin 81 mg 08/11/20 09:00 10/31/19 09:08 Ecotrin PER TUBE 81 mg DAILY HERIBERTO Administration Heparin Sodium (Porcine) 5,000 units 10/25/19 21:00 10/31/19 09:15 Heparin SC 5,000 units BID HERIBERTO Administration Cefepime HCl 2 gm/ Sodium 100 mls @ 200 mls/hr 10/25/19 11:00 10/31/19 11:27 Chloride IVPB 100 mls 1100,2300 HERIBERTO Administration Dexmedetomidine HCl 400 mcg/ 100 mls @ 0 mls/hr 10/27/19 03:30 10/31/19 06:40 Sodium Chloride IVPB 100 mls INF HERIBERTO Administration Protocol Per Protocol Insulin Glargine 10 units/ 0.1 mls @ 0 mls/hr 10/30/19 09:00 10/31/19 09:12 Miscellaneous Medication SC 0.1 mls QAM HERIBERTO Administration Insulin Human Lispro 0 units 10/29/19 15:30 10/31/19 12:39 Humalog SC 2 unit .MILD SLIDING SCALE PRN Administration Mild Correctional Scale Levothyroxine Sodium 50 mcg 10/25/19 09:00 10/31/19 09:08 Synthroid PER TUBE 50 mcg DAILY HERIBERTO Administration Methylprednisolone Sodium Succinate 20 mg 10/25/19 09:00 10/31/19 09:10 Solu-Medrol IVP 20 mg 0300,0900,1500,2100 HERIBERTO Administration Metoprolol Tartrate 50 mg 10/28/19 15:00 10/31/19 09:08 Lopressor PER TUBE 50 mg TID HERIBERTO Administration Morphine Sulfate 2 mg 10/24/19 22:41 10/29/19 21:52 Morphine SLOW IVP 11/23/19 22:41 2 mg Q1H PRN Administration Breakthrough Pain/Agitation Pantoprazole Sodium 40 mg 10/30/19 09:00 10/31/19 09:11 Protonix IVP 40 mg DAILY HERIBERTO Administration Scopolamine 1.5 mg 10/25/19 09:00 10/31/19 09:09 Transderm Scop TOP 1.5 mg Q3D HERIBERTO Administration Sodium Chloride 10 ml 10/25/19 09:00 10/31/19 09:12 Flush - Normal Saline IVF 10 ml Q12HR HERIBERTO Administration Sterile Water 1 ml 10/25/19 09:13 10/29/19 21:10 Bacteriostatic Water FS 1 ml PRN PRN Administration RECONSTITUTION Tamsulosin HCl 0.4 mg 10/25/19 09:00 10/31/19 09:08 Flomax PO 0.4 mg DAILY HERIBERTO Administration - Exam General - other findings: intubated sedated Eye: PERRL, anicteric sclera Neck: no JVD Heart: RRR, no murmur, no gallops, no rubs Respiratory - other findings: diffuse rhonchi Gastrointestinal: soft, non-tender, non-distended, normal bowel sounds Hosp A/P - Plan #aspiration pneumonia CXR unchanged (10/30) continue ABx per PCCM; palnning SBT; palliative spoke with , plan to meet tomorrow Tube feeds, check residuals to reduce risk of aspiration #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 afib -transitioned to oral amiodarone #HTN -continue same; allow medications to reach steady state; will likley increased after extubation and discontinuation of sedation and PEEP #RORO/CKD RORO resolved; continue tube feeds Full code GI PPx: pantopraozle DVT PPx: heparin
[2019-10-31] MEDS: HumaLOG 300 UNITS/3 ML VIAL SC SCH ×2 (18:19→23:38)
[2019-11-01] MEDS: Morphine 2 MG/ML VIAL SLOW IVP PRN (01:19)
[2019-11-01] MEDS: methylPREDNISolone Sod Succ 40 MG VIAL IVP SCH (02:26)
[2019-11-01 04:38] LABS: Anion Gap 12 mmol/L (10-20); BUN (Urea Nitrogen) 64 mg/dL (8.4-25.7); Calc. Creatinine Clearance 61 mL/min (70-130); Calcium 8.2 mg/dL (7.8-10.44); Carbon Dioxide 27 mmol/L (23-31); Chloride 109 mmol/L (98-107); Estimated GFR-MDRD 56; Glucose 141 mg/dL (83-110); Magnesium 2.1 mg/dL (1.6-2.6); Phosphorus 2.2 mg/dL (2.3-4.7); Potassium 3.8 mmol/L (3.5-5.1); Sodium 144 mmol/L (136-145)
[2019-11-01] MEDS: HumaLOG 300 UNITS/3 ML VIAL SC SCH ×4 (05:32→23:08)
[2019-11-01 07:00] LABS: Actual Bicarbonate (HCO3a) 25.9 mEq/L (22-28); Base Excess (BEa) 1.6 mEq/L (-2.0 to +3.0); CO2 Tension 39.6 mmHg (35.0-45.0); Calcium, Ionized (arterial) 1.19 mmol/L (1.12-1.30); Carboxyhemoglobin (COHb) 0.6 gm% (0.0-3.0); O2 Tension (PaO2), arterial 130.8 mmHg (> 60.0); pH, Arterial 7.43 (7.35-7.45)
[2019-11-01 07:01] LABS: Puncture Site RR
--- NOTE | 2019-11-01 07:39 | PRG ---
DATE OF SERVICE: 11/01/2019 35 minutes of critical care time. SUBJECTIVE: Mr. Garcia has been on CPAP pressure support all night long and has done fairly well. However, as I walked into the room this morning, the nurses were turning him to clean him, and when they turned him back over, he vomited around his ET tube. OBJECTIVE: VITAL SIGNS: Temperature 99.1, pulse 85, blood pressure 153/92, and O2 saturation 100%. 24-hour intake 2184, output 1510. HEENT: Unremarkable. NECK: No JVD. LUNGS: Clear. CARDIAC: S1 and S2. Tachycardic. ABDOMEN: Soft and nontender. PEG tube noted. EXTREMITIES: No edema. LABORATORY DATA: Sodium 144, potassium 3.8, chloride 109, CO2 of 27, BUN 64, creatinine 1.2, and glucose 141. PH 7.43, pCO2 of 39, pO2 of 130, on CPAP 5, pressure support 10, FiO2 40%. ASSESSMENT: 1. Acute respiratory failure, requiring mechanical ventilation. 2. Previous stroke with right-sided hemiparesis. 3. Renal insufficiency. PLAN: My tentative plan was to go ahead and extubate him today, but given the vomiting, I want to watch him for several minutes and make sure the he does not decompensate from a respiratory standpoint before proceeding with extubation. Job ID: [id number]
--- NOTE | 2019-11-01 07:57 | PDOC.HOSPP ---
- Subjective Encounter Date: 11/01/19 Encounter Time: 08:00 Subjective: overnight, patient vomited gastric contents multiple times so feeding stopped. Urine leaking around catheter this morning, possibly during manipulation of patient in bed. Pending extubation - Objective Vital Signs & Weight: Vital Signs (12 hours) Temp Pulse Resp BP Pulse Ox 11/01/19 06:50 88 153/92 H 11/01/19 06:00 20 11/01/19 04:00 99.1 F 20 11/01/19 02:12 96 154/105 H 11/01/19 02:00 23 H 11/01/19 00:00 98.6 F 23 H 10/31/19 22:00 21 H 10/31/19 21:46 79 137/88 10/31/19 20:00 21 H 100 Weight Admit Weight 185 lb 14.4 oz Weight 199 lb 1.239 oz Most Recent Monitor Data Heart Rate from ECG 85 NIBP 153/92 NIBP BP-Mean 112 Respiration from ECG 20 SpO2 100 I&O: 10/31/19 11/01/19 11/02/19 06:59 06:59 06:59 Intake Total 3993 2184 Output Total 3100 1510 Balance 893 674 Result Diagrams: 10/31/19 03:15 11/01/19 03:33 Additional Labs: Accuchecks 11/01/19 10/31/19 10/31/19 03:32 21:17 18:18 POC Glucose 127 H 150 H 158 H 10/31/19 11:40 POC Glucose 174 H Hospitalist ROS - Review of Systems ROS unobtainable: due to endotracheal tube - Medication Medications: Active Medications Generic Name Dose Route Start Last Admin Trade Name Freq PRN Reason Stop Dose Admin Acidophilus 1 gm 10/25/19 09:00 10/31/19 09:09 Floranex PER TUBE 1 gm DAILY HERIBERTO Administration Albuterol/Ipratropium 3 ml 10/25/19 10:30 11/01/19 06:50 Duoneb NEB 3 ml [id number] HERIBERTO Administration Amiodarone HCl 200 mg 10/31/19 09:00 10/31/19 09:08 Cordarone PER TUBE 200 mg DAILY HERIBERTO Administration Amlodipine Besylate 10 mg 10/28/19 09:00 10/31/19 10:00 Norvasc PER TUBE 10 mg DAILY HERIBERTO Administration Aspirin 81 mg 10/25/19 09:00 10/31/19 09:08 Ecotrin PER TUBE 81 mg DAILY HERIBERTO Administration Heparin Sodium (Porcine) 5,000 units 10/25/19 21:00 10/31/19 20:00 Heparin SC 5,000 units BID HERIBERTO Administration Cefepime HCl 2 gm/ Sodium 100 mls @ 200 mls/hr 10/25/19 11:00 10/31/19 22:09 Chloride IVPB 100 mls 1100,2300 HERIBERTO Administration Dexmedetomidine HCl 400 mcg/ 100 mls @ 0 mls/hr 10/27/19 03:30 10/31/19 06:40 Sodium Chloride IVPB 100 mls INF HERIBERTO Administration Protocol Per Protocol Insulin Human Lispro 0 units 10/29/19 15:30 10/31/19 21:19 Humalog SC 2 unit .MILD SLIDING SCALE PRN Administration Mild Correctional Scale Insulin Human Lispro 4 units 10/31/19 18:00 11/01/19 05:32 Humalog SC 4 unit Q6HR HERIBERTO Administration Levothyroxine Sodium 50 mcg 10/25/19 09:00 10/31/19 09:08 Synthroid PER TUBE 50 mcg DAILY HERIBERTO Administration Metoprolol Tartrate 50 mg 10/28/19 15:00 10/31/19 20:01 Lopressor PER TUBE 50 mg TID HERIBERTO Administration Morphine Sulfate 2 mg 10/24/19 22:41 11/01/19 01:19 Morphine SLOW IVP 11/23/19 22:41 2 mg Q1H PRN Administration Breakthrough Pain/Agitation Pantoprazole Sodium 40 mg 10/30/19 09:00 10/31/19 09:11 Protonix IVP 40 mg DAILY HERIBERTO Administration Scopolamine 1.5 mg 10/25/19 09:00 10/31/19 09:09 Transderm Scop TOP 1.5 mg Q3D HERIBERTO Administration Sodium Chloride 10 ml 10/25/19 09:00 10/31/19 20:02 Flush - Normal Saline IVF 10 ml Q12HR HERIBERTO Administration Sterile Water 1 ml 10/25/19 09:13 10/29/19 21:10 Bacteriostatic Water FS 1 ml PRN PRN Administration RECONSTITUTION Tamsulosin HCl 0.4 mg 10/25/19 09:00 10/31/19 09:08 Flomax PO 0.4 mg DAILY HERIBERTO Administration - Exam General Appearance: NAD, awake alert Eye: PERRL ENT: moist mucosa Neck: no JVD Heart: no murmur, no gallops, no rubs, irregular Respiratory: rhonchi Gastrointestinal: soft, non-tender, non-distended, normal bowel sounds Extremities: 1+ LE edema Hosp A/P - Plan #aspiration pneumonia CXR unchanged (10/30) continue ABx per PCCM; planning extubation if vomiting resolves if not extubated, restart gradual feeding with gastric residuals scopolamine can cause gastric dysmotility; consider holding if possible; defer to PCCM #leakage around horan -possibly due to manipulation but can be obstruction -increased BUN, Cr despite positive I/O -if continues to leak or reduced urine output, change horan #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 afib -on oral amiodarone per cardiology; rate controlled #HTN -continue same; will reassess following extubation; meanwhile PRN IV antiHTN #RORO/CKD increased Cr; possibly due to horan obstruction; continue to follow Full code GI PPx: pantopraozle DVT PPx: heparin
[2019-11-01] MEDS ORDERED: methylPREDNISolone Sod Succ 40 MG VIAL IVP SCH (09:00)
[2019-11-01] MEDS ORDERED: Insulin Glargine 15 UNITS in Pre-Filled Syringe 1 EACH SC SCH (09:00)
[2019-11-01] MEDS: Cefepime 2 GM in Sodium Chloride 0.9% 100 ML IVPB SCH ×2 (10:13→22:39)
[2019-11-01] MEDS: Levothyroxine Sodium 50 MCG TAB PER TUBE SCH (10:14)
[2019-11-01] MEDS: Floranex Packet PER TUBE SCH (10:14)
[2019-11-01] MEDS: Amlodipine 10 MG TAB PER TUBE SCH (10:14)
[2019-11-01] MEDS: Metoprolol Tartrate 50 MG TAB PER TUBE SCH ×3 (10:15→20:20)
[2019-11-01] MEDS: Amiodarone 200 MG TAB PER TUBE SCH (10:15)
[2019-11-01] MEDS: Aspirin 81 mg Enteric Coated Tablet PER TUBE SCH (10:15)
[2019-11-01] MEDS: Tamsulosin HCl 0.4 MG CAP PO SCH (10:15)
[2019-11-01] MEDS: Heparin 5,000 UNITS/ML VIAL SC SCH ×2 (10:16→20:20)
[2019-11-01] MEDS: Pantoprazole 40 MG VIAL IVP SCH (11:57)
[2019-11-02 04:18] LABS: Anion Gap 11 mmol/L (10-20); BUN (Urea Nitrogen) 68 mg/dL (8.4-25.7); Calc. Creatinine Clearance 68 mL/min (70-130); Calcium 8.4 mg/dL (7.8-10.44); Carbon Dioxide 30 mmol/L (23-31); Chloride 111 mmol/L (98-107); Estimated GFR-MDRD 64; Glucose 83 mg/dL (83-110); Potassium 3.6 mmol/L (3.5-5.1); Sodium 148 mmol/L (136-145)
[2019-11-02] MEDS: HumaLOG 300 UNITS/3 ML VIAL SC SCH (05:15)
[2019-11-02] MEDS ORDERED: Dextrose 5% in Water 1,000 ML IV SCH (07:15)
--- NOTE | 2019-11-02 07:27 | PDOC.HOSPP ---
- Subjective Encounter Date: 11/02/19 Encounter Time: 06:45 Subjective: extubated overnight. Tube feeds held by nurse. Heart rate progressively increasing. Squeezing hand but not following finger with eyes, nonverbal - Objective Vital Signs & Weight: Vital Signs (12 hours) Temp Pulse Resp Pulse Ox 11/02/19 06:31 119 H 16 94 L 11/02/19 04:00 98.1 F 11/02/19 02:08 89 16 95 11/02/19 00:00 98.0 F 11/01/19 22:05 75 21 H 98 11/01/19 20:00 93 L Weight Admit Weight 185 lb 14.4 oz Weight 198 lb 10.184 oz Most Recent Monitor Data Heart Rate from ECG 108 NIBP 167/123 NIBP BP-Mean 137 Respiration from ECG 17 SpO2 94 I&O: 11/01/19 11/02/19 11/03/19 06:59 06:59 06:59 Intake Total 2184 857 Output Total 1510 1415 Balance 484 -508 Result Diagrams: 10/31/19 03:15 11/02/19 03:30 Additional Labs: Accuchecks 11/02/19 11/01/19 11/01/19 04:17 22:17 16:04 POC Glucose 80 149 H 121 H 11/01/19 10:45 POC Glucose 117 H Hospitalist ROS - Review of Systems ROS unobtainable: due to mental status - Medication Medications: Active Medications Generic Name Dose Route Start Last Admin Trade Name Freq PRN Reason Stop Dose Admin Acidophilus 1 gm 10/25/19 09:00 11/01/19 10:14 Floranex PER TUBE 1 gm DAILY HERIBERTO Administration Albuterol/Ipratropium 3 ml 10/25/19 10:30 11/02/19 06:31 Duoneb NEB 3 ml [id number] HERIBERTO Administration Amiodarone HCl 200 mg 10/31/19 09:00 11/01/19 10:15 Cordarone PER TUBE 200 mg DAILY HERIBERTO Administration Amlodipine Besylate 10 mg 10/28/19 09:00 11/01/19 10:14 Norvasc PER TUBE 10 mg DAILY HERIBERTO Administration Aspirin 81 mg 10/25/19 09:00 11/01/19 10:15 Ecotrin PER TUBE 81 mg DAILY HERIBERTO Administration Heparin Sodium (Porcine) 5,000 units 10/25/19 21:00 11/01/19 20:20 Heparin SC 5,000 units BID HERIBERTO Administration Cefepime HCl 2 gm/ Sodium 100 mls @ 200 mls/hr 10/25/19 11:00 11/01/19 22:39 Chloride IVPB 100 mls 1100,2300 HERIBERTO Administration Insulin Human Lispro 0 units 10/29/19 15:30 10/31/19 21:19 Humalog SC 2 unit .MILD SLIDING SCALE PRN Administration Mild Correctional Scale Levothyroxine Sodium 50 mcg 10/25/19 09:00 11/01/19 10:14 Synthroid PER TUBE 50 mcg DAILY HERIBERTO Administration Metoprolol Tartrate 50 mg 10/28/19 15:00 11/01/19 20:20 Lopressor PER TUBE 50 mg TID HERIBERTO Administration Scopolamine 1.5 mg 10/25/19 09:00 10/31/19 09:09 Transderm Scop TOP 1.5 mg Q3D HERIBERTO Administration Sodium Chloride 10 ml 10/25/19 09:00 11/01/19 20:20 Flush - Normal Saline IVF 10 ml Q12HR HERIBERTO Administration Sterile Water 1 ml 10/25/19 09:13 10/29/19 21:10 Bacteriostatic Water FS 1 ml PRN PRN Administration RECONSTITUTION Tamsulosin HCl 0.4 mg 10/25/19 09:00 11/01/19 10:15 Flomax PO 0.4 mg DAILY HERIBERTO Administration - Exam General Appearance: NAD, awake alert ENT - other findings: doesn't open mouth on request Heart: irregular Heart - other findings: HR 110-120s Respiratory: no wheezes, no rales, no ronchi, rhonchi Gastrointestinal: soft, non-tender, non-distended, normal bowel sounds Gastrointestinal - other findings: tube feeds held Extremities - other findings: contractures Skin - other findings: scrotum erythematous, nontender, nonedematous Psychiatric - other findings: nonverbal Hosp A/P - Plan Acute hypernatremia -due to dehydrations -resume tube feeds with residuals; 400cc H2O q6h #p. 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 If disagrees, inpatient rehab. CM consulted Transfer to telemetry floor
--- NOTE | 2019-11-02 08:00 | PRG ---
DATE OF SERVICE: 11/02/2019 SUBJECTIVE: He was successfully extubated yesterday. He seems to be doing okay. He cannot communicate with anything other than eye motion and smiling. OBJECTIVE: VITAL SIGNS: Temperature 98.1, pulse 108, blood pressure 167/123, O2 saturation 94%. Twenty-four intake 857, output 1415. HEENT: Unremarkable. NECK: No JVD. CHEST: Clear anteriorly. CARDIAC: S1, S2. Slightly tachycardic. ABDOMEN: Soft, nontender. PEG tube noted. EXTREMITIES: Trace edema. LABORATORY DATA: Sodium 148, potassium 3.6, chloride 111, CO2 of 30, BUN 68, creatinine 1.1, glucose 83. ASSESSMENT: 1. Status post acute respiratory failure requiring mechanical ventilation. 2. Aspiration pneumonia. 3. Previous stroke with right-sided hemiparesis. 4. Elevated BUN and portion to the creatinine level. This could indicate volume depletion or maybe it is just secondary to the steroids. PLAN: 1. I will decrease his steroids to prednisone 10 mg daily for the next four days and then stop the medication. 2. He is stable for transfer to the telemetry unit. 3. Continue the antibiotics. 4. His situation will continue to be tenuous because of his chronic underlying health conditions. His is not supportive of DNR status. 5. Add a small dose of Reglan because of the patient's propensity to reflux tube feeds and vomit. Job ID: [id number]
[2019-11-02] MEDS: Floranex Packet PER TUBE SCH (08:16)
[2019-11-02] MEDS: Aspirin 81 mg Enteric Coated Tablet PER TUBE SCH (08:16)
[2019-11-02] MEDS: Metoclopramide HCl 10 MG TAB PER TUBE SCH ×3 (08:17→21:30)
[2019-11-02] MEDS: Levothyroxine Sodium 50 MCG TAB PER TUBE SCH (08:17)
[2019-11-02] MEDS: predniSONE 20 MG TAB PER TUBE SCH (08:17)
[2019-11-02] MEDS: Pantoprazole 40 MG GRANULES PACKET PER TUBE SCH (08:17)
[2019-11-02] MEDS: Tamsulosin HCl 0.4 MG CAP PO SCH (08:18)
[2019-11-02] MEDS: Amlodipine 10 MG TAB PER TUBE SCH (08:18)
[2019-11-02] MEDS: Heparin 5,000 UNITS/ML VIAL SC SCH ×2 (08:19→21:30)
[2019-11-02] MEDS: Metoprolol Tartrate 50 MG TAB PER TUBE SCH ×3 (08:19→21:30)
[2019-11-02] MEDS: Amiodarone 200 MG TAB PER TUBE SCH (08:19)
[2019-11-03 04:52] LABS: Anion Gap 14 mmol/L (10-20); BUN (Urea Nitrogen) 73 mg/dL (8.4-25.7); Calc. Creatinine Clearance 56 mL/min (70-130); Calcium 8.3 mg/dL (7.8-10.44); Carbon Dioxide 25 mmol/L (23-31); Chloride 114 mmol/L (98-107); Estimated GFR-MDRD 52; Glucose 205 mg/dL (83-110); Magnesium 2.3 mg/dL (1.6-2.6); Phosphorus 2.1 mg/dL (2.3-4.7); Potassium 4.2 mmol/L (3.5-5.1); Sodium 149 mmol/L (136-145)
[2019-11-03 05:34] LABS: Band 2 % (5-11); Eosinophils 1 % (0-10); Hemoglobin 12.5 g/dL (14.0-18.0); Lymphocytes 5 % (21-51); MDiff Complete? YES; Mean Corpuscular Hemoglobin 29.6 pg (27.0-31.0); Mean Corpuscular Volume 95.7 fL (78.0-98.0); Mean Platelet Volume 10.7 fL (7.4-10.4); Monocytes 4 % (0-10); Myelocyte 2 % (0-0); Neutrophil 86 % (42-75); Nucleated RBC 2 % (0); Platelet Count 146 thou/uL (130-400); RBC Distribution Width 17.8 % (11.5-14.5); Red Blood Cell (RBC) Count 4.22 mill/uL (4.70-6.10); White Blood Cell (WBC) Count 16.7 thou/uL (4.8-10.8)
[2019-11-03] MEDS: HumaLOG 300 UNITS/3 ML VIAL SC PRN ×3 (05:47→17:26)
--- NOTE | 2019-11-03 09:21 | PRG ---
DATE OF SERVICE: 11/03/2019 SUBJECTIVE: The patient is lying comfortably in bed. Does not appear to be in any distress, but is largely noncommunicative. PHYSICAL EXAMINATION: VITAL SIGNS: Temperature 97.6, pulse 106, respirations 16, O2 saturation 100% on 3 L. Blood pressure 138/87. HEENT: Unremarkable. NECK: No adenopathy or JVD. CHEST: Fairly clear. CARDIAC: S1, S2. Regular. ABDOMEN: Soft. EXTREMITIES: No edema. ASSESSMENT: 1. Status post respiratory failure requiring mechanical ventilation. 2. Status post aspiration pneumonia. 3. Severely debilitated state. PLAN: The patient is probably back at his baseline; go back to the [facility] from my standpoint. Stop prednisone in about 3 days. No further recommendations at this time. Pulmonary Critical Care will sign off the case. Please recall if further assistance needed. Job ID: [id number]
[2019-11-03] MEDS: Amiodarone 200 MG TAB PER TUBE SCH (09:57)
[2019-11-03] MEDS: Levothyroxine Sodium 50 MCG TAB PER TUBE SCH (09:57)
[2019-11-03] MEDS: Floranex Packet PER TUBE SCH (09:57)
[2019-11-03] MEDS: Aspirin 81 mg Enteric Coated Tablet PER TUBE SCH (09:57)
[2019-11-03] MEDS: predniSONE 20 MG TAB PER TUBE SCH (09:58)
[2019-11-03] MEDS: Metoprolol Tartrate 50 MG TAB PER TUBE SCH ×3 (09:58→21:59)
[2019-11-03] MEDS: Tamsulosin HCl 0.4 MG CAP PO SCH (09:58)
[2019-11-03] MEDS: Pantoprazole 40 MG GRANULES PACKET PER TUBE SCH (09:59)
[2019-11-03] MEDS: Metoclopramide HCl 10 MG TAB PER TUBE SCH ×3 (09:59→21:59)
[2019-11-03] MEDS: Amlodipine 10 MG TAB PER TUBE SCH (09:59)
[2019-11-03] MEDS: Bisacodyl 10 MG SUPP PR SCH ×2 (10:00→15:53)
[2019-11-03] MEDS: Heparin 5,000 UNITS/ML VIAL SC SCH ×2 (10:00→21:58)
[2019-11-03] MEDS: Scopolamine 1.5 mg/72 hour Patch TOP SCH (10:01)
--- NOTE | 2019-11-03 10:09 | RAD ---
EXAM: Single view of the abdomen HISTORY: Constipation COMPARISON: None FINDINGS: Single view of the abdomen shows a nonspecific, nonobstructive bowel gas pattern. A small a mount of stool is seen in the rectum. No suspicious calcifications are seen. Mild degenerative changes are seen in the spine. IMPRESSION: No evidence of obstruction.
[2019-11-03] MEDS ORDERED: Diabetic Tussin 200 MG/10 ML UDCUP PER TUBE SCH (15:45)
[2019-11-03] MEDS: Diabetic Tussin 200 MG/10 ML UDCUP PER TUBE SCH (17:17)
--- NOTE | 2019-11-03 18:24 | PDOC.HOSPP ---
- Subjective Encounter Date: 11/03/19 Encounter Time: 09:00 Subjective: no overnight events. this morning, lying in bed. 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 - Objective Vital Signs & Weight: Vital Signs (12 hours) Temp Pulse Resp BP Pulse Ox 11/03/19 17:32 108 H 31 H 116/75 97 11/03/19 12:28 108 H 31 H 152/95 H 95 11/03/19 10:54 96 16 11/03/19 09:23 97.8 F 120 H 20 130/75 98 11/03/19 08:00 98 11/03/19 07:17 106 H 16 Weight Admit Weight 185 lb 14.4 oz Weight 200 lb 6.4 oz Most Recent Monitor Data Heart Rate from ECG 106 NIBP 126/97 NIBP BP-Mean 106 Respiration from ECG 20 SpO2 91 I&O: 11/02/19 11/03/19 11/04/19 06:59 06:59 06:59 Intake Total 857 1992 1705 Output Total 1415 963 500 Balance -558 1029 1205 Result Diagrams: 11/03/19 04:13 11/03/19 04:13 Additional Labs: Accuchecks 11/03/19 11/03/19 11/03/19 16:39 12:16 04:24 POC Glucose 172 H 160 H 186 H 11/02/19 22:36 POC Glucose 161 H Hospitalist ROS - Review of Systems ROS unobtainable: due to mental status (nonverbal at baseline) - Medication Medications: Active Medications Generic Name Dose Route Start Last Admin Trade Name Freq PRN Reason Stop Dose Admin Acetaminophen 650 mg 10/24/19 22:36 11/02/19 08:30 Tylenol DE 650 mg Q6H PRN Administration Fever > 101 or Mild Pain Acidophilus 1 gm 10/25/19 09:00 11/03/19 09:57 Floranex PER TUBE 1 gm DAILY HERIBERTO Administration Albuterol/Ipratropium 3 ml 10/25/19 10:30 11/03/19 16:11 Duoneb NEB Not Given [id number] HERIBERTO Amiodarone HCl 200 mg 10/31/19 09:00 11/03/19 09:57 Cordarone PER TUBE 200 mg DAILY HERIBERTO Administration Amlodipine Besylate 10 mg 10/28/19 09:00 08/20/20 09:59 Norvasc PER TUBE 10 mg DAILY HERIBERTO Administration Aspirin 81 mg 10/25/19 09:00 11/03/19 09:57 Ecotrin PER TUBE 81 mg DAILY HERIBERTO Administration Bisacodyl 10 mg 11/03/19 09:00 11/03/19 15:53 Dulcolax DE Not Given Q8H HERIBERTO Guaifenesin 200 mg 11/03/19 18:00 11/03/19 17:17 Robitussin Sf PER TUBE Not Given Q6HR [facility] Heparin Sodium (Porcine) 5,000 units 10/25/19 21:00 11/03/19 10:00 Heparin SC 5,000 units BID HERIBERTO Administration Insulin Human Lispro 0 units 10/29/19 15:30 11/03/19 17:26 Humalog SC 2 unit .MILD SLIDING SCALE PRN Administration Mild Correctional Scale Levothyroxine Sodium 50 mcg 10/25/19 09:00 11/03/19 09:57 Synthroid PER TUBE 50 mcg DAILY HERIBERTO Administration Metoclopramide HCl 5 mg 11/02/19 09:00 11/03/19 15:32 Reglan PER TUBE 5 mg TID HERIBERTO Administration Metoprolol Tartrate 50 mg 10/28/19 15:00 11/03/19 15:32 Lopressor PER TUBE 50 mg TID HERIBERTO Administration Pantoprazole Sodium 40 mg 11/02/19 09:00 11/03/19 09:59 Protonix PER TUBE 40 mg DAILY HERIBERTO Administration Prednisone 10 mg 11/02/19 09:00 11/03/19 09:58 Prednisone PER TUBE 11/06/19 09:01 10 mg DAILY HERIBERTO Administration Scopolamine 1.5 mg 10/25/19 09:00 11/03/19 10:01 Transderm Scop TOP 1.5 mg Q3D HERIBERTO Administration Sodium Chloride 10 ml 10/25/19 09:00 11/03/19 09:57 Flush - Normal Saline IVF 10 ml Q12HR HERIBERTO Administration Sterile Water 1 ml 10/25/19 09:13 10/29/19 21:10 Bacteriostatic Water FS 1 ml PRN PRN Administration RECONSTITUTION Tamsulosin HCl 0.4 mg 10/25/19 09:00 11/03/19 09:58 Flomax PO 0.4 mg DAILY HERIBERTO Administration - Exam General Appearance: NAD, awake alert Neck: no JVD Heart: irregular Heart - other findings: HR ranges from 90s to 140s. Respiratory: rhonchi Gastrointestinal: soft, non-distended, normal bowel sounds Gastrointestinal - other findings: tube feeds restarted. 0cc residuals per nurse Hosp A/P - Plan Acute hypernatremia -due to dehydrations -resume tube feeds with residuals; 250cc H2O p4h per agriscience instructor #p. afib -on oral amiodarone per cardiology; rate controlled until today, likely due to dehydration #HTN continue amlodipine, metoprolol, hydralazine PRN #RORO/CKD at baseline #aspiration pneumonia (resolved) stopped ABx stop pantoprazole since has association with increased risk of aspiration pneumonia #leakage around horan (resolved) -horan changed #candiduria -likely due to colonization; no indication for antifungal at this point Full code GI PPx: pantopraozle DVT PPx: heparin Needs a long term/hospice. If disagrees, inpatient rehab. CM consulted Transfer to telemetry floor
[2019-11-04] MEDS: Bisacodyl 10 MG SUPP PR SCH ×3 (01:14→17:26)
[2019-11-04] MEDS: Diabetic Tussin 200 MG/10 ML UDCUP PER TUBE SCH ×4 (01:30→18:04)
[2019-11-04] MEDS: HumaLOG 300 UNITS/3 ML VIAL SC PRN ×4 (03:19→18:05)
[2019-11-04 04:55] LABS: Anion Gap 16 mmol/L (10-20); BUN (Urea Nitrogen) 92 mg/dL (8.4-25.7); Calc. Creatinine Clearance 38 mL/min (70-130); Calcium 7.9 mg/dL (7.8-10.44); Carbon Dioxide 23 mmol/L (23-31); Chloride 111 mmol/L (98-107); Estimated GFR-MDRD 33; Glucose 258 mg/dL (83-110); Magnesium 2.6 mg/dL (1.6-2.6); Potassium 4.8 mmol/L (3.5-5.1); Sodium 145 mmol/L (136-145)
--- NOTE | 2019-11-04 07:55 | RAD ---
XR Chest 1 View Portable History: Tachypnea Comparison: Radiograph October 31, 2019 Findings: Large right and moderate left layering pleural effusion. Patient has been extubated in the central venous catheter has been removed. Parenchymal opacities are similar. Impression: Interval extubation and removal of the right IJ central venous catheter without complicat ion.
[2019-11-04] MEDS: Floranex Packet PER TUBE SCH (08:48)
[2019-11-04] MEDS: Amiodarone 200 MG TAB PER TUBE SCH (08:48)
[2019-11-04] MEDS: Amlodipine 10 MG TAB PER TUBE SCH (08:48)
[2019-11-04] MEDS: Heparin 5,000 UNITS/ML VIAL SC SCH ×2 (08:49→20:34)
[2019-11-04] MEDS: Levothyroxine Sodium 50 MCG TAB PER TUBE SCH (08:49)
[2019-11-04] MEDS: predniSONE 20 MG TAB PER TUBE SCH (08:49)
[2019-11-04] MEDS: Tamsulosin HCl 0.4 MG CAP PO SCH (08:49)
[2019-11-04] MEDS: Metoclopramide HCl 10 MG TAB PER TUBE SCH ×3 (08:49→20:35)
[2019-11-04] MEDS: Aspirin 81 mg Enteric Coated Tablet PER TUBE SCH (08:49)
[2019-11-04] MEDS: Metoprolol Tartrate 50 MG TAB PER TUBE SCH ×3 (08:49→20:35)
[2019-11-04] MEDS ORDERED: Loratadine 5 MG/5 ML UDCUP PO SCH (12:00)
[2019-11-04] MEDS: Loratadine 5 MG/5 ML UDCUP PER TUBE SCH (12:04)
--- NOTE | 2019-11-04 13:12 | PDOC.HOSPP ---
- Subjective Encounter Date: 11/04/19 Encounter Time: 09:00 Subjective: no overnight events. This morning, no change. updated and attempted to raise option for hospice/comfort care, stating that patient unlikely to have a better quality of life but rather, he will gradually worsen. very resistant to advice. - Objective Vital Signs & Weight: Vital Signs (12 hours) Temp Pulse Resp BP Pulse Ox 11/04/19 12:02 98.4 F 95 22 H 154/66 H 98 11/04/19 10:44 95 20 11/04/19 09:02 98.5 F 95 20 110/69 99 11/04/19 07:08 113 H 20 11/04/19 03:31 97.6 F 85 22 H 122/78 100 11/04/19 02:03 88 16 96 Weight Admit Weight 185 lb 14.4 oz Weight 193 lb 11.2 oz Most Recent Monitor Data Heart Rate from ECG 106 NIBP 126/97 NIBP BP-Mean 106 Respiration from ECG 20 SpO2 91 I&O: 11/03/19 11/04/19 11/05/19 06:59 06:59 06:59 Intake Total 1991 3105 500 Output Total 963 900 Balance 1029 2205 500 Result Diagrams: 11/03/19 04:13 11/04/19 04:03 Additional Labs: Accuchecks 11/04/19 11/04/19 11/04/19 10:47 05:58 01:59 POC Glucose 257 H 212 H 233 H 11/03/19 11/03/19 20:44 16:39 POC Glucose 223 H 172 H Hospitalist ROS - Review of Systems ROS unobtainable: due to mental status (nonverbal at baseline) - Medication Medications: Active Medications Generic Name Dose Route Start Last Admin Trade Name Freq PRN Reason Stop Dose Admin Acetaminophen 650 mg 10/24/19 22:36 11/02/19 08:30 Tylenol OR 650 mg Q6H PRN Administration Fever > 101 or Mild Pain Acidophilus 1 gm 10/25/19 09:00 11/04/19 08:48 Floranex PER TUBE 1 gm DAILY HERIBERTO Administration Albuterol/Ipratropium 3 ml 10/25/19 10:30 11/04/19 10:44 Duoneb NEB 3 ml [id number] HERIBERTO Administration Amiodarone HCl 200 mg 10/31/19 09:00 08/21/20 08:48 Cordarone PER TUBE 200 mg DAILY HERIBERTO Administration Amlodipine Besylate 10 mg 10/28/19 09:00 11/04/19 08:48 Norvasc PER TUBE 10 mg DAILY HERIBERTO Administration Aspirin 81 mg 10/25/19 09:00 11/04/19 08:49 Ecotrin PER TUBE 81 mg DAILY HERIBERTO Administration Bisacodyl 10 mg 11/03/19 09:00 11/04/19 08:50 Dulcolax OR Not Given Q8H HERIBERTO Guaifenesin 200 mg 11/03/19 18:00 11/04/19 11:56 Robitussin Sf PER TUBE 200 mg Q6HR HERIBERTO Administration Heparin Sodium (Porcine) 5,000 units 10/25/19 21:00 11/04/19 08:49 Heparin SC 5,000 units BID HERIBERTO Administration Insulin Human Lispro 0 units 10/29/19 15:30 11/04/19 12:19 Humalog SC 4 unit .MILD SLIDING SCALE PRN Administration Mild Correctional Scale Insulin Human Lispro 0 units 11/04/19 02:32 11/04/19 03:19 Humalog SC 2 unit .BEDTIME SLIDING SC PRN Administration Bedtime Correctional Scale Levothyroxine Sodium 50 mcg 10/25/19 09:00 11/04/19 08:49 Synthroid PER TUBE 50 mcg DAILY HERIBERTO Administration Loratadine 5 mg 11/04/19 12:00 11/04/19 12:04 Claritin Oral Solution PER TUBE Not Given 1200 HERIBERTO Metoclopramide HCl 5 mg 11/02/19 09:00 11/04/19 08:49 Reglan PER TUBE 5 mg TID HERIBERTO Administration Metoprolol Tartrate 50 mg 10/28/19 15:00 11/04/19 08:49 Lopressor PER TUBE 50 mg TID HERIBERTO Administration Prednisone 10 mg 11/02/19 09:00 11/04/19 08:49 Prednisone PER TUBE 11/06/19 09:01 10 mg DAILY HERIBERTO Administration Scopolamine 1.5 mg 10/25/19 09:00 11/03/19 10:01 Transderm Scop TOP 1.5 mg Q3D HERIBERTO Administration Sodium Chloride 10 ml 10/25/19 09:00 11/04/19 08:51 Flush - Normal Saline IVF 10 ml Q12HR HERIBERTO Administration Sterile Water 1 ml 10/25/19 09:13 10/29/19 21:10 Bacteriostatic Water FS 1 ml PRN PRN Administration RECONSTITUTION Tamsulosin HCl 0.4 mg 10/25/19 09:00 11/04/19 08:49 Flomax PO 0.4 mg DAILY HERIBERTO Administration - Exam General Appearance: NAD, awake alert Neck: no JVD Heart: no gallops, no rubs, irregular, diminshed peripheral pulses Heart - other findings: aflut on tele, rates up to 110s Respiratory: CTAB, no wheezes, no rales, no ronchi Respiratory - other findings: reduced sound in posterior bases Gastrointestinal: soft, non-distended, normal bowel sounds Gastrointestinal - other findings: PEG in place, tube feeds at 55cc/hr Extremities: 1+ LE edema Extremities - other findings: unchanged Hosp A/P - Plan Acute hypernatremia #RORO over CKD -RORO due to dehydrations -resume tube feeds with residuals; supplemented with 400cc x 2, then 250cc H2O p4h 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 ELOS: 1-2 nights
[2019-11-04] MEDS: Insulin Glargine 10 UNITS in Pre-Filled Syringe 1 EACH SC SCH (20:35)
[2019-11-05] MEDS: Diabetic Tussin 200 MG/10 ML UDCUP PER TUBE SCH ×4 (00:54→17:20)
[2019-11-05] MEDS: Bisacodyl 10 MG SUPP PR SCH ×3 (03:06→17:22)
[2019-11-05] MEDS: HumaLOG 300 UNITS/3 ML VIAL SC PRN ×4 (06:26→21:55)
[2019-11-05] MEDS ORDERED: Metoprolol Tartrate 5 MG/5 ML VIAL IVP SCH (06:30)
[2019-11-05] MEDS: Floranex Packet PER TUBE SCH (10:14)
[2019-11-05] MEDS: Metoclopramide HCl 10 MG TAB PER TUBE SCH ×3 (10:14→21:56)
[2019-11-05] MEDS: Aspirin 81 mg Enteric Coated Tablet PER TUBE SCH (10:14)
[2019-11-05] MEDS: predniSONE 20 MG TAB PER TUBE SCH (10:15)
[2019-11-05] MEDS: Tamsulosin HCl 0.4 MG CAP PO SCH (10:16)
[2019-11-05] MEDS: Amlodipine 10 MG TAB PER TUBE SCH (10:16)
[2019-11-05] MEDS: Levothyroxine Sodium 50 MCG TAB PER TUBE SCH (10:16)
[2019-11-05] MEDS: Amiodarone 200 MG TAB PER TUBE SCH (10:16)
[2019-11-05] MEDS: Heparin 5,000 UNITS/ML VIAL SC SCH ×2 (10:16→21:56)
[2019-11-05] MEDS: Metoprolol Tartrate 50 MG TAB PER TUBE SCH ×3 (10:16→21:57)
--- NOTE | 2019-11-05 11:37 | PDOC.HOSPP ---
- Subjective Encounter Date: 11/05/19 Encounter Time: 08:45 Subjective: awakens to touch, does not communicate or follow has contractures in both UE not in distress has continous tube feeding - Objective Vital Signs & Weight: Vital Signs (12 hours) Temp Pulse Resp BP Pulse Ox 11/05/19 11:20 99.4 F 105 H 15 110/69 99 11/05/19 11:00 80 20 11/05/19 07:45 98.4 F 132 H 32 H 111/82 97 11/05/19 07:44 96 24 H 11/05/19 03:20 99.2 F 136 H 22 H 145/83 H 96 11/05/19 02:50 28 H Weight Admit Weight 185 lb 14.4 oz Weight 198 lb Most Recent Monitor Data Heart Rate from ECG 106 NIBP 126/97 NIBP BP-Mean 106 Respiration from ECG 20 SpO2 91 I&O: 11/04/19 11/05/19 11/06/19 06:59 06:59 06:59 Intake Total 3105 3030 Output Total 900 650 Balance 2205 2380 Result Diagrams: 11/03/19 04:13 11/04/19 04:03 Additional Labs: Accuchecks 11/05/19 11/04/19 11/04/19 05:48 23:16 20:17 POC Glucose 239 H 185 H 179 H 11/04/19 16:43 POC Glucose 256 H Hospitalist ROS - Medication Medications: Active Medications Generic Name Dose Route Start Last Admin Trade Name Freq PRN Reason Stop Dose Admin Acetaminophen 650 mg 10/24/19 22:36 11/02/19 08:30 Tylenol [place] 650 mg Q6H PRN Administration Fever > 101 or Mild Pain Acidophilus 1 gm 10/25/19 09:00 11/05/19 10:14 Floranex PER TUBE 1 gm DAILY HERIBERTO Administration Albuterol/Ipratropium 3 ml 10/25/19 10:30 11/05/19 11:00 Duoneb NEB 3 ml [id number] HERIBERTO Administration Amiodarone HCl 200 mg 10/31/19 09:00 11/05/19 10:16 Cordarone PER TUBE 200 mg DAILY HERIBERTO Administration Amlodipine Besylate 10 mg 10/28/19 09:00 11/05/19 10:16 Norvasc PER TUBE 10 mg DAILY HERIBERTO Administration Aspirin 81 mg 10/25/19 09:00 11/05/19 10:14 Ecotrin PER TUBE 81 mg DAILY HERIBERTO Administration Bisacodyl 10 mg 11/03/19 09:00 11/05/19 10:17 Dulcolax [place] Not Given Q8H HERIBERTO Guaifenesin 200 mg 11/03/19 18:00 11/05/19 06:26 Robitussin Sf PER TUBE 200 mg Q6HR HERIBERTO Administration Heparin Sodium (Porcine) 5,000 units 10/25/19 21:00 11/05/19 10:16 Heparin SC 5,000 units BID HERIBERTO Administration Insulin Glargine 10 units/ 0.1 mls @ 0 mls/hr 11/04/19 21:00 11/04/19 20:35 Miscellaneous Medication SC 0.1 mls HS HERIBERTO Administration Insulin Human Lispro 0 units 10/29/19 15:30 11/05/19 06:26 Humalog SC 3 unit .MILD SLIDING SCALE PRN Administration Mild Correctional Scale Insulin Human Lispro 0 units 11/04/19 02:32 11/04/19 03:19 Humalog SC 2 unit .BEDTIME SLIDING SC PRN Administration Bedtime Correctional Scale Levothyroxine Sodium 50 mcg 10/25/19 09:00 11/05/19 10:16 Synthroid PER TUBE 50 mcg DAILY HERIBERTO Administration Loratadine 5 mg 11/04/19 12:00 11/04/19 12:04 Claritin Oral Solution PER TUBE Not Given 1200 HERIBERTO Metoclopramide HCl 5 mg 11/02/19 09:00 11/05/19 10:14 Reglan PER TUBE 5 mg TID HERIBERTO Administration Metoprolol Tartrate 50 mg 10/28/19 15:00 11/05/19 10:16 Lopressor PER TUBE 50 mg TID HERIBERTO Administration Prednisone 10 mg 11/02/19 09:00 11/05/19 10:15 Prednisone PER TUBE 11/06/19 09:01 10 mg DAILY HERIBERTO Administration Scopolamine 1.5 mg 10/25/19 09:00 11/03/19 10:01 Transderm Scop TOP 1.5 mg Q3D HERIBERTO Administration Sodium Chloride 10 ml 10/25/19 09:00 11/05/19 10:17 Flush - Normal Saline IVF 10 ml Q12HR HERIBERTO Administration Sterile Water 1 ml 10/25/19 09:13 10/29/19 21:10 Bacteriostatic Water FS 1 ml PRN PRN Administration RECONSTITUTION Tamsulosin HCl 0.4 mg 10/25/19 09:00 11/05/19 10:16 Flomax PO 0.4 mg DAILY HERIBERTO Administration - Exam General Appearance: ill appearing Eye: PERRL, anicteric sclera ENT: no oropharyngeal lesions, dry oral mucosa Neck: supple, no JVD Heart: irregular, murmur present Respiratory: no wheezes, no rales, rhonchi Gastrointestinal: soft, non-tender, non-distended, normal bowel sounds Gastrointestinal - other findings: peg+ Extremities: 1+ LE edema Neurological - other findings: b/l contractures of limbs, functional quadriplegia Hosp A/P (1) RORO (acute kidney injury) Code(s): N17.9 - ACUTE KIDNEY FAILURE, UNSPECIFIED Status: Acute (2) Aspiration pneumonia Code(s): J69.0 - PNEUMONITIS DUE TO INHALATION OF FOOD AND VOMIT Status: Acute Qualifiers: Aspiration pneumonia type: due to regurgitated food Laterality: bilateral (3) Dysphagia Code(s): R13.10 - DYSPHAGIA, UNSPECIFIED Status: Chronic Qualifiers: Dysphagia type: unspecified Qualified Code(s): R13.10 - Dysphagia, unspecified (4) HTN (hypertension) Code(s): I10 - ESSENTIAL (PRIMARY) HYPERTENSION Status: Chronic Qualifiers: Hypertension type: essential hypertension Qualified Code(s): I10 - Essential (primary) hypertension (5) Anemia, normocytic normochromic Code(s): D64.9 - ANEMIA, UNSPECIFIED Status: Chronic (6) CKD (chronic kidney disease) stage 3, GFR 30-59 ml/min Code(s): N18.3 - CHRONIC KIDNEY DISEASE, STAGE 3 (MODERATE) Status: Chronic (7) Dementia Code(s): F03.90 - UNSPECIFIED DEMENTIA WITHOUT BEHAVIORAL DISTURBANCE Status: Chronic Qualifiers: Dementia type: vascular dementia Dementia behavioral disturbance: without behavioral disturbance Qualified Code(s): F01.50 - Vascular dementia without behavioral disturbance (8) Hemiparesis and other late effects of cerebrovascular accident Code(s): I69.359 - HEMIPLGA FOLLOWING CEREBRAL INFARCTION AFFECTING UNSP SIDE; I69.398 - OTHER SEQUELAE OF CEREBRAL INFARCTION Status: Chronic (9) Hypothyroidism Code(s): E03.9 - HYPOTHYROIDISM, UNSPECIFIED Status: Chronic Qualifiers: Hypothyroidism type: unspecified Qualified Code(s): E03.9 - Hypothyroidism , unspecified (10) PAF (paroxysmal atrial fibrillation) Code(s): I48.0 - PAROXYSMAL ATRIAL FIBRILLATION Status: Chronic (11) Physical deconditioning Code(s): R53.81 - OTHER MALAISE Status: Chronic (12) Protein-calorie malnutrition, severe Code(s): E43 - UNSPECIFIED SEVERE PROTEIN-CALORIE MALNUTRITION Status: Chronic (13) FTT (failure to thrive) in adult Status: Chronic (14) Functional quadriplegia Code(s): R53.2 - FUNCTIONAL QUADRIPLEGIA Status: Chronic - Plan has multiple medical issues with very poor prognosis will give a dose of lasix due to edema has contractures of extremities is on amiodarone 200mg daily, lopressor 50mg tid, norvasc 10mg daily, aspirin, prednisone till am, nebs, flomax, lantus, reglan will f/u
[2019-11-05] MEDS ORDERED: Furosemide 40 MG/4 ML VIAL SLOW IVP SCH (11:45)
[2019-11-05] MEDS: Loratadine 5 MG/5 ML UDCUP PER TUBE SCH (13:16)
[2019-11-05] MEDS: Insulin Glargine 10 UNITS in Pre-Filled Syringe 1 EACH SC SCH (21:56)
[2019-11-06] MEDS: Diabetic Tussin 200 MG/10 ML UDCUP PER TUBE SCH ×5 (00:07→23:02)
[2019-11-06] MEDS: Bisacodyl 10 MG SUPP PR SCH ×3 (04:50→17:12)
[2019-11-06 05:16] LABS: Anion Gap 13 mmol/L (10-20); Calc. Creatinine Clearance 32 mL/min (70-130); Calcium 7.8 mg/dL (7.8-10.44); Carbon Dioxide 27 mmol/L (23-31); Chloride 111 mmol/L (98-107); Estimated GFR-MDRD 27; Glucose 204 mg/dL (83-110); Magnesium 2.7 mg/dL (1.6-2.6); Potassium 4.7 mmol/L (3.5-5.1); Sodium 146 mmol/L (136-145)
[2019-11-06 05:27] LABS: BUN (Urea Nitrogen) 115 mg/dL (8.4-25.7)
[2019-11-06] MEDS: HumaLOG 300 UNITS/3 ML VIAL SC PRN ×3 (06:05→18:17)
[2019-11-06] MEDS: Floranex Packet PER TUBE SCH (09:43)
[2019-11-06] MEDS: Scopolamine 1.5 mg/72 hour Patch TOP SCH (09:44)
[2019-11-06] MEDS: Aspirin 81 mg Enteric Coated Tablet PER TUBE SCH (09:47)
[2019-11-06] MEDS: Amiodarone 200 MG TAB PER TUBE SCH (09:47)
[2019-11-06] MEDS: Heparin 5,000 UNITS/ML VIAL SC SCH ×2 (09:47→21:41)
[2019-11-06] MEDS: Metoclopramide HCl 10 MG TAB PER TUBE SCH ×3 (09:47→21:41)
[2019-11-06] MEDS: Tamsulosin HCl 0.4 MG CAP PO SCH (09:47)
[2019-11-06] MEDS: Levothyroxine Sodium 50 MCG TAB PER TUBE SCH (09:47)
[2019-11-06] MEDS: predniSONE 20 MG TAB PER TUBE SCH (09:48)
[2019-11-06] MEDS: Metoprolol Tartrate 50 MG TAB PER TUBE SCH ×3 (09:49→21:42)
[2019-11-06] MEDS ORDERED: Albumin 25% 25 GM/100 ML BOT IVPB SCH (10:22)
[2019-11-06] MEDS: Amlodipine 10 MG TAB PER TUBE SCH (10:39)
--- NOTE | 2019-11-06 11:25 | PDOC.HOSPP ---
- Subjective Encounter Date: 11/06/19 Encounter Time: 10:30 Subjective: awakens easily, follows me with his eyes, doesn't talk not in distress - Objective Vital Signs & Weight: Vital Signs (12 hours) Temp Pulse Resp BP Pulse Ox 11/06/19 09:23 97.6 F 120 H 24 H 104/58 L 97 11/06/19 08:30 119 H 28 H 11/06/19 03:18 97.6 F 130 H 22 H 104/69 98 11/06/19 02:41 24 H 11/05/19 23:33 94 99/57 L Weight Admit Weight 185 lb 14.4 oz Weight 200 lb 12.8 oz Most Recent Monitor Data Heart Rate from ECG 106 NIBP 126/97 NIBP BP-Mean 106 Respiration from ECG 20 SpO2 91 I&O: 11/05/19 11/06/19 11/07/19 06:59 06:59 06:59 Intake Total 3030 3750 Output Total 650 1790 Balance 2380 1960 Result Diagrams: 11/03/19 04:13 11/06/19 04:20 Additional Labs: Accuchecks 11/06/19 11/06/19 11/05/19 05:30 00:31 17:56 POC Glucose 224 H 189 H 253 H 11/05/19 12:29 POC Glucose 215 H Hospitalist ROS - Medication Medications: Active Medications Generic Name Dose Route Start Last Admin Trade Name Freq PRN Reason Stop Dose Admin Acetaminophen 650 mg 10/24/19 22:36 11/02/19 08:30 Tylenol [place] 650 mg Q6H PRN Administration Fever > 101 or Mild Pain Acidophilus 1 gm 10/25/19 09:00 11/06/19 09:43 Floranex PER TUBE 1 gm DAILY HERIBERTO Administration Albumin Human 25 gm 11/06/19 10:22 11/06/19 10:54 Albumin 25% IVPB 11/07/19 10:23 25 gm NOW HERIBERTO Administration Albuterol/Ipratropium 3 ml 10/25/19 10:30 11/06/19 08:30 Duoneb NEB 3 ml [id number] HERIBERTO Administration Amiodarone HCl 200 mg 10/31/19 09:00 11/06/19 09:47 Cordarone PER TUBE 200 mg DAILY HERIBERTO Administration Aspirin 81 mg 10/25/19 09:00 11/06/19 09:47 Ecotrin PER TUBE 81 mg DAILY HERIBERTO Administration Bisacodyl 10 mg 11/03/19 09:00 11/06/19 09:48 Dulcolax MO Not Given Q8H [facility] Guaifenesin 200 mg 11/03/19 18:00 11/06/19 06:05 Robitussin Sf PER TUBE 200 mg Q6HR HERIBERTO Administration Heparin Sodium (Porcine) 5,000 units 10/25/19 21:00 11/06/19 09:47 Heparin SC 5,000 units BID HERIBERTO Administration Insulin Glargine 10 units/ 0.1 mls @ 0 mls/hr 11/04/19 21:00 11/05/19 21:56 Miscellaneous Medication SC 0.1 mls HS HERIBERTO Administration Insulin Human Lispro 0 units 10/29/19 15:30 11/06/19 06:05 Humalog SC 3 unit .MILD SLIDING SCALE PRN Administration Mild Correctional Scale Insulin Human Lispro 0 units 11/04/19 02:32 11/05/19 21:55 Humalog SC 3 unit .BEDTIME SLIDING SC PRN Administration Bedtime Correctional Scale Levothyroxine Sodium 50 mcg 10/25/19 09:00 11/06/19 09:47 Synthroid PER TUBE 50 mcg DAILY HERIBERTO Administration Loratadine 5 mg 11/04/19 12:00 11/05/19 13:16 Claritin Oral Solution PER TUBE Not Given 1200 [facility] Metoclopramide HCl 5 mg 11/02/19 09:00 11/06/19 09:47 Reglan PER TUBE 5 mg TID HERIBERTO Administration Metoprolol Tartrate 50 mg 10/28/19 15:00 11/06/19 09:49 Lopressor PER TUBE 50 mg TID HERIBERTO Administration Scopolamine 1.5 mg 10/25/19 09:00 11/06/19 09:44 Transderm Scop TOP 1.5 mg Q3D HERIBERTO Administration Sodium Chloride 10 ml 10/25/19 09:00 11/06/19 09:49 Flush - Normal Saline IVF 10 ml Q12HR HERIBERTO Administration Sterile Water 1 ml 10/25/19 09:13 10/29/19 21:10 Bacteriostatic Water FS 1 ml PRN PRN Administration RECONSTITUTION Tamsulosin HCl 0.4 mg 10/25/19 09:00 11/06/19 09:47 Flomax PO 0.4 mg DAILY HERIBERTO Administration - Exam General Appearance: awake alert, ill appearing Eye: anicteric sclera ENT: no oropharyngeal lesions, dry oral mucosa Neck: supple, no JVD Heart: no murmur, irregular Respiratory: no wheezes, no rales, rhonchi Gastrointestinal: soft, non-tender, non-distended, normal bowel sounds Gastrointestinal - other findings: peg+ Extremities: no clubbing, 1+ LE edema Hosp A/P (1) RORO (acute kidney injury) Code(s): N17.9 - ACUTE KIDNEY FAILURE, UNSPECIFIED Status: Acute (2) Aspiration pneumonia Code(s): J69.0 - PNEUMONITIS DUE TO INHALATION OF FOOD AND VOMIT Status: Acute Qualifiers: Aspiration pneumonia type: due to regurgitated food Laterality: bilateral (3) Dysphagia Code(s): R13.10 - DYSPHAGIA, UNSPECIFIED Status: Chronic Qualifiers: Dysphagia type: unspecified Qualified Code(s): R13.10 - Dysphagia, unspecified (4) HTN (hypertension) Code(s): I10 - ESSENTIAL (PRIMARY) HYPERTENSION Status: Chronic Qualifiers: Hypertension type: essential hypertension Qualified Code(s): I10 - Essential (primary) hypertension (5) Anemia, normocytic normochromic Code(s): D64.9 - ANEMIA, UNSPECIFIED Status: Chronic (6) CKD (chronic kidney disease) stage 3, GFR 30-59 ml/min Code(s): N18.3 - CHRONIC KIDNEY DISEASE, STAGE 3 (MODERATE) Status: Chronic (7) Dementia Code(s): F03.90 - UNSPECIFIED DEMENTIA WITHOUT BEHAVIORAL DISTURBANCE Status: Chronic Qualifiers: Dementia type: vascular dementia Dementia behavioral disturbance: without behavioral disturbance Qualified Code(s): F01.50 - Vascular dementia without behavioral disturbance (8) Hemiparesis and other late effects of cerebrovascular accident Code(s): I69.359 - HEMIPLGA FOLLOWING CEREBRAL INFARCTION AFFECTING UNSP SIDE; I69.398 - OTHER SEQUELAE OF CEREBRAL INFARCTION Status: Chronic (9) Hypothyroidism Code(s): E03.9 - HYPOTHYROIDISM, UNSPECIFIED Status: Chronic Qualifiers: Hypothyroidism type: unspecified Qualified Code(s): E03.9 - Hypothyroidism , unspecified (10) PAF (paroxysmal atrial fibrillation) Code(s): I48.0 - PAROXYSMAL ATRIAL FIBRILLATION Status: Chronic (11) Physical deconditioning Code(s): R53.81 - OTHER MALAISE Status: Chronic (12) Protein-calorie malnutrition, severe Code(s): E43 - UNSPECIFIED SEVERE PROTEIN-CALORIE MALNUTRITION Status: Chronic (13) FTT (failure to thrive) in adult Status: Chronic (14) Functional quadriplegia Code(s): R53.2 - FUNCTIONAL QUADRIPLEGIA Status: Chronic - Plan has multiple medical issues with very poor prognosis renal function is getting worse with nearly 20lb weight gain this admission I have all these with , she just wants to him to alive even if it means to go on HD, I have explained to her he wont do well if he has to go on HD and he is not there yet. has contractures of extremities, bed bound, peg feeds, likely multiple cva and deconditioning with now functional quadriplegia. is on amiodarone 200mg daily, lopressor 50mg tid, cardizem 30mg tid, aspirin, prednisone till am, nebs, flomax, lantus, reglan his heart rate is around 120's despite above meds, cardiology will f/u Not sure if Palliative have had a good discussion about hospice/palliative care , code status etc, seems to be very resistant to the very idea of comfort issues given his current condition. is to him from 35yrs, they have no children per . They moved to this area around a year and half back
[2019-11-06] MEDS: Loratadine 5 MG/5 ML UDCUP PER TUBE SCH (12:51)
[2019-11-06] MEDS: Acetaminophen 650 MG/20.3 ML UDCUP PER TUBE PRN (15:08)
[2019-11-06] MEDS ORDERED: Artificial Tear Sol 15 ML BOT EA EYE PRN (16:31)
[2019-11-06 17:14] LABS: Bacteria/HPF None Seen HPF (None Seen); Bilirubin Negative (Negative); Blood, Urine 2+ (Negative); Calcium Oxalate Crystals Rare HPF (None Seen); Clarity Turbid (Clear); Glucose, Urine (Dipstick) Normal (Negative); Ketone, Urine Negative (Negative); Leukocyte 500 Leu/uL (Negative); Nitrite Negative (Negative); Protein, Urine (Dipstick) 30 mg/dL (Neg-Trace); RBC/HPF 21-50 HPF (0-3); Specific Gravity, Urine 1.016 (1.002-1.036); Squamous Epithelial 0-3 HPF (0-3); Urobilinogen Normal mg/dL (Less than 2); WBC/HPF Greater than 50 HPF (0-3); Yeast-Budding 3+ HPF (None Seen); Yeast-Hyphae 2+ HPF (None Seen)
[2019-11-06] MEDS: Albumin 25% 25 GM/100 ML BOT IVPB SCH ×2 (17:14→23:02)
--- NOTE | 2019-11-06 19:17 | CON ---
DATE OF CONSULTATION: HISTORY OF PRESENT ILLNESS: Mr. Garcia is an 79-year-old fpc patient who was initially admitted for shortness of breath. He was found in to be acute respiratory failure and subsequently was intubated and placed on ventilator support. Over time, he was extubated. However, renal function has noted to have worsened in the last few days, hence the Renal consultation. REVIEW OF SYSTEMS: The patient is aphasic. No nausea. No vomiting. Currently, on PEG tube feeding. No fever or chills. No diarrhea. No dysuria. No abdominal pain. No headache. No syncopal episode. Denies any fever or chills. MEDICATIONS: The patient is currently on: 1. DuoNeb q.4 hours scheduled. 2. Amiodarone 200 mg daily. 3. Lipase/protease one tablet daily. 4. Ecotrin 81 mg once a day. 5. Diltiazem 30 mg p.o. t.i.d. 6. Heparin 5000 units subcu b.i.d. 7. Humalog sliding scale. 8. Synthroid 50 mcg tablet daily. 9. Reglan 5 mg t.i.d. 10. Metoprolol tartrate 50 mg t.i.d. 11. Status post furosemide. PAST MEDICAL HISTORY: Includes the following status post CVA with aphasia, hypothyroidism, chronic AFib, dementia, chronic kidney disease, hyperlipidemia, hypertension, BPH. PAST SURGICAL HISTORY: Status post PEG tube placement, status post colonoscopy, status post right hand surgery for Dupuytren's contracture. SOCIAL HISTORY: The patient is . No children. Lives in a fpc. Smoked for 40 years, one pack a day. 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 He is a [place] vet. No alcohol. Originally from [place], [place] but currently was living in [place] prior to the fpc placement. FAMILY HISTORY: No family history of ESRD. ALLERGIES: NONE. TRAUMA: None. IMMUNIZATION: Up-to-date. HOSPITALIZATIONS: Please see past medical history. PHYSICAL EXAMINATION: VITAL SIGNS: Blood pressure 97/59, heart rate 105, respiratory rate 24, temperature 97.5, O2 saturation 95%. GENERAL: The patient is awake, nonverbal, ? Following commands. SKIN: Adequate turgor. HEENT: He has pinkish conjunctivae. Anicteric sclerae. No neck mass. No carotid bruits. No JVD. CHEST: No deformities. LUNGS: Decreased breath sounds. HEART: Regular. No murmur, no gallops or rubs. ABDOMEN: Globular, soft, nontender. No masses. Positive for PEG tube. EXTREMITIES: No edema. NEUROLOGICAL: The patient is aphasic, has multiple contractures. No tremors. LABORATORY DATA: November 06, 2019; sodium 146, potassium 4.7, chloride 111, carbon dioxide 27, BUN 15, creatinine 2.31, glucose 204, magnesium 2.7, calcium is 7.8. Further review of his creatinine shows the following: November 04, 2019, 1.97; November 03, 2019, creatinine 1.33; November 02, 2019, creatinine 1.1. October 24, 2019, urinalysis, specific gravity 1.015, protein 100, rbc greater than 50, wbc greater than 50. No pigmented granular cast. October 24, 2019, COVID was negative. November 04, 2019, chest x-ray showed bilateral pleural effusions - right is large, left is moderate. ASSESSMENT AND PLAN: 1. Acute kidney injury, consider hemodynamically-mediated dysfunction. Blood pressure is on the low side. We will start salt-poor albumin 25 g IV q.6 as needed. I have not excluded in starting him back on half-normal saline should the renal function remain unimproved and hypernatremia worsen over the next 24 hours. There is no indication for any dialytic intervention. I feel strongly that this patient is not a dialysis candidate even though the is considering this if needed. 2. I will be rechecking urinalysis with this patient. 3. We will hold off any renal ultrasound for the moment. 4. Overall prognosis remains guarded with this patient. Job ID: [id number]
[2019-11-06] MEDS: Insulin Glargine 10 UNITS in Pre-Filled Syringe 1 EACH SC SCH (21:42)
[2019-11-07] MEDS: Bisacodyl 10 MG SUPP PR SCH ×3 (01:43→18:18)
[2019-11-07] MEDS: Albumin 25% 25 GM/100 ML BOT IVPB SCH (04:57)
[2019-11-07] MEDS: Diabetic Tussin 200 MG/10 ML UDCUP PER TUBE SCH ×4 (05:10→23:11)
[2019-11-07 08:48] LABS: Anion Gap 14 mmol/L (10-20); BUN (Urea Nitrogen) 110 mg/dL (8.4-25.7); Calc. Creatinine Clearance 41 mL/min (70-130); Calcium 8.6 mg/dL (7.8-10.44); Carbon Dioxide 29 mmol/L (23-31); Chloride 111 mmol/L (98-107); Estimated GFR-MDRD 36; Glucose 196 mg/dL (83-110); Potassium 4.3 mmol/L (3.5-5.1); Sodium 150 mmol/L (136-145)
--- NOTE | 2019-11-07 09:06 | PRG ---
DATE OF SERVICE: 11/07/2019 SUBJECTIVE: Mr. Garcia is an 79-year-old white male, who was seen for his acute kidney injury and mild hypernatremia. He is most likely has some degree of volume depletion. He has had fluctuating creatinine in the past. He has seen Dr. Beckman last month. No acute events noted last night. OBJECTIVE: VITAL SIGNS: Blood pressure is 105/62, heart rate is 107, respiratory rate 18, O2 saturation 93%. GENERAL: The patient is arousable, but not following commands. SKIN: Adequate turgor. HEENT: Pinkish conjunctivae. Anicteric sclerae. No neck mass. No carotid bruits. No JVD. CHEST: No deformities. LUNGS: Harsh breath sounds. HEART: Normal sinus rhythm. No murmur. No gallops. No rubs. ABDOMEN: Globular, soft, nontender. No masses. EXTREMITIES: No edema. No deformities. MEDICATIONS: Medications of November 07, 2019, reviewed. LABORATORY DATA: Laboratories of November 07, 2019, currently pending. October; sodium 146, BUN 115, creatinine 2.31. ASSESSMENT AND PLAN: 1. Acute kidney injury - superimposed hemodynamically-mediated renal dysfunction. We will await for the repeat BMP. If needed, we can extend albumin infusion by another day - albumin IV q.6. 2. Mild hypernatremia, currently on water flushes at 250 mL q.4 hours. We can increase this as needed depending on his serum sodium or start on 1/2 NS. 3. Overall prognosis remains guarded. Job ID: [id number] [facility]
[2019-11-07] MEDS: Acetaminophen 650 MG/20.3 ML UDCUP PER TUBE PRN ×2 (09:45→18:18)
[2019-11-07] MEDS: Amiodarone 200 MG TAB PER TUBE SCH (09:46)
[2019-11-07] MEDS: Heparin 5,000 UNITS/ML VIAL SC SCH ×2 (09:46→22:14)
[2019-11-07] MEDS: Metoclopramide HCl 10 MG TAB PER TUBE SCH ×4 (09:46→23:14)
[2019-11-07] MEDS: Levothyroxine Sodium 50 MCG TAB PER TUBE SCH (09:46)
[2019-11-07] MEDS: Aspirin 81 mg Enteric Coated Tablet PER TUBE SCH (09:46)
[2019-11-07] MEDS: Floranex Packet PER TUBE SCH (09:46)
[2019-11-07] MEDS: Tamsulosin HCl 0.4 MG CAP PO SCH (09:46)
[2019-11-07] MEDS: Metoprolol Tartrate 50 MG TAB PER TUBE SCH ×4 (09:46→23:14)
[2019-11-07] MEDS: Sodium Chloride 0.45% 1,000 ML IV SCH ×2 (09:47→18:20)
[2019-11-07] MEDS: Loratadine 5 MG/5 ML UDCUP PER TUBE SCH (12:06)
[2019-11-07] MEDS: HumaLOG 300 UNITS/3 ML VIAL SC PRN (12:06)
--- NOTE | 2019-11-07 12:42 | PDOC.HOSPP ---
- Subjective Encounter Date: 11/07/19 Encounter Time: 09:45 Subjective: awake, not in distress at bedside - Objective Vital Signs & Weight: Vital Signs (12 hours) Temp Pulse Resp BP Pulse Ox 11/07/19 11:48 97.7 F 100 22 H 98/54 L 96 11/07/19 09:17 99.5 F 115 H 20 119/55 L 96 11/07/19 07:41 107 H 18 11/07/19 03:53 98 20 105/62 93 L 11/07/19 02:27 103/59 L 11/07/19 02:24 97 20 97 11/07/19 00:48 97.8 F 91 22 H 84/51 L 98 Weight Admit Weight 185 lb 14.4 oz Weight 199 lb 6.4 oz Most Recent Monitor Data Heart Rate from ECG 106 NIBP 126/97 NIBP BP-Mean 106 Respiration from ECG 20 SpO2 91 I&O: 11/06/19 11/07/19 11/08/19 06:59 06:59 06:59 Intake Total 3750 2550 Output Total 1790 2100 Balance 1960 450 Result Diagrams: 11/03/19 04:13 11/07/19 07:38 Additional Labs: Accuchecks 11/07/19 11/07/19 11/07/19 11:43 05:01 01:05 POC Glucose 203 H 192 H 192 H 11/06/19 17:35 POC Glucose 247 H Hospitalist ROS - Medication Medications: Active Medications Generic Name Dose Route Start Last Admin Trade Name Freq PRN Reason Stop Dose Admin Acetaminophen 650 mg 10/24/19 22:36 11/02/19 08:30 Tylenol [place] 650 mg Q6H PRN Administration Fever > 101 or Mild Pain Acetaminophen 650 mg 11/06/19 14:53 11/07/19 09:45 Tylenol Elixir PER TUBE 650 mg Q6H PRN Administration Headache/Fever or Pain Acidophilus 1 gm 10/25/19 09:00 11/07/19 09:46 Floranex PER TUBE 1 gm DAILY HERIBERTO Administration Albuterol/Ipratropium 3 ml 10/25/19 10:30 11/07/19 11:00 Duoneb NEB 3 ml [id number] HERIBERTO Administration Amiodarone HCl 200 mg 10/31/19 09:00 11/07/19 09:46 Cordarone PER TUBE 200 mg DAILY HERIBERTO Administration Artificial Tears 0 drop 11/06/19 16:31 11/07/19 09:44 Liquitears 15ml Bottle EA EYE 2 drop PRN PRN Administration Dry Eyes Aspirin 81 mg 10/25/19 09:00 11/07/19 09:46 Ecotrin PER TUBE 81 mg DAILY HERIBERTO Administration Bisacodyl 10 mg 11/03/19 09:00 11/07/19 09:47 Dulcolax IL Not Given Q8H HERIBERTO Diltiazem HCl 30 mg 11/06/19 15:00 11/07/19 09:46 Cardizem PO 30 mg TID HERIBERTO Administration Guaifenesin 200 mg 11/03/19 18:00 11/07/19 12:06 Robitussin Sf PER TUBE 200 mg Q6HR HERIBERTO Administration Heparin Sodium (Porcine) 5,000 units 10/25/19 21:00 11/07/19 09:46 Heparin SC 5,000 units BID HERIBERTO Administration Insulin Glargine 10 units/ 0.1 mls @ 0 mls/hr 11/04/19 21:00 11/06/19 21:42 Miscellaneous Medication SC 0.1 mls HS HERIBERTO Administration Sodium Chloride 1,000 mls @ 100 mls/hr 11/07/19 09:15 11/07/19 09:47 1/2 Normal Saline IV 1,000 mls .Q10H HERIBERTO Administration Insulin Human Lispro 0 units 10/29/19 15:30 11/07/19 12:06 Humalog SC 3 unit .MILD SLIDING SCALE PRN Administration Mild Correctional Scale Insulin Human Lispro 0 units 11/04/19 02:32 11/05/19 21:55 Humalog SC 3 unit .BEDTIME SLIDING SC PRN Administration Bedtime Correctional Scale Levothyroxine Sodium 50 mcg 10/25/19 09:00 11/07/19 09:46 Synthroid PER TUBE 50 mcg DAILY HERIBERTO Administration Loratadine 5 mg 11/04/19 12:00 11/07/19 12:06 Claritin Oral Solution PER TUBE 5 mg 1200 HERIBERTO Administration Metoclopramide HCl 5 mg 11/02/19 09:00 11/07/19 09:46 Reglan PER TUBE 5 mg TID HERIBERTO Administration Metoprolol Tartrate 50 mg 10/28/19 15:00 11/07/19 09:46 Lopressor PER TUBE 50 mg TID HERIBERTO Administration Scopolamine 1.5 mg 10/25/19 09:00 11/06/19 09:44 Transderm Scop TOP 1.5 mg Q3D HERIBERTO Administration Sodium Chloride 10 ml 10/25/19 09:00 11/07/19 09:47 Flush - Normal Saline IVF 10 ml Q12HR HERIBERTO Administration Sterile Water 1 ml 10/25/19 09:13 10/29/19 21:10 Bacteriostatic Water FS 1 ml PRN PRN Administration RECONSTITUTION Tamsulosin HCl 0.4 mg 10/25/19 09:00 11/07/19 09:46 Flomax PO 0.4 mg DAILY HERIBERTO Administration - Exam General Appearance: ill appearing Eye: PERRL, anicteric sclera ENT: no oropharyngeal lesions, dry oral mucosa Neck: supple, no JVD Heart: no murmur, irregular Respiratory: no wheezes, no rales, rhonchi Gastrointestinal: soft, non-tender, non-distended, normal bowel sounds Gastrointestinal - other findings: peg+, scrotal edema with echymosis Extremities: no clubbing, 1+ LE edema Neurological - other findings: functional quadriplegia Hosp A/P (1) RORO (acute kidney injury) Code(s): N17.9 - ACUTE KIDNEY FAILURE, UNSPECIFIED Status: Acute (2) Aspiration pneumonia Code(s): J69.0 - PNEUMONITIS DUE TO INHALATION OF FOOD AND VOMIT Status: Acute Qualifiers: Aspiration pneumonia type: due to regurgitated food Laterality: bilateral (3) Dysphagia Code(s): R13.10 - DYSPHAGIA, UNSPECIFIED Status: Chronic Qualifiers: Dysphagia type: unspecified Qualified Code(s): R13.10 - Dysphagia, unspecified (4) HTN (hypertension) Code(s): I10 - ESSENTIAL (PRIMARY) HYPERTENSION Status: Chronic Qualifiers: Hypertension type: essential hypertension Qualified Code(s): I10 - Essential (primary) hypertension (5) Anemia, normocytic normochromic Code(s): D64.9 - ANEMIA, UNSPECIFIED Status: Chronic (6) CKD (chronic kidney disease) stage 3, GFR 30-59 ml/min Code(s): N18.3 - CHRONIC KIDNEY DISEASE, STAGE 3 (MODERATE) Status: Chronic (7) Dementia Code(s): F03.90 - UNSPECIFIED DEMENTIA WITHOUT BEHAVIORAL DISTURBANCE Status: Chronic Qualifiers: Dementia type: vascular dementia Dementia behavioral disturbance: without behavioral disturbance Qualified Code(s): F01.50 - Vascular dementia without behavioral disturbance (8) Hemiparesis and other late effects of cerebrovascular accident Code(s): I69.359 - HEMIPLGA FOLLOWING CEREBRAL INFARCTION AFFECTING UNSP SIDE; I69.398 - OTHER SEQUELAE OF CEREBRAL INFARCTION Status: Chronic (9) Hypothyroidism Code(s): E03.9 - HYPOTHYROIDISM, UNSPECIFIED Status: Chronic Qualifiers: Hypothyroidism type: unspecified Qualified Code(s): E03.9 - Hypothyroidism , unspecified (10) PAF (paroxysmal atrial fibrillation) Code(s): I48.0 - PAROXYSMAL ATRIAL FIBRILLATION Status: Chronic (11) Physical deconditioning Code(s): R53.81 - OTHER MALAISE Status: Chronic (12) Protein-calorie malnutrition, severe Code(s): E43 - UNSPECIFIED SEVERE PROTEIN-CALORIE MALNUTRITION Status: Chronic (13) FTT (failure to thrive) in adult Status: Chronic (14) Functional quadriplegia Code(s): R53.2 - FUNCTIONAL QUADRIPLEGIA Status: Chronic - Plan has multiple medical issues with very poor prognosis renal function is getting worse with nearly 20lb weight gain this admission, got alb infusions 11/05, now on iv fluids due to hypernatremia and roro D/w with extensively 11/05, 11/06, she just wants to him to be alive whatever it takes. She is aware of current issues and poor prognosis. is hopeful he will recover, he was apparently talking and was mobilizing a bit in May of this year. has contractures of extremities in addition to dupyuntren's, bed bound, peg feeds, likely multiple cva and deconditioning with now functional quadriplegia. is on amiodarone 200mg daily, lopressor 50mg tid, cardizem 30mg tid, aspirin, nebs, flomax, lantus, reglan. Off prednisone from 11/05. his heart rate is around 110's despite above meds, cardiology will f/u Not sure if Palliative have had a good discussion about hospice/palliative care , code status etc, seems to be very resistant to the very idea of comfort issues given his current condition. is to him for 35yrs, they have no children per . They moved to this area around a year and half back. 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 PT to work on him on bed to prevent further contractures, initiate decubitus prevention protocols.
--- NOTE | 2019-11-07 14:11 | PDOC.PALPN ---
Palliative Progress Note - Subjective Awakens, continues to be aphagic but makes eye contact. No purposeful movement rt quadriplegic. to bedside - Objective Vital Signs: Vital Signs - Most Recent Temp Pulse Resp BP Pulse Ox 97.7 F 100 22 H 98/54 L 96 11/07/19 11:48 11/07/19 11:48 11/07/19 11:48 11/07/19 11:48 11/07/19 11:48 - Physical Exam Constitutional: ill appearing HEENT: moist MMs Respiratory: no wheezing, diminished lung sound Cardiovascular: irregular Gastrointestinal: soft, non-tender Deviation from normal: PEG Genitourinary: horan catheter Musculoskeletal: edema present, diffuse muscle atrophy Deviation from normal: functional quadriplegia, dysphagia, aphagic Skin: bruising, fragile, friable Deviation from normal: Unable to determine orientation beyond self and awareness of - Assessment (1) Acute ischemic cerebrovascular accident (CVA) involving left middle cerebral artery territory Code(s): I63.512 - CEREB INFRC D/T UNSP OCCLS OR STENOS OF LEFT MID CEREB ART Current Visit: No Status: Acute (2) Aspiration pneumonia Code(s): J69.0 - PNEUMONITIS DUE TO INHALATION OF FOOD AND VOMIT Current Visit : No Status: Acute Qualifiers: Aspiration pneumonia type: due to regurgitated food Laterality: bilateral (3) Palliative care encounter Code(s): Z51.5 - ENCOUNTER FOR PALLIATIVE CARE Current Visit: No Status: Acute (4) CKD (chronic kidney disease) stage 3, GFR 30-59 ml/min Code(s): N18.3 - CHRONIC KIDNEY DISEASE, STAGE 3 (MODERATE) Current Visit: No Status: Chronic - Plan Plan: Life review with patient of how they met and her favorite memories. She relayed that it is important to "stay positive and hopeful". Revisited recurrent hospital admissions related to continued decline, aspiration risk and declining health status. Totally dependent for all ADL. Bedbound, nutritional support via PEG, incontinent, aphagic, dysphagia. She is not interested in discussing or transition to [facility]. Appears to lack willingness to accept continued decline. Hopeful for transition to [facility], but does not like the care at the facility. She relayed she believes he made some progress at the [facility] by saying 1-2 words and trying to move his right upper arm. She believes that isolation related to Covid slowed and stopped any progress. Will continue to attempt to revisit Goal of Care [35] minutes spent on this encounter with >50% of the time in counseling and coordination of care. - ROS Non Response: due to mental status
[2019-11-07] MEDS: Insulin Glargine 10 UNITS in Pre-Filled Syringe 1 EACH SC SCH (22:16)
[2019-11-08] MEDS: Bisacodyl 10 MG SUPP PR SCH ×3 (02:49→16:35)
[2019-11-08] MEDS: Diabetic Tussin 200 MG/10 ML UDCUP PER TUBE SCH ×3 (04:12→17:41)
[2019-11-08 05:07] LABS: Anion Gap 12 mmol/L (10-20); BUN (Urea Nitrogen) 81 mg/dL (8.4-25.7); Calc. Creatinine Clearance 57 mL/min (70-130); Calcium 8.4 mg/dL (7.8-10.44); Carbon Dioxide 25 mmol/L (23-31); Chloride 115 mmol/L (98-107); Estimated GFR-MDRD 52; Glucose 113 mg/dL (83-110); Potassium 3.8 mmol/L (3.5-5.1); Sodium 148 mmol/L (136-145)
[2019-11-08] MEDS: Sodium Chloride 0.45% 1,000 ML IV SCH ×2 (06:07→16:21)
--- NOTE | 2019-11-08 08:06 | PRG ---
DATE OF SERVICE: 11/08/2019 SERVICE: Renal Medicine. SUBJECTIVE: Mr. Garcia is an 79-year-old white male, who was seen for an acute kidney injury as well as for his mild hypernatremia. I decided to start him on half-normal saline yesterday due to the unimproved hypernatremia. He is tolerating current IV fluid. No acute events noted last night. OBJECTIVE: VITAL SIGNS: Blood pressure is 114/68, heart rate 115, respiratory rate 20, temperature 98.1, and O2 saturation 100%. GENERAL: The patient is awake with spontaneous eye opening, not following commands. SKIN: Decreased turgor. HEENT: Pinkish conjunctivae. Anicteric sclerae. NECK: No neck mass. No carotid bruits. No JVD. CHEST: No deformities. LUNGS: Harsh breath sounds. HEART: Normal sinus rhythm. No murmurs. No gallops. No rubs. ABDOMEN: Globular, soft, and nontender. Positive for PEG tube. EXTREMITIES: No edema. MEDICATIONS: Of November 08, 2019, was reviewed. LABORATORY DATA: Laboratories of November 07; white count 16.7, hemoglobin 12.5. Sodium 148, potassium 3.8, chloride 115, carbon dioxide 25, BUN 81, creatinine 1.33, and calcium 8.4. ASSESSMENT AND PLAN: 1. Acute kidney injury - superimposed hemodynamically-mediated renal dysfunction , continuing IV fluid. 2. Hypernatremia, improving serum sodium and currently it is now 148. We will continue current IV fluids - currently on half-normal saline. Overall, prognosis remains guarded. There is no indication for any dialytic intervention. Job ID: [id number] [facility]
[2019-11-08] MEDS: Floranex Packet PER TUBE SCH (08:42)
[2019-11-08] MEDS: Metoclopramide HCl 10 MG TAB PER TUBE SCH ×3 (08:42→21:12)
[2019-11-08] MEDS: Tamsulosin HCl 0.4 MG CAP PO SCH (08:42)
[2019-11-08] MEDS: Metoprolol Tartrate 50 MG TAB PER TUBE SCH ×3 (08:42→21:13)
[2019-11-08] MEDS: Amiodarone 200 MG TAB PER TUBE SCH (08:42)
[2019-11-08] MEDS: Aspirin 81 mg Enteric Coated Tablet PER TUBE SCH (08:42)
[2019-11-08] MEDS: Levothyroxine Sodium 50 MCG TAB PER TUBE SCH (08:42)
[2019-11-08] MEDS: Heparin 5,000 UNITS/ML VIAL SC SCH ×2 (08:43→21:12)
--- NOTE | 2019-11-08 10:55 | PDOC.HOSPP ---
- Subjective Encounter Date: 11/08/19 Encounter Time: 10:15 Subjective: awake, non verbal not in distress - Objective Vital Signs & Weight: Vital Signs (12 hours) Temp Pulse Resp BP Pulse Ox 11/08/19 10:41 72 18 100 11/08/19 08:02 102 H 18 99 11/08/19 07:20 98.1 F 115 H 20 114/68 100 11/08/19 03:30 98.7 F 104 H 20 113/69 96 11/08/19 01:46 85 16 99 11/08/19 01:04 99 11/08/19 00:00 97.2 F L 102 H 18 133/76 95 Weight Admit Weight 185 lb 14.4 oz Weight 207 lb 7 oz Most Recent Monitor Data Heart Rate from ECG 106 NIBP 126/97 NIBP BP-Mean 106 Respiration from ECG 20 SpO2 91 I&O: 11/07/19 11/08/19 11/09/19 06:59 06:59 06:59 Intake Total 2550 3850 250 Output Total 2100 2200 Balance 450 1650 250 Result Diagrams: 11/03/19 04:13 11/08/19 04:10 Additional Labs: Accuchecks 11/07/19 11/07/19 17:30 11:43 POC Glucose 198 H 203 H Hospitalist ROS - Medication Medications: Active Medications Generic Name Dose Route Start Last Admin Trade Name Freq PRN Reason Stop Dose Admin Acetaminophen 650 mg 10/24/19 22:36 11/02/19 08:30 Tylenol [place] 650 mg Q6H PRN Administration Fever > 101 or Mild Pain Acetaminophen 650 mg 11/06/19 14:53 11/07/19 18:18 Tylenol Elixir PER TUBE 650 mg Q6H PRN Administration Headache/Fever or Pain Acidophilus 1 gm 10/25/19 09:00 11/08/19 08:42 Floranex PER TUBE 1 gm DAILY HERIBERTO Administration Albuterol/Ipratropium 3 ml 10/25/19 10:30 11/08/19 10:41 Duoneb NEB 3 ml [id number] HERIBERTO Administration Amiodarone HCl 200 mg 10/31/19 09:00 11/08/19 08:42 Cordarone PER TUBE 200 mg DAILY HERIBERTO Administration Artificial Tears 0 drop 11/06/19 16:31 11/07/19 09:44 Liquitears 15ml Bottle EA EYE 2 drop PRN PRN Administration Dry Eyes Aspirin 81 mg 10/25/19 09:00 11/08/19 08:42 Ecotrin PER TUBE 81 mg DAILY HERIBERTO Administration Bisacodyl 10 mg 11/03/19 09:00 11/08/19 08:43 Dulcolax VT Not Given Q8H HERIBERTO Diltiazem HCl 30 mg 11/06/19 15:00 11/08/19 08:42 Cardizem PO 30 mg TID HERIBERTO Administration Guaifenesin 200 mg 11/03/19 18:00 11/08/19 04:12 Robitussin Sf PER TUBE Not Given Q6HR HERIBERTO Heparin Sodium (Porcine) 5,000 units 10/25/19 21:00 11/08/19 08:43 Heparin SC 5,000 units BID HERIBERTO Administration Insulin Glargine 10 units/ 0.1 mls @ 0 mls/hr 11/04/19 21:00 11/07/19 22:16 Miscellaneous Medication SC 0.1 mls HS HERIBERTO Administration Sodium Chloride 1,000 mls @ 100 mls/hr 11/07/19 09:15 11/08/19 06:07 1/2 Normal Saline IV 1,000 mls .Q10H HERIBERTO Administration Levothyroxine Sodium 50 mcg 10/25/19 09:00 11/08/19 08:42 Synthroid PER TUBE 50 mcg DAILY HERIBERTO Administration Loratadine 5 mg 11/04/19 12:00 11/07/19 12:06 Claritin Oral Solution PER TUBE 5 mg 1200 HERIBERTO Administration Metoclopramide HCl 5 mg 11/02/19 09:00 11/08/19 08:42 Reglan PER TUBE 5 mg TID HERIBERTO Administration Metoprolol Tartrate 50 mg 10/28/19 15:00 11/08/19 08:42 Lopressor PER TUBE 50 mg TID HERIBERTO Administration Scopolamine 1.5 mg 10/25/19 09:00 11/06/19 09:44 Transderm Scop TOP 1.5 mg Q3D HERIBERTO Administration Sodium Chloride 10 ml 10/25/19 09:00 11/08/19 08:43 Flush - Normal Saline IVF Not Given Q12HR HERIBEROT Sterile Water 1 ml 10/25/19 09:13 10/29/19 21:10 Bacteriostatic Water FS 1 ml PRN PRN Administration RECONSTITUTION Tamsulosin HCl 0.4 mg 10/25/19 09:00 11/08/19 08:42 Flomax PO 0.4 mg DAILY HERIBERTO Administration - Exam General Appearance: awake alert, ill appearing Eye: PERRL, anicteric sclera ENT: no oropharyngeal lesions, dry oral mucosa Neck: supple, no JVD Heart: no murmur, irregular Respiratory: no wheezes, no rales, rhonchi Gastrointestinal: soft, non-tender, non-distended, normal bowel sounds Gastrointestinal - other findings: peg+ Extremities: no clubbing, 1+ LE edema Neurological - other findings: moves only the right upper extr a bit Hosp A/P (1) RORO (acute kidney injury) Code(s): N17.9 - ACUTE KIDNEY FAILURE, UNSPECIFIED Status: Acute (2) Aspiration pneumonia Code(s): J69.0 - PNEUMONITIS DUE TO INHALATION OF FOOD AND VOMIT Status: Acute Qualifiers: Aspiration pneumonia type: due to regurgitated food Laterality: bilateral (3) Dysphagia Code(s): R13.10 - DYSPHAGIA, UNSPECIFIED Status: Chronic Qualifiers: Dysphagia type: unspecified Qualified Code(s): R13.10 - Dysphagia, unspecified (4) HTN (hypertension) Code(s): I10 - ESSENTIAL (PRIMARY) HYPERTENSION Status: Chronic Qualifiers: Hypertension type: essential hypertension Qualified Code(s): I10 - Essential (primary) hypertension (5) Anemia, normocytic normochromic Code(s): D64.9 - ANEMIA, UNSPECIFIED Status: Chronic (6) CKD (chronic kidney disease) stage 3, GFR 30-59 ml/min Code(s): N18.3 - CHRONIC KIDNEY DISEASE, STAGE 3 (MODERATE) Status: Chronic (7) Dementia Code(s): F03.90 - UNSPECIFIED DEMENTIA WITHOUT BEHAVIORAL DISTURBANCE Status: Chronic Qualifiers: Dementia type: vascular dementia Dementia behavioral disturbance: without behavioral disturbance Qualified Code(s): F01.50 - Vascular dementia without behavioral disturbance (8) Hemiparesis and other late effects of cerebrovascular accident Code(s): I69.359 - HEMIPLGA FOLLOWING CEREBRAL INFARCTION AFFECTING UNSP SIDE; I69.398 - OTHER SEQUELAE OF CEREBRAL INFARCTION Status: Chronic (9) Hypothyroidism Code(s): E03.9 - HYPOTHYROIDISM, UNSPECIFIED Status: Chronic Qualifiers: Hypothyroidism type: unspecified Qualified Code(s): E03.9 - Hypothyroidism , unspecified (10) PAF (paroxysmal atrial fibrillation) Code(s): I48.0 - PAROXYSMAL ATRIAL FIBRILLATION Status: Chronic (11) Physical deconditioning Code(s): R53.81 - OTHER MALAISE Status: Chronic (12) Protein-calorie malnutrition, severe Code(s): E43 - UNSPECIFIED SEVERE PROTEIN-CALORIE MALNUTRITION Status: Chronic (13) FTT (failure to thrive) in adult Status: Chronic (14) Functional quadriplegia Code(s): R53.2 - FUNCTIONAL QUADRIPLEGIA Status: Chronic - Plan has multiple medical issues with very poor prognosis renal function is getting better, has 20lb weight gain this admission, got alb infusions 11/05, now on iv fluids due to hypernatremia and roro D/w with extensively 11/05, 11/06, she just wants to him to be alive whatever it takes. She is aware of current issues and poor prognosis. is hopeful he will recover, he was apparently talking and was mobilizing a bit in May of this year. has contractures of extremities in addition to dupyuntren's, bed bound, peg feeds, likely multiple cva and deconditioning with now functional quadriplegia. is on amiodarone 200mg daily, lopressor 50mg tid, cardizem 60mg tid, aspirin, nebs, flomax, lantus, reglan. Off prednisone from 11/05. his heart rate is around 110's despite above meds, cardiology will f/u does not entertain the very idea of comfort measures/code status given his current condition. is to him for 35yrs, they have no children per . They moved to this area around a year and half back. 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 I tried to call his sister Mrs.Sine Garcia (nurse) in [facility] [place] home [phone] , cell [phone], couldn't talk and I have not left any message. This was done at the request of who is also the POA PT to work on him on bed to prevent further contractures, decubitus prevention protocols. Has had decrease in edema in his Upper extremities including hands, still has scrotal edema with echymosis due to gen anasarca and low albumin.
[2019-11-08] MEDS: Acetaminophen 650 MG/20.3 ML UDCUP PER TUBE PRN (12:39)
[2019-11-08] MEDS: Loratadine 5 MG/5 ML UDCUP PER TUBE SCH (12:39)
--- NOTE | 2019-11-08 13:13 | PRG ---
DATE OF SERVICE: 11/08/2019 SUBJECTIVE: Mr. Garcia's PEG tube cap became loose feeds, but he was not fed last night and was requested by the primary service to replace this with replacement tube. I explained to the patient's and she agreed at the bedside. The previous PEG was removed by manual traction, had been previously placed by Ponsky pull technique. The replacement of 20-N[place] PEG tube was placed into the stomach. The balloon was inflated and was brought back against the abdominal wall and a bump was placed and secured in place with tape, so that the PEG tube could not move in and out through the bumper and was flushed and good position and is confirmed to be able to use. Job ID: [id number]
[2019-11-08] MEDS: Insulin Glargine 10 UNITS in Pre-Filled Syringe 1 EACH SC SCH (21:11)
[2019-11-09] MEDS: Diabetic Tussin 200 MG/10 ML UDCUP PER TUBE SCH ×4 (01:10→18:21)
[2019-11-09] MEDS: Bisacodyl 10 MG SUPP PR SCH ×3 (01:10→17:14)
[2019-11-09] MEDS: Sodium Chloride 0.45% 1,000 ML IV SCH (01:29)
[2019-11-09 04:32] LABS: #Eosinphils 0.2 thou/uL (0.0-0.7); #Lymphocytes 1.1 thou/uL (1.20-3.40); #Monocytes 0.8 thou/uL (0.11-0.59); #Neutrophils 10.9 thou/uL (1.40-6.50); %Basophils 0.1 % (0.0-1.0); %Eosinophils 1.4 % (0.0-10.0); %Lymphocytes 8.6 % (21.0-51.0); %Monocytes 5.8 % (0.0-10.0); %Neutrophils 84.1 % (42.0-75.0); Hemoglobin 9.9 g/dL (14.0-18.0); Mean Corpuscular HGB CONC 28.8 g/dL (32.0-36.0); Mean Corpuscular Hemoglobin 29.4 pg (27.0-31.0); Mean Platelet Volume 10.2 fL (7.4-10.4); Platelet Count 140 thou/uL (130-400); RBC Distribution Width 18.5 % (11.5-14.5); Red Blood Cell (RBC) Count 3.35 mill/uL (4.70-6.10); White Blood Cell (WBC) Count 12.9 thou/uL (4.8-10.8)
[2019-11-09 04:37] LABS: Anion Gap 15 mmol/L (10-20); BUN (Urea Nitrogen) 64 mg/dL (8.4-25.7); Calc. Creatinine Clearance 69 mL/min (70-130); Calcium 8.4 mg/dL (7.8-10.44); Carbon Dioxide 19 mmol/L (23-31); Chloride 117 mmol/L (98-107); Estimated GFR-MDRD 62; Glucose 157 mg/dL (83-110); Potassium 4.1 mmol/L (3.5-5.1); Sodium 147 mmol/L (136-145)
[2019-11-09] MEDS: Acetaminophen 650 MG/20.3 ML UDCUP PER TUBE PRN ×2 (06:10→18:21)
--- NOTE | 2019-11-09 08:18 | PRG ---
DATE OF SERVICE: 11/09/2019 SUBJECTIVE: Mr. Garcia is an 79-year-old white male, seen for his acute kidney injury as well as hypernatremia. He has been started on IV fluid with improving serum sodium as well as improving acute kidney injury. No acute events noted last night. OBJECTIVE: VITAL SIGNS: Blood pressure is 131/83, heart rate is 115, respiratory rate 18, O2 saturations 96%, temperature 96.4. GENERAL: The patient is awake with spontaneous eye opening, but not following commands. SKIN: Decreased turgor. HEENT: Pinkish conjunctivae. Anicteric sclerae. No neck mass. No carotid bruits. No JVD. CHEST: No deformities. LUNGS: Decreased breath sounds. HEART: Normal sinus rhythm. No murmurs, no gallops, no rubs. ABDOMEN: Globular, soft, nontender. Positive for PEG tube. EXTREMITIES: No edema. MEDICATIONS: Medications of November 09, 2019, was reviewed. LABORATORY DATA: Laboratories of November 09, 2019; white count 12.9, hemoglobin 9.9. Sodium 147, potassium 4.1, chloride 117, carbon dioxide 19, BUN 64, creatinine 1.13, calcium 8.4. ASSESSMENT AND PLAN: 1. Acute kidney injury-superimposed hemodynamically-mediated renal dysfunction. Creatinine is much improved from a peak of 2.31 to a most recent value of 1.13. Continue current gentle IV hydration with this patient. 2. Hypernatremia, on half-normal saline, slowly improving. Serum sodium again from a peak of 150 to a most recent value of 147. If needed, we can change that half-normal saline to D5 water. 3. Due to much improved renal function as well as improving hypernatremia, we will be signing off. Continue current management for the moment. Job ID: [id number]
[2019-11-09] MEDS: Aspirin 81 mg Enteric Coated Tablet PER TUBE SCH (09:48)
[2019-11-09] MEDS: Tamsulosin HCl 0.4 MG CAP PO SCH (09:49)
[2019-11-09] MEDS: Metoprolol Tartrate 50 MG TAB PER TUBE SCH ×3 (09:49→22:21)
[2019-11-09] MEDS: Levothyroxine Sodium 50 MCG TAB PER TUBE SCH (09:49)
[2019-11-09] MEDS: Metoclopramide HCl 10 MG TAB PER TUBE SCH ×3 (09:50→22:20)
[2019-11-09] MEDS: Amiodarone 200 MG TAB PER TUBE SCH (09:50)
[2019-11-09] MEDS: Heparin 5,000 UNITS/ML VIAL SC SCH ×2 (09:50→22:22)
[2019-11-09] MEDS: Floranex Packet PER TUBE SCH (09:50)
[2019-11-09] MEDS: Scopolamine 1.5 mg/72 hour Patch TOP SCH (09:51)
--- NOTE | 2019-11-09 11:11 | PDOC.HOSPP ---
- Subjective Encounter Date: 11/09/19 Encounter Time: 10:30 Subjective: awake, has cough with secretions in his throat and is unable to bring it up at bedside - Objective Vital Signs & Weight: Vital Signs (12 hours) Temp Pulse Resp BP Pulse Ox 11/09/19 10:51 110 H 20 11/09/19 07:35 99.2 F 115 H 22 H 123/71 96 11/09/19 07:15 100 11/09/19 07:11 115 H 30 H 100 11/09/19 04:00 96.4 F L 129 H 18 131/83 96 11/09/19 02:21 70 24 H 97 11/09/19 00:00 97.8 F 92 18 133/72 92 L Weight Admit Weight 185 lb 14.4 oz Weight 207 lb 7 oz Most Recent Monitor Data Heart Rate from ECG 106 NIBP 126/97 NIBP BP-Mean 106 Respiration from ECG 20 SpO2 91 I&O: 11/08/19 11/09/19 11/10/19 06:59 06:59 06:59 Intake Total 3850 5045 Output Total 2200 1175 Balance 1650 3870 Result Diagrams: 11/09/19 03:40 11/09/19 03:40 Hospitalist ROS - Medication Medications: Active Medications Generic Name Dose Route Start Last Admin Trade Name Freq PRN Reason Stop Dose Admin Acetaminophen 650 mg 10/24/19 22:36 11/02/19 08:30 Tylenol RI 650 mg Q6H PRN Administration Fever > 101 or Mild Pain Acetaminophen 650 mg 11/06/19 14:53 11/09/19 06:10 Tylenol Elixir PER TUBE 650 mg Q6H PRN Administration Headache/Fever or Pain Acidophilus 1 gm 10/25/19 09:00 11/09/19 09:50 Floranex PER TUBE 1 gm DAILY HERIBERTO Administration Albuterol/Ipratropium 3 ml 10/25/19 10:30 11/09/19 10:51 Duoneb NEB 3 ml [id number] HERIBERTO Administration Amiodarone HCl 200 mg 10/31/19 09:00 11/09/19 09:50 Cordarone PER TUBE 200 mg DAILY HERIBERTO Administration Artificial Tears 0 drop 11/06/19 16:31 11/07/19 09:44 Liquitears 15ml Bottle EA EYE 2 drop PRN PRN Administration Dry Eyes Aspirin 81 mg 10/25/19 09:00 11/09/19 09:48 Ecotrin PER TUBE 81 mg DAILY HERIBERTO Administration Bisacodyl 10 mg 11/03/19 09:00 11/09/19 09:51 Dulcolax RI Not Given Q8H HERIBERTO Diltiazem HCl 60 mg 11/09/19 09:00 11/09/19 09:49 Cardizem PO 60 mg TID HERIBERTO Administration Guaifenesin 200 mg 11/03/19 18:00 11/09/19 06:10 Robitussin Sf PER TUBE 200 mg Q6HR HERIBERTO Administration Heparin Sodium (Porcine) 5,000 units 10/25/19 21:00 11/09/19 09:50 Heparin SC 5,000 units BID HERIBERTO Administration Insulin Glargine 10 units/ 0.1 mls @ 0 mls/hr 11/04/19 21:00 11/08/19 21:11 Miscellaneous Medication SC 0.1 mls HS HERIBERTO Administration Sodium Chloride 1,000 mls @ 100 mls/hr 11/07/19 09:15 11/09/19 01:29 1/2 Normal Saline IV 1,000 mls .Q10H HERIBERTO Administration Levothyroxine Sodium 50 mcg 10/25/19 09:00 11/09/19 09:49 Synthroid PER TUBE 50 mcg DAILY HERIBERTO Administration Loratadine 5 mg 11/04/19 12:00 11/08/19 12:39 Claritin Oral Solution PER TUBE 5 mg 1200 HERIBERTO Administration Metoclopramide HCl 5 mg 11/02/19 09:00 11/09/19 09:50 Reglan PER TUBE 5 mg TID HERIBERTO Administration Metoprolol Tartrate 50 mg 10/28/19 15:00 11/09/19 09:49 Lopressor PER TUBE 50 mg TID HERIBERTO Administration Scopolamine 1.5 mg 10/25/19 09:00 11/09/19 09:51 Transderm Scop TOP 1.5 mg Q3D HERIBERTO Administration Sodium Chloride 10 ml 10/25/19 09:00 11/09/19 09:52 Flush - Normal Saline IVF Not Given Q12HR HERIBERTO Sterile Water 1 ml 10/25/19 09:13 10/29/19 21:10 Bacteriostatic Water FS 1 ml PRN PRN Administration RECONSTITUTION Tamsulosin HCl 0.4 mg 10/25/19 09:00 11/09/19 09:49 Flomax PO 0.4 mg DAILY HERIBERTO Administration - Exam General Appearance: ill appearing Eye: PERRL, anicteric sclera ENT: no oropharyngeal lesions, dry oral mucosa Neck: supple, no JVD Heart: RRR, no murmur Respiratory: no wheezes, no rales, rhonchi Gastrointestinal: soft, non-tender, non-distended, normal bowel sounds Gastrointestinal - other findings: peg+ Extremities: no cyanosis, 1+ LE edema Neurological - other findings: functional quadriplegia Hosp A/P (1) RORO (acute kidney injury) Code(s): N17.9 - ACUTE KIDNEY FAILURE, UNSPECIFIED Status: Acute (2) Aspiration pneumonia Code(s): J69.0 - PNEUMONITIS DUE TO INHALATION OF FOOD AND VOMIT Status: Acute Qualifiers: Aspiration pneumonia type: due to regurgitated food Laterality: bilateral (3) Dysphagia Code(s): R13.10 - DYSPHAGIA, UNSPECIFIED Status: Chronic Qualifiers: Dysphagia type: unspecified Qualified Code(s): R13.10 - Dysphagia, unspecified (4) HTN (hypertension) Code(s): I10 - ESSENTIAL (PRIMARY) HYPERTENSION Status: Chronic Qualifiers: Hypertension type: essential hypertension Qualified Code(s): I10 - Essential (primary) hypertension (5) Anemia, normocytic normochromic Code(s): D64.9 - ANEMIA, UNSPECIFIED Status: Chronic (6) CKD (chronic kidney disease) stage 3, GFR 30-59 ml/min Code(s): N18.3 - CHRONIC KIDNEY DISEASE, STAGE 3 (MODERATE) Status: Chronic (7) Dementia Code(s): F03.90 - UNSPECIFIED DEMENTIA WITHOUT BEHAVIORAL DISTURBANCE Status: Chronic Qualifiers: Dementia type: vascular dementia Dementia behavioral disturbance: without behavioral disturbance Qualified Code(s): F01.50 - Vascular dementia without behavioral disturbance (8) Hemiparesis and other late effects of cerebrovascular accident Code(s): I69.359 - HEMIPLGA FOLLOWING CEREBRAL INFARCTION AFFECTING UNSP SIDE; I69.398 - OTHER SEQUELAE OF CEREBRAL INFARCTION Status: Chronic (9) Hypothyroidism Code(s): E03.9 - HYPOTHYROIDISM, UNSPECIFIED Status: Chronic Qualifiers: Hypothyroidism type: unspecified Qualified Code(s): E03.9 - Hypothyroidism , unspecified (10) PAF (paroxysmal atrial fibrillation) Code(s): I48.0 - PAROXYSMAL ATRIAL FIBRILLATION Status: Chronic (11) Physical deconditioning Code(s): R53.81 - OTHER MALAISE Status: Chronic (12) Protein-calorie malnutrition, severe Code(s): E43 - UNSPECIFIED SEVERE PROTEIN-CALORIE MALNUTRITION Status: Chronic (13) FTT (failure to thrive) in adult Status: Chronic (14) Functional quadriplegia Code(s): R53.2 - FUNCTIONAL QUADRIPLEGIA Status: Chronic - Plan has multiple medical issues with very poor prognosis renal function is almost at baseline, has 25lb weight gain this admission, got alb infusions 11/05, will dc iv fluids due to increasing edema d/w . D/w with extensively 11/05, 11/06, 11/07, 11/08, she just wants to keep him alive with whatever it takes. She is aware of current issues and poor prognosis. is hopeful he will recover, he was apparently talking and was mobilizing a bit in May of this year. has contractures of extremities in addition to dupyuntren's, bed bound, peg feeds, likely multiple cva and deconditioning with now functional quadriplegia, moves only right UE a bit. is on amiodarone 200mg daily, lopressor 50mg tid, cardizem 60mg tid, aspirin, nebs, flomax, lantus, reglan. Off prednisone from 11/05. his heart rate is around 110's despite above meds, cardiology to f/u, d/w RN to inform about persistent afib rvr. does not entertain the very idea of comfort measures/code status given his current condition. is to him for 35yrs, they have no children per . They moved to this area around a year and half back. 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 I tried to call his sister Mrs.Sine Garcia (nurse) in [facility] home [phone] , cell [phone] on 11/07 and 11/08, couldn't talk and I have not left any message. This was done at the request of who is also the POA PT to work on him on bed to prevent further contractures, decubitus prevention protocols are followed as well. Has had decrease in edema in his Upper extremities including hands, still has scrotal edema with echymosis due to gen anasarca and low albumin.
--- NOTE | 2019-11-09 11:42 | RAD ---
Portable frontal chest radiograph: 11/09/2019 COMPARISON: 11/04/2019 HISTORY: Reevaluate pulmonary parenchymal opacities, short of breath FINDINGS: Stable heart and mediastinal contours. Stable atherosclerotic calcification of the aortic a rch. No pneumothorax. There is pulmonary vascular congestion with diffuse increased linear interstitial density in the perihilar regions and both lung bases. There is dense pleural and opacity within bilateral lung bases, right greater than left. Small/moderate bilateral pleural effusions are noted, right greater than left, probably slightly enlarged on the right. IMPRESSION: Findings suggesting pulmonary edema. Infectious pneumonitis or aspiration cannot be exclu ded. Follow-up to resolution advised.
[2019-11-09] MEDS: Loratadine 5 MG/5 ML UDCUP PER TUBE SCH (12:09)
[2019-11-09] MEDS ORDERED: Furosemide 40 MG/4 ML VIAL SLOW IVP SCH (12:30)
[2019-11-09 12:31] LABS: Actual Bicarbonate (HCO3a) 25.4 mEq/L (22-28); Base Excess (BEa) 1.9 mEq/L (-2.0 to +3.0); CO2 Tension 34.8 mmHg (35.0-45.0); Calcium, Ionized (arterial) 1.12 mmol/L (1.12-1.30); Carboxyhemoglobin (COHb) 1.8 gm% (0.0-3.0); Hemoglobin (Hb) 8.6 g/dL (14.0-18.0); O2 Tension (PaO2), arterial 108.1 mmHg (> 60.0); Potassium - ABG Lab 3.67 mmol/L (3.70-5.30); pH, Arterial 7.48 (7.35-7.45)
[2019-11-09 12:33] LABS: Puncture Site RRA
[2019-11-09] MEDS ORDERED: Amiodarone 200 MG TAB PO SCH ×2 (16:15→21:00)
[2019-11-09] MEDS: Insulin Glargine 10 UNITS in Pre-Filled Syringe 1 EACH SC SCH (22:23)
[2019-11-10] MEDS: Diabetic Tussin 200 MG/10 ML UDCUP PER TUBE SCH ×4 (00:26→17:33)
[2019-11-10 04:40] LABS: #Eosinphils 0.2 thou/uL (0.0-0.7); #Lymphocytes 0.8 thou/uL (1.20-3.40); #Monocytes 0.6 thou/uL (0.11-0.59); #Neutrophils 11.2 thou/uL (1.40-6.50); %Eosinophils 1.3 % (0.0-10.0); %Lymphocytes 6.2 % (21.0-51.0); %Monocytes 4.6 % (0.0-10.0); %Neutrophils 87.9 % (42.0-75.0); Hemoglobin 8.9 g/dL (14.0-18.0); Mean Corpuscular HGB CONC 29.9 g/dL (32.0-36.0); Mean Corpuscular Hemoglobin 29.7 pg (27.0-31.0); Mean Corpuscular Volume 99.3 fL (78.0-98.0); Mean Platelet Volume 9.8 fL (7.4-10.4); Platelet Count 158 thou/uL (130-400); RBC Distribution Width 18.2 % (11.5-14.5); Red Blood Cell (RBC) Count 2.99 mill/uL (4.70-6.10); White Blood Cell (WBC) Count 12.8 thou/uL (4.8-10.8)
[2019-11-10 04:55] LABS: Anion Gap 14 mmol/L (10-20); BUN (Urea Nitrogen) 65 mg/dL (8.4-25.7); Calc. Creatinine Clearance 67 mL/min (70-130); Calcium 8.2 mg/dL (7.8-10.44); Carbon Dioxide 24 mmol/L (23-31); Chloride 111 mmol/L (98-107); Estimated GFR-MDRD 60; Glucose 190 mg/dL (83-110); Potassium 3.7 mmol/L (3.5-5.1); Sodium 145 mmol/L (136-145)
[2019-11-10] MEDS: Bisacodyl 10 MG SUPP PR SCH ×3 (05:26→17:21)
[2019-11-10] MEDS ORDERED: Digoxin 0.5 MG/2 ML AMP SLOW IVP SCH (08:00)
[2019-11-10] MEDS: Metoprolol Tartrate 50 MG TAB PER TUBE SCH ×3 (09:37→21:10)
[2019-11-10] MEDS: Tamsulosin HCl 0.4 MG CAP PO SCH (09:37)
[2019-11-10] MEDS: Aspirin 81 mg Enteric Coated Tablet PER TUBE SCH (09:37)
[2019-11-10] MEDS: Heparin 5,000 UNITS/ML VIAL SC SCH ×2 (09:38→21:10)
[2019-11-10] MEDS: Metoclopramide HCl 10 MG TAB PER TUBE SCH ×3 (09:39→21:10)
[2019-11-10] MEDS: Levothyroxine Sodium 50 MCG TAB PER TUBE SCH (09:39)
[2019-11-10] MEDS: Floranex Packet PER TUBE SCH (09:41)
[2019-11-10] MEDS: Loratadine 5 MG/5 ML UDCUP PER TUBE SCH (12:05)
--- NOTE | 2019-11-10 12:13 | PDOC.HOSPP ---
- Subjective Encounter Date: 11/10/19 Encounter Time: 11:00 Subjective: awake, not in distress at bedside - Objective Vital Signs & Weight: Vital Signs (12 hours) Temp Pulse Resp BP Pulse Ox 11/10/19 10:37 82 24 H 98 11/10/19 07:20 98.6 F 106 H 18 128/71 94 L 11/10/19 06:56 98 11/10/19 06:54 115 H 24 H 98 11/10/19 04:00 97.2 F L 108 H 135/77 93 L Weight Admit Weight 185 lb 14.4 oz Weight 207 lb 8 oz Most Recent Monitor Data Heart Rate from ECG 106 NIBP 126/97 NIBP BP-Mean 106 Respiration from ECG 20 SpO2 91 I&O: 11/09/19 11/10/19 11/11/19 06:59 06:59 06:59 Intake Total 5045 3265 Output Total 1175 2650 Balance 3870 615 Result Diagrams: 11/10/19 04:12 11/10/19 04:12 Hospitalist ROS - Medication Medications: Active Medications Generic Name Dose Route Start Last Admin Trade Name Freq PRN Reason Stop Dose Admin Acetaminophen 650 mg 10/24/19 22:36 11/02/19 08:30 Tylenol RI 650 mg Q6H PRN Administration Fever > 101 or Mild Pain Acetaminophen 650 mg 11/06/19 14:53 11/09/19 18:21 Tylenol Elixir PER TUBE 650 mg Q6H PRN Administration Headache/Fever or Pain Acidophilus 1 gm 10/25/19 09:00 11/10/19 09:41 Floranex PER TUBE 1 gm DAILY HERIBERTO Administration Albuterol/Ipratropium 3 ml 10/25/19 10:30 11/10/19 10:37 Duoneb NEB 3 ml [id number] HERIBERTO Administration Artificial Tears 0 drop 11/06/19 16:31 11/07/19 09:44 Liquitears 15ml Bottle EA EYE 2 drop PRN PRN Administration Dry Eyes Aspirin 81 mg 10/25/19 09:00 11/10/19 09:37 Ecotrin PER TUBE 81 mg DAILY HERIBERTO Administration Bisacodyl 10 mg 11/03/19 09:00 11/10/19 09:41 Dulcolax RI Not Given Q8H HERIBERTO Diltiazem HCl 60 mg 11/09/19 09:00 11/10/19 09:37 Cardizem PO 60 mg TID HERIBERTO Administration Guaifenesin 200 mg 11/03/19 18:00 11/10/19 12:05 Robitussin Sf PER TUBE 200 mg Q6HR HERIBERTO Administration Heparin Sodium (Porcine) 5,000 units 10/25/19 21:00 11/10/19 09:38 Heparin SC 5,000 units BID HERIBERTO Administration Insulin Glargine 10 units/ 0.1 mls @ 0 mls/hr 11/04/19 21:00 11/09/19 22:23 Miscellaneous Medication SC 0.1 mls HS HERIBERTO Administration Levothyroxine Sodium 50 mcg 10/25/19 09:00 11/10/19 09:39 Synthroid PER TUBE 50 mcg DAILY HERIBERTO Administration Loratadine 5 mg 11/04/19 12:00 11/10/19 12:05 Claritin Oral Solution PER TUBE 5 mg 1200 HERIBERTO Administration Metoclopramide HCl 5 mg 11/02/19 09:00 11/10/19 09:39 Reglan PER TUBE 5 mg TID HERIBERTO Administration Metoprolol Tartrate 50 mg 10/28/19 15:00 11/10/19 09:37 Lopressor PER TUBE 50 mg TID HERIBERTO Administration Scopolamine 1.5 mg 10/25/19 09:00 11/09/19 09:51 Transderm Scop TOP 1.5 mg Q3D HERIBERTO Administration Sodium Chloride 10 ml 10/25/19 09:00 11/10/19 09:40 Flush - Normal Saline IVF 10 ml Q12HR HERIBERTO Administration Sterile Water 1 ml 10/25/19 09:13 10/29/19 21:10 Bacteriostatic Water FS 1 ml PRN PRN Administration RECONSTITUTION Tamsulosin HCl 0.4 mg 10/25/19 09:00 11/10/19 09:37 Flomax PO 0.4 mg DAILY HERIBERTO Administration - Exam General Appearance: awake alert, ill appearing Eye: anicteric sclera ENT: normocephalic atraumatic, dry oral mucosa Neck: supple, no JVD Heart: no murmur, irregular Respiratory: no wheezes, no rales, rhonchi Gastrointestinal: soft, non-tender, normal bowel sounds, no guarding, no rigidity Gastrointestinal - other findings: scrotal edema with echymosis Extremities: no cyanosis, 1+ LE edema Neurological - other findings: quadriparesis Hosp A/P (1) RORO (acute kidney injury) Code(s): N17.9 - ACUTE KIDNEY FAILURE, UNSPECIFIED Status: Acute (2) Aspiration pneumonia Code(s): J69.0 - PNEUMONITIS DUE TO INHALATION OF FOOD AND VOMIT Status: Acute Qualifiers: Aspiration pneumonia type: due to regurgitated food Laterality: bilateral (3) Dysphagia Code(s): R13.10 - DYSPHAGIA, UNSPECIFIED Status: Chronic Qualifiers: Dysphagia type: unspecified Qualified Code(s): R13.10 - Dysphagia, unspecified (4) HTN (hypertension) Code(s): I10 - ESSENTIAL (PRIMARY) HYPERTENSION Status: Chronic Qualifiers: Hypertension type: essential hypertension Qualified Code(s): I10 - Essential (primary) hypertension (5) Anemia, normocytic normochromic Code(s): D64.9 - ANEMIA, UNSPECIFIED Status: Chronic (6) CKD (chronic kidney disease) stage 3, GFR 30-59 ml/min Code(s): N18.3 - CHRONIC KIDNEY DISEASE, STAGE 3 (MODERATE) Status: Chronic (7) Dementia Code(s): F03.90 - UNSPECIFIED DEMENTIA WITHOUT BEHAVIORAL DISTURBANCE Status: Chronic Qualifiers: Dementia type: vascular dementia Dementia behavioral disturbance: without behavioral disturbance Qualified Code(s): F01.50 - Vascular dementia without behavioral disturbance (8) Hemiparesis and other late effects of cerebrovascular accident Code(s): I69.359 - HEMIPLGA FOLLOWING CEREBRAL INFARCTION AFFECTING UNSP SIDE; I69.398 - OTHER SEQUELAE OF CEREBRAL INFARCTION Status: Chronic (9) Hypothyroidism Code(s): E03.9 - HYPOTHYROIDISM, UNSPECIFIED Status: Chronic Qualifiers: Hypothyroidism type: unspecified Qualified Code(s): E03.9 - Hypothyroidism , unspecified (10) PAF (paroxysmal atrial fibrillation) Code(s): I48.0 - PAROXYSMAL ATRIAL FIBRILLATION Status: Chronic (11) Physical deconditioning Code(s): R53.81 - OTHER MALAISE Status: Chronic (12) Protein-calorie malnutrition, severe Code(s): E43 - UNSPECIFIED SEVERE PROTEIN-CALORIE MALNUTRITION Status: Chronic (13) FTT (failure to thrive) in adult Status: Chronic (14) Functional quadriplegia Code(s): R53.2 - FUNCTIONAL QUADRIPLEGIA Status: Chronic - Plan has multiple medical issues with very poor prognosis renal function is almost at baseline, has 25lb weight gain this admission, got alb infusions 11/05, off iv fluids due to increasing edema d/w . D/w with extensively 11/05, 11/06, 11/07, 11/08, 11/09 she just wants to keep him alive with whatever it takes. She is aware of current issues and poor prognosis. is hopeful he will recover, he was apparently talking and was mobilizing a bit in May of this year. has contractures of extremities in addition to dupyuntren's, bed bound, peg feeds, likely multiple cva and deconditioning with now functional quadriplegia, moves only right UE a bit. is on digoxin, lopressor 50mg tid, cardizem 60mg tid, aspirin, nebs, flomax, lantus, reglan. Off prednisone from 11/05. appreciate cardiology f/u does not entertain the very idea of comfort measures/code status given his current condition. is to him for 35yrs, they have no children per . They moved to this area around a year and half back. 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 I tried to call his sister Mrs.Sine Garcia (nurse) in [facility] home [phone] , cell [phone] on 11/07 and 11/08, couldn't talk and I have not left any message. This was done at the request of who is also the POA PT to work on him on bed to prevent further contractures, decubitus prevention protocols are followed as well. Has had decrease in edema in his Upper extremities including hands, still has scrotal edema with echymosis due to gen anasarca and low albumin.
[2019-11-10] MEDS ORDERED: Digoxin 0.25 MG TAB PER TUBE SCH (16:00)
[2019-11-10] MEDS: Acetaminophen 650 MG/20.3 ML UDCUP PER TUBE PRN (17:33)
[2019-11-10] MEDS: Insulin Glargine 10 UNITS in Pre-Filled Syringe 1 EACH SC SCH (21:10)
[2019-11-11] MEDS: Diabetic Tussin 200 MG/10 ML UDCUP PER TUBE SCH ×4 (00:35→18:15)
[2019-11-11] MEDS: Bisacodyl 10 MG SUPP PR SCH ×4 (01:37→20:00)
[2019-11-11 08:42] LABS: #Eosinphils 0.1 thou/uL (0.0-0.7); #Monocytes 0.6 thou/uL (0.11-0.59); #Neutrophils 11.1 thou/uL (1.40-6.50); %Basophils 0.1 % (0.0-1.0); %Eosinophils 0.5 % (0.0-10.0); %Lymphocytes 7.6 % (21.0-51.0); %Monocytes 4.6 % (0.0-10.0); %Neutrophils 87.1 % (42.0-75.0); Hemoglobin 9.3 g/dL (14.0-18.0); Mean Corpuscular HGB CONC 30.3 g/dL (32.0-36.0); Mean Corpuscular Hemoglobin 30.4 pg (27.0-31.0); Mean Platelet Volume 9.4 fL (7.4-10.4); Platelet Count 153 thou/uL (130-400); RBC Distribution Width 18.3 % (11.5-14.5); Red Blood Cell (RBC) Count 3.06 mill/uL (4.70-6.10); White Blood Cell (WBC) Count 12.8 thou/uL (4.8-10.8)
[2019-11-11 08:43] LABS: MDiff Complete? YES
[2019-11-11 08:50] LABS: ALT (SGPT) 34 U/L (8-55); AST (SGOT) 20 U/L (5-34); Alkaline Phosphatase 71 U/L (40-110); Anion Gap 13 mmol/L (10-20); BUN (Urea Nitrogen) 60 mg/dL (8.4-25.7); Bilirubin, Total 1.1 mg/dL (0.2-1.2); Calc. Creatinine Clearance 72 mL/min (70-130); Calcium 8.7 mg/dL (7.8-10.44); Carbon Dioxide 27 mmol/L (23-31); Chloride 112 mmol/L (98-107); Estimated GFR-MDRD 66; Globulin 2.4 g/dL (2.4-3.5); Glucose 113 mg/dL (83-110); Protein, Total 5.4 g/dL (5.8-8.1); Sodium 148 mmol/L (136-145)
[2019-11-11] MEDS: Heparin 5,000 UNITS/ML VIAL SC SCH ×2 (09:23→20:50)
[2019-11-11] MEDS: Metoprolol Tartrate 50 MG TAB PER TUBE SCH ×3 (09:26→20:50)
[2019-11-11] MEDS: Metoclopramide HCl 10 MG TAB PER TUBE SCH ×3 (09:26→20:50)
[2019-11-11] MEDS: Aspirin 81 mg Enteric Coated Tablet PER TUBE SCH (09:26)
[2019-11-11] MEDS: Digoxin 0.125 MG TAB PER TUBE SCH (09:26)
[2019-11-11] MEDS: Floranex Packet PER TUBE SCH (09:26)
[2019-11-11] MEDS: Tamsulosin HCl 0.4 MG CAP PO SCH (09:26)
[2019-11-11] MEDS: Levothyroxine Sodium 50 MCG TAB PER TUBE SCH (09:26)
[2019-11-11] MEDS: Loratadine 5 MG/5 ML UDCUP PER TUBE SCH (11:22)
--- NOTE | 2019-11-11 12:17 | PDOC.HOSPP ---
- Subjective Encounter Date: 11/11/19 Encounter Time: 10:15 Subjective: awakens to touch, not in distress - Objective Vital Signs & Weight: Vital Signs (12 hours) Temp Pulse Resp BP Pulse Ox 11/11/19 11:20 97.9 F 70 22 H 114/57 L 95 11/11/19 10:40 92 24 H 11/11/19 07:30 97.9 F 74 22 H 132/60 97 11/11/19 07:01 99 11/11/19 07:00 90 20 11/11/19 04:25 97.8 F 76 20 128/59 L 100 11/11/19 03:07 92 L 11/11/19 00:30 97.7 F 83 24 H 116/59 L 97 Weight Admit Weight 185 lb 14.4 oz Weight 203 lb 8 oz Most Recent Monitor Data Heart Rate from ECG 106 NIBP 126/97 NIBP BP-Mean 106 Respiration from ECG 20 SpO2 91 I&O: 11/10/19 11/11/19 11/12/19 06:59 06:59 06:59 Intake Total 3265 7429 500 Output Total 2650 1800 Balance 615 5629 500 Result Diagrams: 11/11/19 08:16 11/11/19 08:16 Additional Labs: Accuchecks 11/10/19 21:17 POC Glucose 140 H Hospitalist ROS - Medication Medications: Active Medications Generic Name Dose Route Start Last Admin Trade Name Freq PRN Reason Stop Dose Admin Acetaminophen 650 mg 10/24/19 22:36 11/02/19 08:30 Tylenol LA 650 mg Q6H PRN Administration Fever > 101 or Mild Pain Acetaminophen 650 mg 11/06/19 14:53 11/10/19 17:33 Tylenol Elixir PER TUBE 650 mg Q6H PRN Administration Headache/Fever or Pain Acidophilus 1 gm 10/25/19 09:00 11/11/19 09:26 Floranex PER TUBE 1 gm DAILY HERIBERTO Administration Albuterol/Ipratropium 3 ml 10/25/19 10:30 11/11/19 10:40 Duoneb NEB 3 ml [id number] HERIBERTO Administration Artificial Tears 0 drop 11/06/19 16:31 11/07/19 09:44 Liquitears 15ml Bottle EA EYE 2 drop PRN PRN Administration Dry Eyes Aspirin 81 mg 10/25/19 09:00 11/11/19 09:26 Ecotrin PER TUBE 81 mg DAILY HERIBERTO Administration Bisacodyl 10 mg 11/03/19 09:00 11/11/19 09:27 Dulcolax LA Not Given Q8H HERIBERTO Digoxin 0.125 mg 11/11/19 09:00 11/11/19 09:26 Lanoxin PER TUBE 0.125 mg DAILY HERIBERTO Administration Diltiazem HCl 60 mg 11/09/19 09:00 11/11/19 09:26 Cardizem PO 60 mg TID HERIBERTO Administration Guaifenesin 200 mg 11/03/19 18:00 11/11/19 11:22 Robitussin Sf PER TUBE 200 mg Q6HR HERIBERTO Administration Heparin Sodium (Porcine) 5,000 units 10/25/19 21:00 11/11/19 09:23 Heparin SC 5,000 units BID HERIBERTO Administration Insulin Glargine 10 units/ 0.1 mls @ 0 mls/hr 11/04/19 21:00 11/10/19 21:10 Miscellaneous Medication SC 0.1 mls HS HERIBERTO Administration Levothyroxine Sodium 50 mcg 10/25/19 09:00 11/11/19 09:26 Synthroid PER TUBE 50 mcg DAILY HERIBERTO Administration Loratadine 5 mg 11/04/19 12:00 11/11/19 11:22 Claritin Oral Solution PER TUBE 5 mg 1200 HERIBERTO Administration Metoclopramide HCl 5 mg 11/02/19 09:00 11/11/19 09:26 Reglan PER TUBE 5 mg TID HERIBERTO Administration Metoprolol Tartrate 50 mg 10/28/19 15:00 11/11/19 09:26 Lopressor PER TUBE 50 mg TID HERIBERTO Administration Scopolamine 1.5 mg 10/25/19 09:00 11/09/19 09:51 Transderm Scop TOP 1.5 mg Q3D HERIBERTO Administration Sodium Chloride 10 ml 10/25/19 09:00 11/11/19 09:27 Flush - Normal Saline IVF 10 ml Q12HR HERIBERTO Administration Sterile Water 1 ml 10/25/19 09:13 10/29/19 21:10 Bacteriostatic Water FS 1 ml PRN PRN Administration RECONSTITUTION Tamsulosin HCl 0.4 mg 10/25/19 09:00 11/11/19 09:26 Flomax PO 0.4 mg DAILY HERIBERTO Administration - Exam General Appearance: ill appearing Eye: PERRL, anicteric sclera ENT: no oropharyngeal lesions, dry oral mucosa Neck: supple, no JVD Heart: no murmur, irregular Respiratory: no wheezes, no rales, rhonchi Gastrointestinal: soft, non-tender, non-distended, normal bowel sounds Gastrointestinal - other findings: peg+ Extremities: no clubbing, 1+ LE edema Neurological - other findings: quadriplegia Hosp A/P (1) RORO (acute kidney injury) Code(s): N17.9 - ACUTE KIDNEY FAILURE, UNSPECIFIED Status: Acute (2) Aspiration pneumonia Code(s): J69.0 - PNEUMONITIS DUE TO INHALATION OF FOOD AND VOMIT Status: Acute Qualifiers: Aspiration pneumonia type: due to regurgitated food Laterality: bilateral (3) Dysphagia Code(s): R13.10 - DYSPHAGIA, UNSPECIFIED Status: Chronic Qualifiers: Dysphagia type: unspecified Qualified Code(s): R13.10 - Dysphagia, unspecified (4) HTN (hypertension) Code(s): I10 - ESSENTIAL (PRIMARY) HYPERTENSION Status: Chronic Qualifiers: Hypertension type: essential hypertension Qualified Code(s): I10 - Essential (primary) hypertension (5) Anemia, normocytic normochromic Code(s): D64.9 - ANEMIA, UNSPECIFIED Status: Chronic (6) CKD (chronic kidney disease) stage 3, GFR 30-59 ml/min Code(s): N18.3 - CHRONIC KIDNEY DISEASE, STAGE 3 (MODERATE) Status: Chronic (7) Dementia Code(s): F03.90 - UNSPECIFIED DEMENTIA WITHOUT BEHAVIORAL DISTURBANCE Status: Chronic Qualifiers: Dementia type: vascular dementia Dementia behavioral disturbance: without behavioral disturbance Qualified Code(s): F01.50 - Vascular dementia without behavioral disturbance (8) Hemiparesis and other late effects of cerebrovascular accident Code(s): I69.359 - HEMIPLGA FOLLOWING CEREBRAL INFARCTION AFFECTING UNSP SIDE; I69.398 - OTHER SEQUELAE OF CEREBRAL INFARCTION Status: Chronic (9) Hypothyroidism Code(s): E03.9 - HYPOTHYROIDISM, UNSPECIFIED Status: Chronic Qualifiers: Hypothyroidism type: unspecified Qualified Code(s): E03.9 - Hypothyroidism , unspecified (10) Physical deconditioning Code(s): R53.81 - OTHER MALAISE Status: Chronic (11) Protein-calorie malnutrition, severe Code(s): E43 - UNSPECIFIED SEVERE PROTEIN-CALORIE MALNUTRITION Status: Chronic (12) FTT (failure to thrive) in adult Status: Chronic (13) Functional quadriplegia Code(s): R53.2 - FUNCTIONAL QUADRIPLEGIA Status: Chronic (14) Afib Code(s): I48.91 - UNSPECIFIED ATRIAL FIBRILLATION Status: Acute Qualifiers: Atrial fibrillation type: longstanding persistent Qualified Code(s): I48.11 - Longstanding persistent atrial fibrillation - Plan has multiple medical issues with very poor prognosis renal function is almost at baseline, has 25lb weight gain this admission, got alb infusions 11/05, off iv fluids due to increasing edema d/w . D/w with extensively 11/05, 11/06, 11/07, 11/08, 11/09, 11/10 she just wants to keep him alive with whatever it takes. She is aware of current issues and poor prognosis. is hopeful he will recover, he was apparently talking and was mobilizing a bit in May of this year. has contractures of extremities in addition to dupyuntren's, bed bound, peg feeds, likely multiple cva and deconditioning with now functional quadriplegia, moves only right UE a bit. is on digoxin, lopressor 50mg tid, cardizem 60mg tid, aspirin, nebs, flomax, lantus, reglan. Off prednisone from 11/05. appreciate cardiology f/u does not entertain the very idea of comfort measures/code status given his current condition. is to him for 35yrs, they have no children per . They moved to this area around a year and half back. 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 I tried to call his sister Mrs.Sine Garcia (nurse) in [facility] home [phone] , cell [phone] on 11/07 and 11/08, couldn't talk and I have not left any message. This was done at the request of who is also the POA PT to work on him on bed to prevent further contractures, decubitus prevention protocols are followed as well. afib with rvr is slowly getting controlled with current meds. Has had decrease in edema in his Upper extremities including hands, still has scrotal edema with echymosis due to gen anasarca and low albumin.
--- NOTE | 2019-11-11 15:33 | PDOC.FMACP ---
Advance Care Planning - Problem (1) Acute ischemic cerebrovascular accident (CVA) involving left middle cerebral artery territory Status: Acute Code(s): I63.512 - CEREB INFRC D/T UNSP OCCLS OR STENOS OF LEFT MID CEREB ART (2) Aspiration pneumonia Status: Acute Code(s): J69.0 - PNEUMONITIS DUE TO INHALATION OF FOOD AND VOMIT Qualifiers: Aspiration pneumonia type: due to regurgitated food Laterality: bilateral (3) Palliative care encounter Status: Acute Code(s): Z51.5 - ENCOUNTER FOR PALLIATIVE CARE (4) CKD (chronic kidney disease) stage 3, GFR 30-59 ml/min Status: Chronic Code(s): N18.3 - CHRONIC KIDNEY DISEASE, STAGE 3 (MODERATE) - Note Participants: family, palliative care Summary: Palliative Care revisited Advanced Care Planning with patient spouse. The diagnosis, prognosis and goals of care were discussed. Appropriate forms and documentation to accomplish the goals of care were discussed. All questions were answered. Mrs Garcia currently continues to desire for all aggressive measures to continue, full resuscitation. Hopeful for transition back to facility. Mrs Garcia, was open to receiving a list of hospice agencies if she elects to transition care in the future. The Palliative Care Team will continue to assist with completion of any outstanding forms as identified. Time Spent (mins): 30
--- NOTE | 2019-11-11 15:38 | PDOC.PALFU ---
Palliative Care Follow-up Note Palliative Care will sign off as Goal of Care is established and revisited directives with patient . Mrs Garcia continues to desire all aggressive measures and therapies for her despite education in relation to disease trajectory and decline. Mrs Garcia was open to receiving a list of hospice agencies for future reference. Should palliative care be able to assist in the future related to revisiting goal of care or addressing directives please reconsult.
[2019-11-11] MEDS: Acetaminophen 650 MG/20.3 ML UDCUP PER TUBE PRN (18:15)
[2019-11-11] MEDS: Insulin Glargine 10 UNITS in Pre-Filled Syringe 1 EACH SC SCH (20:50)
[2019-11-12] MEDS: Diabetic Tussin 200 MG/10 ML UDCUP PER TUBE SCH ×5 (00:10→23:55)
[2019-11-12 04:41] LABS: #Eosinphils 0.1 thou/uL (0.0-0.7); #Lymphocytes 0.7 thou/uL (1.20-3.40); #Monocytes 0.4 thou/uL (0.11-0.59); #Neutrophils 7.8 thou/uL (1.40-6.50); %Basophils 0.1 % (0.0-1.0); %Eosinophils 1.6 % (0.0-10.0); %Monocytes 4.2 % (0.0-10.0); %Neutrophils 86.2 % (42.0-75.0); Hemoglobin 8.3 g/dL (14.0-18.0); Mean Corpuscular HGB CONC 30.5 g/dL (32.0-36.0); Mean Corpuscular Hemoglobin 30.5 pg (27.0-31.0); Mean Platelet Volume 9.8 fL (7.4-10.4); Platelet Count 154 thou/uL (130-400); RBC Distribution Width 18.5 % (11.5-14.5); Red Blood Cell (RBC) Count 2.73 mill/uL (4.70-6.10)
[2019-11-12 05:02] LABS: Anion Gap 13 mmol/L (10-20); BUN (Urea Nitrogen) 63 mg/dL (8.4-25.7); Calc. Creatinine Clearance 70 mL/min (70-130); Calcium 8.3 mg/dL (7.8-10.44); Carbon Dioxide 24 mmol/L (23-31); Chloride 113 mmol/L (98-107); Estimated GFR-MDRD 64; Glucose 159 mg/dL (83-110); Potassium 4.1 mmol/L (3.5-5.1); Sodium 146 mmol/L (136-145)
[2019-11-12] MEDS ORDERED: Furosemide 40 MG/4 ML VIAL SLOW IVP SCH (07:15)
[2019-11-12] MEDS: Floranex Packet PER TUBE SCH (08:43)
[2019-11-12] MEDS: Scopolamine 1.5 mg/72 hour Patch TOP SCH (08:43)
[2019-11-12] MEDS: Digoxin 0.125 MG TAB PER TUBE SCH (08:44)
[2019-11-12] MEDS: Aspirin 81 mg Enteric Coated Tablet PER TUBE SCH (08:44)
[2019-11-12] MEDS: Metoclopramide HCl 10 MG TAB PER TUBE SCH ×3 (08:45→20:35)
[2019-11-12] MEDS: Levothyroxine Sodium 50 MCG TAB PER TUBE SCH (08:45)
[2019-11-12] MEDS: Tamsulosin HCl 0.4 MG CAP PO SCH (08:45)
[2019-11-12] MEDS: Metoprolol Tartrate 50 MG TAB PER TUBE SCH ×3 (08:45→20:35)
[2019-11-12] MEDS: Heparin 5,000 UNITS/ML VIAL SC SCH ×2 (08:46→20:35)
[2019-11-12] MEDS: Bisacodyl 10 MG SUPP PR SCH ×2 (09:10→16:14)
--- NOTE | 2019-11-12 11:03 | PDOC.HOSPP ---
- Subjective Encounter Date: 11/12/19 Encounter Time: 09:45 Subjective: awake, watching tv, not in distress - Objective Vital Signs & Weight: Vital Signs (12 hours) Temp Pulse Resp BP Pulse Ox 11/12/19 10:46 76 24 H 11/12/19 08:44 73 11/12/19 08:00 97.7 F 73 17 157/79 H 97 11/12/19 07:50 79 28 H 11/12/19 04:00 98.2 F 71 124/57 L 96 11/12/19 03:17 93 L 11/12/19 00:00 97.6 F 59 L 28 H 115/57 L 100 11/11/19 23:31 93 L Weight Admit Weight 185 lb 14.4 oz Weight 203 lb 14.4 oz Most Recent Monitor Data Heart Rate from ECG 106 NIBP 126/97 NIBP BP-Mean 106 Respiration from ECG 20 SpO2 91 I&O: 11/11/19 11/12/19 11/13/19 06:59 06:59 06:59 Intake Total 7429 4065 200 Output Total 1800 1400 Balance 5629 2665 200 Result Diagrams: 11/12/19 03:57 11/12/19 03:57 Additional Labs: Accuchecks 11/11/19 20:53 POC Glucose 191 H Hospitalist ROS - Medication Medications: Active Medications Generic Name Dose Route Start Last Admin Trade Name Freq PRN Reason Stop Dose Admin Acetaminophen 650 mg 10/24/19 22:36 11/02/19 08:30 Tylenol NV 650 mg Q6H PRN Administration Fever > 101 or Mild Pain Acetaminophen 650 mg 11/06/19 14:53 11/11/19 18:15 Tylenol Elixir PER TUBE 650 mg Q6H PRN Administration Headache/Fever or Pain Acidophilus 1 gm 10/25/19 09:00 11/12/19 08:43 Floranex PER TUBE 1 gm DAILY HERIBERTO Administration Albuterol/Ipratropium 3 ml 10/25/19 10:30 11/12/19 10:46 Duoneb NEB 3 ml [id number] HERIBERTO Administration Artificial Tears 0 drop 11/06/19 16:31 11/07/19 09:44 Liquitears 15ml Bottle EA EYE 2 drop PRN PRN Administration Dry Eyes Aspirin 81 mg 10/25/19 09:00 11/12/19 08:44 Ecotrin PER TUBE 81 mg DAILY HERIBERTO Administration Bisacodyl 10 mg 11/03/19 09:00 11/12/19 09:10 Dulcolax NV Not Given Q8H HERIBERTO Digoxin 0.125 mg 11/11/19 09:00 11/12/19 08:44 Lanoxin PER TUBE 0.125 mg DAILY HERIBERTO Administration Diltiazem HCl 60 mg 11/09/19 09:00 11/12/19 08:45 Cardizem PO 60 mg TID HERIBERTO Administration Guaifenesin 200 mg 11/03/19 18:00 11/12/19 05:40 Robitussin Sf PER TUBE 200 mg Q6HR HERIBERTO Administration Heparin Sodium (Porcine) 5,000 units 10/25/19 21:00 11/12/19 08:46 Heparin SC 5,000 units BID HERIBERTO Administration Insulin Glargine 10 units/ 0.1 mls @ 0 mls/hr 11/04/19 21:00 11/11/19 20:50 Miscellaneous Medication SC 0.1 mls HS HERIBERTO Administration Levothyroxine Sodium 50 mcg 10/25/19 09:00 11/12/19 08:45 Synthroid PER TUBE 50 mcg DAILY HERIBERTO Administration Loratadine 5 mg 11/04/19 12:00 11/11/19 11:22 Claritin Oral Solution PER TUBE 5 mg 1200 HERIBERTO Administration Metoclopramide HCl 5 mg 11/02/19 09:00 11/12/19 08:45 Reglan PER TUBE 5 mg TID HERIBERTO Administration Metoprolol Tartrate 50 mg 10/28/19 15:00 11/12/19 08:45 Lopressor PER TUBE 50 mg TID HERIBERTO Administration Scopolamine 1.5 mg 10/25/19 09:00 11/12/19 08:43 Transderm Scop TOP 1.5 mg Q3D HERIBERTO Administration Sodium Chloride 10 ml 10/25/19 09:00 11/12/19 08:46 Flush - Normal Saline IVF 10 ml Q12HR HERIBERTO Administration Sterile Water 1 ml 10/25/19 09:13 10/29/19 21:10 Bacteriostatic Water FS 1 ml PRN PRN Administration RECONSTITUTION Tamsulosin HCl 0.4 mg 10/25/19 09:00 11/12/19 08:45 Flomax PO 0.4 mg DAILY HERIEBRTO Administration - Exam General Appearance: awake alert, ill appearing Eye: anicteric sclera ENT: no oropharyngeal lesions, dry oral mucosa Neck: supple, no JVD Heart: no murmur, irregular Respiratory: no wheezes, no rales, rhonchi Gastrointestinal: soft, non-tender, non-distended, normal bowel sounds Extremities: no cyanosis, 1+ LE edema Neurological - other findings: quadriparesis Hosp A/P (1) RORO (acute kidney injury) Code(s): N17.9 - ACUTE KIDNEY FAILURE, UNSPECIFIED Status: Acute (2) Aspiration pneumonia Code(s): J69.0 - PNEUMONITIS DUE TO INHALATION OF FOOD AND VOMIT Status: Acute Qualifiers: Aspiration pneumonia type: due to regurgitated food Laterality: bilateral (3) Dysphagia Code(s): R13.10 - DYSPHAGIA, UNSPECIFIED Status: Chronic Qualifiers: Dysphagia type: unspecified Qualified Code(s): R13.10 - Dysphagia, unspecified (4) HTN (hypertension) Code(s): I10 - ESSENTIAL (PRIMARY) HYPERTENSION Status: Chronic Qualifiers: Hypertension type: essential hypertension Qualified Code(s): I10 - Essential (primary) hypertension (5) Anemia, normocytic normochromic Code(s): D64.9 - ANEMIA, UNSPECIFIED Status: Chronic (6) CKD (chronic kidney disease) stage 3, GFR 30-59 ml/min Code(s): N18.3 - CHRONIC KIDNEY DISEASE, STAGE 3 (MODERATE) Status: Chronic (7) Dementia Code(s): F03.90 - UNSPECIFIED DEMENTIA WITHOUT BEHAVIORAL DISTURBANCE Status: Chronic Qualifiers: Dementia type: vascular dementia Dementia behavioral disturbance: without behavioral disturbance Qualified Code(s): F01.50 - Vascular dementia without behavioral disturbance (8) Hemiparesis and other late effects of cerebrovascular accident Code(s): I69.359 - HEMIPLGA FOLLOWING CEREBRAL INFARCTION AFFECTING UNSP SIDE; I69.398 - OTHER SEQUELAE OF CEREBRAL INFARCTION Status: Chronic (9) Hypothyroidism Code(s): E03.9 - HYPOTHYROIDISM, UNSPECIFIED Status: Chronic Qualifiers: Hypothyroidism type: unspecified Qualified Code(s): E03.9 - Hypothyroidism , unspecified (10) Physical deconditioning Code(s): R53.81 - OTHER MALAISE Status: Chronic (11) Protein-calorie malnutrition, severe Code(s): E43 - UNSPECIFIED SEVERE PROTEIN-CALORIE MALNUTRITION Status: Chronic (12) FTT (failure to thrive) in adult Status: Chronic (13) Functional quadriplegia Code(s): R53.2 - FUNCTIONAL QUADRIPLEGIA Status: Chronic (14) Afib Code(s): I48.91 - UNSPECIFIED ATRIAL FIBRILLATION Status: Acute Qualifiers: Atrial fibrillation type: longstanding persistent Qualified Code(s): I48.11 - Longstanding persistent atrial fibrillation - Plan has multiple medical issues with very poor prognosis renal function is almost at baseline, has 25lb weight gain this admission, got alb infusions 11/05, off iv fluids due to increasing edema d/w . D/w with extensively 11/05, 11/06, 11/07, 11/08, 11/09, 11/10 she just wants to keep him alive with whatever it takes. She is aware of current issues and poor prognosis. is hopeful he will recover, he was apparently talking and was mobilizing a bit in May of this year. has contractures of extremities in addition to dupyuntren's, bed bound, peg feeds, likely multiple cva and deconditioning with now functional quadriplegia, moves only right UE a bit. is on digoxin, lopressor 50mg tid, cardizem 60mg tid, aspirin, nebs, flomax, lantus, reglan. Off prednisone from 11/05. appreciate cardiology f/u does not entertain the very idea of comfort measures/code status given his current condition. is to him for 35yrs, they have no children per . They moved to this area around a year and half back. 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 I tried to call his sister Mrs.Sine Garcia (nurse) in [facility], [place] home [phone] , cell [phone] on 11/07 and 11/08, couldn't talk and I have not left any message. This was done at the request of who is also the POA PT to work on him on bed to prevent further contractures, decubitus prevention protocols are followed as well. afib with rvr is rate controlled with current meds. Has had decrease in edema in his Upper extremities including hands, still has scrotal edema with echymosis due to gen anasarca and low albumin. decrease free water intake to a total of 1 Liter/day, has total intake exceeding almost 4 lts now, one dose iv lasix.
[2019-11-12] MEDS: Loratadine 5 MG/5 ML UDCUP PER TUBE SCH (11:46)
--- NOTE | 2019-11-12 15:26 | PDOC.CPN ---
- Subjective Date: 11/12/19 Time: 15:22 Interval history: No new issues. More awake per intensive care specialist. - Review of Systems ROS unobtainable: due to mental status - Objective Allergies/Adverse Reactions: Allergies Allergy/AdvReac Type Severity Reaction Status Date / Time No Known Allergies Allergy Verified 03/22/19 13:51 Visit Medications: Current Medications Acetaminophen (Tylenol) 650 mg OR Q6H PRN PRN Reason: Fever > 101 or Mild Pain Last Admin: 11/02/19 08:30 Dose: 650 mg Acetaminophen (Tylenol Elixir) 650 mg PER TUBE Q6H PRN PRN Reason: Headache/Fever or Pain Last Admin: 11/11/19 18:15 Dose: 650 mg Acidophilus (Floranex) 1 gm PER TUBE DAILY [facility] Last Admin: 11/12/19 08:43 Dose: 1 gm Albuterol/Ipratropium (Duoneb) 3 ml NEB [id number] [facility] Last Admin: 11/12/19 10:46 Dose: 3 ml Lipase/Protease/[place]ylase ([place] [id number]) 1 cap FS .PER PROTOCOL PRN PRN Reason: TUBE OCCLUSION PROTOCOL Artificial Tears (Liquitears 15ml Bottle) 0 drop EA EYE PRN PRN PRN Reason: Dry Eyes Last Admin: 11/07/19 09:44 Dose: 2 drop Aspirin (Ecotrin) 81 mg PER TUBE DAILY [facility] Last Admin: 11/12/19 08:44 Dose: 81 mg Bisacodyl (Dulcolax) 10 mg OR Q8H [facility] Last Admin: 11/12/19 09:10 Dose: Not Given Dextrose/Water (Dextrose 50%) 25 gm SLOW IVP PRN PRN PRN Reason: Hypoglycemia Digoxin (Lanoxin) 0.125 mg PER TUBE DAILY [facility] Last Admin: 11/12/19 08:44 Dose: 0.125 mg Diltiazem HCl (Cardizem) 60 mg PO TID [facility] Last Admin: 11/12/19 08:45 Dose: 60 mg Glucagon (Glucagon) 1 mg IM PRN PRN PRN Reason: Hypoglycemia Guaifenesin (Robitussin Sf) 200 mg PER TUBE Q6HR [facility] Last Admin: 11/12/19 11:45 Dose: 200 mg Heparin Sodium (Porcine) (Heparin) 5,000 units SC BID [facility] Last Admin: 11/12/19 08:46 Dose: 5,000 units Hydralazine HCl (Apresoline) 10 mg SLOW IVP Q4H PRN PRN Reason: BP > 180/120 Dextrose/Water (D5w) 1,000 mls @ 0 mls/hr IV .Q0M PRN PRN Reason: Hypoglycemia Insulin Glargine 10 units/ (Miscellaneous Medication) 0.1 mls @ 0 mls/hr SC HS [facility] Last Admin: 11/11/19 20:50 Dose: 0.1 mls Levothyroxine Sodium (Synthroid) 50 mcg PER TUBE DAILY [facility] Last Admin: 11/12/19 08:45 Dose: 50 mcg Loratadine (Claritin Oral Solution) 5 mg PER TUBE 1200 [facility] Last Admin: 11/12/19 11:46 Dose: 5 mg Metoclopramide HCl (Reglan) 5 mg PER TUBE TID [facility] Last Admin: 11/12/19 08:45 Dose: 5 mg Metoprolol Tartrate (Lopressor) 50 mg PER TUBE TID [facility] Last Admin: 11/12/19 08:45 Dose: 50 mg Polyvinyl Alcohol/Povidone (Refresh Classic Eye Drops) 0 each EA EYE PRN PRN PRN Reason: Dry Eyes Scopolamine (Transderm Scop) 1.5 mg TOP Q3D [facility] Last Admin: 11/12/19 08:43 Dose: 1.5 mg Sodium Chloride (Flush - Normal Saline) 10 ml IVF Q12HR [facility] Last Admin: 11/12/19 08:46 Dose: 10 ml Sodium Chloride (Flush - Normal Saline) 10 ml IVF PRN PRN PRN Reason: Saline Flush Sterile Water (Bacteriostatic Water) 1 ml FS PRN PRN PRN Reason: RECONSTITUTION Last Admin: 10/29/19 21:10 Dose: 1 ml Tamsulosin HCl (Flomax) 0.4 mg PO DAILY [facility] Last Admin: 11/12/19 08:45 Dose: 0.4 mg Vital Signs & Weight: Vital Signs Temp Pulse Resp BP Pulse Ox 11/12/19 11:34 99.0 F 70 16 101/57 L 97 11/12/19 10:46 76 24 H 11/12/19 08:44 73 11/12/19 08:00 97.7 F 73 17 157/79 H 97 11/12/19 07:50 79 28 H 11/12/19 04:00 98.2 F 71 124/57 L 96 Admit Weight 185 lb 14.4 oz Weight 203 lb 14.4 oz - Physical Exam General: no apparent distress HEENT: normocephaly Neck: supple neck Cardiac: irregularly regular Lungs: normal breath sounds Abdomen: active bowel sounds Musculoskeletal: normal range of motion - Labs Result Diagrams: 11/12/19 03:57 11/12/19 03:57 Troponin/CKMB CK-MB (CK-2) 1.8 ng/mL (0-6.6) 10/24/19 21:48 Troponin I 0.070 ng/mL (< 0.028) H 10/24/19 21:48 - Telemetry Supraventricular conduction: atrial fibrillation - Assessment/Plan Assessment/Plan: 1. Atrial fibrilation, rate controlled. 2. Multiple CVA's in the pats 3. Dementia 4. Aphasia RORO on CKD, improved. PLAN: - Rate controlled. - Continue current meds.
[2019-11-12] MEDS: Insulin Glargine 10 UNITS in Pre-Filled Syringe 1 EACH SC SCH (20:35)
[2019-11-13 04:25] LABS: Anion Gap 13 mmol/L (10-20); BUN (Urea Nitrogen) 61 mg/dL (8.4-25.7); Calc. Creatinine Clearance 68 mL/min (70-130); Calcium 8.8 mg/dL (7.8-10.44); Carbon Dioxide 28 mmol/L (23-31); Chloride 112 mmol/L (98-107); Estimated GFR-MDRD 62; Glucose 129 mg/dL (83-110); Potassium 4.4 mmol/L (3.5-5.1); Sodium 149 mmol/L (136-145)
[2019-11-13] MEDS: Diabetic Tussin 200 MG/10 ML UDCUP PER TUBE SCH ×4 (05:05→23:24)
[2019-11-13 05:18] LABS: #Eosinphils 0.1 thou/uL (0.0-0.7); #Monocytes 0.4 thou/uL (0.11-0.59); #Neutrophils 8.2 thou/uL (1.40-6.50); %Basophils 0.1 % (0.0-1.0); %Eosinophils 1.4 % (0.0-10.0); %Lymphocytes 10.2 % (21.0-51.0); %Monocytes 4.1 % (0.0-10.0); %Neutrophils 84.2 % (42.0-75.0); Anisocytosis SLIGHT = 6-15 cells (100X) (0-5/hpf); Hemoglobin 9.2 g/dL (14.0-18.0); MDiff Complete? YES; Mean Corpuscular HGB CONC 30.9 g/dL (32.0-36.0); Mean Corpuscular Hemoglobin 31.1 pg (27.0-31.0); Mean Platelet Volume 9.3 fL (7.4-10.4); Platelet Count 179 thou/uL (130-400); RBC Distribution Width 18.4 % (11.5-14.5); Red Blood Cell (RBC) Count 2.96 mill/uL (4.70-6.10); White Blood Cell (WBC) Count 9.7 thou/uL (4.8-10.8)
[2019-11-13] MEDS: Digoxin 0.125 MG TAB PER TUBE SCH (08:55)
[2019-11-13] MEDS: Tamsulosin HCl 0.4 MG CAP PO SCH (08:55)
[2019-11-13] MEDS: Aspirin 81 mg Enteric Coated Tablet PER TUBE SCH (08:55)
[2019-11-13] MEDS: Levothyroxine Sodium 50 MCG TAB PER TUBE SCH (08:55)
[2019-11-13] MEDS: Metoclopramide HCl 10 MG TAB PER TUBE SCH ×3 (08:55→20:39)
[2019-11-13] MEDS: Bisacodyl 10 MG SUPP PR SCH ×3 (08:56→15:40)
[2019-11-13] MEDS: Heparin 5,000 UNITS/ML VIAL SC SCH ×2 (08:56→20:39)
[2019-11-13] MEDS: Metoprolol Tartrate 50 MG TAB PER TUBE SCH ×3 (08:56→20:40)
[2019-11-13] MEDS: Floranex Packet PER TUBE SCH (09:02)
--- NOTE | 2019-11-13 11:11 | PDOC.HOSPP ---
- Subjective Encounter Date: 11/13/19 Encounter Time: 10:00 Subjective: had a bath this am not in distress - Objective Vital Signs & Weight: Vital Signs (12 hours) Temp Pulse Resp BP Pulse Ox 11/13/19 08:55 85 11/13/19 07:49 85 24 H 11/13/19 07:44 95 11/13/19 07:36 96.2 F L 97 18 154/90 H 95 11/13/19 04:00 99.2 F 81 30 H 143/65 H 92 L 11/13/19 03:18 94 L 11/12/19 23:48 98.2 F 67 138/66 100 11/12/19 23:20 94 L Weight Admit Weight 185 lb 14.4 oz Weight 202 lb 9.6 oz Most Recent Monitor Data Heart Rate from ECG 106 NIBP 126/97 NIBP BP-Mean 106 Respiration from ECG 20 SpO2 91 I&O: 11/12/19 11/13/19 11/14/19 06:59 06:59 06:59 Intake Total 4065 2837 200 Output Total 1400 3100 Balance 2665 -263 200 Result Diagrams: 11/13/19 03:32 11/13/19 03:32 Additional Labs: Accuchecks 11/12/19 20:44 POC Glucose 186 H Hospitalist ROS - Medication Medications: Active Medications Generic Name Dose Route Start Last Admin Trade Name Freq PRN Reason Stop Dose Admin Acetaminophen 650 mg 10/24/19 22:36 11/02/19 08:30 Tylenol CO 650 mg Q6H PRN Administration Fever > 101 or Mild Pain Acetaminophen 650 mg 11/06/19 14:53 11/11/19 18:15 Tylenol Elixir PER TUBE 650 mg Q6H PRN Administration Headache/Fever or Pain Acidophilus 1 gm 10/25/19 09:00 11/13/19 09:02 Floranex PER TUBE 1 gm DAILY HERIBERTO Administration Albuterol/Ipratropium 3 ml 10/25/19 10:30 11/13/19 07:49 Duoneb NEB 3 ml [id number] HERIBERTO Administration Artificial Tears 0 drop 11/06/19 16:31 11/07/19 09:44 Liquitears 15ml Bottle EA EYE 2 drop PRN PRN Administration Dry Eyes Aspirin 81 mg 10/25/19 09:00 11/13/19 08:55 Ecotrin PER TUBE 81 mg DAILY HERIBERTO Administration Bisacodyl 10 mg 11/03/19 09:00 11/13/19 08:56 Dulcolax CO Not Given Q8H HERIBERTO Digoxin 0.125 mg 11/11/19 09:00 11/13/19 08:55 Lanoxin PER TUBE 0.125 mg DAILY HERIBERTO Administration Diltiazem HCl 60 mg 11/09/19 09:00 11/13/19 08:56 Cardizem PO 60 mg TID HERIBERTO Administration Guaifenesin 200 mg 11/03/19 18:00 11/13/19 05:05 Robitussin Sf PER TUBE 200 mg Q6HR HERIBERTO Administration Heparin Sodium (Porcine) 5,000 units 10/25/19 21:00 11/13/19 08:56 Heparin SC 5,000 units BID HERIBERTO Administration Insulin Glargine 10 units/ 0.1 mls @ 0 mls/hr 11/04/19 21:00 11/12/19 20:35 Miscellaneous Medication SC 0.1 mls HS HERIBERTO Administration Levothyroxine Sodium 50 mcg 10/25/19 09:00 11/13/19 08:55 Synthroid PER TUBE 50 mcg DAILY HERIBERTO Administration Loratadine 5 mg 11/04/19 12:00 11/12/19 11:46 Claritin Oral Solution PER TUBE 5 mg 1200 HERIBERTO Administration Metoclopramide HCl 5 mg 11/02/19 09:00 11/13/19 08:55 Reglan PER TUBE 5 mg TID HERIBERTO Administration Metoprolol Tartrate 50 mg 10/28/19 15:00 11/13/19 08:56 Lopressor PER TUBE 50 mg TID HERIBERTO Administration Scopolamine 1.5 mg 10/25/19 09:00 11/12/19 08:43 Transderm Scop TOP 1.5 mg Q3D HERIBERTO Administration Sodium Chloride 10 ml 10/25/19 09:00 11/13/19 08:57 Flush - Normal Saline IVF 10 ml Q12HR HERIBERTO Administration Sterile Water 1 ml 10/25/19 09:13 10/29/19 21:10 Bacteriostatic Water FS 1 ml PRN PRN Administration RECONSTITUTION Tamsulosin HCl 0.4 mg 10/25/19 09:00 11/13/19 08:55 Flomax PO 0.4 mg DAILY HERIBERTO Administration - Exam General Appearance: awake alert, ill appearing Eye: PERRL, anicteric sclera ENT: no oropharyngeal lesions, dry oral mucosa Neck: supple, no JVD Heart: no murmur, irregular Respiratory: no wheezes, no rales Gastrointestinal: soft, non-distended, normal bowel sounds Gastrointestinal - other findings: peg+ Extremities: no cyanosis, 1+ LE edema Neurological - other findings: quadriparesis except right UE Hosp A/P (1) RORO (acute kidney injury) Code(s): N17.9 - ACUTE KIDNEY FAILURE, UNSPECIFIED Status: Acute (2) Aspiration pneumonia Code(s): J69.0 - PNEUMONITIS DUE TO INHALATION OF FOOD AND VOMIT Status: Acute Qualifiers: Aspiration pneumonia type: due to regurgitated food Laterality: bilateral (3) Dysphagia Code(s): R13.10 - DYSPHAGIA, UNSPECIFIED Status: Chronic Qualifiers: Dysphagia type: unspecified Qualified Code(s): R13.10 - Dysphagia, unspecified (4) HTN (hypertension) Code(s): I10 - ESSENTIAL (PRIMARY) HYPERTENSION Status: Chronic Qualifiers: Hypertension type: essential hypertension Qualified Code(s): I10 - Essential (primary) hypertension (5) Anemia, normocytic normochromic Code(s): D64.9 - ANEMIA, UNSPECIFIED Status: Chronic (6) CKD (chronic kidney disease) stage 3, GFR 30-59 ml/min Code(s): N18.3 - CHRONIC KIDNEY DISEASE, STAGE 3 (MODERATE) Status: Chronic (7) Dementia Code(s): F03.90 - UNSPECIFIED DEMENTIA WITHOUT BEHAVIORAL DISTURBANCE Status: Chronic Qualifiers: Dementia type: vascular dementia Dementia behavioral disturbance: without behavioral disturbance Qualified Code(s): F01.50 - Vascular dementia without behavioral disturbance (8) Hemiparesis and other late effects of cerebrovascular accident Code(s): I69.359 - HEMIPLGA FOLLOWING CEREBRAL INFARCTION AFFECTING UNSP SIDE; I69.398 - OTHER SEQUELAE OF CEREBRAL INFARCTION Status: Chronic (9) Hypothyroidism Code(s): E03.9 - HYPOTHYROIDISM, UNSPECIFIED Status: Chronic Qualifiers: Hypothyroidism type: unspecified Qualified Code(s): E03.9 - Hypothyroidism , unspecified (10) Physical deconditioning Code(s): R53.81 - OTHER MALAISE Status: Chronic (11) Protein-calorie malnutrition, severe Code(s): E43 - UNSPECIFIED SEVERE PROTEIN-CALORIE MALNUTRITION Status: Chronic (12) FTT (failure to thrive) in adult Status: Chronic (13) Functional quadriplegia Code(s): R53.2 - FUNCTIONAL QUADRIPLEGIA Status: Chronic (14) Afib Code(s): I48.91 - UNSPECIFIED ATRIAL FIBRILLATION Status: Acute Qualifiers: Atrial fibrillation type: longstanding persistent Qualified Code(s): I48.11 - Longstanding persistent atrial fibrillation - Plan has multiple medical issues with very poor prognosis renal function is almost at baseline, has 25lb weight gain this admission, got alb infusions 11/05, off iv fluids due to increasing edema d/w . D/w with extensively 11/05, 11/06, 11/07, 11/08, 11/09, 11/10 she just wants to keep him alive with whatever it takes. She is aware of current issues and poor prognosis. is hopeful he will recover, he was apparently talking and was mobilizing a bit in May of this year. has contractures of extremities in addition to dupyuntren's, bed bound, peg feeds, likely multiple cva and deconditioning with now functional quadriplegia, moves only right UE a bit. is on digoxin, lopressor 50mg tid, cardizem 60mg tid, aspirin, nebs, flomax, lantus, reglan. Off prednisone from 11/05. appreciate cardiology f/u does not entertain the very idea of comfort measures/code status given his current condition. is to him for 35yrs, they have no children per . They moved to this area around a year and half back. 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 I tried to call his sister Mrs.Sine Garcia (nurse) in [facility], [place] home [phone] , cell [phone] on 11/07 and 11/08, couldn't talk and I have not left any message. This was done at the request of who is also the POA PT to work on him on bed to prevent further contractures, decubitus prevention protocols are followed as well. afib with rvr is rate controlled with current meds. Has had decrease in edema in his Upper extremities including hands, still has scrotal edema with echymosis due to gen anasarca and low albumin. decrease free water intake to a total of 1 Liter/day. dc plan in am to [facility]
[2019-11-13] MEDS ORDERED: Fluconazole 100 MG TAB PO SCH (11:18)
[2019-11-13] MEDS: Loratadine 5 MG/5 ML UDCUP PER TUBE SCH (12:43)
[2019-11-13] MEDS: Insulin Glargine 10 UNITS in Pre-Filled Syringe 1 EACH SC SCH (20:38)
[2019-11-13] MEDS: Acetaminophen 650 MG/20.3 ML UDCUP PER TUBE PRN (20:40)
[2019-11-14] MEDS: Bisacodyl 10 MG SUPP PR SCH ×3 (00:26→16:08)
[2019-11-14] MEDS: Diabetic Tussin 200 MG/10 ML UDCUP PER TUBE SCH ×2 (05:29→12:12)
[2019-11-14 06:12] LABS: Anion Gap 17 mmol/L (10-20); BUN (Urea Nitrogen) 62 mg/dL (8.4-25.7); Calc. Creatinine Clearance 68 mL/min (70-130); Calcium 8.4 mg/dL (7.8-10.44); Carbon Dioxide 23 mmol/L (23-31); Chloride 114 mmol/L (98-107); Estimated GFR-MDRD 62; Glucose 168 mg/dL (83-110); Potassium 4.6 mmol/L (3.5-5.1); Sodium 149 mmol/L (136-145)
[2019-11-14 06:35] LABS: Band 1 % (5-11); Eosinophils 2 % (0-10); Hemoglobin 9.3 g/dL (14.0-18.0); Lymphocytes 5 % (21-51); MDiff Complete? YES; Mean Corpuscular HGB CONC 31.6 g/dL (32.0-36.0); Mean Platelet Volume 9.2 fL (7.4-10.4); Monocytes 6 % (0-10); Myelocyte 1 % (0-0); Neutrophil 85 % (42-75); Platelet Count 175 thou/uL (130-400); Polychromasia SLIGHT = 2-3 cells (100X) (0-2/hpf); RBC Distribution Width 18.7 % (11.5-14.5); Red Blood Cell (RBC) Count 2.92 mill/uL (4.70-6.10); White Blood Cell (WBC) Count 8.9 thou/uL (4.8-10.8)
[2019-11-14 08:27] LABS: Troponin I 0.078 ng/mL (< 0.028)
[2019-11-14] MEDS ORDERED: Fluconazole 100 MG TAB PO SCH (09:00)
[2019-11-14] MEDS: Aspirin 81 mg Enteric Coated Tablet PER TUBE SCH (09:24)
[2019-11-14] MEDS: Digoxin 0.125 MG TAB PER TUBE SCH (09:24)
[2019-11-14] MEDS: Metoclopramide HCl 10 MG TAB PER TUBE SCH ×2 (09:26→15:33)
[2019-11-14] MEDS: Heparin 5,000 UNITS/ML VIAL SC SCH (09:26)
[2019-11-14] MEDS: Levothyroxine Sodium 50 MCG TAB PER TUBE SCH (09:26)
[2019-11-14] MEDS: Tamsulosin HCl 0.4 MG CAP PO SCH (09:27)
[2019-11-14] MEDS: Metoprolol Tartrate 50 MG TAB PER TUBE SCH ×2 (09:27→15:33)
[2019-11-14] MEDS ORDERED: Sodium Chloride 0.9% 500 ML IV SCH (09:30)
[2019-11-14] MEDS: Floranex Packet PER TUBE SCH (09:33)
--- NOTE | 2019-11-14 09:50 | RAD ---
CHEST 1 VIEW: Date: 11/14/2019 HISTORY: Code. COMPARISON: 11/09/2019 exam. FINDINGS: Heart size is enlarged. There are atherosclerotic changes of the aorta. Pleural and parenchymal lung changes are similar to the previous exam. No new process identified. IMPRESSION: Stable exam. POS: OFF
--- NOTE | 2019-11-14 11:36 | PDOC.HOSPP ---
- Subjective Encounter Date: 11/14/19 Encounter Time: 11:00 Subjective: had an episode of resp distress this am, is settling down now - Objective Vital Signs & Weight: Vital Signs (12 hours) Temp Pulse Pulse Resp Resp BP BP 11/14/19 10:53 70 18 11/14/19 07:43 89 20 11/14/19 07:36 95 20 141/67 H 11/14/19 07:23 97.6 F 85 32 H 151/74 H 11/14/19 07:18 97.6 F 90 32 H 151/74 H 11/14/19 04:17 98.8 F 77 26 H 140/69 11/14/19 03:30 11/13/19 23:43 Pulse Ox Pulse Ox 11/14/19 10:53 11/14/19 07:43 11/14/19 07:36 96 11/14/19 07:23 86 L 11/14/19 07:18 86 L 11/14/19 04:17 93 L 11/14/19 03:30 95 11/13/19 23:43 95 Weight Admit Weight 185 lb 14.4 oz Weight 202 lb Most Recent Monitor Data Heart Rate from ECG 106 NIBP 126/97 NIBP BP-Mean 106 Respiration from ECG 20 SpO2 91 I&O: 11/13/19 11/14/19 11/15/19 06:59 06:59 06:59 Intake Total 2837 2145 200 Output Total 3100 1550 Balance -263 595 200 Result Diagrams: 11/14/19 04:23 11/14/19 04:23 Additional Labs: Accuchecks 11/14/19 07:44 POC Glucose 197 H Hospitalist ROS - Medication Medications: Active Medications Generic Name Dose Route Start Last Admin Trade Name Freq PRN Reason Stop Dose Admin Acetaminophen 650 mg 10/24/19 22:36 11/02/19 08:30 Tylenol [place] 650 mg Q6H PRN Administration Fever > 101 or Mild Pain Acetaminophen 650 mg 11/06/19 14:53 11/13/19 20:40 Tylenol Elixir PER TUBE 650 mg Q6H PRN Administration Headache/Fever or Pain Acidophilus 1 gm 10/25/19 09:00 11/14/19 09:33 Floranex PER TUBE 1 gm DAILY HERIBERTO Administration Albuterol/Ipratropium 3 ml 10/25/19 10:30 11/14/19 10:53 Duoneb NEB 3 ml [id number] HERIBERTO Administration Artificial Tears 0 drop 11/06/19 16:31 11/07/19 09:44 Liquitears 15ml Bottle EA EYE 2 drop PRN PRN Administration Dry Eyes Aspirin 81 mg 10/25/19 09:00 11/14/19 09:24 Ecotrin PER TUBE 81 mg DAILY HERIBERTO Administration Bisacodyl 10 mg 11/03/19 09:00 11/14/19 09:22 Dulcolax [place] Not Given Q8H HERIBERTO Digoxin 0.125 mg 11/11/19 09:00 11/14/19 09:24 Lanoxin PER TUBE 0.125 mg DAILY HERIBERTO Administration Diltiazem HCl 60 mg 11/09/19 09:00 11/14/19 09:25 Cardizem PO 60 mg TID HERIBERTO Administration Fluconazole 100 mg 11/14/19 09:00 11/14/19 09:25 Diflucan PO 11/16/19 09:01 100 mg DAILY HERIBERTO Administration Guaifenesin 200 mg 11/03/19 18:00 11/14/19 05:29 Robitussin Sf PER TUBE 200 mg Q6HR HERIBERTO Administration Heparin Sodium (Porcine) 5,000 units 10/25/19 21:00 11/14/19 09:26 Heparin SC 5,000 units BID HERIBERTO Administration Insulin Glargine 10 units/ 0.1 mls @ 0 mls/hr 11/04/19 21:00 11/13/19 20:38 Miscellaneous Medication SC 0.1 mls HS HERIBERTO Administration Levothyroxine Sodium 50 mcg 10/25/19 09:00 11/14/19 09:26 Synthroid PER TUBE 50 mcg DAILY HERIBERTO Administration Loratadine 5 mg 11/04/19 12:00 11/13/19 12:43 Claritin Oral Solution PER TUBE 5 mg 1200 HERIBERTO Administration Metoclopramide HCl 5 mg 11/02/19 09:00 11/14/19 09:26 Reglan PER TUBE 5 mg TID HERIBERTO Administration Metoprolol Tartrate 50 mg 10/28/19 15:00 11/14/19 09:27 Lopressor PER TUBE 50 mg TID HERIBERTO Administration Scopolamine 1.5 mg 10/25/19 09:00 11/12/19 08:43 Transderm Scop TOP 1.5 mg Q3D HERIBERTO Administration Sodium Chloride 10 ml 10/25/19 09:00 11/13/19 20:56 Flush - Normal Saline IVF 10 ml Q12HR HERIBERTO Administration Sterile Water 1 ml 10/25/19 09:13 10/29/19 21:10 Bacteriostatic Water FS 1 ml PRN PRN Administration RECONSTITUTION Tamsulosin HCl 0.4 mg 10/25/19 09:00 11/14/19 09:27 Flomax PO 0.4 mg DAILY HERIBERTO Administration - Exam General Appearance: ill appearing Eye: anicteric sclera ENT: normocephalic atraumatic, dry oral mucosa Neck: supple, no JVD Heart: no murmur, irregular Respiratory: no wheezes, no rales, rhonchi, tachypneic Gastrointestinal: soft, non-tender, normal bowel sounds Gastrointestinal - other findings: peg+ Extremities: no cyanosis, no edema Neurological - other findings: quadriparesis+ Hosp A/P (1) RORO (acute kidney injury) Code(s): N17.9 - ACUTE KIDNEY FAILURE, UNSPECIFIED Status: Acute (2) Aspiration pneumonia Code(s): J69.0 - PNEUMONITIS DUE TO INHALATION OF FOOD AND VOMIT Status: Acute Qualifiers: Aspiration pneumonia type: due to regurgitated food Laterality: bilateral (3) Dysphagia Code(s): R13.10 - DYSPHAGIA, UNSPECIFIED Status: Chronic Qualifiers: Dysphagia type: unspecified Qualified Code(s): R13.10 - Dysphagia, unspecified (4) HTN (hypertension) Code(s): I10 - ESSENTIAL (PRIMARY) HYPERTENSION Status: Chronic Qualifiers: Hypertension type: essential hypertension Qualified Code(s): I10 - Essential (primary) hypertension (5) Anemia, normocytic normochromic Code(s): D64.9 - ANEMIA, UNSPECIFIED Status: Chronic (6) CKD (chronic kidney disease) stage 3, GFR 30-59 ml/min Code(s): N18.3 - CHRONIC KIDNEY DISEASE, STAGE 3 (MODERATE) Status: Chronic (7) Dementia Code(s): F03.90 - UNSPECIFIED DEMENTIA WITHOUT BEHAVIORAL DISTURBANCE Status: Chronic Qualifiers: Dementia type: vascular dementia Dementia behavioral disturbance: without behavioral disturbance Qualified Code(s): F01.50 - Vascular dementia without behavioral disturbance (8) Hemiparesis and other late effects of cerebrovascular accident Code(s): I69.359 - HEMIPLGA FOLLOWING CEREBRAL INFARCTION AFFECTING UNSP SIDE; I69.398 - OTHER SEQUELAE OF CEREBRAL INFARCTION Status: Chronic (9) Hypothyroidism Code(s): E03.9 - HYPOTHYROIDISM, UNSPECIFIED Status: Chronic Qualifiers: Hypothyroidism type: unspecified Qualified Code(s): E03.9 - Hypothyroidism , unspecified (10) Physical deconditioning Code(s): R53.81 - OTHER MALAISE Status: Chronic (11) Protein-calorie malnutrition, severe Code(s): E43 - UNSPECIFIED SEVERE PROTEIN-CALORIE MALNUTRITION Status: Chronic (12) FTT (failure to thrive) in adult Status: Chronic (13) Functional quadriplegia Code(s): R53.2 - FUNCTIONAL QUADRIPLEGIA Status: Chronic (14) Afib Code(s): I48.91 - UNSPECIFIED ATRIAL FIBRILLATION Status: Acute Qualifiers: Atrial fibrillation type: longstanding persistent Qualified Code(s): I48.11 - Longstanding persistent atrial fibrillation - Plan recurrent aspiration with code green this am, d/w at bedside, will re- evaluate around 1 pm to see if he can dc to snf. has multiple medical issues with very poor prognosis renal function is almost at baseline, has 25lb weight gain this admission, got alb infusions 11/05, off iv fluids due to increasing edema d/w . D/w with extensively 11/05, 11/06, 11/07, 11/08, 11/09, 11/10 she just wants to keep him alive with whatever it takes. She is aware of current issues and poor prognosis. is hopeful he will recover, he was apparently talking and was mobilizing a bit in May of this year. has contractures of extremities in addition to dupyuntren's, bed bound, peg feeds, likely multiple cva and deconditioning with now functional quadriplegia, moves only right UE a bit. is on digoxin, lopressor 50mg tid, cardizem 60mg tid, aspirin, nebs, flomax, lantus, reglan. Off prednisone from 11/05. appreciate cardiology f/u does not entertain the very idea of comfort measures/code status given his current condition. is to him for 35yrs, they have no children per . They moved to this area around a year and half back. 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 I tried to call his sister Mrs.Sine Garcia (nurse) in [facility] home [phone] , cell [phone] on 11/07 and 11/08, couldn't talk and I have not left any message. This was done at the request of who is also the POA PT to work on him on bed to prevent further contractures, decubitus prevention protocols are followed as well. afib with rvr is rate controlled with current meds. Has had decrease in edema in his Upper extremities including hands, still has scrotal edema with echymosis due to gen anasarca and low albumin. decrease free water intake to a total of 1 Liter/day. dc plan in am to [facility]
[2019-11-14] MEDS: Loratadine 5 MG/5 ML UDCUP PER TUBE SCH (12:12)
[2019-11-14 13:27] VITALS: BMI 28.1
--- NOTE | 2019-11-14 15:01 | DIS ---
DATE OF ADMISSION: 10/24/2019 DATE OF DISCHARGE: 11/14/2019 DISCHARGE DISPOSITION: [facility]. PRIMARY DISCHARGE DIAGNOSES: Aspiration pneumonia; acute kidney injury; atrial fibrillation with rapid ventricular response, which is rate controlled; chronic dysphagia; functional quadriparesis with the patient barely moving his right upper extremity; chronic anemia; history of chronic kidney disease, stage 3; dementia, likely vascular with acute prior cerebrovascular accident; hypothyroidism; severe physical deconditioning; [id number] protein calorie malnutrition; failure to thrive. PROCEDURES DONE DURING HOSPITALIZATION: Chest x-ray done on the day of admission showed bilateral infiltrate. Blood cultures 1 of 2 grew coag-negative Staphylococcus, likely contaminant. Urine culture on 10/26/2019 grew presumptive Anushka albicans. H and H 9 and 29, platelet count 175, MCV is 101, white count of 8.9 on the day of discharge. Discharge BUN and creatinine are 62 and 1.1. Discharge sodium is 149. Discharge BNP is 293. Albumin is 3.0. He had a BUN and creatinine of 115 and 2.3 on 11/06/2019. Digoxin levels were 1.20 on 2019. COVID-19 PCR was not detected on 10/24/2019. DISCHARGE MEDICATIONS: 1. Synthroid 50 mcg p.o. daily. 2. Multivitamin one tablet once daily. 3. MiraLAX 17 g p.o. daily. 4. Aspirin 81 mg p.o. daily. 5. Digoxin 0.125 mg p.o. daily. 6. Cardizem 60 mg p.o. 3 times daily. 7. Ferrous sulfate 300 mg p.o. daily. 8. Diflucan 100 mg p.o. daily for another 2 days. 9. Lantus 10 units subcu at bedtime. 10. DuoNebs q.4 hourly p.r.n. 11. Reglan 5 mg 3 times daily p.r.n. for increased residual. 12. Lopressor 50 mg p.o. 3 times daily. 13. Protonix 40 mg p.o. twice daily. 14. Scopolamine transdermal patch 1.5 mg topical q.72 hourly. 15. Senokot-S 2 tablets twice daily. 16. Flomax 0.4 mg p.o. daily. ALLERGIES: NO KNOWN DRUG ALLERGIES. INPATIENT CONSULTS: Dr. Cummins for Pulmonology and Dr. Garcia for Cardiology. DISCHARGE PLAN: The patient is to follow up with [facility] 1 week. BRIEF COURSE DURING HOSPITALIZATION: The patient initially was sent over from [facility] on 10/24/2019 for worsening shortness of breath. The patient was intubated for airway with findings suggestive of possible aspiration pneumonia. He has functional quadriparesis with prior history of multiple CVA and contractures of almost all extremities except moving his right upper extremity. The patient was admitted to ICU. He was also suspected to have sepsis. He was on IV antibiotics and was transitioned to oral antibiotics, which has been discontinued at the time of discharge. He was successfully extubated and was downgraded to telemetry. The patient had underlying atrial fibrillation and had RVR. This was difficult to control initially. He was on amiodarone along with Lopressor 3 times daily. Later, plain Cardizem was added and was escalated to 60 mg 3 times daily. Despite this, the patient was still in RVR. In view of this, his amiodarone was discontinued and digoxin was initiated. He had volume overload with CHF exacerbation and diastolic dysfunction, for which Mr. Garcia has had gentle diuresis done. This caused his renal function to get worse. He has baseline chronic kidney disease, stage 3. He was gently hydrated to correct this. The patient has multiple comorbid medical conditions as mentioned above and very poor functional status with the patient being bed-bound with contractures in all 3 extremities with barely moving right upper extremity. He is also at risk for recurrent aspiration due to dysphagia and PEG feeding. Multiple discussions were held with the patient's and power of assistant attorney general with regard to comfort measures or palliative care, but is not consented for any of this and wanted aggressive measures to be taken. He has had prolonged stay in the hospital for correction of all the above mentioned factors. His overall prognosis is very poor and he is a high risk for recurrent hospitalization. I have given complete updates to accepting physician at the [facility] in [facility]. Please note, I have seen and examined the patient on the day of discharge. A total of 35 minutes was spent on discharge plan. Job ID: [id number] [id number]
[2019-11-14 15:21] VITALS: BP 131/62; TEMP 99
== END 2019-11-14 16:16 | DRG 870 ==
LOC: ERS 19:54 → CCU 20:26 → 2NO 11-02 19:39
PROVIDERS: ADMIT Internal Medicine; ATTEND Internal Medicine
PROC: 5A1955Z Respiratory Ventilation, Greater than 96 Consecutive Hours (ICD-10-PCS; principal; 2019-10-24)
PROC: 02HV33Z Insertion of Infusion Device into Superior Vena Cava, Percutaneous Approach (ICD-10-PCS; 2019-10-24)
PROC: 0BH17EZ Insertion of Endotracheal Airway into Trachea, Via Natural or Artificial Opening (ICD-10-PCS; 2019-10-24)
PROC: 3E033XZ Introduction of Vasopressor into Peripheral Vein, Percutaneous Approach (ICD-10-PCS; 2019-10-24)
PROC: 0BP1XDZ Removal of Intraluminal Device from Trachea, External Approach (ICD-10-PCS; 2019-11-01)
PROC: 0T2BX0Z Change Drainage Device in Bladder, External Approach (ICD-10-PCS; 2019-11-02)
PROC: 0D20XUZ Change Feeding Device in Upper Intestinal Tract, External Approach (ICD-10-PCS; 2019-11-08)
DX: A41.9 Sepsis, unspecified organism (principal); J69.0 Pneumonitis due to inhalation of food and vomit; R53.2 Functional quadriplegia; I50.33 Acute on chronic diastolic (congestive) heart failure; E43 Unspecified severe protein-calorie malnutrition; J96.01 Acute respiratory failure with hypoxia; N39.0 Urinary tract infection, site not specified; E87.2 Acidosis; N17.9 Acute kidney failure, unspecified; E87.0 Hyperosmolality and hypernatremia; I48.11 Longstanding persistent atrial fibrillation; Z51.5 Encounter for palliative care; Z20.828 Contact with and (suspected) exposure to other viral communicable diseases; D63.1 Anemia in chronic kidney disease; R65.20 Severe sepsis without septic shock; N18.3 Chronic kidney disease, stage 3 (moderate); F01.50 Vascular dementia, unspecified severity, without behavioral disturbance, psychotic disturbance, mood disturbance, and anxiety; E03.9 Hypothyroidism, unspecified; N40.0 Benign prostatic hyperplasia without lower urinary tract symptoms; D75.1 Secondary polycythemia; E78.00 Pure hypercholesterolemia, unspecified; R13.10 Dysphagia, unspecified; I48.0 Paroxysmal atrial fibrillation; I69.920 Aphasia following unspecified cerebrovascular disease; Z74.01 Bed confinement status; Z79.01 Long term (current) use of anticoagulants; Z79.899 Other long term (current) drug therapy; Z79.51 Long term (current) use of inhaled steroids; Z79.890 Hormone replacement therapy; Z78.1 Physical restraint status; Z87.891 Personal history of nicotine dependence; Z68.28 Body mass index [BMI] 28.0-28.9, adult; I69.991 Dysphagia following unspecified cerebrovascular disease
CPT/HCPCS: 31500; 36415; 36416; 36556; 36600; 51702; 71045; 74018; 80048; 80053; 80162; 80202; 81001; 81003; 81015; 82550; 82553; 82805; 83605; 83735; 83880; 84100; 84145; 84443; 84484; 85025; 85610; 85730; 87040; 87086; 93005; 93010; 94002; 94003; 94640; 96365; 96366; 96368; 96375; 96376; C9113; J0171; J0282; J0692; J1100; J1160; J1644; J1815; J1940; J2001; J2060; J2270; J2543; J2690; J2920; J3010; J3370; J3490; J7070; J7512; J7620; P9047; S0028; U0002